=== PATIENT | female | born 1970 | race Caucasian/White ===

== ENCOUNTER → 2020-05-22 09:37 | Outpatient (BNVA) | payer MEDICARE, SELFPAY | PROVIDERS: PCP Internal Medicine; Visit Provider Urology | DX: N28.1 Cyst of kidney, acquired (principal) | CPT/HCPCS: Q3014 ==

== ENCOUNTER 2020-07-09 10:42 | Outpatient (REF) | payer MEDICARE, SELFPAY ==
[2020-07-09 12:22] LABS: Alanine Aminotransferase 8 U/L (0-31); Anion Gap 9 (12-20); Aspartate Amino Transferase 12 U/L (5-31); Blood Urea Nitrogen 11 mg/dL (9-16); Calcium 9.4 mg/dL (8.4-10.2); Carbon Dioxide 30 mmol/L (22-29); Chloride 108 mmol/L (96-108); Cholesterol 241 mg/dL; Estimated Glomerular Filt Rate > 60; Glucose Fasting 91 mg/dL (60-99); HDL Cholesterol 47 mg/dL; LDL Cholesterol Calculated 172 mg/dl; Potassium 4.3 mmol/L (3.3-5.1); Sodium 143 mmol/L (135-145); Triglycerides 113 mg/dL
[2020-07-09 12:32] LABS: Thyroid Stimulating Hormone 0.48 uIU/mL (0.32-4.0); Vitamin D 25-OH Total 21.8 ng/mL (>30)
== END 2020-07-09 10:43 | disposition home or self-care (01) ==
LOC: HO.HMGCLDS 10:42
PROVIDERS: PCP Internal Medicine; Visit Provider Internal Medicine
DX: Z00.01 Encounter for general adult medical examination with abnormal findings (principal); F41.8 Other specified anxiety disorders; R55 Syncope and collapse; E66.9 Obesity, unspecified; I10 Essential (primary) hypertension; E78.2 Mixed hyperlipidemia
CPT/HCPCS: 36415; 80048; 80061; 82306; 84443; 84450; 84460

== ENCOUNTER 2020-12-18 11:37 | Emergency (ER) | payer MEDICARE, SELFPAY ==
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
[2020-12-18 12:54] VITALS: BP 109/42; PULSE 64; RESP 18; TEMP 37.1; O2SAT 100; BMI 38.7
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
[2020-12-18 14:25] VITALS: BP 104/61; PULSE 67; RESP 16; TEMP 37.1; O2SAT 97
[2020-12-18] MEDS: oxyCODONE HCl Immed Release 5 MG TABLET PO (15:52)
== END 2020-12-18 15:55 | disposition home or self-care (01) ==
PROVIDERS: Emergency Provider Emergency Medicine; PCP Internal Medicine
DX: M25.521 Pain in right elbow (principal); M25.531 Pain in right wrist
CPT/HCPCS: 73080; 73090; 73110; 73130; 99284

== ENCOUNTER → 2020-12-19 10:01 | Outpatient (BNVA) | payer MEDICARE, SELFPAY | PROVIDERS: PCP Internal Medicine; Visit Provider Obstetrics & Gynecology ==

== ENCOUNTER 2021-01-24 07:24 | Outpatient (REF) | payer OTHER, SELFPAY ==
[2021-01-24 11:59] LABS: Alanine Aminotransferase 16 U/L (0-31); Aspartate Amino Transferase 16 U/L (5-31); Cholesterol 226 mg/dL; HDL Cholesterol 40 mg/dL; LDL Cholesterol Calculated 141 mg/dl; Triglycerides 226 mg/dL
[2021-01-24 12:07] LABS: Vitamin D 25-OH Total 28.9 ng/mL (>30)
== END 2021-01-24 07:25 | disposition home or self-care (01) ==
LOC: HO.HMGCLDS 07:24
PROVIDERS: PCP Internal Medicine; Visit Provider Internal Medicine
DX: E78.2 Mixed hyperlipidemia (principal); E66.09 Other obesity due to excess calories; E55.9 Vitamin D deficiency, unspecified; Z68.35 Body mass index [BMI] 35.0-35.9, adult
CPT/HCPCS: 36415; 80061; 82306; 84450; 84460

== ENCOUNTER 2021-01-25 19:22 | Emergency (ER) | payer OTHER, SELFPAY ==
[2021-01-25 19:54] VITALS: BP 105/51; PULSE 71; RESP 18; TEMP 37.1; O2SAT 99; BMI 35.7
[2021-01-25 20:28] LABS: IDNOW Serial# 08D9AD1C; Strep A Nucleic Acid Negative (Negative)
[2021-01-25] MEDS: Acetaminophen 325 MG TABLET 650 MG PO (21:58)
[2021-01-25 22:10] LABS: Influenza A PCR NEGATIVE (Negative); Influenza B PCR NEGATIVE (Negative); Resp Syncy Virus RNA Qual PCR NEGATIVE (Negative); SARS COV2 PCR INHOUSE NEGATIVE (Negative)
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
[2021-01-26 00:05] VITALS: BP 108/58; PULSE 72; RESP 20; O2SAT 99
== END 2021-01-26 00:20 | disposition home or self-care (01) ==
PROVIDERS: Emergency Provider Student in an Organized Health Care Education/Training Program; PCP Internal Medicine
DX: J02.9 Acute pharyngitis, unspecified (principal); H66.92 Otitis media, unspecified, left ear; Z20.822 Contact with and (suspected) exposure to COVID-19
CPT/HCPCS: 0241U; 36415; 87651; 99283

== ENCOUNTER 2021-03-06 08:28 | Outpatient (REF) | payer OTHER, SELFPAY ==
--- NOTE | ~2021-03-06 | MM_ITS ---
EXAMINATION: MM SCREENING DIGITAL BREAST TOMOSYNTHESIS, BILATERAL CLINICAL INFORMATION: Screening. Asymptomatic. Prior history reduction mammoplasty. The lifetime risk of breast cancer based on the Tyrer-Cuzick Model is 7%. COMPARISON: Mammography: 01/10/2020, 08/10/2018, outside mammography 03/10/2017 ([facility]) TECHNIQUE: Digital breast tomosynthesis is performed in both the craniocaudal and mediolateral oblique views along with computer-aided detection (CAD). Synthesized 2D images are generated from the tomosynthesis. FINDINGS: There are scattered areas of fibroglandular density (ACR BI-RADS breast composition Category b). Parenchymal pattern is similar to prior studies. There is an intramammary node again seen central left breast similar to prior studies. Neither breast shows interval mass or developing density or architectural abnormality. There is stable minor scarring and scattered benign round and rim and dermal calcifications consistent with the reduction mammoplasty. No significant changes. MM/MM tomosynthesis screening BI IMPRESSION: No mammographic evidence of malignancy. ASSESSMENT: BI-RADS 2: Benign RECOMMENDATION: Routine annual mammography screening. This patient's information was entered into a reminder system with a target due date for their next mammogram.
== END 2021-03-06 08:29 | disposition home or self-care (01) ==
LOC: HO.MAMMO 08:28
PROVIDERS: Visit Provider Obstetrics & Gynecology
DX: Z12.31 Encounter for screening mammogram for malignant neoplasm of breast (principal)
CPT/HCPCS: 77063; 77067

== ENCOUNTER 2021-05-13 11:18 | Outpatient (REF) | payer OTHER, SELFPAY ==
[2021-05-13 12:33] LABS: Hematocrit 40.5 % (37.0-47.0); Hemoglobin 13.4 g/dl (12.0-16.0); Mean Corpuscular HGB Conc 33.1 g/dl (31.0-35.0); Mean Corpuscular Hemoglobin 30.1 pg (27.0-33.0); Mean Platelet Volume 10.5 fL (9.4-12.3); Platelet Count 235 X10*3/uL (160-400); Red Blood Count 4.45 X10*6/uL (4.20-5.50); Red Cell Distribution Width 12.6 % (11.0-16.0); White Blood Count 8.2 X10*3/uL (4.8-10.8)
[2021-05-13 12:59] LABS: Alanine Aminotransferase 18 U/L (0-31); Albumin Level 4.2 g/dL (3.5-5.0); Alkaline Phosphatase 107 U/L (39-117); Anion Gap 13 (12-20); Aspartate Amino Transferase 16 U/L (5-31); Bilirubin Total 0.2 mg/dL (0.0-1.0); Blood Urea Nitrogen 14 mg/dL (9-16); Carbon Dioxide 25 mmol/L (22-29); Chloride 108 mmol/L (96-108); Estimated Glomerular Filt Rate > 60; Glucose Random 106 mg/dL (60-115); Potassium 3.9 mmol/L (3.3-5.1); Sodium 142 mmol/L (135-145); Total Protein 6.6 g/dL (6.5-8.0)
== END 2021-05-13 11:19 | disposition home or self-care (01) ==
LOC: HO.LAB 11:18
PROVIDERS: PCP Internal Medicine; Referring Provider Internal Medicine; Visit Provider Nurse Practitioner Family
DX: Z01.818 Encounter for other preprocedural examination (principal); K21.9 Gastro-esophageal reflux disease without esophagitis; K59.04 Chronic idiopathic constipation
CPT/HCPCS: 36415; 80053; 85027; 99202

== ENCOUNTER 2021-05-21 09:24 | Outpatient (REF) | payer OTHER, SELFPAY ==
--- NOTE | ~2021-05-21 | US_ITS ---
EXAMINATION: US RETROPERITONEAL LIMITED (RENAL ONLY) CLINICAL INFORMATION: Cyst of kidney, acquired. COMPARISON: None TECHNIQUE: Real-time imaging of the kidneys. FINDINGS: RIGHT KIDNEY: 11.5 x 7.1 x 6.3 cm (SAG x AP x TRV). The kidney is normal in size, contour, and echogenicity. Renal cortical thickness is normal. No calculi or focal parenchymal lesions. No hydronephrosis. LEFT KIDNEY: 11.8 x 5.2 x 6.8 cm (SAG x AP x TRV). The kidney is normal in size, contour, and echogenicity. Renal cortical thickness is normal. No calculi or focal parenchymal lesions. No hydronephrosis. US/US renal BI IMPRESSION: Normal renal ultrasound. No cyst seen.
== END 2021-05-21 09:25 | disposition home or self-care (01) ==
LOC: HO.US 09:24
PROVIDERS: PCP Internal Medicine; Visit Provider Urology
DX: N28.1 Cyst of kidney, acquired (principal)
CPT/HCPCS: 76775

== ENCOUNTER 2021-07-02 09:18 | Outpatient (REF) | payer OTHER, SELFPAY ==
[2021-07-02 12:06] LABS: Alanine Aminotransferase 12 U/L (0-31); Aspartate Amino Transferase 14 U/L (5-31); Cholesterol 255 mg/dL; HDL Cholesterol 42 mg/dL; LDL Cholesterol Calculated 168 mg/dl; Triglycerides 227 mg/dL
[2021-07-02 12:10] LABS: Vitamin D 25-OH Total 21.6 ng/mL (>30)
== END 2021-07-02 09:19 | disposition home or self-care (01) ==
LOC: HO.HMGCLDS 09:18
PROVIDERS: Visit Provider Internal Medicine
DX: E55.9 Vitamin D deficiency, unspecified (principal); E78.2 Mixed hyperlipidemia
CPT/HCPCS: 36415; 80061; 82306; 84450; 84460

== ENCOUNTER 2021-08-05 09:18 | Day surgery (SDC) | payer OTHER, SELFPAY ==
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
[2021-08-05 10:15] VITALS: BP 114/82; PULSE 59; RESP 16; TEMP 36.5; O2SAT 98; BMI 35.5
--- NOTE | 2021-08-05 10:28 | MHC.SHP ---
Pre-Procedural Eval Section A Date of Service: 08/05/21 The patient is an INPATIENT: No The History & Physical has been completed within 30 days and I have reviewed it.: No Section B Chief Complaint: screening Details of Present Illness: Colon cancer screening, FH of colon polyps Relevant Family History (Specify if Yes): Yes Relevant Social History: Tobacco Use Present Medications: see Short Stay Collaborative assessment Medical History: Significant History (Depression with anxiety Dysplasia of cervix, low grade (GIL 1) Hiatal hernia HPV test positive Lumbago with sciatica, right side Mixed dyslipidemia Obesity Renal cyst, left Right radial head fracture Syncope Vitamin D deficiency) History of Previous Operations: Relevant previous surgery/procedure and date(s) (H/O arthroscopy of right knee History of appendectomy History of section History of tubal ligation Status post breast reduction) Allergies: Allergies Allergy/AdvReac Type Severity Reaction Status Date / Time No Known Allergies Allergy Verified 07/10/21 09:56 Review of Systems Sugical H&P ROS: Negative: Constitution, Cardiovascular, Respiratory and Gastrointestinal Exam Surgical H&P Exam: Normal: Heart, Normal: Lungs, Normal: Extremities and Normal: Abdomen Plan Diagnosis/Plan: Unchanged I have reviewed the history and physical and performed a pertinent physical examination on my patient. No changes have occurred unless specified.
--- NOTE | 2021-08-05 10:30 | W.PM.OPN ---
Operative Note Operative Note Date of Service: 08/05/21 Narrative: Pre-op diagnosis: Colon cancer screening, family history of colon polyps Post-op diagnosis:?other (Colon polyps, diverticulosis) Procedure: COLONOSCOPY TILL CECUM WITH BIOPSIES Consent: Indications for the procedure and potential complications of bleeding, perforation, reaction to medications and missed diagnosis were discussed with the patient and informed consent was obtained. Instrument: Olympus PCF H 190 L variable stiffness pediatric colonoscope Monitoring: Vital signs and clinical assessment, intermittent blood pressure monitoring, continuous EKG monitoring, Pulse oximetry and Carbon Dioxide monitoring were done throughout the procedure. Colon withdrawl time was 20 minutes. Procedure: The patient was placed in the left lateral decubitis position and pre-procedure medications were administered. After a digital rectal examination of the ano-rectum, the video colonoscope was inserted into the rectum and advanced through the colon to the cecum. The colonoscope was slowly withdrawn in a retrograde panoramic fashion and the colon mucosa was carefully examined including a retroflexed view of the rectum. Findings and interventions are described below. Procedure Difficulty: Without difficulty Findings: Terminal Ileum: Not evaluated Cecum:? Normal Ascending Colon:? Normal Transverse Colon:? A 7-8 mm sessile polyp removed with a cold bx. Descending Colon:? Normal Sigmoid Colon:? Moderate diverticulosis Rectum:? A few 2-3 mm diminutive appearing polyps - 1 removed with cold biopsy Ano-rectum:? Normal Colon preparation:? Good after copious irrigation Impression and Post Procedure Diagnosis: Colonoscopy Findings: Two small polyps removed Moderate diverticulosis seen in the sigmoid colon Plan: Await pathology results Patient has an appointment on 08/19/21 in the GI Clinic with ? Cecilia Loera, [employer] HAND FINISHER-NATE. Repeat Colonoscopy interval based on path results - in 5 years if polyps are adenomatous and due to family history of colon polyps. Above findings were reviewed with the patient and colon polyps and diverticulosis handouts were given in the discharge area Surgeon: Terrie Ivey MD Anesthesia:?MAC (Dr Guerra) Was an Dinkey Motor Operator used for this Procedure?:?Yes Dinkey Motor Operator:?Sarah Balbuena Estimated blood loss (mL):?0 Pathology:?other (A. transverse colon polyp? B. rectal polyp) Condition:?stable Disposition:?PACU
[2021-08-05 11:18] VITALS: BP 99/58; PULSE 71; RESP 16; TEMP 36.9; O2SAT 99
[2021-08-05 11:33] VITALS: BP 98/50; PULSE 71; RESP 18; TEMP 36.7; O2SAT 100
== END 2021-08-05 12:25 | disposition home or self-care (01) ==
PROVIDERS: PCP Internal Medicine; Visit Provider Internal Medicine Gastroenterology
PROC: 0DJD8ZZ Inspection of Lower Intestinal Tract, Via Natural or Artificial Opening Endoscopic (ICD-10-PCS; CPT 45378; principal; 2021-08-05 10:50)
DX: Z12.11 Encounter for screening for malignant neoplasm of colon (principal); Z83.71 Family history of colonic polyps; D12.3 Benign neoplasm of transverse colon; K62.1 Rectal polyp; K57.30 Diverticulosis of large intestine without perforation or abscess without bleeding; K59.04 Chronic idiopathic constipation; K21.9 Gastro-esophageal reflux disease without esophagitis; R55 Syncope and collapse; K44.9 Diaphragmatic hernia without obstruction or gangrene; E78.5 Hyperlipidemia, unspecified; E55.9 Vitamin D deficiency, unspecified; N87.0 Mild cervical dysplasia; N28.1 Cyst of kidney, acquired; E66.9 Obesity, unspecified; Z68.34 Body mass index [BMI] 34.0-34.9, adult; F32.9 Major depressive disorder, single episode, unspecified; Z79.899 Other long term (current) drug therapy; F17.210 Nicotine dependence, cigarettes, uncomplicated
CPT/HCPCS: 45380; 88305

== ENCOUNTER → 2021-08-13 11:50 | Outpatient (BNVA) | payer OTHER, SELFPAY | PROVIDERS: PCP Internal Medicine | DX: N28.1 Cyst of kidney, acquired (principal) | CPT/HCPCS: Q3014 ==

== ENCOUNTER → 2021-08-19 13:08 | Outpatient (BNVA) | payer OTHER, SELFPAY | PROVIDERS: PCP Internal Medicine; Referring Provider Internal Medicine; Visit Provider Nurse Practitioner Family | DX: K59.04 Chronic idiopathic constipation (principal); K57.90 Diverticulosis of intestine, part unspecified, without perforation or abscess without bleeding; Z98.890 Other specified postprocedural states | CPT/HCPCS: 99212 ==

== ENCOUNTER → 2021-09-30 10:23 | Outpatient (BNVA) | payer OTHER, SELFPAY | PROVIDERS: PCP Internal Medicine; Referring Provider Internal Medicine; Visit Provider Physician Assistant Surgical | DX: Z13.89 Encounter for screening for other disorder (principal) ==

== ENCOUNTER → 2021-10-09 13:49 | Outpatient (BNVA) | payer OTHER, SELFPAY | PROVIDERS: PCP Internal Medicine; Referring Provider Internal Medicine; Visit Provider Physician Assistant Surgical | DX: E66.9 Obesity, unspecified (principal); Z68.35 Body mass index [BMI] 35.0-35.9, adult | CPT/HCPCS: 99202 ==

== ENCOUNTER 2021-10-16 07:18 | Outpatient (REF) | payer OTHER, SELFPAY ==
--- NOTE | ~2021-10-16 | XR_ITS ---
EXAMINATION: XR CHEST CLINICAL INFORMATION: Obesity. COMPARISON: None TECHNIQUE: 2 views of the chest were obtained. FINDINGS: Normal appearance of the cardiomediastinal silhouette. Minimal interstitial thickening. No focal airspace opacities, pleural effusions or pneumothorax. No acute osseous abnormalities. XR/XR chest 2V IMPRESSION: Minimal interstitial thickening which is nonspecific. No focal airspace opacities. No pleural effusions or pneumothorax.
[2021-10-16 07:38] LABS: MANUAL DIFF FLAG NO
--- NOTE | 2021-10-16 07:38 | ECG_ITS ---
Test Reason : e66.01 Blood Pressure : / mmHG Vent. Rate : 055 BPM Atrial Rate : 055 BPM P-R Int : 126 ms QRS Dur : 088 ms QT Int : 424 ms P-R-T Axes : 066 025 029 degrees QTc Int : 405 ms Sinus bradycardia Otherwise normal ECG No previous ECGs available Referred By: Darío Hensley Electronically Signed By:ISAC FRANCIS
[2021-10-16 07:58] LABS: Basophils Percent Auto 0.3 % (0-2); Eosinophils Absolute Auto 0.1 X10*3/uL (0.0-0.4); Eosinophils Percent Auto 1.2 % (0-4); Hematocrit 38.2 % (37.0-47.0); Hemoglobin 12.8 g/dl (12.0-16.0); Imm Gran Abs Auto 0.02 X10*3/uL (0.00-0.03); Imm Gran Pct Auto 0.3 % (0.0-0.4); Lymphocytes Absolute Auto 2.3 X10*3/uL (1.2-4.9); Lymphocytes Percent Auto 35.2 % (20-40); Mean Corpuscular HGB Conc 33.5 g/dl (31.0-35.0); Mean Corpuscular Hemoglobin 29.9 pg (27.0-33.0); Mean Corpuscular Volume 89.3 fL (80.0-98.0); Mean Platelet Volume 10.3 fL (9.4-12.3); Monocytes Absolute Auto 0.4 X10*3/uL (0.1-1.2); Monocytes Percent Auto 6.1 % (2-11); Neutrophils Absolute Auto 3.8 x10*3/uL (2.0-8.3); Neutrophils Percent Auto 56.9 % (45-73); Platelet Count 237 X10*3/uL (160-400); Red Blood Count 4.28 X10*6/uL (4.20-5.50); Red Cell Distribution Width 12.2 % (11.0-16.0); White Blood Count 6.6 X10*3/uL (4.8-10.8)
[2021-10-16 08:12] LABS: Estimated Average Glucose 100 mg/dL; Hemoglobin A1c % 5.1 %
[2021-10-16 08:24] LABS: Alanine Aminotransferase 24 U/L (0-31); Albumin Level 4.2 g/dL (3.5-5.0); Alkaline Phosphatase 96 U/L (39-117); Anion Gap 14 (12-20); Aspartate Amino Transferase 20 U/L (5-31); Bilirubin Total 0.7 mg/dL (0.0-1.0); Blood Urea Nitrogen 15 mg/dL (9-16); C Reactive Protein 1.39 mg/dL (< or = 0.50); Calcium 10.1 mg/dL (8.4-10.2); Carbon Dioxide 27 mmol/L (22-29); Chloride 107 mmol/L (96-108); Cholesterol 248 mg/dL; Estimated Glomerular Filt Rate > 60; Glucose Random 98 mg/dL (60-115); HDL Cholesterol 39 mg/dL; Iron 81 mcg/dL (30-160); LDL Cholesterol Calculated 178 mg/dl; Percent Iron Saturation 24 % (15-50); Potassium 4.1 mmol/L (3.3-5.1); Sodium 144 mmol/L (135-145); Total Iron Binding Capacity 333 mcg/dL (228-428); Total Protein 6.5 g/dL (6.5-8.0); Triglycerides 158 mg/dL; Unsaturated Iron Binding 252 ug/dL
[2021-10-16 08:30] LABS: Alanine Aminotransferase 24 U/L (0-31); Aspartate Amino Transferase 19 U/L (5-31)
[2021-10-16 08:40] LABS: Vitamin D 25-OH Total 55.4 ng/mL (>30)
[2021-10-16 08:56] LABS: Ferritin 131 ng/mL (10-250); TSH reflex Free T4 0.75 uIU/mL (0.32-4.0); Vitamin D 25-OH Total 56.2 ng/mL (>30)
[2021-10-16 09:26] LABS: Insulin 10 uU/mL (2-29)
[2021-10-16 13:37] LABS: Folate 16.2 ng/mL (> or = 4.0); Vitamin B12 343 pg/mL (200-900)
[2021-10-17 12:57] LABS: H Pylori Breath Test Negative (Negative)
[2021-10-17 13:14] LABS: Calcium (PTHI) 9.7 mg/dL (8.6-10.4); PTHI 80 pg/mL (16-77)
[2021-10-19 15:42] LABS: Zinc 82 mcg/dL (60-130)
[2021-10-22 15:51] LABS: Vitamin B1 6 nmol/L (8-30)
[2021-10-22 16:22] LABS: Vitamin A 46 mcg/dL (38-98)
== END 2021-10-16 07:19 | disposition home or self-care (01) ==
LOC: HO.LAB 07:18
PROVIDERS: Absent Provider Internal Medicine; PCP Internal Medicine; Visit Provider Physician Assistant Surgical
DX: E66.01 Morbid (severe) obesity due to excess calories (principal); E78.2 Mixed hyperlipidemia; E55.9 Vitamin D deficiency, unspecified; R00.1 Bradycardia, unspecified; Z11.0 Encounter for screening for intestinal infectious diseases
CPT/HCPCS: 36415; 71046; 80053; 80061; 82306; 82607; 82728; 82746; 83013; 83036; 83525; 83540; 83970; 84425; 84443; 84450; 84460; 84590; 84630; 85025; 86140; 93005; 99211

== ENCOUNTER → 2021-10-30 08:43 | Outpatient (BNVA) | payer OTHER, SELFPAY | PROVIDERS: PCP Internal Medicine; Referring Provider Internal Medicine; Visit Provider Physician Assistant Surgical | DX: E66.9 Obesity, unspecified (principal); Z68.34 Body mass index [BMI] 34.0-34.9, adult | CPT/HCPCS: 99212 ==

== ENCOUNTER → 2021-11-05 13:02 | Outpatient (BNVA) | payer OTHER, SELFPAY | PROVIDERS: PCP Internal Medicine; Referring Provider Internal Medicine; Visit Provider Dietitian, Registered | DX: E66.9 Obesity, unspecified (principal); Z71.3 Dietary counseling and surveillance | CPT/HCPCS: 97802 ==

== ENCOUNTER → 2021-11-18 08:08 | Outpatient (BNVA) | payer OTHER, SELFPAY | PROVIDERS: PCP Internal Medicine; Visit Provider Surgery | DX: E53.8 Deficiency of other specified B group vitamins (principal); E66.9 Obesity, unspecified; Z68.33 Body mass index [BMI] 33.0-33.9, adult; E78.2 Mixed hyperlipidemia; F41.8 Other specified anxiety disorders; M19.90 Unspecified osteoarthritis, unspecified site | CPT/HCPCS: Q3014 ==

== ENCOUNTER 2021-11-27 07:52 | Outpatient (REF) | payer OTHER, SELFPAY ==
--- NOTE | ~2021-11-27 | US_ITS ---
EXAMINATION: US COMPLETE ABDOMEN WITH LIVER ELASTOGRAPHY CLINICAL INFORMATION: Obesity. COMPARISON: None. TECHNIQUE: Real-time imaging of the abdominal viscera. Noninvasive ultrasound liver fibrosis assessment is performed using Hermel[employer] ElastPQ point quantification shear wave elastography (2D-SWE) with a C5-2 MHz transducer. Multiple elastography samples are obtained. FINDINGS: PANCREAS: Normal. The visualized pancreatic head and body are normal in appearance. The remainder of the pancreas is obscured from visualization by the overlying bowel gas. ABDOMINAL AORTA: The proximal, middle, and distal aortic segments are normal in caliber. INFERIOR VENA CAVA: Visualized portions are normal. LIVER: Normal. The liver demonstrates normal size, contour and echogenicity. No focal lesion or intrahepatic biliary duct dilatation. The right lobe measures 17.2 cm in length. The left lobe measures 9.5 cm in length. Portal flow is 9.5 hepatopedal. Shear wave liver elastography median stiffness is 1.61 m/s (reference: Normal median stiffness is 1.3 m/s or less). IQR/median stiffness to assess sampling precision is 0.25 (reference: good quality data set is IQR/median stiffness of 0.15 or less). GALLBLADDER: Gallbladder wall thickness is 0.2 cm. The gallbladder is physiologically distended without evidence of stones, sludge, polyps, wall thickening or pericholecystic fluid. COMMON BILE DUCT: Normal in caliber measuring 0.3 cm in diameter. RIGHT KIDNEY: Normal. No hydronephrosis. No renal calculi or focal parenchymal lesions. The kidney measures 12.4 cm in maximum dimension. LEFT KIDNEY: Normal. No hydronephrosis. No renal calculi or focal parenchymal lesions. The kidney measures 10.9 cm in maximum dimension. SPLEEN: Normal. The spleen measures 11.0 cm in maximum dimension. FREE FLUID: None. US/US abdomen comp w elastography IMPRESSION: 1. Unremarkable complete abdominal ultrasound. 2. Liver elastography: Median liver stiffness 1.61 m/s corresponds to cACLD (ruled out). REFERENCE: Society of Radiologists in Ultrasound Liver Stiffness Thresholds (2019): LIVER STIFFNESS THRESHOLDS: *Liver Stiffness equal or less than 1.3 m/s: High probability of being normal. *Liver Stiffness less than 1.7 m/s: In the absence of other known clinical signs, rules out compensated advanced chronic liver disease. *Liver Stiffness 1.7-2.1 m/s: Suggestive of compensated advanced chronic liver disease but need further test for confirmation. *Liver Stiffness over 2.1 m/s: Rules in compensated advanced chronic liver disease. *Liver Stiffness over 2.4 m/s: Suggestive of clinically significant portal hypertension. QUALITY OF DATA SET: *IQR/Median value equal or less than 0.15 implies a quality data set. *IQR/Median value over 0.15 implies a poor quality data set. SIGNIFICANT CHANGE FROM PRIOR EXAM: Significant change if liver stiffness measurement is 10% or greater from prior exam. OTHER CONSIDERATIONS: The stage of liver fibrosis may be overestimated in the setting of acute hepatitis, liver inflammation, elevated liver function tests, hepatic vascular congestion, obstructive cholestasis, non-fasting state, and infiltrative diseases such as amyloidosis and lymphoma. In some patients with NAFLD, the liver stiffness thresholds for compensated advanced chronic liver disease may be lower. In causes other than viral hepatitis and NAFLD, liver stiffness thresholds are not well established.
--- NOTE | ~2021-11-27 | FL_ITS ---
EXAMINATION: XR FLUOROSCOPY UPPER GI WITH AIR CLINICAL INFORMATION: Obesity COMPARISON: None TECHNIQUE: Upper GI was performed using thin and thick barium and effervescent granules. FINDINGS: Esophageal motility is normal. No hernia or reflux is seen. The stomach and duodenum are normal. No fold thickening, ulcer, mass or stricture is seen. FLUOROSCOPY TIME: 0.4 minutes DOSE AREA PRODUCT: 4.3 calle per centimeter squared. 17 saved fluoroscopic images. FL/FL upper GI w air IMPRESSION: Unremarkable examination.
== END 2021-11-27 07:53 | disposition home or self-care (01) ==
LOC: HO.US 07:52
PROVIDERS: Visit Provider Physician Assistant Surgical
DX: Z01.818 Encounter for other preprocedural examination (principal); E66.9 Obesity, unspecified
CPT/HCPCS: 74246; 76705; 76981

== ENCOUNTER → 2021-11-28 15:18 | Outpatient (BNVA) | payer OTHER, SELFPAY | PROVIDERS: PCP Internal Medicine; Visit Provider Surgery | DX: E66.9 Obesity, unspecified (principal); Z68.33 Body mass index [BMI] 33.0-33.9, adult; E78.2 Mixed hyperlipidemia; E55.9 Vitamin D deficiency, unspecified | CPT/HCPCS: 99202 ==

== ENCOUNTER → 2021-12-17 08:44 | Outpatient (BNVA) | payer OTHER, SELFPAY | PROVIDERS: Visit Provider Dietitian, Registered | DX: E66.9 Obesity, unspecified (principal) | CPT/HCPCS: 97803 ==

== ENCOUNTER 2021-12-23 10:28 | Outpatient (REF) | payer OTHER, SELFPAY ==
[2021-12-26 04:26] LABS: HPV mRNA E6/E7 rflx Not Detected (Not Detected)
== END 2021-12-23 10:29 | disposition home or self-care (01) ==
LOC: HO.LAB 10:28
PROVIDERS: Obstetrics & Gynecology; PCP Internal Medicine; Visit Provider Surgery
DX: Z01.419 Encounter for gynecological examination (general) (routine) without abnormal findings (principal); Z11.51 Encounter for screening for human papillomavirus (HPV); E66.9 Obesity, unspecified; Z68.33 Body mass index [BMI] 33.0-33.9, adult; E53.8 Deficiency of other specified B group vitamins; E78.00 Pure hypercholesterolemia, unspecified; E55.9 Vitamin D deficiency, unspecified; E78.2 Mixed hyperlipidemia; F41.8 Other specified anxiety disorders
CPT/HCPCS: 87624; 88142; 99212

== ENCOUNTER 2022-01-02 08:26 | Inpatient (IN) | payer OTHER, SELFPAY ==
[2021-12-26 12:48] VITALS: BMI 30.8
--- NOTE | 2022-01-01 10:08 | HO.ANESPROP2 ---
Documented by User: Paola Damian NP 01/01/22 15:39 HPI - Anesthesia Eval Consult details Narrative: 51yo F for Gastrectomy Sleeve,EDG,poss diaphragmatic hernia,poss ventral hernia,poss open, PMFSH Active Problems Active Problems: All Active Problems (Updated 12/23/21 @ 13:48 by Ron Castillo MD) Skin tag (Acute) High blood cholesterol (Acute) Vitamin B12 deficiency (Acute) DJD (degenerative joint disease) (Acute) BMI 33.0-33.9,adult (Acute) Obesity (BMI 30-39.9) (Acute) Obesity (BMI 35.0-39.9 without comorbidity) (Acute) Heel pain, bilateral (Acute) Right radial head fracture (Acute) Well woman exam (Acute) Vitamin D deficiency (Acute) Mixed dyslipidemia (Acute) Depression with anxiety (Acute) Hiatal hernia (Acute) Renal cyst, left (Acute) Past Medical History Medical History Depression with anxiety Dysplasia of cervix, low grade (GIL 1) Heel pain, bilateral Hiatal hernia HPV test positive Lumbago with sciatica, right side Mitral valve prolapse Mixed dyslipidemia Obesity Obesity (BMI 35.0-39.9 without comorbidity) Renal cyst, left Right radial head fracture Syncope Vitamin D deficiency Family History Family History Father No problems noted. Mother No problems noted. Son Bipolar disorder Mental health disorder Daughter No problems noted. Family history of problems with anesthesia: No Surgical History Surgical History H/O arthroscopy of right knee History of appendectomy History of section History of tubal ligation Hx of colonoscopy Status post breast reduction History of Problems with Anesthesia: No Social History Social History Housing: Apartment Are you a primary customer care coordinator to a significant other at home: No Do you presently have visiting nurse or other home services: No Alcohol intake: current Alcohol intake frequency: holidays/special occasions only Patient Tobacco Use Status: Former Tobacco user Quit Date: 09/2021 Tobacco use type: Cigarette Cigarettes Per Day: 5 e-Cigarette/Vaping Use: Never Used service: No Current occupational status: disabled [employer] Allergies Allergy/AdvReac Type Severity Reaction Status Date / Time No Known Allergies Allergy Verified 01/02/22 08:43 Home Medications Medication Instructions Recorded Confirmed Last Taken Type lamotrigine 150 mg tablet 150 mg PO DAILY 03/16/20 12/26/21 Unknown History sertraline 100 mg tablet 200 mg PO DAILY 03/16/20 12/26/21 Unknown History bupropion HCl 300 mg 24 hr tablet, 300 mg PO DAILY 07/09/20 12/26/21 Unknown History extended release mirtazapine 15 mg tablet 15 mg PO BEDTIME 07/09/20 12/26/21 Unknown History buspirone 15 mg tablet 15 mg PO TID 08/13/21 12/26/21 Unknown History lamotrigine 150 mg tablet 300 mg PO BEDTIME 01/02/22 01/02/22 Unknown History Exam Exam Date and Time: January 01, 2022 1008 Height,Weight and Vital Signs: Height 5 ft 6 in Weight 86.636 kg Pertinent Lab Results Pertinent Lab Results: Lab Results 01/01/22 01/01/22 01/01/22 Range/Units 12:05 12:11 12:11 WBC 5.4 (4.8-10.8) X10*3/uL RBC 4.53 (4.20-5.50) X10*6/uL Hgb 13.6 (12.0-16.0) g/dl Hct 40.5 (37.0-47.0) % MCV 89.4 (80.0-98.0) fL MCH 30.0 (27.0-33.0) pg MCHC 33.6 (31.0-35.0) g/dl RDW 12.2 (11.0-16.0) % Plt Count 232 (160-400) X10*3/uL MPV 11.3 (9.4-12.3) fL Immature Gran % (Auto) 0.4 (0.0-0.4) % Neut % (Auto) 56.8 (45-73) % Lymph % (Auto) 36.1 (20-40) % [place] % (Auto) 5.0 (2-11) % Eos % (Auto) 1.5 (0-4) % Baso % (Auto) 0.2 (0-2) % Lymph # (Auto) 1.9 (1.2-4.9) X10*3/uL [place] # (Auto) 0.3 (0.1-1.2) X10*3/uL Eos # (Auto) 0.1 (0.0-0.4) X10*3/uL Baso # (Auto) 0.0 (0.0-0.2) X10*3/uL Abs Immat Gran (auto) 0.02 (0.00-0.03) X10*3/uL Absolute Neuts (auto) 3.1 (2.0-8.3) x10*3/uL Absolute Nucleated RBC 0.000 (0.0-0.012) X10*3/uL Nucleated RBC % (auto) 0.0 (0.0-0.2) /100WBC PT 12.4 (10.0-13.1) SEC INR 1.1 (0.9-1.1) APTT 32.1 (26.0-36.4) SEC Sodium (135-145) mmol/L Potassium (3.3-5.1) mmol/L Chloride (96-108) mmol/L Carbon Dioxide (22-29) mmol/L Anion Gap (12-20) BUN (9-16) mg/dL Creatinine (0.5-1.4) mg/dL Estim Creat Clear Calc Estimated GFR Random Glucose (60-115) mg/dL Estimat Average Glucose mg/dL Hemoglobin A1c % % Calcium (8.4-10.2) mg/dL Total Bilirubin (0.0-1.0) mg/dL AST (5-31) U/L ALT (0-31) U/L Alkaline Phosphatase (39-117) U/L C-Reactive Protein (< or = 0.50) mg/dL Total Protein (6.5-8.0) g/dL Albumin (3.5-5.0) g/dL Triglycerides mg/dL Cholesterol mg/dL LDL Cholesterol, Calc mg/dl HDL Cholesterol mg/dL TSH (0.32-4.0) uIU/mL COVID-19 (SURY) (Negative) COVID-19 Clin Com Blood Type O Positive Antibody Screen NEGATIVE 08/03/22 08/03/22 08/03/22 Range/Units 12:11 12:11 12:20 WBC (4.8-10.8) X10*3/uL RBC (4.20-5.50) X10*6/uL Hgb (12.0-16.0) g/dl Hct (37.0-47.0) % MCV (80.0-98.0) fL MCH (27.0-33.0) pg MCHC (31.0-35.0) g/dl RDW (11.0-16.0) % Plt Count (160-400) X10*3/uL MPV (9.4-12.3) fL Immature Gran % (Auto) (0.0-0.4) % Neut % (Auto) (45-73) % Lymph % (Auto) (20-40) % [place] % (Auto) (2-11) % Eos % (Auto) (0-4) % Baso % (Auto) (0-2) % Lymph # (Auto) (1.2-4.9) X10*3/uL [place] # (Auto) (0.1-1.2) X10*3/uL Eos # (Auto) (0.0-0.4) X10*3/uL Baso # (Auto) (0.0-0.2) X10*3/uL Abs Immat Gran (auto) (0.00-0.03) X10*3/uL Absolute Neuts (auto) (2.0-8.3) x10*3/uL Absolute Nucleated RBC (0.0-0.012) X10*3/uL Nucleated RBC % (auto) (0.0-0.2) /100WBC PT (10.0-13.1) SEC INR (0.9-1.1) APTT (26.0-36.4) SEC Sodium 144 (135-145) mmol/L Potassium 4.8 (3.3-5.1) mmol/L Chloride 109 H (96-108) mmol/L Carbon Dioxide 26 (22-29) mmol/L Anion Gap 14 (12-20) BUN 8 L (9-16) mg/dL Creatinine 0.92 (0.5-1.4) mg/dL Estim Creat Clear Calc 80.2 Estimated GFR > 60 Random Glucose 93 (60-115) mg/dL Estimat Average Glucose 91 mg/dL Hemoglobin A1c % 4.8 % Calcium 9.5 (8.4-10.2) mg/dL Total Bilirubin 0.4 (0.0-1.0) mg/dL AST 14 (5-31) U/L ALT 11 (0-31) U/L Alkaline Phosphatase 82 (39-117) U/L C-Reactive Protein 1.08 H (< or = 0.50) mg/dL Total Protein 6.2 L (6.5-8.0) g/dL Albumin 4.2 (3.5-5.0) g/dL Triglycerides 116 mg/dL Cholesterol 168 D mg/dL LDL Cholesterol, Calc 111 mg/dl HDL Cholesterol 34 mg/dL TSH 0.53 (0.32-4.0) uIU/mL COVID-19 (SURY) Negative (Negative) COVID-19 Clin Com See Note Blood Type Antibody Screen Narrative Narrative: EKG 09/2021 Vent. Rate : 055 BPM ? ? Atrial Rate : 055 BPM ?? P-R Int : 126 ms? QRS Dur : 088 ms ? ? QT Int : 424 ms ? ? ? P-R-T Axes : 066 025 029 degrees ?? QTc Int : 405 ms ? Sinus bradycardia Otherwise normal ECG No previous ECGs available Assessment and Plan Assessment Anesthesia Assessment: Chart Reviewed Final Anesthetic Review Family History of Problems with Anesthesia: No History of Problems with Anesthesia: No Documented by User: Germania Johnston MD 01/02/22 11:26 [facility] Active Problems Active Problems: All Active Problems (Updated 12/23/21 @ 13:48 by Ron Castillo MD) Skin tag (Acute) High blood cholesterol (Acute) Vitamin B12 deficiency (Acute) DJD (degenerative joint disease) (Acute) BMI 33.0-33.9,adult (Acute) Obesity (BMI 30-39.9) (Acute) Obesity (BMI 35.0-39.9 without comorbidity) (Acute) Heel pain, bilateral (Acute) Right radial head fracture (Acute) Well woman exam (Acute) Vitamin D deficiency (Acute) Mixed dyslipidemia (Acute) Depression with anxiety (Acute) Hiatal hernia (Acute) Renal cyst, left (Acute) Denies ZULAY Syncopal episode 03/10/20. Seen by neurology. Seizure disorder ruled out. No episodes since C/o been to bathroom a few times today to try and urinate but nothing comes out. Attributing this to nerves. May also be dehydrated. BP on lowish side. Will treat with IVF Past Medical History Medical History Depression with anxiety Dysplasia of cervix, low grade (GIL 1) Heel pain, bilateral Hiatal hernia HPV test positive Lumbago with sciatica, right side Mitral valve prolapse Mixed dyslipidemia Obesity Obesity (BMI 35.0-39.9 without comorbidity) Renal cyst, left Right radial head fracture Syncope Vitamin D deficiency Family History Family History Father No problems noted. Mother No problems noted. Son Bipolar disorder Mental health disorder Daughter No problems noted. Surgical History Surgical History H/O arthroscopy of right knee History of appendectomy History of section History of tubal ligation Hx of colonoscopy Status post breast reduction Social History Social History Housing: Apartment Are you a primary customer care coordinator to a significant other at home: No Do you presently have visiting nurse or other home services: No Alcohol intake: current Alcohol intake frequency: holidays/special occasions only Patient Tobacco Use Status: Former Tobacco user Quit Date: 09/2021 Tobacco use type: Cigarette Cigarettes Per Day: 5 e-Cigarette/Vaping Use: Never Used service: No Current occupational status: disabled Meds Allergies Allergy/AdvReac Type Severity Reaction Status Date / Time No Known Allergies Allergy Verified 01/02/22 08:43 Home Medications Medication Instructions Recorded Confirmed Last Taken Type lamotrigine 150 mg tablet 150 mg PO DAILY 03/16/20 12/26/21 Unknown History sertraline 100 mg tablet 200 mg PO DAILY 03/16/20 12/26/21 Unknown History bupropion HCl 300 mg 24 hr tablet, 300 mg PO DAILY 07/09/20 12/26/21 Unknown History extended release mirtazapine 15 mg tablet 15 mg PO BEDTIME 07/09/20 12/26/21 Unknown History buspirone 15 mg tablet 15 mg PO TID 08/13/21 12/26/21 Unknown History lamotrigine 150 mg tablet 300 mg PO BEDTIME 01/02/22 01/02/22 Unknown History Exam Height,Weight and Vital Signs: Height 5 ft 6 in Weight 86.636 kg Vital Signs Temp Pulse Resp BP Pulse Ox O2 Del Method 01/02/22 08:42 97.3 F 65 18 102/58 L 99 Room Air Pertinent Lab Results Pertinent Lab Results: Lab Results 01/01/22 01/01/22 01/01/22 Range/Units 12:05 12:11 12:11 WBC 5.4 (4.8-10.8) X10*3/uL RBC 4.53 (4.20-5.50) X10*6/uL Hgb 13.6 (12.0-16.0) g/dl Hct 40.5 (37.0-47.0) % MCV 89.4 (80.0-98.0) fL MCH 30.0 (27.0-33.0) pg MCHC 33.6 (31.0-35.0) g/dl RDW 12.2 (11.0-16.0) % Plt Count 232 (160-400) X10*3/uL MPV 11.3 (9.4-12.3) fL Immature Gran % (Auto) 0.4 (0.0-0.4) % Neut % (Auto) 56.8 (45-73) % Lymph % (Auto) 36.1 (20-40) % [place] % (Auto) 5.0 (2-11) % Eos % (Auto) 1.5 (0-4) % Baso % (Auto) 0.2 (0-2) % Lymph # (Auto) 1.9 (1.2-4.9) X10*3/uL [place] # (Auto) 0.3 (0.1-1.2) X10*3/uL Eos # (Auto) 0.1 (0.0-0.4) X10*3/uL Baso # (Auto) 0.0 (0.0-0.2) X10*3/uL Abs Immat Gran (auto) 0.02 (0.00-0.03) X10*3/uL Absolute Neuts (auto) 3.1 (2.0-8.3) x10*3/uL Absolute Nucleated RBC 0.000 (0.0-0.012) X10*3/uL Nucleated RBC % (auto) 0.0 (0.0-0.2) /100WBC PT 12.4 (10.0-13.1) SEC INR 1.1 (0.9-1.1) APTT 32.1 (26.0-36.4) SEC Sodium (135-145) mmol/L Potassium (3.3-5.1) mmol/L Chloride (96-108) mmol/L Carbon Dioxide (22-29) mmol/L Anion Gap (12-20) BUN (9-16) mg/dL Creatinine (0.5-1.4) mg/dL Estim Creat Clear Calc Estimated GFR Random Glucose (60-115) mg/dL Estimat Average Glucose mg/dL Hemoglobin A1c % % Calcium (8.4-10.2) mg/dL Total Bilirubin (0.0-1.0) mg/dL AST (5-31) U/L ALT (0-31) U/L Alkaline Phosphatase (39-117) U/L C-Reactive Protein (< or = 0.50) mg/dL Total Protein (6.5-8.0) g/dL Albumin (3.5-5.0) g/dL Triglycerides mg/dL Cholesterol mg/dL LDL Cholesterol, Calc mg/dl HDL Cholesterol mg/dL TSH (0.32-4.0) uIU/mL COVID-19 (SURY) (Negative) COVID-19 Clin Com Blood Type O Positive Antibody Screen NEGATIVE 01/01/22 01/01/22 01/01/22 Range/Units 12:11 12:11 12:20 WBC (4.8-10.8) X10*3/uL RBC (4.20-5.50) X10*6/uL Hgb (12.0-16.0) g/dl Hct (37.0-47.0) % MCV (80.0-98.0) fL MCH (27.0-33.0) pg MCHC (31.0-35.0) g/dl RDW (11.0-16.0) % Plt Count (160-400) X10*3/uL MPV (9.4-12.3) fL Immature Gran % (Auto) (0.0-0.4) % Neut % (Auto) (45-73) % Lymph % (Auto) (20-40) % [place] % (Auto) (2-11) % Eos % (Auto) (0-4) % Baso % (Auto) (0-2) % Lymph # (Auto) (1.2-4.9) X10*3/uL [place] # (Auto) (0.1-1.2) X10*3/uL Eos # (Auto) (0.0-0.4) X10*3/uL Baso # (Auto) (0.0-0.2) X10*3/uL Abs Immat Gran (auto) (0.00-0.03) X10*3/uL Absolute Neuts (auto) (2.0-8.3) x10*3/uL Absolute Nucleated RBC (0.0-0.012) X10*3/uL Nucleated RBC % (auto) (0.0-0.2) /100WBC PT (10.0-13.1) SEC INR (0.9-1.1) APTT (26.0-36.4) SEC Sodium 144 (135-145) mmol/L Potassium 4.8 (3.3-5.1) mmol/L Chloride 109 H (96-108) mmol/L Carbon Dioxide 26 (22-29) mmol/L Anion Gap 14 (12-20) BUN 8 L (9-16) mg/dL Creatinine 0.92 (0.5-1.4) mg/dL Estim Creat Clear Calc 80.2 Estimated GFR > 60 Random Glucose 93 (60-115) mg/dL Estimat Average Glucose 91 mg/dL Hemoglobin A1c % 4.8 % Calcium 9.5 (8.4-10.2) mg/dL Total Bilirubin 0.4 (0.0-1.0) mg/dL AST 14 (5-31) U/L ALT 11 (0-31) U/L Alkaline Phosphatase 82 (39-117) U/L C-Reactive Protein 1.08 H (< or = 0.50) mg/dL Total Protein 6.2 L (6.5-8.0) g/dL Albumin 4.2 (3.5-5.0) g/dL Triglycerides 116 mg/dL Cholesterol 168 D mg/dL LDL Cholesterol, Calc 111 mg/dl HDL Cholesterol 34 mg/dL TSH 0.53 (0.32-4.0) uIU/mL COVID-19 (SURY) Negative (Negative) COVID-19 Clin Com See Note Blood Type Antibody Screen Laboratory Results - last 24 hr 01/01/22 01/01/22 01/01/22 12:05 12:11 12:11 MCV 89.4 MCH 30.0 MCHC 33.6 RDW 12.2 Plt Count 232 MPV 11.3 Immature Gran % (Auto) 0.4 Neut % (Auto) 56.8 Lymph % (Auto) 36.1 [place] % (Auto) 5.0 Eos % (Auto) 1.5 Baso % (Auto) 0.2 Lymph # (Auto) 1.9 [place] # (Auto) 0.3 Eos # (Auto) 0.1 Baso # (Auto) 0.0 Abs Immat Gran (auto) 0.02 Absolute Neuts (auto) 3.1 Absolute Nucleated RBC 0.000 Nucleated RBC % (auto) 0.0 PT 12.4 INR 1.1 APTT 32.1 Anion Gap Estim Creat Clear Calc Estimated GFR Random Glucose Estimat Average Glucose Hemoglobin A1c % Calcium Total Bilirubin AST ALT Alkaline Phosphatase C-Reactive Protein Total Protein Albumin Triglycerides Cholesterol LDL Cholesterol, Calc HDL Cholesterol TSH COVID-19 (SURY) COVID-19 Clin Com Blood Type O Positive Antibody Screen NEGATIVE 01/01/22 01/01/22 01/01/22 12:11 12:11 12:20 MCV MCH MCHC RDW Plt Count MPV Immature Gran % (Auto) Neut % (Auto) Lymph % (Auto) [place] % (Auto) Eos % (Auto) Baso % (Auto) Lymph # (Auto) [place] # (Auto) Eos # (Auto) Baso # (Auto) Abs Immat Gran (auto) Absolute Neuts (auto) Absolute Nucleated RBC Nucleated RBC % (auto) PT INR APTT Anion Gap 14 Estim Creat Clear Calc 80.2 Estimated GFR > 60 Random Glucose 93 Estimat Average Glucose 91 Hemoglobin A1c % 4.8 Calcium 9.5 Total Bilirubin 0.4 AST 14 ALT 11 Alkaline Phosphatase 82 C-Reactive Protein 1.08 H Total Protein 6.2 L Albumin 4.2 Triglycerides 116 Cholesterol 168 D LDL Cholesterol, Calc 111 HDL Cholesterol 34 TSH 0.53 COVID-19 (SURY) Negative COVID-19 Clin Com See Note Blood Type Antibody Screen 01/02/22 08:30 MCV MCH MCHC RDW Plt Count MPV Immature Gran % (Auto) Neut % (Auto) Lymph % (Auto) [place] % (Auto) Eos % (Auto) Baso % (Auto) Lymph # (Auto) [place] # (Auto) Eos # (Auto) Baso # (Auto) Abs Immat Gran (auto) Absolute Neuts (auto) Absolute Nucleated RBC Nucleated RBC % (auto) PT INR APTT Anion Gap Estim Creat Clear Calc Estimated GFR Random Glucose Estimat Average Glucose Hemoglobin A1c % Calcium Total Bilirubin AST ALT Alkaline Phosphatase C-Reactive Protein Total Protein Albumin Triglycerides Cholesterol LDL Cholesterol, Calc HDL Cholesterol TSH COVID-19 (SURY) Negative COVID-19 Clin Com See Note Blood Type Antibody Screen Airway Mallampati Class: III TM Dist: >3cm Neck ROM: Full Loose/Missing/Broken Teeth: No (Denies loose or broken teeth) Heart: RRR Lungs: CTAB Assessment and Plan Assessment Anesthesia Assessment: Anesthesia Plan Discussed Final Anesthetic Review NPO: Yes ASA Class: II Final Preanesthetic Review: No Changes in Pt Med Stat, Meds/Allgs Chart Reviewed, Consent Obtained/Reviewed and Anes Risks/Benef Reviewed Patient Risk: Intermediate Procedure Risk: Intermediate Assessment/Block/Sedation in SS: Assess/Block/Sedation-SS Anesthetic Plan Anesthetic Plan: GA Disposition: Standard PACU and Inp. Admit - Standard Bed
[2022-01-01 12:14] LABS: MANUAL DIFF FLAG NO
[2022-01-01 12:39] LABS: Basophils Percent Auto 0.2 % (0-2); Eosinophils Absolute Auto 0.1 X10*3/uL (0.0-0.4); Eosinophils Percent Auto 1.5 % (0-4); Hematocrit 40.5 % (37.0-47.0); Hemoglobin 13.6 g/dl (12.0-16.0); Imm Gran Abs Auto 0.02 X10*3/uL (0.00-0.03); Imm Gran Pct Auto 0.4 % (0.0-0.4); Lymphocytes Absolute Auto 1.9 X10*3/uL (1.2-4.9); Lymphocytes Percent Auto 36.1 % (20-40); Mean Corpuscular HGB Conc 33.6 g/dl (31.0-35.0); Mean Corpuscular Volume 89.4 fL (80.0-98.0); Mean Platelet Volume 11.3 fL (9.4-12.3); Monocytes Absolute Auto 0.3 X10*3/uL (0.1-1.2); Neutrophils Absolute Auto 3.1 x10*3/uL (2.0-8.3); Neutrophils Percent Auto 56.8 % (45-73); Platelet Count 232 X10*3/uL (160-400); Red Blood Count 4.53 X10*6/uL (4.20-5.50); Red Cell Distribution Width 12.2 % (11.0-16.0); White Blood Count 5.4 X10*3/uL (4.8-10.8)
[2022-01-01 12:44] LABS: INTERNATIONAL NORM RATIO 1.1 (0.9-1.1); Prothrombin Time 12.4 SEC (10.0-13.1)
[2022-01-01 12:47] LABS: Partial Thromboplastin Time 32.1 SEC (26.0-36.4)
[2022-01-01 12:59] LABS: COVID-19 Test Negative (Negative); IDNOW Serial# 55D5AD1C
[2022-01-01 14:12] LABS: Estimated Average Glucose 91 mg/dL; Hemoglobin A1c % 4.8 %
[2022-01-01 14:30] LABS: TSH reflex Free T4 0.53 uIU/mL (0.32-4.0)
[2022-01-01 14:59] LABS: Alanine Aminotransferase 11 U/L (0-31); Albumin Level 4.2 g/dL (3.5-5.0); Alkaline Phosphatase 82 U/L (39-117); Anion Gap 14 (12-20); Aspartate Amino Transferase 14 U/L (5-31); Bilirubin Total 0.4 mg/dL (0.0-1.0); Blood Urea Nitrogen 8 mg/dL (9-16); C Reactive Protein 1.08 mg/dL (< or = 0.50); Calcium 9.5 mg/dL (8.4-10.2); Carbon Dioxide 26 mmol/L (22-29); Chloride 109 mmol/L (96-108); Cholesterol 168 mg/dL; Creatinine Clr Calc Pharmacy 80.2; Estimated Glomerular Filt Rate > 60; Glucose Random 93 mg/dL (60-115); HDL Cholesterol 34 mg/dL; LDL Cholesterol Calculated 111 mg/dl; Potassium 4.8 mmol/L (3.3-5.1); Sodium 144 mmol/L (135-145); Total Protein 6.2 g/dL (6.5-8.0); Triglycerides 116 mg/dL
[2022-01-02] VITALS (16 sets, daily range): BP systolic 101–144; BP diastolic 54–70; PULSE 50–69; RESP 14–20; TEMP 36.2–36.6; O2SAT 93–100
[2022-01-02] MEDS: Lactated Ringers 1,000 ML 150 ML IVCONT ×2 (08:49→14:25)
[2022-01-02] MEDS: Scopolamine 1.5 MG PATCH.TD.3 TRANSDERMA (08:50)
[2022-01-02] MEDS: Heparin Sodium,Porcine 5,000 UNIT/ML VIAL 5000 UNIT SUBCUT (08:50)
--- NOTE | 2022-01-02 08:50 | PHA.MEDREC ---
Pharmacy Consult ? Medication Reconciliation Pharmacy has completed the medication reconciliation. Reviewed med rec done by nursing
[2022-01-02 08:51] LABS: COVID-19 Test Negative (Negative)
--- NOTE | 2022-01-02 08:51 | MHC.SHP ---
Pre-Procedural Eval Section A Date of Service: 01/02/22 The patient is an INPATIENT: Yes The History & Physical has been completed within 30 days and I have reviewed it.: Yes Section B Chief Complaint: obesity Allergies: Allergies Allergy/AdvReac Type Severity Reaction Status Date / Time No Known Allergies Allergy Verified 01/02/22 08:43 Plan I have reviewed the history and physical and performed a pertinent physical examination on my patient. No changes have occurred unless specified.
--- NOTE | 2022-01-02 08:53 | W.PM.OPN ---
Operative Note Operative Note Date of Service: 01/02/22 Narrative: Preop diagnosis: [Morbid obesity, hiatal hernia, dyslipidemia] Postop diagnosis: [Same] Procedure: [laparoscopic sleeve gastrectomy, hiatal hernia repair & upper endoscopy] Surgeon: Dave Abebe MD Assist: [Sari King PA-C] Anesthesia: [GET] Estimated blood loss: [5cc] Specimen: [portion of stomach with fundus] Intraoperative findings: [Hiatal hernia (2 posterior suture, 1 anterior), grossly normal stomach, liver, spleen] Indications: [The patient is a 51-year-old Swazi-speaking woman with an ongoing struggle with obesity. She presented to [facility] with a BMI of 35.2/218lbs & mixed lipidemia. Her GERD score is 8 and upper GI completed 11/27/2021 showed no GERD and no evidence of a hiatal hernia. Her comorbidities include mixed lipidemia. After successful medical weight loss of 10% and ongoing discussion regarding bariatric surgery, the patient wanted to proceed with a laparoscopic sleeve gastrectomy given her likelihood of weight regain without surgical intervention. I reviewed the inherent risks of the procedure which include, but are not limited to: Bleeding that could require another operation or blood transfusion; the inherent risks of transfusion reaction infectious disease from blood transfusions; the risk of staple line leaks that could cause sepsis, multi-system organ failure and ; the risk of mesenteric or deep vein thrombosis of the lower extremities that could cause a fatal pulmonary embolism was reviewed; the risk of GERD that could require conversion to gastric bypass was discussed; the risk of recurrent hiatal hernia, especially in the setting of weight regain was reviewed. The risk of weight regain if maladaptive eating and sedentary behavior continue was discussed. The importance of proper diet and increased activity to augment surgical weight loss and the fact that no operation would result in weight loss of poor dietary decisions and sedentary behavior are resumed were discussed at length and apparently understood. The patient had a asset management coordinator present for the office discussions and today, confirming no interval change.] Procedure: []Procedure: Esophagogastroscopy, laparoscopic sleeve gastrectomy and laparoscopic gastropexy. Indications: The patient presented with failed medical weight loss and morbid obesity with the related comorbidities that have negatively impact her quality of life. In addition, data regarding increased morbidity and mortality from COVID-19 infection in obese patients is a modifiable risk factor. We discussed bariatric surgery options including sleeve gastrectomy and gastric bypass versus continued medical management. I reviewed the inherent risks of sleeve gastrectomy which include, but are not limited to: Bleeding that could require another operation or blood transfusion; the inherent risks of transfusion reaction infectious disease from blood transfusions; the risk of staple line leaks that could cause sepsis, multi-system organ failure and ; the risk of mesenteric or deep vein thrombosis of the lower extremities that could cause a fatal pulmonary embolism was reviewed; the risk of GERD that could require conversion to gastric bypass was discussed; the risk of recurrent hiatal hernia, especially in the setting of weight regain was reviewed. The risk of weight regain if maladaptive eating and sedentary behavior continue was discussed. The importance of proper diet and increased activity to augment surgical weight loss and the fact that no operation would result in effective weight loss in the setting of poor dietary choices and sedentary behavior were discussed at length and apparently understood. The patient seemed understand the risks and was given the option of a 2nd opinion or continued medical weight loss. The patient had the option of having a asset management coordinator present and declined this option. While the patient demonstrated the required preoperative 10% weight loss of our program, current data demonstrates that this weight loss is likely is not sustainable given the patient's history and bariatric surgery is recommended. Procedure: The patient was identified in the preoperative holding area by myself and again in the operating suite by myself and the team. Patient was placed supine on the operating table. Safety straps were utilized and a footboard utilized. The patient was induced in general endotracheal anesthesia administered with excellent effect. An appropriate time-out was performed. The patient's abdomen was then widely prepped and draped in the usual manner for surgery using chlorhexidine. Antibiotics per protocol were administered by Anesthesia. SQ heparin, 5,000 units was administered in pre-op holding & the pt voided her bladder. SCDs were utilized. After infiltrating preemptive local in the skin and subcutaneous tissues in the left subcostal space, a stab incision was made sharply and the Veress needle inserted without incident. Appropriate drop test was performed then a pneumoperitoneum of 15 mmHg was obtained using carbon dioxide. Opening pressures were 6mm Hg. Next, a 5 mm 45 degree scope over a 5 mm Optiview trocar was used to access the abdomen in the supraumbilical location in the midline. Upon entering, the obturator was removed and the abdomen explored. There was no evidence of injury from the Veress needle in it was removed. The bowel and deep structures were examined for injury from the trocar and none identified. Next, using preemptive local, additional 5 mm trocars were placed under direct laparoscopic vision and the 5 mm midline trocar upsized to a 12 mm to accommodate the stapler. The patient was then positioned in reverse Trendelenburg and the liver retractor deployed through the right lateral 5 mm trocar and secured. An hiatal hernia was demonstrated once the liver retractor was positioned. The stomach was already decompressed, but the 40 Indonesian ViSiGi was insterted to the GE junction by the anesthesiologist without difficulty. Dissection was begun along the greater curvature using the 5 mm [place] LigaSure for hemostasis. Dissection was then carried towards the pylorus to 3-4 cm from the pylorus and retro gastric adhesions lysed. The gastroesophageal fat pad was carefully mobilized taking care to avoid injury to the esophagus and stomach and dissection carried towards the short gastrics taking care to avoid injury to the spleen and splenic artery. The diaphragmatic hiatus was carefully examined for a hernia which was present as described, so repair was indicated. Dissection was carried from the left frandy of the diaphragm posteriorly. Next, the phrenoesophogeal memberane was open anterior and the pars flaccida opened to access the right frandy of the diaphragm. The esophagus was carefully preserved, mobilized & freed into the abdomen for 3cm by dissection carried into the mediastinum. The esophagus was then surrounded with a quarter-inch [place] drain and retracted anteriorly to facilitate posterior repair. Posterior dissection of the retroesophageal area was performed to demonstrate both crurae and hiatal hernia repair was performed using two 0 silk sutures with posterior repair. As the ViSiGi bougie was advanced back into the stomach, there was a small anterior defect that remained on the diaphragm which was closed with a 0 silk suture. Next, the 40 [place] ViSiGi bougies was advanced by anesthesiologist under direct vision and laparoscopic guidance and positioned in the antrum using laparoscopic graspers to serve as a guide for a stapled sleeve gastrectomy. Stapling was performed with [employer] stapler with a purple 45 and then orange 45 and 60 loads. The 10 mm clip adult remedial education instructor was used to apply additional clips to the staple line. Care was taken to be sure that the sleeve laid flat and was without stricture. Once the sleeve was complete, the portion of stomach was placed in the lower abdomen to be sent for permanent section. The staple line, gastrocolic omentum, spleen and short gastric areas were all inspected for hemostasis which was found to be good. The lavage tube was withdrawn under laparoscopic vision. An on the table leak test was performed with the ViSiGi Bougie which was negative for leak. Next, I broke scrub perform an on-table upper endoscopy to assess the sleeve and the esophagus and stomach. The patient was returned to neutral position and the Olympus 190 gastroscope was advanced taking care to preserve the endotracheal tube. The esophagus was intubated without incident. Minimal air was insufflated and the scope advanced into the newly formed sleeve. The staple line was inspected for hemostasis and the morphology of the sleeve appeared straight with a uniform diameter. Intraoperatively, there was no evidence of staple line leak seen during laparoscopy as air was insufflated via endoscope. The scope was then used to aspirate the air from the sleeve withdrawn and removed. I then rescrubbed to return to the operative field and again inspected the field for hemostasis. The patient was again placed in reverse Trendelenburg. A gastropexy was performed using 2-0 polysorb suture to secure the sleeve gastrectomy to the gastrocolic omentum with intracorporeal suture technique. After final assessment for hemostasis, the patient was returned to neutral position, a Iris used to withdraw the stomach which was sent for permanent section. The fascia of the 12 mm midline was closed using an 0 Polysorb on a suture Passer under direct laparoscopic vision. The abdomen was then deflated and all trocars removed. The suture was then tied and the skin closed with 4-0 Monocryl subcuticular sutures. The abdomen was then washed and dried, benzoin and Steri-Strips applied followed by Band-Aids. The patient tolerated the procedure well was then extubated and sent to PACU in stable condition. All sponge needle and instrument counts were correct x2. At the patient's request, I contact her , Nghia Webster at [phone] to apprise him of the operation and findings. His questions seemed to be satisfactorily answered.
--- NOTE | 2022-01-02 12:34 | PM.DS ---
DS: Providers Provider Date of Service: 01/03/22 Date of admission: 01/02/22 08:26 Primary care physician: Leatha Donis MD Consults: 01/02/22 08:19 Consult to Anesthesiology Routine Consulting Provider: Bang Marinelli Reason for consultation: bariatric surgery Has provider been notified: No DS: Summary Hospital Course Hospital Course: ADMITTING DIAGNOSIS: morbid obesity, hiatal hernia DISCHARGE DIAGNOSIS: same, s/p laparoscopic sleeve gastrectomy and repair diaphragmatic hernia PAST SURGICAL HISTORY: appenedectomy, section, tubal ligation, breast reduction PROCEDURE: upper endoscopy, laparoscopic sleeve gastrectomy and repair of diaphragmatic hernia hernia DISCHARGE SUMMARY: History of Present Illness: The patient is a 51 year-old woman with a BMI of 35.2 kg/m2 and associated co-morbidities as described above. The patient had extensive work-up,lost 31lbs preoperatively and was electively scheduled for laparoscopic, possible open sleeve gastrectomy and gastropexy. Risks and complications of the surgery were discussed with the patient in advance, particularly the possibility of , pulmonary embolism, anastomotic leak, bleeding, bowel injury, GERD, cardiac, renal or pulmonary complications. The patient understood all the risks and was in agreement with the surgical plan. Hospital Course: The patient underwent an uneventful laparoscopic sleeve gastrectomy with gastropexy and repair of diaphragmatic hernia on the day of admission. Postoperatively, the patient was transferred to the surgical floor. The patient received IV Acetaminophen and IV dilaudid for pain control. Patient was started on bariatric phase 1 diet POD #0. On postoperative day one, the patient was feeling well without nausea, vomiting, fevers, or tachycardia. The patient had some mild incisional pain and the abdomen was soft. On the morning of postoperative day one, the patient was continued on 1 ounce of water or ice every half hour. During the day, the patient did fairly well, having some incisional pain, but able to ambulate adequately and to tolerate liquids well. Since the patient is doing well, we decided that the patient was ready to be discharged. The patient was given instructions to follow-up with me next week and to call my office for any fever over 101, persistent abdominal pain, nausea, vomiting, GERD, symptoms of DVT such as calf tenderness, or leg swelling, or pulmonary embolism such as chest pain or shortness of breath. The patient was also instructed to drink 40-60 ounces of liquids per day using the 1-ounce cups. The patient had been given prescriptions for Tylenol for pain, Zofran prn for nausea, and pantoprazole and carafate previously. The patient was encouraged to ambulate and use the incentive spirometer. The patient was allowed to shower, but no baths, and encouraged to stay active at home. All of these instructions were given to the patient personally. All questions were answered and the patient understood all instructions, the instructions were also given to the patient in print. Time Spent with Patient Time attestation: Total time spent providing and/or coordinating discharge services: Discharge coordination time: Less than 30 minutes Quality: Safe Use of Opioids Does Pt have an Active Cancer Diagnosis on the Problem List?: No Quality: Stroke Does the patient have a stroke diagnosis?: No Physical Exam Vital Signs: Vital Signs: Last Vital Signs Temp 97.3 F 01/02/22 08:42 Pulse 65 01/02/22 08:42 Resp 18 01/02/22 08:42 BP 102/58 L 01/02/22 08:42 Pulse Ox 99 01/02/22 08:42 O2 Del Method 01/02/22 08:42 BMI result Body Mass Index 30.8 DS: Data Data Completed and Pending Pending studies at discharge: Pending at discharge 01/02/22 11:29 Surgical [PTH] Routine Labs on day of discharge: Laboratory Results - last 24 hr 01/01/22 01/01/22 01/01/22 12:05 12:11 12:11 WBC 5.4 RBC 4.53 Hgb 13.6 Hct 40.5 MCV 89.4 MCH 30.0 MCHC 33.6 RDW 12.2 Plt Count 232 MPV 11.3 Immature Gran % (Auto) 0.4 Neut % (Auto) 56.8 Lymph % (Auto) 36.1 [place] % (Auto) 5.0 Eos % (Auto) 1.5 Baso % (Auto) 0.2 Lymph # (Auto) 1.9 [place] # (Auto) 0.3 Eos # (Auto) 0.1 Baso # (Auto) 0.0 Abs Immat Gran (auto) 0.02 Absolute Neuts (auto) 3.1 Absolute Nucleated RBC 0.000 Nucleated RBC % (auto) 0.0 PT 12.4 INR 1.1 APTT 32.1 Sodium Potassium Chloride Carbon Dioxide Anion Gap BUN Creatinine Estim Creat Clear Calc Estimated GFR Random Glucose Estimat Average Glucose Hemoglobin A1c % Calcium Total Bilirubin AST ALT Alkaline Phosphatase C-Reactive Protein Total Protein Albumin Triglycerides Cholesterol LDL Cholesterol, Calc HDL Cholesterol TSH COVID-19 (SURY) COVID-19 Clin Com Blood Type O Positive Antibody Screen NEGATIVE 01/01/22 01/01/22 01/01/22 12:11 12:11 12:20 WBC RBC Hgb Hct MCV MCH MCHC RDW Plt Count MPV Immature Gran % (Auto) Neut % (Auto) Lymph % (Auto) [place] % (Auto) Eos % (Auto) Baso % (Auto) Lymph # (Auto) [place] # (Auto) Eos # (Auto) Baso # (Auto) Abs Immat Gran (auto) Absolute Neuts (auto) Absolute Nucleated RBC Nucleated RBC % (auto) PT INR APTT Sodium 144 Potassium 4.8 Chloride 109 H Carbon Dioxide 26 Anion Gap 14 BUN 8 L Creatinine 0.92 Estim Creat Clear Calc 80.2 Estimated GFR > 60 Random Glucose 93 Estimat Average Glucose 91 Hemoglobin A1c % 4.8 Calcium 9.5 Total Bilirubin 0.4 AST 14 ALT 11 Alkaline Phosphatase 82 C-Reactive Protein 1.08 H Total Protein 6.2 L Albumin 4.2 Triglycerides 116 Cholesterol 168 D LDL Cholesterol, Calc 111 HDL Cholesterol 34 TSH 0.53 COVID-19 (SURY) Negative COVID-19 [place] [place] Com See Note Blood Type Antibody Screen 01/02/22 08:30 WBC RBC Hgb Hct MCV MCH MCHC RDW Plt Count MPV Immature Gran % (Auto) Neut % (Auto) Lymph % (Auto) [place] % (Auto) Eos % (Auto) Baso % (Auto) Lymph # (Auto) [place] # (Auto) Eos # (Auto) Baso # (Auto) Abs Immat Gran (auto) Absolute Neuts (auto) Absolute Nucleated RBC Nucleated RBC % (auto) PT INR APTT Sodium Potassium Chloride Carbon Dioxide Anion Gap BUN Creatinine Estim Creat Clear Calc Estimated GFR Random Glucose Estimat Average Glucose Hemoglobin A1c % Calcium Total Bilirubin AST ALT Alkaline Phosphatase C-Reactive Protein Total Protein Albumin Triglycerides Cholesterol LDL Cholesterol, Calc HDL Cholesterol TSH COVID-19 (SURY) Negative COVID-19 [facility] See Note Blood Type Antibody Screen Discharge Plan Discharge Anticipated Discharge Date/Time: 01/03/22 10:30 Patient Disposition: Home, Self-Care Discharge Diagnosis: s/p sleeve gastrectomy and hiatal hernia repair Referrals: Leatha Donis MD [Primary Care Provider] - 1 Week Dave Abebe MD [Physician] - 1 Week Discharge Medications: New pantoprazole [Protonix] 40 mg tablet,delayed release (DR/EC) 40 mg PO DAILY Qty: 30 2RF sucralfate 100 mg/mL suspension 10 ml PO BID Qty: 420 2RF ondansetron HCl 4 mg tablet 4 mg PO Q6H Qty: 20 0RF acetaminophen 500 mg/15 mL liquid 1,000 mg PO Q6H Qty: 237 2RF Continued lamotrigine 150 mg tablet 300 mg PO BEDTIME atorvastatin 20 mg tablet 20 mg PO BEDTIME 30 Days Qty: 30 5RF lamotrigine 150 mg tablet 150 mg PO DAILY sertraline 100 mg tablet 200 mg PO DAILY mirtazapine 15 mg tablet 15 mg PO BEDTIME bupropion HCl 300 mg tablet extended release 24 hr 300 mg PO DAILY buspirone 15 mg tablet 15 mg PO TID Discontinued thiamine HCl (vitamin B1) 100 mg tablet 100 mg PO DAILY Qty: 30 3RF sennosides [Natural Senna Laxative] 8.6 mg tablet 8.6 mg PO BEDTIME Qty: 30 3RF omeprazole 20 mg capsule,delayed release(DR/EC) 20 mg PO DAILY 56 Days Qty: 56 0RF Citrucel 500 mg tablet 500 mg PO DAILY Qty: 30 2RF Rx Instructions: take it with full glass of water mecobalamin (vitamin B12) 1,000 mcg tablet,disintegrating 1,000 mcg sublingual DAILY Qty: 30 2RF Rx Instructions: place tablet under tongue and allow to dissolve for at least30 secs before swallowing Discharge Orders: Discharge Order (Routine); Ordered 01/03/22 Ordered By: Dave Abebe Diet: Bariatric diet Activity on Discharge: No heavy lifting Stand Alone Forms: Patient Portal Discharge page Care Plan Goals: weight loss Health Concerns: obesity Plan of Treatment: No tub baths, sex or returning to work until discussed at first post op appointment. No exercise, alcohol, tobacco or illegal drug use. Continue to use incentive spirometer hourly while awake. Walk in home for 5- 10 minutes every 2 hours during the first week. Continue phase 1 diet today and start phase 2 diet tomorrow morning. Follow all instructions in the bariatric handbook and call with any questions. 1. Please call your doctor or come back to the emergency room should any new symptoms arise. 2. You will receive a courtesy call from [facility] 24-48 hours after discharge. 3. Activity: abstain from alcohol, practice limited stair climbing, no bending, no driving, no exercise, no illicit substances, no lifting, no sex, no tub bath, no work. 4. Diet: continue as discussed with your bariatric providers 5. Dressing Change/Wound Care: Do not change or remove surgical dressings unless they are wet or soiled. 6. Call your doctor if: - Your temperature exceeds 101.5 F - You experience excessive pain or swelling - You have an unexpected reaction to medication - You have excessive bleeding - You experience continued vomiting/nausea - Your incision begins to separate - Your incision shows signs of infection such as increased redness, swelling, excessive pain, heat, or drainage (light blood or clear fluid is normal) 7. General instructions: No lifting greater than 5 lbs for the next 4 weeks[address] within 24 hours of taking narcotic pain medications. If you do not move your bowels in the next 2 days, please take milk of magnesia over the counter. Please follow the post op diet and do not advance your diet until you are seen in the office in about 2 weeks. Please walk around your home every hour or two to prevent blood clots from forming in your legs. You do not need to wake from sleeping to walk. Please sleep in a bed or couch to prevent kinking at the hips and knees. Please take your incentive spirometer (your lung orthotic fitter) home with you and use it for the next few days to prevent pneumonias. You may shower, no hot tubs, baths or swimming pools. Please call the office with any questions or concerns such as increasing abdominal pain, fever, chills, shortness of breath, chest pain, leg pain or swelling, or redness or drainage from your incisions. Do not hesitate to contact the office with any questions at . The patient's medical history has been reviewed and they are considered low risk for post op DVT and therefore DVT prophylaxis is not considered necessary. Travel after surgery was reviewed. The patient has not disclosed any travel plans during the first 30 days after surgery and they have been advised that within the first 30 days after surgery any bus, plane, train or car travel over 2 hours in duration is contraindicated due to the possibility of developing blood clots from immobility. Any travel, needs to include periods of ambulation of 10 minutes in duration every 2 hours. The patient was instructed to discuss any plans for travel during this period with their bariatric surgeon. Assessment: stable post op
[2022-01-02] MEDS: HYDROmorphone HCl 0.5 MG/0.5 ML SYRINGE IVPUSH ×2 (12:54→13:00)
[2022-01-02] MEDS: Famotidine/PF 20 MG/2 ML VIAL IVPUSH ×2 (13:27→22:03)
[2022-01-02] MEDS: HYDROmorphone HCl 0.5 MG/0.5 ML SYRINGE 0.25 MG IVPUSH ×3 (13:29→22:10)
[2022-01-02 13:42] LABS: Hematocrit 39.5 % (37.0-47.0); Hemoglobin 12.9 g/dl (12.0-16.0)
[2022-01-02 14:10] LABS: Anion Gap 15 (12-20); Blood Urea Nitrogen 8 mg/dL (9-16); Calcium 8.8 mg/dL (8.4-10.2); Carbon Dioxide 24 mmol/L (22-29); Chloride 108 mmol/L (96-108); Creatinine Clr Calc Pharmacy 94.6; Estimated Glomerular Filt Rate > 60; Glucose Random 150 mg/dL (60-115); Potassium 4.1 mmol/L (3.3-5.1); Sodium 143 mmol/L (135-145)
[2022-01-02] MEDS: ceFAZolin Sodium/Dextrose,Iso 2 GM/50 ML PIGGYBACK IV (15:21)
--- NOTE | 2022-01-02 17:02 | PM.PNGS ---
Subjective Subjective Date of Service: 01/02/22 Patient reports: still having pain Interval history: The patient is seen with the help of the drill runner helper. She reports expected pain in the lower sternum with some radiation to her back. She has no nausea or vomiting. She has been up to the bathroom to void her bladder, but notes that she is quite tired. Her pain is adequately managed. She otherwise denies odynophagia or other complaints. She is tolerating sips of water but too tired to drink with regularity. Physical Exam Vital Signs: Vital Signs: Last Vital Signs Temp 97.8 F 01/02/22 15:33 Pulse 50 01/02/22 15:33 Resp 18 01/02/22 15:33 BP 112/70 01/02/22 15:33 Pulse Ox 99 01/02/22 15:33 O2 Del Method 01/02/22 15:33 O2 Flow Rate 2 01/02/22 15:33 BMI result Body Mass Index 30.8 The patient is somnolent but arousable. She is anicteric and nontoxic Dressings are intact Objective Data Active Medications Bupropion HCl (Bupropion Hcl Xl 300 Mg Tab.Er.24h) 300 mg PO DAILY [facility] Buspirone HCl (Buspirone Hcl 5 Mg Tablet) 15 mg PO TID [facility] Last Admin: 01/02/22 15:11 Dose: Not Given Documented By: SHERI Non-Admin Reason: Pt sedated. Unable to take at this time Famotidine (Famotidine/Pf 20 Mg/2 Ml Vial) 20 mg IVPUSH BID [facility] Last Admin: 01/02/22 13:27 Dose: 20 mg Documented By: CINDA Fentanyl (Fentanyl Citrate/Pf 100 Mcg/2 Ml Vial) 50 mcg IVPUSH Q5M PRN; Protocol PRN Reason: Pain, Moderate (Pain Scale 4-6 Fentanyl (Fentanyl Citrate/Pf 100 Mcg/2 Ml Vial) 25 mcg IVPUSH Q5M PRN; Protocol PRN Reason: Pain, Moderate (Pain Scale 4-6 Hydromorphone HCl (Hydromorphone Hcl 0.5 Mg/0.5 Ml Syringe) 0.5 mg IVPUSH Q5M PRN; Protocol PRN Reason: Pain, Severe (Pain Scale 7-10) Last Admin: 01/02/22 13:00 Dose: 0.5 mg Documented By: DONAL Hydromorphone HCl (Hydromorphone Hcl 0.5 Mg/0.5 Ml Syringe) 0.25 mg IVPUSH Q5M PRN; Protocol PRN Reason: Pain, Severe (Pain Scale 7-10) Last Admin: 01/02/22 13:29 Dose: 0.25 mg Documented By: CINDA Hydromorphone HCl (Hydromorphone Hcl 0.5 Mg/0.5 Ml Syringe) 0.25 mg IVPUSH Q4H PRN; Protocol PRN Reason: Pain, Moderate (Pain Scale 4-6 Promethazine HCl 6.25 mg/ (Sodium Chloride) 50.25 mls @ 201 mls/hr IV ONCE PRN PRN Reason: Nausea and Vomiting Lactated Ringer's (Lr) 1,000 mls @ 100 mls/hr IVCONT .Q10H [facility] Last Admin: 01/02/22 15:57 Dose: Not Given Documented By: SHERI Non-Admin Reason: IV Running Acetaminophen (Ofirmev) 1,000 mg in 100 mls @ 16.7 mls/hr IV .Q6H [facility] Last Admin: 01/02/22 16:24 Dose: 16.7 mls/hr Documented By: SHERI Lamotrigine (Lamotrigine 100 Mg Tablet) 300 mg PO BEDTIME [facility] Metoclopramide HCl (Metoclopramide Hcl 10 Mg/2 Ml Vial) 10 mg IVPUSH Q6H PRN PRN Reason: Nausea Ondansetron HCl (Ondansetron Hcl 4 Mg/2 Ml Vial) 4 mg IVPUSH ONCE PRN PRN Reason: Nausea and Vomiting Ondansetron HCl (Ondansetron Hcl 4 Mg/2 Ml Vial) 4 mg IVPUSH ONCE PRN PRN Reason: Nausea and Vomiting Ondansetron HCl (Ondansetron Hcl 4 Mg/2 Ml Vial) 4 mg IVPUSH Q8H [facility] Last Admin: 01/02/22 15:11 Dose: Not Given Documented By: SHERI Non-Admin Reason: Given in PACU Sertraline HCl (Sertraline Hcl 100 Mg Tablet) 200 mg PO DAILY [facility] Sodium Chloride (0.9 % Sodium Chloride Flush 3 Ml Syringe) 3 ml IVFLUSH QSHIFT [facility] Last Admin: 01/02/22 15:53 Dose: Not Given Documented By: SHERI Non-Admin Reason: IV Running Labs CBC & Chem 7: 01/02/22 13:21 01/02/22 13:21 Labs: Laboratory Results - last 24 hr 01/02/22 01/02/22 08:30 13:21 Anion Gap 15 Estim Creat Clear Calc 94.6 Estimated GFR > 60 Random Glucose 150 H Calcium 8.8 D COVID-19 (SURY) Negative COVID-19 Clin Com See Note Procedures Date of Service Date of Service: 01/02/22 Progress Note: A&P Assessment and plan (1) History of repair of hiatal hernia: Status: Acute (2) S/P laparoscopic sleeve gastrectomy: Status: Acute (3) Obesity (BMI 30-39.9): Status: Acute Plan The patient was reassured that the symptoms of somnolence would resolve as time goes by. The importance of incentive spirometer and walking was discussed. Her questions seemed to be satisfactorily answered. Her retrosternal pain is typical and should improve over night. I also explained to the patient that I contacted her by telephone. Recheck labs in the morning and continue current management. Time Spent With Patient Time: Total time spent is greater than 50% in coordination of care (as documented) at patient's floor/unit and/or counseling patient: Quality Stroke Does the patient have a stroke diagnosis?: No VTE Prior VTE?: No VTE Risk Level:: Surgical - moderate VTE Device Contraindication: N/A - Device Ordered VTE Drug Contraindication: N/A - Med Ordered
[2022-01-02] MEDS: lamoTRIgine 100 MG TABLET 300 MG PO (22:02)
[2022-01-02] MEDS: busPIRone HCl 5 MG TABLET 15 MG PO (22:02)
[2022-01-02] MEDS: ondansetron HCL 4 MG/2 ML VIAL IVPUSH (22:03)
[2022-01-03] MEDS: 0.9 % Sodium Chloride Flush 3 ML SYRINGE IVFLUSH ×2 (00:12→09:11)
[2022-01-03] MEDS: Lactated Ringers 1,000 ML 100 ML IVCONT (01:57)
[2022-01-03 03:06] VITALS: BP 109/61; PULSE 52; RESP 16; TEMP 36.6; O2SAT 93
[2022-01-03] MEDS: HYDROmorphone HCl 0.5 MG/0.5 ML SYRINGE 0.25 MG IVPUSH (05:50)
[2022-01-03] MEDS: ondansetron HCL 4 MG/2 ML VIAL IVPUSH (05:51)
[2022-01-03 06:34] LABS: MANUAL DIFF FLAG NO
[2022-01-03 06:46] LABS: Basophils Percent Auto 0.2 % (0-2); Eosinophils Percent Auto 0.2 % (0-4); Hemoglobin 11.7 g/dl (12.0-16.0); Imm Gran Abs Auto 0.04 X10*3/uL (0.00-0.03); Imm Gran Pct Auto 0.4 % (0.0-0.4); Lymphocytes Absolute Auto 2.5 X10*3/uL (1.2-4.9); Lymphocytes Percent Auto 27.7 % (20-40); Mean Corpuscular HGB Conc 33.4 g/dl (31.0-35.0); Mean Corpuscular Hemoglobin 30.2 pg (27.0-33.0); Mean Corpuscular Volume 90.2 fL (80.0-98.0); Mean Platelet Volume 11.2 fL (9.4-12.3); Monocytes Absolute Auto 0.5 X10*3/uL (0.1-1.2); Monocytes Percent Auto 5.9 % (2-11); Neutrophils Absolute Auto 5.9 x10*3/uL (2.0-8.3); Neutrophils Percent Auto 65.6 % (45-73); Platelet Count 177 X10*3/uL (160-400); Red Blood Count 3.88 X10*6/uL (4.20-5.50); Red Cell Distribution Width 12.6 % (11.0-16.0)
[2022-01-03 07:09] LABS: Anion Gap 12 (12-20); Blood Urea Nitrogen 6 mg/dL (9-16); Calcium 8.6 mg/dL (8.4-10.2); Carbon Dioxide 25 mmol/L (22-29); Chloride 108 mmol/L (96-108); Creatinine Clr Calc Pharmacy 103.9; Estimated Glomerular Filt Rate > 60; Glucose Random 80 mg/dL (60-115); Sodium 141 mmol/L (135-145)
--- NOTE | 2022-01-03 07:31 | P.PNGS_ITS ---
Subjective Subjective Date of Service: 01/03/22 Patient reports: no new complaints Interval history: The patient is seen with the help of the hospital asl interpreter. Patient reports she is doing better and has no dysphagia, odynophagia, regurgitation, nausea or vomiting. She continues to report low sternal/epigastric pain related to her hiatal hernia repair but notes that it is better than yesterday. She did require IV Dilaudid at 05:00. She otherwise denies headache, pain in her lower extremities are swelling, chest pain, difficulty breathing or shortness of breath. She does find that the abdominal binder provide support. The patient has been out of bed to the bathroom to urinate. She is sleepy and not using incentive spirometry much. Physical Exam Vital Signs: Vital Signs: Last Vital Signs Temp 97.8 F 01/03/22 03:06 Pulse 52 01/03/22 03:06 Resp 16 01/03/22 03:06 BP 109/61 01/03/22 03:06 Pulse Ox 93 01/03/22 03:06 O2 Del Method 01/03/22 03:06 O2 Flow Rate 2 01/02/22 15:33 BMI result Body Mass Index 30.8 On exam, she is nontoxic. She is somnolent, arousable and appropriate Sclera are anicteric In examining under the abdominal binder, Band-Aids are intact and there is no bleeding. Dressings C/D/I. Appropriate incisional tenderness is noted No lower extremity calf tenderness or swelling is noted Objective Data Active Medications Bupropion HCl (Bupropion Hcl Xl 300 Mg Tab.Er.24h) 300 mg PO DAILY [facility] Buspirone HCl (Buspirone Hcl 5 Mg Tablet) 15 mg PO TID [facility] Last Admin: 01/02/22 22:02 Dose: 15 mg Documented By: CLAIR Famotidine (Famotidine/Pf 20 Mg/2 Ml Vial) 20 mg IVPUSH BID [facility] Last Admin: 01/02/22 22:03 Dose: 20 mg Documented By: CLAIR Fentanyl (Fentanyl Citrate/Pf 100 Mcg/2 Ml Vial) 50 mcg IVPUSH Q5M PRN; Protocol PRN Reason: Pain, Moderate (Pain Scale 4-6 Fentanyl (Fentanyl Citrate/Pf 100 Mcg/2 Ml Vial) 25 mcg IVPUSH Q5M PRN; Protocol PRN Reason: Pain, Moderate (Pain Scale 4-6 Hydromorphone HCl (Hydromorphone Hcl 0.5 Mg/0.5 Ml Syringe) 0.5 mg IVPUSH Q5M PRN; Protocol PRN Reason: Pain, Severe (Pain Scale 7-10) Last Admin: 01/02/22 13:00 Dose: 0.5 mg Documented By: DONAL Hydromorphone HCl (Hydromorphone Hcl 0.5 Mg/0.5 Ml Syringe) 0.25 mg IVPUSH Q5M PRN; Protocol PRN Reason: Pain, Severe (Pain Scale 7-10) Last Admin: 01/02/22 13:29 Dose: 0.25 mg Documented By: CINDA Hydromorphone HCl (Hydromorphone Hcl 0.5 Mg/0.5 Ml Syringe) 0.25 mg IVPUSH Q4H PRN; Protocol PRN Reason: Pain, Moderate (Pain Scale 4-6 Last Admin: 01/03/22 05:50 Dose: 0.25 mg Documented By: AISHA Promethazine HCl 6.25 mg/ (Sodium Chloride) 50.25 mls @ 201 mls/hr IV ONCE PRN PRN Reason: Nausea and Vomiting Lactated Ringer's (Lr) 1,000 mls @ 100 mls/hr IVCONT .Q10H [facility] Last Admin: 01/03/22 01:57 Dose: 100 mls/hr Documented By: SANDY Acetaminophen (Ofirmev) 1,000 mg in 100 mls @ 16.7 mls/hr IV .Q6H [facility] Last Admin: 01/03/22 03:56 Dose: 16.7 mls/hr Documented By: SANDY Lamotrigine (Lamotrigine 100 Mg Tablet) 300 mg PO BEDTIME [facility] Last Admin: 01/02/22 22:02 Dose: 300 mg Documented By: CLAIR Metoclopramide HCl (Metoclopramide Hcl 10 Mg/2 Ml Vial) 10 mg IVPUSH Q6H PRN PRN Reason: Nausea Ondansetron HCl (Ondansetron Hcl 4 Mg/2 Ml Vial) 4 mg IVPUSH ONCE PRN PRN Reason: Nausea and Vomiting Ondansetron HCl (Ondansetron Hcl 4 Mg/2 Ml Vial) 4 mg IVPUSH ONCE PRN PRN Reason: Nausea and Vomiting Ondansetron HCl (Ondansetron Hcl 4 Mg/2 Ml Vial) 4 mg IVPUSH Q8H [facility] Last Admin: 01/03/22 05:51 Dose: 4 mg Documented By: AISHA Sertraline HCl (Sertraline Hcl 100 Mg Tablet) 200 mg PO DAILY [facility] Sodium Chloride (0.9 % Sodium Chloride Flush 3 Ml Syringe) 3 ml IVFLUSH QSHIFT [facility] Last Admin: 01/03/22 00:12 Dose: 3 ml Documented By: SANDY Labs CBC & Chem 7: 01/03/22 05:11 01/03/22 05:11 Labs: Laboratory Results - last 24 hr 01/02/22 01/02/22 01/03/22 08:30 13:21 05:11 MCV 90.2 MCH 30.2 MCHC 33.4 RDW 12.6 Plt Count 177 MPV 11.2 Immature Gran % (Auto) 0.4 Neut % (Auto) 65.6 Lymph % (Auto) 27.7 [place] % (Auto) 5.9 Eos % (Auto) 0.2 Baso % (Auto) 0.2 Lymph # (Auto) 2.5 [place] # (Auto) 0.5 Eos # (Auto) 0.0 Baso # (Auto) 0.0 Abs Immat Gran (auto) 0.04 H Absolute Neuts (auto) 5.9 Absolute Nucleated RBC 0.000 Nucleated RBC % (auto) 0.0 Anion Gap 15 Estim Creat Clear Calc 94.6 Estimated GFR > 60 Random Glucose 150 H Calcium 8.8 D COVID-19 (SURY) Negative COVID-19 Clin Com See Note 01/03/22 05:11 MCV MCH MCHC RDW Plt Count MPV Immature Gran % (Auto) Neut % (Auto) Lymph % (Auto) [place] % (Auto) Eos % (Auto) Baso % (Auto) Lymph # (Auto) [place] # (Auto) Eos # (Auto) Baso # (Auto) Abs Immat Gran (auto) Absolute Neuts (auto) Absolute Nucleated RBC Nucleated RBC % (auto) Anion Gap 12 Estim Creat Clear Calc 103.9 Estimated GFR > 60 Random Glucose 80 Calcium 8.6 COVID-19 (SURY) COVID-19 Clin Com Procedures Date of Service Date of Service: 01/03/22 Progress Note: A&P Assessment and plan (1) S/P laparoscopic sleeve gastrectomy: Status: Acute (2) History of repair of hiatal hernia: Status: Acute (3) Obesity (BMI 30-39.9): Status: Acute (4) High blood cholesterol: Status: Acute (5) Mixed dyslipidemia: Status: Acute Plan Instructions were reviewed with the patient. Her questions seemed to be satisfactorily answered. She will continue to work on hydration, incentive spirometry and possible discharge for later today if she meets discharge cr iteria. Instructions regarding activity reviewed and apparently understood. If the patient develops severe chest or abdominal pain, inability to swallow, vomiting or other questions, she will contact us. Sari, the bariatric PA, will assess and review dietary recommendations with the patient later this morning. The patient's BUN is down to 6. Her hemoglobin is drift and is likely dilutional. She has no tachycardia, and no abdominal symptoms to suspect bleeding. Clinically, she is clear for discharge assuming that she meets other criteria. Time Spent With Patient Time: Total time spent is greater than 50% in coordination of care (as documented) at patient's floor/unit and/or counseling patient: Quality Stroke Does the patient have a stroke diagnosis?: No VTE Prior VTE?: No VTE Risk Level:: Surgical - moderate VTE Device Contraindication: N/A - Device Ordered VTE Drug Contraindication: N/A - Med Ordered
[2022-01-03 08:00] VITALS: BP 95/51; PULSE 61; RESP 18; TEMP 36.6; O2SAT 93
[2022-01-03] MEDS: Famotidine/PF 20 MG/2 ML VIAL IVPUSH (09:10)
[2022-01-03] MEDS: buPROPion HCl XL 300 MG TAB.ER.24H PO (09:10)
[2022-01-03] MEDS: busPIRone HCl 5 MG TABLET 15 MG PO (09:10)
[2022-01-03] MEDS: Sertraline HCL 100 MG TABLET 200 MG PO (09:10)
--- NOTE | 2022-01-03 09:20 | MHC.CM.PN ---
IMM 01/03/22, EMR REVIEWED, CM MET W/PT VIA PHLEBOTOMIST MEDICAL LAB ASSISTANT, PT REPORTS SHE LIVES W/HER , HAS A CANE FOR DME HOWEVER DOES NOT USE IT AND DENIES HOME SERVICES, PT REPORTS SHE HAD [employer] AND 2 BOOSTER'S HOWEVER IS UNSURE OF WHICH VACCINE, PCP VERIFIED RYAN GAMBINO AND PT HAS COMPLETED A HCP W/CM NAMING HER EULALIA LANGSTON [phone] HER [facility] AND HER DTR JESSE CORTEZ [phone] HER ALTERNATE. D/C PLAN: HOME TODAY NO SERVICES W/ FOR TRANSPORT
--- NOTE | 2022-01-03 10:20 | MHC.CM.PN ---
Patient has been medically cleared for discharge today; discharge is Home (self-care).
[2022-01-03] MEDS: Sucralfate Oral Suspension 1 GM/10 ML ORAL.SUSP PO (11:42)
--- NOTE | 2022-01-03 11:45 | HO.POSTANES ---
Post Anesthesia Evaluation Post Anesthesia Evaluation Vital Signs: Vital Signs Temp Pulse Resp BP Pulse Ox O2 Del Method 01/03/22 08:00 97.8 F 61 18 95/51 L 93 Room Air 01/03/22 03:06 97.8 F 52 16 109/61 93 Room Air Anesthesia: General Endotracheal-GETA Mental Status: Awake Pain Control: Satisfactory Nausea/Vomiting: None Hydration: Adequate Anesthesia-Related Issues: No Anes. Related Issues
== END 2022-01-03 11:49 | disposition home or self-care (01) | DRG 621 ==
LOC: HO.SSSA 08:27 → HO.S3 11:35
PROVIDERS: Physician Assistant; Absent Provider Physician Assistant Surgical; Admitting Provider Surgery; PCP Internal Medicine; Visit Provider Surgery
PROC: 0DB64Z3 Excision of Stomach, Percutaneous Endoscopic Approach, Vertical (ICD-10-PCS; CPT 43845; principal; 2022-01-02 10:00)
DX: E66.01 Morbid (severe) obesity due to excess calories (principal); I34.1 Nonrheumatic mitral (valve) prolapse; N28.1 Cyst of kidney, acquired; M54.41 Lumbago with sciatica, right side; E78.5 Hyperlipidemia, unspecified; Z20.822 Contact with and (suspected) exposure to COVID-19; Z68.35 Body mass index [BMI] 35.0-35.9, adult; Z98.51 Tubal ligation status; Z87.891 Personal history of nicotine dependence; Z79.899 Other long term (current) drug therapy
CPT/HCPCS: 36415; 80048; 80053; 80061; 83036; 84443; 85014; 85018; 85025; 85610; 85730; 86140; 86850; 86900; 86901; 87635; 88307; 88342; J0131; J0690; J1100; J1170; J2250; J2405; J2550; J2795; J3010

== ENCOUNTER → 2022-01-10 13:52 | Outpatient (BNVA) | payer OTHER, SELFPAY | PROVIDERS: PCP Internal Medicine; Referring Provider Internal Medicine; Visit Provider Physician Assistant Surgical | DX: E66.3 Overweight (principal); Z98.84 Bariatric surgery status | CPT/HCPCS: 99212 ==

== ENCOUNTER 2022-01-22 09:21 | Outpatient (REF) | payer OTHER, SELFPAY | END 2022-01-22 09:22 | disposition home or self-care (01) | LOC: HO.LAB 09:21 | PROVIDERS: Visit Provider Obstetrics & Gynecology | DX: N90.89 Other specified noninflammatory disorders of vulva and perineum (principal) | CPT/HCPCS: 56605; 88305; 88312 ==

== ENCOUNTER → 2022-02-13 11:36 | Outpatient (BNVA) | payer OTHER, SELFPAY | PROVIDERS: Visit Provider Obstetrics & Gynecology | DX: L28.0 Lichen simplex chronicus (principal); L98.9 Disorder of the skin and subcutaneous tissue, unspecified | CPT/HCPCS: 99212 ==

== ENCOUNTER → 2022-02-17 09:59 | Outpatient (BNVA) | payer OTHER, SELFPAY | PROVIDERS: PCP Internal Medicine; Visit Provider Nurse Practitioner Family | DX: K59.04 Chronic idiopathic constipation (principal) | CPT/HCPCS: 99212 ==

== ENCOUNTER 2022-03-06 11:34 | Outpatient (REF) | payer OTHER, SELFPAY | END 2022-03-06 11:35 | disposition home or self-care (01) | LOC: HO.LNP 11:34 | PROVIDERS: PCP Internal Medicine; Visit Provider Obstetrics & Gynecology | DX: L98.9 Disorder of the skin and subcutaneous tissue, unspecified (principal); L91.8 Other hypertrophic disorders of the skin | CPT/HCPCS: 11400; 88304; 88305 ==

== ENCOUNTER 2022-03-11 09:04 | Outpatient (REF) | payer OTHER, SELFPAY ==
--- NOTE | ~2022-03-11 | MM_ITS ---
EXAMINATION: MM SCREENING DIGITAL BREAST TOMOSYNTHESIS, BILATERAL CLINICAL INFORMATION: Screening. Asymptomatic. Prior history reduction mammoplasty. 1. The lifetime risk of breast cancer based on the Tyrer-Cuzick Model is 7%. COMPARISON: Mammography: 03/06/2021, 01/10/2020, 08/10/2018; outside mammography 03/10/2017 ([facility]). TECHNIQUE: Digital breast tomosynthesis is performed in both the craniocaudal and mediolateral oblique views along with computer-aided detection (CAD). Synthesized 2D images are generated from the tomosynthesis. FINDINGS: There are scattered areas of fibroglandular density (ACR BI-RADS breast composition Category b). There are no significant masses, abnormal calcifications, or other abnormalities. Parenchymal pattern is similar to prior studies. There is a chronic intramammary node central left breast. No developing density or interval architectural abnormality. There is some minor scarring and scattered benign dermal calcifications consistent with the reduction mammoplasty. No significant changes. MM/MM tomosynthesis screening BI IMPRESSION: No mammographic evidence of malignancy. ASSESSMENT: BI-RADS 2: Benign RECOMMENDATION: Routine annual mammography screening. This patient's information was entered into a reminder system with a target due date for their next mammogram.
== END 2022-03-11 09:05 | disposition home or self-care (01) ==
LOC: HO.MAMMO 09:04
PROVIDERS: PCP Internal Medicine; Visit Provider Internal Medicine
DX: Z12.31 Encounter for screening mammogram for malignant neoplasm of breast (principal)
CPT/HCPCS: 77063; 77067

== ENCOUNTER → 2022-03-20 08:56 | Outpatient (BNVA) | payer OTHER, SELFPAY | PROVIDERS: PCP Internal Medicine; Visit Provider Obstetrics & Gynecology | DX: L98.9 Disorder of the skin and subcutaneous tissue, unspecified (principal) | CPT/HCPCS: 99212 ==

== ENCOUNTER 2022-06-16 09:43 | Outpatient (REF) | payer OTHER, SELFPAY ==
[2022-06-16 10:37] LABS: MANUAL DIFF FLAG NO
[2022-06-16 10:59] LABS: Basophils Percent Auto 0.5 % (0-2); Eosinophils Absolute Auto 0.1 X10*3/uL (0.0-0.4); Eosinophils Percent Auto 1.5 % (0-4); Hematocrit 39.3 % (37.0-47.0); Hemoglobin 13.1 g/dl (12.0-16.0); Imm Gran Abs Auto 0.01 X10*3/uL (0.00-0.03); Imm Gran Pct Auto 0.2 % (0.0-0.4); Lymphocytes Absolute Auto 2.9 X10*3/uL (1.2-4.9); Lymphocytes Percent Auto 48.3 % (20-40); Mean Corpuscular HGB Conc 33.3 g/dl (31.0-35.0); Mean Corpuscular Hemoglobin 30.9 pg (27.0-33.0); Mean Corpuscular Volume 92.7 fL (80.0-98.0); Mean Platelet Volume 10.7 fL (9.4-12.3); Monocytes Absolute Auto 0.2 X10*3/uL (0.1-1.2); Monocytes Percent Auto 3.6 % (2-11); Neutrophils Absolute Auto 2.7 x10*3/uL (2.0-8.3); Neutrophils Percent Auto 45.9 % (45-73); Platelet Count 188 X10*3/uL (160-400); Red Blood Count 4.24 X10*6/uL (4.20-5.50); Red Cell Distribution Width 12.6 % (11.0-16.0); White Blood Count 5.9 X10*3/uL (4.8-10.8)
[2022-06-16 11:07] LABS: Estimated Average Glucose 88 mg/dL; Hemoglobin A1c % 4.7 %
[2022-06-16 11:48] LABS: Anion Gap 10 (12-20); Blood Urea Nitrogen 14 mg/dL (9-16); C Reactive Protein 0.17 mg/dL (< or = 0.50); Calcium 9.7 mg/dL (8.4-10.2); Carbon Dioxide 30 mmol/L (22-29); Chloride 108 mmol/L (96-108); Cholesterol 193 mg/dL; Estimated Glomerular Filt Rate > 60; Glucose Random 83 mg/dL (60-115); HDL Cholesterol 49 mg/dL; Iron 100 mcg/dL (30-160); LDL Cholesterol Calculated 119 mg/dl; Percent Iron Saturation 36 % (15-50); Potassium 4.1 mmol/L (3.3-5.1); Sodium 144 mmol/L (135-145); Total Iron Binding Capacity 280 mcg/dL (228-428); Triglycerides 129 mg/dL; Unsaturated Iron Binding 180 ug/dL
[2022-06-16 12:07] LABS: Ferritin 93 ng/mL (10-250); Insulin 6 uU/mL (2-29); Vitamin D 25-OH Total 55.3 ng/mL (>30)
[2022-06-16 12:14] LABS: Folate > 20.0 ng/mL (> or = 4.0); Vitamin B12 696 pg/mL (200-900)
[2022-06-17 15:24] LABS: Calcium (PTHI) 9.9 mg/dL (8.6-10.4); PTHI 30 pg/mL (16-77)
[2022-06-18 19:28] LABS: Zinc 107 mcg/dL (60-130)
[2022-06-20 00:14] LABS: Vitamin A 47 mcg/dL (38-98)
[2022-06-20 13:44] LABS: Vitamin B1 34 nmol/L (8-30)
== END 2022-06-16 09:44 | disposition home or self-care (01) ==
LOC: HO.LAB 09:43
PROVIDERS: PCP Internal Medicine; Visit Provider Physician Assistant Surgical
DX: Z98.84 Bariatric surgery status (principal)
CPT/HCPCS: 36415; 80048; 80061; 82306; 82607; 82728; 82746; 83036; 83525; 83540; 83970; 84425; 84443; 84590; 84630; 85025; 86140; 99212

== ENCOUNTER → 2022-06-27 10:46 | Outpatient (BNVA) | payer OTHER, SELFPAY | PROVIDERS: PCP Internal Medicine; Visit Provider Physician Assistant Surgical | DX: E66.9 Obesity, unspecified (principal); B36.9 Superficial mycosis, unspecified; Z90.3 Acquired absence of stomach [part of] | CPT/HCPCS: Q3014 ==

== ENCOUNTER 2022-07-16 08:54 | Outpatient (REF) | payer OTHER, SELFPAY ==
--- NOTE | 2022-07-16 08:57 | EMG_ITS ---
Please see scanned EMG / Nerve Conduction Report. MTDD
== END 2022-07-16 08:55 | disposition home or self-care (01) ==
LOC: HO.NEURO 08:54
PROVIDERS: PCP Internal Medicine; Visit Provider Internal Medicine
DX: R20.0 Anesthesia of skin (principal)
CPT/HCPCS: 95885; 95910

== ENCOUNTER 2022-07-30 08:54 | Outpatient (REF) | payer OTHER, SELFPAY ==
--- NOTE | ~2022-07-30 | US_ITS ---
EXAMINATION: US RETROPERITONEAL LIMITED (RENAL ONLY) CLINICAL INFORMATION: Cyst of kidney, acquired. COMPARISON: Ultrasound abdomen complete with elastography 11/27/2021. Renal ultrasound 05/21/2021. TECHNIQUE: Real-time imaging of the kidneys. FINDINGS: RIGHT KIDNEY: 11.1 x 6.1 x 5.2 cm (SAG x AP x TRV). The kidney is normal in size, contour, and echogenicity. Renal cortical thickness is normal. No focal parenchymal lesions or hydronephrosis. There are few echogenic foci in upper pole measuring 0.4 x 0.3 x 0.3 cm. LEFT KIDNEY: 12.0 x 5.4 x 4.7 cm (SAG x AP x TRV). The kidney is normal in size, contour, and echogenicity. Renal cortical thickness is normal. No hydronephrosis. There is anechoic cyst in the upper medial pole measuring 1.1 x 0.9 x 1.1 cm. There is an echogenic stone in midpole measuring 0.4 x 0.2 x 0.4 cm. There is an echogenic foci in the midpole measuring 0.4 x 0.3 x 0.4 cm. US/US renal BI IMPRESSION: Bilateral echogenic foci without shadowing. Anechoic cyst upper pole and nonobstructive echogenic stone midpole left kidney.
== END 2022-07-30 08:55 | disposition home or self-care (01) ==
LOC: HO.US 08:54
PROVIDERS: PCP Internal Medicine; Visit Provider Nurse Practitioner Family
DX: N28.1 Cyst of kidney, acquired (principal)
CPT/HCPCS: 76775

== ENCOUNTER → 2022-08-14 12:31 | Outpatient (BNVA) | payer OTHER, SELFPAY | PROVIDERS: PCP Internal Medicine; Visit Provider Nurse Practitioner Family | DX: N28.1 Cyst of kidney, acquired (principal); N20.0 Calculus of kidney | CPT/HCPCS: 99212 ==

== ENCOUNTER → 2022-08-18 09:54 | Outpatient (BNVA) | payer OTHER, SELFPAY | PROVIDERS: PCP Internal Medicine; Visit Provider Nurse Practitioner Family | DX: K59.04 Chronic idiopathic constipation (principal) | CPT/HCPCS: 99212 ==

== ENCOUNTER 2022-11-05 10:20 | Outpatient (REF) | payer OTHER, SELFPAY ==
[2022-11-05 10:31] LABS: MANUAL DIFF FLAG NO
[2022-11-05 10:46] LABS: Basophils Percent Auto 0.5 % (0-2); Eosinophils Absolute Auto 0.1 X10*3/uL (0.0-0.4); Eosinophils Percent Auto 1.1 % (0-4); Hematocrit 39.4 % (37.0-47.0); Hemoglobin 13.2 g/dl (12.0-16.0); Imm Gran Abs Auto 0.01 X10*3/uL (0.00-0.03); Imm Gran Pct Auto 0.2 % (0.0-0.4); Lymphocytes Absolute Auto 2.9 X10*3/uL (1.2-4.9); Lymphocytes Percent Auto 47.1 % (20-40); Mean Corpuscular HGB Conc 33.5 g/dl (31.0-35.0); Mean Corpuscular Hemoglobin 30.8 pg (27.0-33.0); Mean Corpuscular Volume 92.1 fL (80.0-98.0); Mean Platelet Volume 9.8 fL (9.4-12.3); Monocytes Absolute Auto 0.3 X10*3/uL (0.1-1.2); Monocytes Percent Auto 4.4 % (2-11); Neutrophils Absolute Auto 2.9 x10*3/uL (2.0-8.3); Neutrophils Percent Auto 46.7 % (45-73); Platelet Count 228 X10*3/uL (160-400); Red Blood Count 4.28 X10*6/uL (4.20-5.50); Red Cell Distribution Width 11.9 % (11.0-16.0); White Blood Count 6.2 X10*3/uL (4.8-10.8)
[2022-11-05 10:50] LABS: Prothrombin Time 11.8 SEC (10.0-13.1)
[2022-11-05 11:26] LABS: Alanine Aminotransferase 28 U/L (0-31); Albumin Level 4.2 g/dL (3.5-5.0); Alkaline Phosphatase 71 U/L (39-117); Anion Gap 12 (12-20); Aspartate Amino Transferase 22 U/L (5-31); Bilirubin Total 0.7 mg/dL (0.0-1.0); Blood Urea Nitrogen 16 mg/dL (9-16); Calcium 9.9 mg/dL (8.4-10.2); Carbon Dioxide 27 mmol/L (22-29); Chloride 110 mmol/L (96-108); Estimated Glomerular Filt Rate > 60; Glucose Fasting 85 mg/dL (60-99); Potassium 4.2 mmol/L (3.3-5.1); Sodium 145 mmol/L (135-145); Total Protein 6.4 g/dL (6.5-8.0)
== END 2022-11-05 10:21 | disposition home or self-care (01) ==
LOC: HO.LAB 10:20
PROVIDERS: PCP Internal Medicine; Visit Provider Internal Medicine
DX: Z01.818 Encounter for other preprocedural examination (principal); E66.9 Obesity, unspecified; E78.2 Mixed hyperlipidemia; Z98.84 Bariatric surgery status; Z87.891 Personal history of nicotine dependence
CPT/HCPCS: 36415; 80053; 85025; 85610; 85730; 99212

== ENCOUNTER → 2022-11-18 07:46 | Outpatient (REF) | payer OTHER, SELFPAY ==
--- NOTE | ~2022-11-18 | XR_ITS ---
EXAMINATION: XR CHEST CLINICAL INFORMATION: Preprocedure COMPARISON: Previous chest x-ray September 2021 TECHNIQUE: 2 views of the chest were obtained. FINDINGS: No significant abnormality is noted involving the heart, lungs, mediastinum, bony thorax or soft tissues. XR/XR chest 2V IMPRESSION: Unremarkable examination.
--- NOTE | 2022-11-18 07:50 | ECG_ITS ---
Test Reason : preop Blood Pressure : / mmHG Vent. Rate : 053 BPM Atrial Rate : 053 BPM P-R Int : 122 ms QRS Dur : 086 ms QT Int : 416 ms P-R-T Axes : 071 039 045 degrees QTc Int : 390 ms Sinus bradycardia Otherwise normal ECG When compared with ECG of 16-OCT-2021 07:39, No significant change was found Referred By: Leatha Donis Electronically Signed By:ISAC FRANCIS
--- NOTE | 2022-11-18 07:52 | CA_ITS ---
Acquisition Time: 2022-11-18 08:25:44 Total Exercise Time: 00:10:18 Test Indications: SYNCOPE, PREOP Medications: SEE H Protocol: ADRIEL Max HR: 146 BPM 86% of Pred: 168 BPM Max BP: 132/068 mmHG Max Work Load: 12.2 METS Exercise stress test with exercise 10 min 19 sec of Adriel protocol, achieving 86% MPHR and 12.2 METS without anginal symptoms, without arrhythmias, with normotensive response to exercise, without EKG changes. Test reviewed with Dr. Monique. Referred By: Leatha Donis Overread By: SIN NEWTON
== END ==
LOC: HO.CARD 07:46
PROVIDERS: PCP Internal Medicine; Visit Provider Internal Medicine
DX: Z01.818 Encounter for other preprocedural examination (principal); E78.2 Mixed hyperlipidemia; E66.9 Obesity, unspecified
CPT/HCPCS: 71046; 93005; 93017

== ENCOUNTER 2022-12-25 09:08 | Outpatient (AMB) | payer OTHER, SELFPAY ==
[2022-12-25 09:14] VITALS: BP 100/62; BMI 25.3
--- NOTE | 2022-12-25 09:14 | MHC.OFFVIS ---
Intake Vital Signs 12/25/22 09:14 Height 5 ft 6 in Weight 157 lb BMI 25.3 BP 100/62 Intake Visit Reasons: Annual Manager Trade Marketing Required: Yes Manager Trade Marketing Language: Policy Officer Name: Samina ESCALONA Information Interpreted: non-clinical & clinical Satellite Dish Installer: Satellite Dish Installer Present (Samina) Allergies No Known Allergies Allergy (Verified 12/25/22 09:18) Is last menstrual period known: No Post menopausal: Yes HPI HPI Comments History of Present Illness Details Presenting for annual exam. No complaints. Last Pap/HPV was negative in 12/20 Last Mammogram was BI-RADS 2 in 03/22 Last Colonoscopy was in 08/20 [facility] Medical History Depression with anxiety DJD (degenerative joint disease) Dysplasia of cervix, low grade (GIL 1) Heel pain, bilateral Hiatal hernia HPV test positive Left peroneal nerve palsy Lichen simplex chronicus Lumbago with sciatica, right side Mitral valve prolapse Mixed dyslipidemia Nephrolithiasis Right radial head fracture Skin tag Syncope Unstable gait Vitamin B12 deficiency Vitamin D deficiency Surgical History H/O arthroscopy of right knee History of appendectomy History of section History of repair of hiatal hernia History of tubal ligation Hx of colonoscopy S/P laparoscopic sleeve gastrectomy Status post breast reduction Family History Father No problems noted. Mother No problems noted. Son Bipolar disorder Mental health disorder Daughter No problems noted. Social History Housing: Apartment Are you a primary healthcare applications analyst to a significant other at home: No Do you presently have visiting nurse or other home services: No Alcohol intake: current Alcohol intake frequency: holidays/special occasions only Patient Tobacco Use Status: Former Tobacco user Quit Date: 09/2021 Tobacco use type: Cigarette Cigarettes Per Day: 5 e-Cigarette/Vaping Use: Never Used service: No Current occupational status: disabled Cognitive needs: No Hearing needs: No Vision needs: No Female Reproductive History Menstrual Age of Menarche: 12 control method: permanent sterilization Total pregnancies: 4 Full term: 2 Number of Living Children: 2 Ab spontaneous: 2 Date of last pap smear: 12/24/21 (negative) History of abnormal pap smear: Yes Date of Mammogram: 03/11/22 Review of Systems Const All systems reviewed & are unremarkable except as noted in HPI and below Card Reports as per HPI Resp Reports as per HPI GI Reports as per HPI and Reports no additional complaints Reports as per HPI Physical Exam Vital Signs: Last Vital Signs BP 100/62 12/25/22 09:14 BMI result Body Mass Index 25.3 Const General: cooperative, healthy appearing and comfortable Chest Chest palpation & inspection: normal inspection of the chest and normal palpation of entire chest wall Breast/axilla inspection: normal inspection of the breasts and normal inspection of the axillae Breast/axilla palpation: normal palpation of the breasts, normal palpation of the axillae and no axillary lymphadenopathy Resp Effort & Inspection: normal respiratory effort Auscultation: clear to auscultation bilaterally Percussion: percussion normal Cardio Palpation: normal PMI Rate: regular rate Rhythm: regular rhythm Heart sounds: no murmurs and no rubs Peripheral pulses: Peripheral pulses 2+ throughout GI Inspection: Yes normal to inspection Palpation (GI): Soft to palpation, nontender, no guarding, not rigid and No hepatosplenomegaly present Percussion: Yes normal to percussion Auscultation: normal bowel sounds Rectal Exam - Female: deferred General: Yes bladder normal to palpation External Female Exam: No lesion Speculum Exam - Vagina: normal appearance of the vagina, normal palpation, normal vaginal discharge and not erythematous Speculum Exam - Cervix: normal appearance of the cervix and normal palpation Bimanual exam- vagina & uterus: normal bimanual exam, normal palpation, uterine size normal, bladder normal to palpation, consistency normal and normal palpation Bimanual Exam- Adnexa, other: normal adnexae, no masses and no tenderness Assessment & Plan Assessment & Plan (1) Well woman exam: Comment: 2018 GIL 1 2019 Pap negative/ HPV positive 2020 negative co testing Code(s): Z01.419 - Encounter for gynecological examination (general) (routine) without abnormal findings Plan: Co testing done. Counseled the patient about the recommended dietary allowance of 1200 mg of Calcium & 600 IU of vitamin D. Mammogram ordered for 03/23 , the patient is up-to-date with her screening colonoscopy . The patient was instructed to perform monthly self-breast exams and schedule annual exam in a year; all questions answered and the patient verbalized understanding. Orders: Orders MM screening mammo BI 3 Months Z12.31 - Encounter for screening mammogram for malignant neoplasm of breast Coding Level of Care Code Est Pt Prev Care 40-64y([id number]) Diagnoses Well woman exam Z01.419
== END 2022-12-25 09:38 | disposition home or self-care (01) ==
LOC: HO.HWS 09:08
PROVIDERS: PCP Internal Medicine; Visit Provider Obstetrics & Gynecology
DX: Z01.419 Encounter for gynecological examination (general) (routine) without abnormal findings (principal)
CPT/HCPCS: 99396

== ENCOUNTER 2022-12-25 09:08 | Outpatient (REF) | payer OTHER, SELFPAY ==
[2023-01-02 06:10] LABS: HPV mRNA E6/E7 rflx Not Detected (Not Detected)
== END 2022-12-25 09:09 | disposition home or self-care (01) ==
LOC: HO.LNP 09:08
PROVIDERS: PCP Internal Medicine; Visit Provider Obstetrics & Gynecology
DX: Z01.419 Encounter for gynecological examination (general) (routine) without abnormal findings (principal); Z11.51 Encounter for screening for human papillomavirus (HPV)
CPT/HCPCS: 87624; 88142

== ENCOUNTER 2023-01-02 09:55 | Outpatient (AMB) | payer OTHER, SELFPAY ==
--- NOTE | 2023-01-02 09:59 | MHC.OFFVISWM ---
Intake VS Expanded 01/02/23 10:07 Height 5 ft 6 in Weight 151 lb 9.6 oz BMI 24.5 BP 94/53 L Blood Pressure Location Rt brachial Blood Pressure Position Sitting Pulse 66 Pulse Source Pulse Oximeter Temp 96.3 F L Temperature Source Temporal Artery Scan Pulse Oximetry 95 Body Fat 45.6 Body Fat Percentage 30.1 Free Fat Mass 105.8 Muscle Mass 100.6 Visceral Mass 6.0 Water Mass 75.2 BMR 1,418 Intake Visit Reasons: (OV) PO LSG 01/02/22 Crime Lab Analyst Required: Yes Crime Lab Analyst Name: office cmi Allergies No Known Allergies Allergy (Verified 01/02/23 10:04) Medication List - Last Reconciled 01/02/23 by FREDIS Barahona ascorbic acid (vitamin C) 1 g PO Q6H bupropion HCl 300 mg PO DAILY buspirone 15 mg PO TID [Celebrate MVI and Mike+D PO DAILY] ferrous sulfate (FeroSul) 325 mg PO DAILY folic acid 0.8 mg PO DAILY lamotrigine 150 mg PO BID prazosin 1 mg PO BEDTIME pyridoxine (vitamin B6) 100 mg PO DAILY 90 days sennosides (Natural Senna Laxative) 8.6 mg PO BEDTIME sertraline 200 mg PO DAILY trazodone 100 mg PO BEDTIME HPI HPI Comments History of Present Illness Details This?a?51?yo female who is s/p LSG without hiatal hernia repair on?01/02/[address] Abebe. Presents for 1 year post op visit. Weight today is 151.6 pounds, with a BMI of 24.5.? There has been a 66.6 pound weight loss,(initial weight 218.2 pounds) since starting the program on reflecting a 30.5% total body weight loss and a weight loss of 36.8 pounds since surgery (operative weight 188.4 pounds) reflecting a 19.5% TBWL since surgery.? No complaints of nausea, emesis, abdominal pain or reflux. Reports infrequent but normal bowel movements every 1-2 days and uses stool softeners regularly.? celebrate MVI and Mike + D. She reports she is very happy and feeling well. She is planning to go to [place] 01-11 for planned 8/15/23 BBL, Present meal plan includes: Premier Protein RTD shake x 1 2 meal 6 forks protein/ 6 forks veg salad yogurt w fruit sometimes drinking 32-48 oz water ? Exercise routine includes: going to the gym, 4x per week, elliptical or bike 500 calories.? Any post op complications: none ZULAY: never DM: never HTN: never Hyperlipidemia: resolved GERD:?0-5 scale ??0 = no symptoms ??1 = symptoms noticeable but not bothersome 2 =symptoms bothersome but not daily ? 3 = symptoms bothersome and daily 4 = symptoms affect daily activities 5 = symptoms are incapacitating, unable to do daily activities ? How bad is the heartburn: 0 ? Heartburn while lying down: 0 ? Heartburn when standing up: 0 ? Heartburn after meals: 0 ? Does heartburn change your diet: 0 ? Does heartburn wake you up from sleep: 0 ? Do you have difficulty swallowin ? Do you have pain with swallowin ? If you take medicine for your reflux, does this affect your daily life: 0 Satisfaction with present condition - satisfied or not satisfied: satisfied [facility] Medical History Depression with anxiety DJD (degenerative joint disease) Dysplasia of cervix, low grade (GIL 1) Heel pain, bilateral Hiatal hernia HPV test positive Left peroneal nerve palsy Lichen simplex chronicus Lumbago with sciatica, right side Mitral valve prolapse Mixed dyslipidemia Nephrolithiasis Right radial head fracture Skin tag Syncope Unstable gait Vitamin B12 deficiency Vitamin D deficiency Surgical History H/O arthroscopy of right knee History of appendectomy History of section History of repair of hiatal hernia History of tubal ligation Hx of colonoscopy S/P laparoscopic sleeve gastrectomy Status post breast reduction Family History Father No problems noted. Mother No problems noted. Son Bipolar disorder Mental health disorder Daughter No problems noted. Social History Housing: Apartment Are you a primary home health aide caregiver to a significant other at home: No Do you presently have visiting nurse or other home services: No Alcohol intake: current Alcohol intake frequency: holidays/special occasions only Patient Tobacco Use Status: Former Tobacco user Quit Date: 09/2021 Tobacco use type: Cigarette Cigarettes Per Day: 5 e-Cigarette/Vaping Use: Never Used service: No Current occupational status: disabled Cognitive needs: No Hearing needs: No Vision needs: No Female Reproductive History Menstrual Age of Menarche: 12 Review of Systems Const All systems reviewed & are unremarkable except as noted in HPI and below Physical Exam Vital Signs: Last Vital Signs Temp 96.3 F L 01/02/23 10:07 Pulse 66 01/02/23 10:07 BP 94/53 L 01/02/23 10:07 Pulse Ox 95 01/02/23 10:07 BMI result Body Mass Index 24.5 Const General: cooperative and no acute distress Orientation/consciousness: patient oriented x3 Resp Effort & Inspection: normal respiratory effort Auscultation: clear to auscultation bilaterally Cardio Rate: regular rate Rhythm: regular rhythm GI Inspection: Yes normal to inspection and Yes incision (well healed) Palpation (GI): Soft to palpation and no masses Neuro General: patient oriented x3 Assessment & Plan Assessment & Plan (1) S/P laparoscopic sleeve gastrectomy: Code(s): Z.84 - Bariatric surgery status Plan: check yearly labs achieved a healthy weight maintain current meal plan and exercise plan rtc 6 months or sooner if needed Orders: Orders Vitamin B12 and Folate Today - Bariatric surgery status Comprehensive Met. Panel Today - Bariatric surgery status C Reactive Protein Today .84 - Bariatric surgery status Ferritin Today .84 - Bariatric surgery status Hemoglobin A1c Today .84 - Bariatric surgery status Insulin Today . - Bariatric surgery status IRON PROFILE Today .84 - Bariatric surgery status Lipid Panel Today .84 - Bariatric surgery status PTHI Today .84 - Bariatric surgery status TSH reflex Free T4 Today .84 - Bariatric surgery status Vitamin A Today .84 - Bariatric surgery status Vitamin B1 Today .84 - Bariatric surgery status Vitamin D 25-OH Total Today 84 - Bariatric surgery status Zinc Today Z.84 - Bariatric surgery status Complete Blood Count Auto Diff Today 84 - Bariatric surgery status Coding Level of Care Code Est Pt Level 4 (57438) Diagnoses S/P laparoscopic sleeve gastrectomy Z84 Time Spent (min) 40
[2023-01-02 10:07] VITALS: BP 94/53; PULSE 66; TEMP 35.7; O2SAT 95; BMI 24.5
== END 2023-01-02 10:40 | disposition home or self-care (01) ==
PROVIDERS: PCP Internal Medicine; Visit Provider Physician Assistant Surgical
DX: E66.3 Overweight (principal); Z68.24 Body mass index [BMI] 24.0-24.9, adult; Z90.3 Acquired absence of stomach [part of]; Z98.84 Bariatric surgery status
CPT/HCPCS: 99214

== ENCOUNTER 2023-01-02 09:55 | Outpatient (REF) | payer OTHER, SELFPAY ==
[2023-01-02 10:59] LABS: MANUAL DIFF FLAG NO
[2023-01-02 11:54] LABS: Hematocrit 40.1 % (37.0-47.0); Hemoglobin 13.2 g/dl (12.0-16.0); Imm Gran Pct Auto 0.2 % (0.0-0.4); Mean Corpuscular HGB Conc 32.9 g/dl (31.0-35.0); Mean Corpuscular Hemoglobin 30.8 pg (27.0-33.0); Mean Corpuscular Volume 93.7 fL (80.0-98.0); Mean Platelet Volume 11.1 fL (9.4-12.3); Neutrophils Percent Auto 60.6 % (45-73); Platelet Count 193 X10*3/uL (160-400); Red Blood Count 4.28 X10*6/uL (4.20-5.50); Red Cell Distribution Width 12.1 % (11.0-16.0); White Blood Count 5.9 X10*3/uL (4.8-10.8)
[2023-01-02 11:55] LABS: Basophils Percent Auto 0.5 % (0-2); Eosinophils Absolute Auto 0.1 X10*3/uL (0.0-0.4); Imm Gran Abs Auto 0.01 X10*3/uL (0.00-0.03); Lymphocytes Absolute Auto 1.9 X10*3/uL (1.2-4.9); Lymphocytes Percent Auto 32.9 % (20-40); Monocytes Absolute Auto 0.3 X10*3/uL (0.1-1.2); Monocytes Percent Auto 4.8 % (2-11); Neutrophils Absolute Auto 3.6 x10*3/uL (2.0-8.3)
[2023-01-02 13:42] LABS: Estimated Average Glucose 85 mg/dL; Hemoglobin A1c % 4.6 %
[2023-01-02 15:03] LABS: Alanine Aminotransferase 36 U/L (0-31); Albumin Level 4.3 g/dL (3.5-5.0); Alkaline Phosphatase 71 U/L (39-117); Anion Gap 16 (12-20); Aspartate Amino Transferase 33 U/L (5-31); Bilirubin Total 0.5 mg/dL (0.0-1.0); Blood Urea Nitrogen 16 mg/dL (9-16); C Reactive Protein 0.87 mg/dL (< or = 0.50); Calcium 9.9 mg/dL (8.4-10.2); Carbon Dioxide 25 mmol/L (22-29); Chloride 107 mmol/L (96-108); Cholesterol 177 mg/dL; Estimated Glomerular Filt Rate > 60; Glucose Random 85 mg/dL (60-115); HDL Cholesterol 60 mg/dL; Iron 65 mcg/dL (30-160); LDL Cholesterol Calculated 99 mg/dl; Percent Iron Saturation 24 % (15-50); Potassium 4.2 mmol/L (3.3-5.1); Sodium 144 mmol/L (135-145); Total Iron Binding Capacity 266 mcg/dL (228-428); Total Protein 6.7 g/dL (6.5-8.0); Triglycerides 91 mg/dL; Unsaturated Iron Binding 201 ug/dL
[2023-01-02 15:28] LABS: Folate 17.3 ng/mL (> or = 4.0); Vitamin B12 843 pg/mL (200-900)
[2023-01-02 15:33] LABS: Ferritin 139 ng/mL (10-250); TSH reflex Free T4 0.54 uIU/mL (0.32-4.0); Vitamin D 25-OH Total 68.4 ng/mL (>30)
[2023-01-02 16:55] LABS: Insulin 5 uU/mL (2-29)
[2023-01-05 12:42] LABS: Calcium (PTHI) 9.6 mg/dL (8.6-10.4); PTHI 44 pg/mL (16-77)
[2023-01-07 00:34] LABS: Zinc 75 mcg/dL (60-130)
[2023-01-07 15:52] LABS: Vitamin B1 21 nmol/L (8-30)
[2023-01-08 15:08] LABS: Vitamin A 42 mcg/dL (38-98)
== END 2023-01-02 09:56 | disposition home or self-care (01) ==
LOC: HO.LAB 09:55
PROVIDERS: PCP Internal Medicine; Visit Provider Physician Assistant Surgical
DX: Z98.84 Bariatric surgery status (principal); Z79.899 Other long term (current) drug therapy; E78.2 Mixed hyperlipidemia
CPT/HCPCS: 36415; 80053; 80061; 82306; 82607; 82728; 82746; 83036; 83525; 83540; 83970; 84425; 84443; 84590; 84630; 85025; 86140; 99212

== ENCOUNTER 2023-03-16 08:47 | Outpatient (REF) | payer OTHER, SELFPAY ==
--- NOTE | ~2023-03-16 | MM_ITS ---
EXAMINATION: MM SCREENING DIGITAL BREAST TOMOSYNTHESIS, BILATERAL CLINICAL INFORMATION: Screening. Asymptomatic. The patient is status post bilateral breast reduction mammoplasty. COMPARISON: Mammography: This study is compared with prior exams dating back to 2017. TECHNIQUE: Digital breast tomosynthesis is performed in both the craniocaudal and mediolateral oblique views along with computer-aided detection (CAD). Synthesized 2D images are generated from the tomosynthesis. FINDINGS: There are scattered areas of fibroglandular density (ACR BI-RADS breast composition Category b). There are no significant masses, abnormal calcifications, or other abnormalities. Post reduction changes are present in each breast. MM/MM tomosynthesis screening BI IMPRESSION: No mammographic evidence of malignancy. ASSESSMENT: BI-RADS BI-RADS 2 - Benign Findings RECOMMENDATION: Routine annual mammography screening. 1 year F/U This examination should not preclude the clinical evaluation of a suspicious palpable abnormality. This patient's information was entered into a reminder system with a target due date for their next mammogram.
== END 2023-03-16 08:48 | disposition home or self-care (01) ==
LOC: HO.MAMMO 08:47
PROVIDERS: PCP Internal Medicine; Referring Provider Obstetrics & Gynecology; Visit Provider Internal Medicine
DX: Z12.31 Encounter for screening mammogram for malignant neoplasm of breast (principal)
CPT/HCPCS: 77063; 77067

== ENCOUNTER → 2023-03-16 09:00 | Outpatient (BNV) | payer OTHER, SELFPAY | PROVIDERS: PCP Internal Medicine; Referring Provider Obstetrics & Gynecology; Visit Provider Radiology Diagnostic Radiology | DX: Z12.31 Encounter for screening mammogram for malignant neoplasm of breast (principal) | CPT/HCPCS: 77063; 77067 ==

== ENCOUNTER 2023-05-08 08:38 | Outpatient (REF) | payer OTHER, SELFPAY ==
--- NOTE | ~2023-05-08 | US_ITS ---
EXAMINATION: US RETROPERITONEAL LIMITED (RENAL ONLY) CLINICAL INFORMATION: Calculus of kidney. COMPARISON: Renal ultrasound 07/30/2022. Ultrasound abdomen complete 11/27/2021. TECHNIQUE: Real-time imaging of the kidneys. Limited visualization due to bowel gas. FINDINGS: RIGHT KIDNEY: 11.1 x 4.4 x 5.4 cm (SAG x AP x TRV). No hydronephrosis. Upper pole 0.4 cm calculus. Renal cortical thickness is normal. Limited visualization. LEFT KIDNEY: 12.0 x 4.5 x 4.3 cm (SAG x AP x TRV). 2 mid pole calculi each measure 0.4 cm. No hydronephrosis. Renal cortical thickness is normal. Limited visualization. Medial upper pole 0.8 x 0.9 x 0.7 cm cyst with benign features. Midpole 0.7 cm cyst with benign features. There is no indication for follow-up imaging. US/US renal BI IMPRESSION: Bilateral nephrolithiasis. No hydronephrosis.
== END 2023-05-08 08:39 | disposition home or self-care (01) ==
LOC: HO.US 08:38
PROVIDERS: PCP Internal Medicine; Visit Provider Nurse Practitioner Family
DX: N20.0 Calculus of kidney (principal); N28.1 Cyst of kidney, acquired
CPT/HCPCS: 76775

== ENCOUNTER 2023-05-18 10:41 | Outpatient (REF) | payer OTHER, SELFPAY | END 2023-05-18 10:42 | disposition home or self-care (01) | LOC: HO.LNP 10:41 | PROVIDERS: Visit Provider Nurse Practitioner Family | DX: N20.0 Calculus of kidney (principal); N28.1 Cyst of kidney, acquired; N39.0 Urinary tract infection, site not specified | CPT/HCPCS: 81003; 87086; 99212 ==

== ENCOUNTER 2023-05-18 10:41 | Outpatient (AMB) | payer OTHER, SELFPAY ==
--- NOTE | 2023-05-18 10:46 | MHC.OFFVIS ---
Intake Intake Visit Reasons: 6m follow up/US(set) Intake Note: Patient is present for 1yr follow up kidney cyst/ultrasound (imaging 05/08/23) Urology Medications: none Blood thinner: none Personal Banking Officer Required: Yes Personal Banking Officer Name: JULIANNE MISTRY JANICE Accompanied by: Self / Same As Patient Allergies No Known Allergies Allergy (Verified 05/18/23 12:09) Medication List - Last Reconciled 05/18/23 by CHAPINCITO Dickerson ascorbic acid (vitamin C) 1 g PO Q6H bupropion HCl 300 mg PO DAILY buspirone 15 mg PO TID [Celebrate MVI and Mike+D PO DAILY] ferrous sulfate (FeroSul) 325 mg PO DAILY folic acid 0.8 mg PO DAILY lamotrigine 150 mg PO BID nitrofurantoin monohyd/m-cryst 100 mg (Macrobid) 100 mg PO Q12H 7 days prazosin 1 mg PO BEDTIME pyridoxine (vitamin B6) 100 mg PO DAILY 90 days sennosides (Natural Senna Laxative) 8.6 mg PO BEDTIME sertraline 200 mg PO DAILY trazodone 100 mg PO BEDTIME HPI HPI Comments History of Present Illness Details Yamilex is a pleasant Macanese-speaking 52-year-old female patient of Dr. Donis. She has a past medical history of nephrolithiasis, [place] in simplex chronicus, mitral valve prolapse, degenerative joint disease, vitamin-D deficiency, mixed dyslipidemia, depression with anxiety, and hiatal hernia. She presents to the office today for follow-up of her renal cyst and nephrolithiasis. Recent renal ultrasound results reviewed with the patient today. Right kidney with no hydronephrosis 4mm upper pole calculus. Left kidney with 2 mid pole calculi each measure 4mm. No hydronephrosis. Medial upper pole 0.8 x 0.9 x 0.7 cm cyst with benign features. Midpole 0.7 cm cyst with benign features. There is no indication for follow-up imaging per radiology report. In office urinalysis results reviewed with the patient today. 3+ leukocytes. When asked she does report noting dysuria with intermittent episodes of vaginal itching. She reports having had recent liposuction due to excess weight loss and has been wearing a extremely fitting post surgical garment as recommended by surgeon. She denies urinary urgency, urinary frequency, incontinence, nocturia, hematuria, foul smelling urine, changes to urinary stream, flank pain, fever, and or chills. She does report noting cloudy urine over the last week. When asked patient endorses to be drinking adequate amount of fluid daily. She reports compliance with vitamin B6 daily. She otherwise offers no other issues or concerns at this time. [facility] Medical History Nephrolithiasis Left peroneal nerve palsy Unstable gait Lichen simplex chronicus Skin tag Mitral valve prolapse Vitamin B12 deficiency DJD (degenerative joint disease) Heel pain, bilateral Lumbago with sciatica, right side Right radial head fracture Dysplasia of cervix, low grade (GIL 1) HPV test positive Vitamin D deficiency Mixed dyslipidemia Depression with anxiety Hiatal hernia Syncope Surgical History History of repair of hiatal hernia S/P laparoscopic sleeve gastrectomy Hx of colonoscopy Status post breast reduction H/O arthroscopy of right knee History of section History of appendectomy History of tubal ligation Family History Father No problems noted. Mother No problems noted. Son Bipolar disorder Mental health disorder Daughter No problems noted. Social History Housing: Apartment Are you a primary lawn care technician to a significant other at home: No Do you presently have visiting nurse or other home services: No Alcohol intake: current Alcohol intake frequency: holidays/special occasions only Comment: wears knee brace at times Patient Tobacco Use Status: Former Tobacco user Quit Date: 09/2021 Tobacco use type: Cigarette Cigarettes Per Day: 5 e-Cigarette/Vaping Use: Never Used service: No Current occupational status: disabled Cognitive needs: No Hearing needs: No Vision needs: No Female Reproductive History Menstrual Age of Menarche: 12 Review of Systems Const Reports as per HPI Eyes Reports no additional complaints ENT Reports no additional complaints Card Reports no additional complaints Resp Reports no additional complaints GI Reports no additional complaints Reports as per HPI Musc Reports no additional complaints Psych Details: patient reports she has established care with psychiatric MD Endo Reports no additional complaints Physical Exam Const General: cooperative, healthy appearing, comfortable, no acute distress, well developed, alert and awake Nutritional Appearance: average body habitus Orientation/consciousness: patient oriented x3 Limitations: no limitations HEENT Head: Yes normal to inspection, Yes normocephalic and Yes atraumatic Ears: hearing grossly normal bilaterally Eyes General: appearance normal, both eyes and all related structures Neck Neck: Yes normal visual inspection and Yes trachea midline Chest Chest palpation & inspection: normal inspection of the chest Resp Effort & Inspection: normal respiratory effort and able to speak in complete sentences Cardio Rate: regular rate GI Inspection: Yes normal to inspection General: Yes no CVA tenderness Back/Spine/Pelvis Other: patient endorses intermittent low back pain Back: no CVA tenderness Skin General skin exam: no rashes or lesions noted Neuro General: patient oriented x3 Extrem General: Yes normal to inspection Psych Appearance: grossly normal and well kempt Mental Status: mental status grossly normal Speech and movement: Normal speech and movement present and Clear speech present Affect: normal affect Attitude: cooperative Thought process: Normal thought process present Thought content: Normal thought content present Insight: Good insight present (Psych) Judgement: Good judgement present (Psych) Results AMB Urinalysis, Automated UA Leukoctes 500 Cammie/uL Last Edit by [employer] on 05/18/23 11:35 UA Nitrite Negative Last Edit by [employer] on 05/18/23 11:35 UA Urobilinogen 0.2 mg/dL Last Edit by [employer] on 05/18/23 11:35 UA Protein 15 mg/dL Last Edit by [employer] on 05/18/23 11:35 UA pH 8.5 Last Edit by [employer] on 05/18/23 11:35 UA Blood 0 Harrison/uL Last Edit by [employer] on 05/18/23 11:35 UA Specific [place] 1.015 Last Edit by [employer] on 05/18/23 11:35 UA Ketone Negative Last Edit by [employer] on 05/18/23 11:35 UA Bilirubin 0 mg/dL Last Edit by [employer] on 05/18/23 11:35 UA Glucose 0 mg/dL Last Edit by [employer] on 05/18/23 11:35 Results Reviewed Results Reviewed: Laboratory Last Values Urine pH (Auto) 8.5 05/18/23 10:48 Specific [place] (Auto) 1.015 05/18/23 10:48 Urine Protein (Auto) 15 mg/dL 05/18/23 10:48 Glucose (UA)(Auto) 0 mg/dL 05/18/23 10:48 Urine Ketones (Auto) Negative 05/18/23 10:48 Urine Blood (Auto) 0 Harrison/uL 05/18/23 10:48 Urine Nitrite (Auto) Negative 05/18/23 10:48 Urine Bilirubin (Auto) 0 mg/dL 05/18/23 10:48 Urine Urobilinogen (Auto) 0.2 mg/dL 05/18/23 10:48 Leukocyte Esterase (Auto) 500 Cammie/uL 05/18/23 10:48 Date of Service: 05/08/23 Procedure(s): US renal BI FINDINGS: RIGHT KIDNEY: 11.1 x 4.4 x 5.4 cm (SAG x AP x TRV). No hydronephrosis. Upper pole 0.4 cm calculus. Renal cortical thickness is normal. Limited visualization. LEFT KIDNEY: 12.0 x 4.5 x 4.3 cm (SAG x AP x TRV). 2 mid pole calculi each measure 0.4 cm. No hydronephrosis. Renal cortical thickness is normal. Limited visualization. Medial upper pole 0.8 x 0.9 x 0.7 cm cyst with benign features. Midpole 0.7 cm cyst with benign features. There is no indication for follow-up imaging. IMPRESSION: Bilateral nephrolithiasis. No hydronephrosis. Assessment & Plan Assessment & Plan (1) Nephrolithiasis: Code(s): N20.0 - Calculus of kidney (2) Renal cyst: Code(s): N28.1 - Cyst of kidney, acquired (3) Urinary tract infection: Code(s): N39.0 - Urinary tract infection, site not specified Plan In office urinalysis results reviewed with the patient today; as noted above; will send for urine culture. Recent renal ultrasound results reviewed with the patient today; as noted above. Start Macrobid as discussed and prescribed. Discussed, educated, encouraged on the importance of drinking plenty of water daily. Continue vitamin B6 daily. Continue adding 1 oz of lemon juice to water daily. Will continue with surveillance monitoring of nephrolithiasis as discussed. Discussed UTI prevention with D mannose supplement, vitamin-C, increasing fluid intake, behavioral therapy with timed voiding, perineal hygiene and postcoital voiding, and management of constipation with stool softeners and increased fiber intake. Follow-up in 3 months with [facility] or sooner with any issues, concerns, and or questions. Orders: Orders Urine Culture Today N39.0 - Urinary tract infection, site not specified AMB Urinalysis Automated Today Z13.9 - Encounter for screening, unspecified Medications: New nitrofurantoin monohyd/m-cryst 100 mg (Macrobid) must administer with a meal/food 100 mg PO Q12H 7 days 14 caps 0RF Refilled pyridoxine (vitamin B6) 100 mg PO DAILY 90 days 90 tabs 1RF N13.2 - Hydronephrosis with renal and ureteral calculous obstruction Patient Instructions: The patient had an opportunity to ask questions regarding the treatment plan. All questions were answered. Physical exam, labs, and imaging were discussed and reviewed in detail. As well as risks, benefits, and discussion of treatment choices. No major barriers to understanding were identified. The patient expressed understanding and agreement with the above treatment plan. The patient was made aware they should contact our office by phone for worsening of their current condition, the appearance of new symptoms, or with any questions or concerns. Compliance is encouraged with any medications and follow up testing that is ordered. It is a privilege to be allowed the opportunity to participate in? your urological care.? Again, if you have any questions or concerns If you have any questions or concerns please do not hesitate to contact me. The office is [phone]. This note is constructed using voice recognition software. While every effort has been made to ensure accuracy account financial manager errors may have been included. Yours sincerely, MERY Dickerson-NATE Coding Level of Care Code Est Pt Level 4 (62367) Diagnoses Nephrolithiasis N20.0 Renal cyst N28.1 Urinary tract infection N39.0
== END 2023-05-18 11:54 | disposition home or self-care (01) ==
PROVIDERS: Visit Provider Nurse Practitioner Family
DX: N20.0 Calculus of kidney (principal); N28.1 Cyst of kidney, acquired; N39.0 Urinary tract infection, site not specified
CPT/HCPCS: 99214

== ENCOUNTER 2023-07-10 09:20 | Outpatient (AMB) | payer OTHER, SELFPAY ==
--- NOTE | 2023-07-10 09:22 | MHC.OFFVISWM ---
Intake VS Expanded 07/10/23 09:29 BP 104/53 L Blood Pressure Location Rt brachial Blood Pressure Position Sitting Pulse 61 Pulse Source Pulse Oximeter Temp 96.9 F Temperature Source Tympanic Pulse Oximetry 96 Oxygen Delivery Method Room Air Height 5 ft 6 in Weight 151 lb 3.2 oz BMI 24.4 Body Fat % 29.3 Body Fat Mass 44.4 Fat Free Mass 106.8 Visceral Fat Rating 6.0 Body Water % 50.2 Body Water Mass 75.8 Muscle Mass/Score 101.2 Basal Metabolic Rate/Score 1,426 Intake Visit Reasons: (OV) PO LSG 01/02/22 Allergies No Known Allergies Allergy (Verified 07/10/23 09:33) HPI HPI Comments History of Present Illness Details This?a?51?yo female who is s/p LSG without hiatal hernia repair on?01/02/[address] Abebe. Presents for 1 year 6 month post op visit. Weight today is 151.2 pounds, with a BMI of 24.4.? There has been a 67 pound weight loss,(initial weight 218.2 pounds) since starting the program on reflecting a 30.7% total body weight loss and a weight loss of 37.2 pounds since surgery (operative weight 188.4 pounds) reflecting a 19.7% TBWL since surgery.? No complaints of nausea, emesis, abdominal pain or reflux. Reports infrequent but normal bowel movements every 1-2 days and uses stool softeners regularly.? celebrate MVI and Mike + D. She reports she is very happy and feeling well. She went to [place] 01-11 for planned 01/13/23 BBL, went well. Patient does complain of excess skin of the abdomen. She has had approximately 3 episodes of rash over the last 6 months that improved with clotrimazole. The rashes were worse with the warmer weather as she was in [place] and [place]. Additionally she states that the excess skin causes her discomfort when she bends over to tie her shoes or put socks on. She needs to wear additional clothing as a barrier between the skin folds and she wears a girdle to keep the excess skin in place. The excess in abdominal skin clearly has affected her activities of daily living and it would be appropriate for surgical removal for medical necessity. She has been at a stable weight over the last 6 months and is clearly dedicated to a healthy lifestyle. Present meal plan includes: Premier Protein RTD shake x 1 2 meal 6 forks protein/ 6 forks veg salad yogurt w fruit sometimes drinking 64 oz water ? Exercise routine includes: going to the gym, 3-4x per week, elliptical or bike 500 calories.? Any post op complications: none ZULAY: never DM: never HTN: never Hyperlipidemia: resolved GERD:?0-5 scale ??0 = no symptoms ??1 = symptoms noticeable but not bothersome 2 =symptoms bothersome but not daily ? 3 = symptoms bothersome and daily 4 = symptoms affect daily activities 5 = symptoms are incapacitating, unable to do daily activities ? How bad is the heartburn: 0 ? Heartburn while lying down: 0 ? Heartburn when standing up: 0 ? Heartburn after meals: 0 ? Does heartburn change your diet: 0 ? Does heartburn wake you up from sleep: 0 ? Do you have difficulty swallowin ? Do you have pain with swallowin ? If you take medicine for your reflux, does this affect your daily life: 0 Satisfaction with present condition - satisfied or not satisfied: satisfied [facility] Medical History (Updated 07/10/23 @ 10:01 by FREDIS Barahona) Vitamin D deficiency Nephrolithiasis Left peroneal nerve palsy Unstable gait Lichen simplex chronicus Skin tag Mitral valve prolapse Vitamin B12 deficiency DJD (degenerative joint disease) Heel pain, bilateral Lumbago with sciatica, right side Right radial head fracture Dysplasia of cervix, low grade (GIL 1) HPV test positive Mixed dyslipidemia Depression with anxiety Hiatal hernia Syncope Surgical History History of repair of hiatal hernia S/P laparoscopic sleeve gastrectomy Hx of colonoscopy Status post breast reduction H/O arthroscopy of right knee History of section History of appendectomy History of tubal ligation Family History Father No problems noted. Mother No problems noted. Son Bipolar disorder Mental health disorder Daughter No problems noted. Social History Housing: Apartment Are you a primary resident care spec to a significant other at home: No Do you presently have visiting nurse or other home services: No Alcohol intake: current Alcohol intake frequency: holidays/special occasions only Comment: wears knee brace at times Patient Tobacco Use Status: Former Tobacco user Quit Date: 09/2021 Tobacco use type: Cigarette Cigarettes Per Day: 5 e-Cigarette/Vaping Use: Never Used service: No Current occupational status: disabled Cognitive needs: No Hearing needs: No Vision needs: No Female Reproductive History Menstrual Age of Menarche: 12 Physical Exam Const General: cooperative and no acute distress Orientation/consciousness: patient oriented x3 Resp Effort & Inspection: normal respiratory effort Auscultation: clear to auscultation bilaterally Cardio Rate: regular rate Rhythm: regular rhythm GI Inspection: Yes normal to inspection and Yes incision (well healed) Palpation (GI): Soft to palpation and no masses Skin Other: Pannus grade 1 of the abdomen with excess skin noted. No current rash noted. Neuro General: patient oriented x3 Assessment & Plan Assessment & Plan (1) S/P laparoscopic sleeve gastrectomy: Code(s): Z98.84 - Bariatric surgery status Plan: Check postop 18 month labs. Continue current meal plan. Continue exercise plan. Return to clinic in 1 month (2) Excess skin: Code(s): L98.7 - Excessive and redundant skin and subcutaneous tissue Plan: Patient clearly with excess skin as a result of her 67 lb weight loss equaling 30% total body weight loss. This has affected her ADLs and she has had recurrent rashes that improve with antifungal cream, only to recur. For the above reasons, it would be medically appropriate for surgical skin removal. She has maintained a healthy weight over the last 6 months and is clearly dedicated to a healthy lifestyle. Orders: Orders Hemoglobin A1c Today E55.9 - Vitamin D deficiency, unspecified, Z98.84 - Bariatric surgery status Complete Blood Count Auto Diff Today E55.9 - Vitamin D deficiency, unspecified, Z98.84 - Bariatric surgery status Lipid Panel Today E55.9 - Vitamin D deficiency, unspecified, Z98.84 - Bariatric surgery status IRON PROFILE Today E55.9 - Vitamin D deficiency, unspecified, Z98.84 - Bariatric surgery status C Reactive Protein Today E55.9 - Vitamin D deficiency, unspecified, Z98.84 - Bariatric surgery status Vitamin B1 Today E55.9 - Vitamin D deficiency, unspecified, Z98.84 - Bariatric surgery status Vitamin A Today E55.9 - Vitamin D deficiency, unspecified, Z98.84 - Bariatric surgery status Ferritin Today E55.9 - Vitamin D deficiency, unspecified, Z98.84 - Bariatric surgery status Vitamin D 25-OH Total Today E55.9 - Vitamin D deficiency, unspecified, Z98.84 - Bariatric surgery status Insulin Today E55.9 - Vitamin D deficiency, unspecified, Z98.84 - Bariatric surgery status Vitamin B12 and Folate Today E55.9 - Vitamin D deficiency, unspecified, Z98.84 - Bariatric surgery status Zinc Today E55.9 - Vitamin D deficiency, unspecified, Z98.84 - Bariatric surgery status TSH reflex Free T4 Today E55.9 - Vitamin D deficiency, unspecified, Z98.84 - Bariatric surgery status Basic Metabolic Panel Today E55.9 - Vitamin D deficiency, unspecified, Z98.84 - Bariatric surgery status Medications: New clotrimazole 1% (Antifungal (clotrimazole)) 1 appl topical BID PRN 45 grams 2RF rash Coding Level of Care Code Est Pt Level 4 (82516) Diagnoses S/P laparoscopic sleeve gastrectomy Z98.84 Excess skin L98.7
[2023-07-10 09:29] VITALS: BP 104/53; PULSE 61; TEMP 36.1; O2SAT 96; BMI 24.4
== END 2023-07-10 10:02 | disposition home or self-care (01) ==
PROVIDERS: PCP Internal Medicine; Visit Provider Physician Assistant Surgical
DX: L98.7 Excessive and redundant skin and subcutaneous tissue (principal); Z90.3 Acquired absence of stomach [part of]; Z98.84 Bariatric surgery status
CPT/HCPCS: 99214

== ENCOUNTER → 2023-07-10 09:20 | Outpatient (BNVA) | payer OTHER, SELFPAY | PROVIDERS: PCP Internal Medicine; Visit Provider Physician Assistant Surgical | DX: L98.7 Excessive and redundant skin and subcutaneous tissue (principal); Z98.84 Bariatric surgery status | CPT/HCPCS: 99212 ==

== ENCOUNTER 2023-08-06 10:29 | Outpatient (AMB) | payer OTHER, SELFPAY ==
--- NOTE | 2023-08-06 11:07 | MHC.PC.OV ---
Vital Signs 08/06/23 11:07 Comment Patient with thick blue nail Portuguese and fake nails Intake Visit Reasons: [facility] [place] f/u low b/p Intake Note: Pt is here today for ER follow up, low blood pressure Allergies No Known Allergies Allergy (Verified 08/06/23 11:38) Medication List - Last Reconciled 08/06/23 by Leatha Donis MD ascorbic acid (vitamin C) 1 g PO Q6H bupropion HCl 300 mg PO DAILY buspirone 15 mg PO TID [Celebrate MVI and Mike+D PO DAILY] clotrimazole 1% (Antifungal (clotrimazole)) 1 appl topical BID PRN ferrous sulfate (FeroSul) 325 mg PO DAILY folic acid 0.8 mg PO DAILY lamotrigine 150 mg PO BID prazosin 1 mg PO BEDTIME pyridoxine (vitamin B6) 100 mg PO DAILY 90 days sennosides (Natural Senna Laxative) 8.6 mg PO BEDTIME sertraline 200 mg PO DAILY trazodone 100 mg PO BEDTIME walker (Ultra-Light Rollator misc) As directed Tobacco use date assessed: 08/06/23 Dental Screening Dental Screen Date: 08/06/23 Did you have a dental visit in the last 12 months?: No Did you have a dental problem in the last 6 months where you did not have access to dental care?: No Was dental information given to patient?: Patient has dentist HPI [facility] [place] f/u low b/p HPI Details 53-year-old lady here today for follow-up after recent ER visit approximately 2 weeks ago complaining of diarrhea, nausea vomiting, noted to be severely anemic with a hemoglobin of 5.9%, was noted to be hypotensive , , hydrated with IV fluids and given [address] units of packed RBC CT scan of abdomen did not show any evidence of bleed, a rectal exam was done at the ER which showed presence of external and internal hemorrhoids with no active bleeding. She was placed on iron supplements and started on pantoprazole for presumed GI bleed. She has been feeling better, with no episodes of lightheadedness, no chest pain, no abdominal pain reported. She already has an appointment for a GI consultation on 08/19/2023 [facility] Medical History (Updated 08/06/23 @ 12:03 by Leatha Donis MD) Acute anemia Vitamin D deficiency Nephrolithiasis Left peroneal nerve palsy Unstable gait Lichen simplex chronicus Skin tag Mitral valve prolapse Vitamin B12 deficiency DJD (degenerative joint disease) Heel pain, bilateral Lumbago with sciatica, right side Right radial head fracture Dysplasia of cervix, low grade (GIL 1) HPV test positive Mixed dyslipidemia Depression with anxiety Hiatal hernia Syncope Surgical History History of repair of hiatal hernia S/P laparoscopic sleeve gastrectomy Hx of colonoscopy Status post breast reduction H/O arthroscopy of right knee History of section History of appendectomy History of tubal ligation Family History Father No problems noted. Mother No problems noted. Son Bipolar disorder Mental health disorder Daughter No problems noted. Social History Housing: Apartment Are you a primary career center advisor to a significant other at home: No Do you presently have visiting nurse or other home services: No Alcohol intake: current Alcohol intake frequency: holidays/special occasions only Comment: wears knee brace at times Patient Tobacco Use Status: Former Tobacco user Quit Date: 09/2021 Tobacco use type: Cigarette Cigarettes Per Day: 5 e-Cigarette/Vaping Use: Never Used service: No Current occupational status: disabled Cognitive needs: No Hearing needs: No Vision needs: No Female Reproductive History Menstrual Age of Menarche: 12 Questionnaire Thrive Questionnaire Date Thrive assessed: 07/10/21 AUDIT C Alcohol Use Questionnaire (AUDIT-C) 1. How often do you have a drink containing alcohol?: Never 3. How often do you have six or more drinks on one occasion?: Never Total Score: 0 Score Reviewed/Action Taken: Yes CANDIDO-7 AMB Questionnaire CANDIDO-7 Date CANDIDO - 7 assessed: 07/14/22 Source: Developed by Drs. Efra Bentley, Lolly Frederick, Zeyad Irvin and colleagues, with an educational dimitris from [employer] Review of Systems Const Reports as per HPI Eyes Reports no additional complaints ENT Reports no additional complaints Card Reports no additional complaints Resp Reports no additional complaints GI Reports no additional complaints Reports as per HPI Musc Reports no additional complaints Psych Details: patient reports she has established care with psychiatric Endo Reports no additional complaints Gregorio/Lymph Reports no additional complaints Physical exam (Primary Care) Vital Signs: Last Vital Signs Pulse 63 08/06/23 11:07 BP 110/60 08/06/23 11:07 Pulse Ox 91 L 08/06/23 11:07 Oxygen Delivery Method Room Air 08/06/23 11:07 BMI result Body Mass Index 24.7 Tobacco/Smoking Status: Tobacco use Status Tobacco use date assessed 08/06/23 08/06/23 11:15 Patient Tobacco Use Status Former Tobacco user 08/06/23 11:15 Tobacco use type Cigarette 08/06/23 11:15 e-Cigarette/Vaping Use Never Used 08/06/23 11:15 Are you ready to quit: No Thrive Assessment: Date of Thrive Assessment Date Thrive assessed 07/10/21 08/06/23 11:15 Const General: comfortable and no acute distress Orientation/consciousness: patient oriented x3 HENMT Head: Yes normocephalic Ears: TM's normal bilaterally and EAC's normal General nose exam: Normal external nose present and No nasal discharge present Face and sinus: Yes face symmetric Mouth: Normal oral and palatal mucosa present and moist mucous membranes Eyes General: appearance normal, both eyes and all related structures Neck Neck: Yes full ROM, Yes no lymphadenopathy and Yes supple Thyroid: Thyroid normal Resp Auscultation: clear to auscultation bilaterally Cardio Other: S1-S2 present regular rate and rhythm GI Palpation (GI): Soft to palpation, nontender, no guarding and no masses Back/Spine/Pelvis Back: No back tenderness Skin General skin exam: no rashes or lesions noted Nails: yellow and thickened (Toenails bilaterally) Neuro General: patient oriented x3, gait normal, moves all extremities, Normal light touch and pain sensation, no focal motor deficits and CN's II-XI intact bilaterally Cognition (Neuro): normal cognition Gait exam (Neuro): Normal gait present Extrem General: Yes full ROM, Yes no joint enlargement, Yes no pedal edema, Yes no calf tenderness and Yes normal gait Assessment and Plan Assessment & Plan (1) Acute anemia: Code(s): D64.9 - Anemia, unspecified Plan: Received 2 units of packed RBC during her recent ER visit. Has been feeling better, with no evidence of hypotension during this visit. Repeat CBC and iron profile ordered, advised to continue taking ferrous sulfate 325 mg to take 1 tablet once a day with either vitamin-C or orange juice for better absorption. Patient already has an appointment for follow-up with GI on 08/19/2023 Orders: Orders Complete Blood Count Auto Diff 08/06/23 D64.9 - Anemia, unspecified IRON PROFILE 08/06/23 D64.9 - Anemia, unspecified Coding Level of Care Code Est Pt Level 4 (08578) Diagnoses Acute anemia D64.9
== END 2023-08-06 12:05 | disposition home or self-care (01) ==
PROVIDERS: PCP Internal Medicine; Visit Provider Internal Medicine
DX: D64.9 Anemia, unspecified (principal)
CPT/HCPCS: 99214

== ENCOUNTER 2023-08-14 14:14 | Outpatient (REF) | payer OTHER, SELFPAY ==
[2023-08-14 16:02] LABS: MANUAL DIFF FLAG NO
[2023-08-14 16:06] LABS: Basophils Percent Auto 0.5 % (0-2); Eosinophils Absolute Auto 0.1 X10*3/uL (0.0-0.4); Eosinophils Percent Auto 1.7 % (0-4); Hematocrit 39.4 % (37.0-47.0); Hemoglobin 13.5 g/dl (12.0-16.0); Imm Gran Abs Auto 0.01 X10*3/uL (0.00-0.03); Imm Gran Pct Auto 0.2 % (0.0-0.4); Lymphocytes Absolute Auto 2.8 X10*3/uL (1.2-4.9); Lymphocytes Percent Auto 43.4 % (20-40); Mean Corpuscular HGB Conc 34.3 g/dl (31.0-35.0); Mean Corpuscular Hemoglobin 29.8 pg (27.0-33.0); Mean Platelet Volume 10.9 fL (9.4-12.3); Monocytes Absolute Auto 0.3 X10*3/uL (0.1-1.2); Neutrophils Absolute Auto 3.2 x10*3/uL (2.0-8.3); Neutrophils Percent Auto 49.2 % (45-73); Platelet Count 164 X10*3/uL (160-400); Red Blood Count 4.53 X10*6/uL (4.20-5.50); Red Cell Distribution Width 11.9 % (11.0-16.0); White Blood Count 6.6 X10*3/uL (4.8-10.8)
[2023-08-14 16:18] LABS: Iron 100 mcg/dL (30-160); Percent Iron Saturation 39 % (15-50); Total Iron Binding Capacity 257 mcg/dL (228-428); Unsaturated Iron Binding 157 ug/dL
== END 2023-08-14 14:15 | disposition home or self-care (01) ==
LOC: HO.HMGCLDS 14:14
PROVIDERS: PCP Internal Medicine; Visit Provider Internal Medicine
DX: D64.9 Anemia, unspecified (principal)
CPT/HCPCS: 36415; 83540; 85025

== ENCOUNTER 2023-08-19 09:56 | Outpatient (REF) | payer OTHER, SELFPAY ==
[2023-08-19 12:35] LABS: C Reactive Protein 0.28 mg/dL (< or = 0.50)
== END 2023-08-19 09:57 | disposition home or self-care (01) ==
LOC: HO.LAB 09:56
PROVIDERS: PCP Internal Medicine; Visit Provider Nurse Practitioner Family
DX: A08.11 Acute gastroenteropathy due to Norwalk agent (principal); K58.9 Irritable bowel syndrome, unspecified; K21.9 Gastro-esophageal reflux disease without esophagitis; D64.9 Anemia, unspecified; Z90.3 Acquired absence of stomach [part of]
CPT/HCPCS: 36415; 86140; 99212

== ENCOUNTER 2023-08-19 09:56 | Outpatient (AMB) | payer OTHER, SELFPAY ==
[2023-08-19 09:58] VITALS: BP 100/62; PULSE 75; BMI 24.8
--- NOTE | 2023-08-19 09:58 | A.OFFVIS_ITS ---
Intake Vital Signs 08/19/23 09:58 Height 5 ft 6 in Weight 153 lb 14.122 oz BMI 24.8 BP 100/62 Blood Pressure Location Lt brachial Position Sitting Pulse 75 Pulse Source Pulse Oximeter Intake Visit Reasons: 1 Year fu Intake Note: Pt presents to the office today for a 1 year follow up for constipation. Pt states she is feeling well and states the medications are helping her. Allergies No Known Allergies Allergy (Verified 08/20/23 14:37) HPI 1 Year fu HPI Details LAST VISIT Chronic idiopathic constipation Continue taking senna. Patient can continue going to the gym. States that she is drinking plenty fluids. I will see him in 1 year, sooner on as needed basis. Patient is agreeable to this plan and verbalizes understanding of instructions. She was given the opportunity to ask questions and all questions answered. ? Thank you for allowing me to participate in her care Plan Medications Refilled sennosides (Natural Senna Laxative) 8.6 mg PO BEDTIME 90 tabs 3RF constipation K59.00 TODAY'S VISIT: Patient is here today for follow-up. Patient reports that since last time I have seen her she has been doing well. Occasional postprandial abdominal cramping and loose stools. Patient states that she takes Senokot in the evening and she feels like she moves her bowels well. Lately patient had frequent bowels of loose stools. No family history of IBD. Last colonoscopy in 2021 showed sessile serrated polyp and recommendation was to repeat colonoscopy in 5 years. Patient has always had postprandial loose stools, however lately she has been suffering with worse symptoms. Patient also reports epigastric discomfort postprandially. Patient also reports chest pain and shortness of breath with or without exertion. Patient denies any melena, hematochezia, unintentional weight loss or ribbon like stools. Patient reports dyspepsia without dysphagia or odynophagia. Patient denies any issues with anesthesia in the past. No history of sleep apnea. Not on any anticoagulation medication. Patient also reports that in July he was brought emergency department at [facility] for abdominal pain and severe diarrhea. Patient believes that she had rectal bleed. Her H&H was critically low, however after getting transfusion patient's levels went up immediately. Patient states that she was told that this might have been falls negative. On July 15 at 5 am her H&H was 5.9 and 18.3 and at 09:30 am was 13 and 39.6. [facility] Medical History (Updated 08/21/23 @ 15:03 by Andreina Isidro NP) Pre-operative cardiovascular examination Chest pain Acute anemia Vitamin D deficiency Nephrolithiasis Left peroneal nerve palsy Unstable gait Lichen simplex chronicus Skin tag Mitral valve prolapse Vitamin B12 deficiency DJD (degenerative joint disease) Heel pain, bilateral Lumbago with sciatica, right side Right radial head fracture Dysplasia of cervix, low grade (GIL 1) HPV test positive Mixed dyslipidemia Depression with anxiety Hiatal hernia Syncope Surgical History History of repair of hiatal hernia S/P laparoscopic sleeve gastrectomy Hx of colonoscopy Status post breast reduction H/O arthroscopy of right knee History of section History of appendectomy History of tubal ligation Family History Father No problems noted. Mother No problems noted. Son Bipolar disorder Mental health disorder Daughter No problems noted. Social History Housing: Apartment Are you a primary gericare aide teacher to a significant other at home: No Do you presently have visiting nurse or other home services: No Alcohol intake: current Alcohol intake frequency: holidays/special occasions only Comment: wears knee brace at times Patient Tobacco Use Status: Former Tobacco user Quit Date: 09/2021 Tobacco use type: Cigarette Cigarettes Per Day: 5 e-Cigarette/Vaping Use: Never Used service: No Current occupational status: disabled Cognitive needs: No Hearing needs: No Vision needs: No Female Reproductive History Menstrual Age of Menarche: 12 Review of Systems Const Denies weight gain and Denies weight loss ENT Reports no additional complaints, Denies dysphagia and Denies odynophagia Card Reports no additional complaints Resp Reports no additional complaints GI Denies abdominal pain, Denies belching, Denies melena, Denies bloating, Denies change in bowel habits, Denies dysphagia, Denies excessive flatus, Denies dyspepsia, Denies heartburn, Denies diarrhea, Reports loose stools, Denies nausea, Denies odynophagia and Denies vomiting Reports no additional complaints Musc Reports no additional complaints Neuro Reports no additional complaints Psych Reports no additional complaints Endo Reports no additional complaints Physical Exam Vital Signs: Last Vital Signs Pulse 75 08/19/23 09:58 BP 100/62 08/19/23 09:58 BMI result Body Mass Index 24.8 Const General: healthy appearing, no acute distress and well developed Nutritional Appearance: well nourished Orientation/consciousness: patient oriented x3 Resp Effort & Inspection: normal respiratory effort, able to speak in complete sentences, no tracheal deviation and symmetric chest movement Auscultation: clear to auscultation bilaterally Cardio Rate: regular rate GI Inspection: Yes normal to inspection and No distended Palpation (GI): Soft to palpation, not firm, nontender and No hepatosplenomegaly present Auscultation: normal bowel sounds General: Yes no CVA tenderness Back/Spine/Pelvis Back: no CVA tenderness Skin General skin exam: elasticity normal, turgor normal and dry skin Neuro General: patient oriented x3 Psych Appearance: grossly normal Mental Status: mental status grossly normal Assessment & Plan Assessment & Plan (1) Norovirus: Code(s): A08.11 - Acute gastroenteropathy due to [place]ett agent (2) GERD (gastroesophageal reflux disease): Code(s): K21.9 - Gastro-esophageal reflux disease without esophagitis Qualifiers: Esophagitis presence: esophagitis presence not specified Qualified Code(s): K21.9 - Gastro-esophageal reflux disease without esophagitis (3) Acute anemia: Code(s): D64.9 - Anemia, unspecified Plan Patient continues with occasional postprandial loose stools. Will repeat GI panel, check fecal calprotectin and C diff. CRP. Patient will be referred to Cardiology for clearance. Patient denies any issues with anesthesia in the past. History of sleep apnea. Patient is not on any anticoagulation medication. What to expect before during and after procedure discussed with patient. Clear liquid diet and good bowel prep day before procedure discussed with patient. Patient will call our office if she will have any GI concerning symptoms. I will see her after the procedure, sooner on as needed basis. Patient is agreeable to this plan and verbalizes understanding of instructions. She was given the opportunity to ask questions and all questions answered. Thank you for allowing me to participate in her care. Orders: Orders GI Panel 08/19/23 R19.7 - Diarrhea, unspecified Calprotectin, Fecal 08/19/23 R15.9 - Full incontinence of feces CDiff Gene PCR 08/19/23 R19.7 - Diarrhea, unspecified C Reactive Protein 08/19/23 K58.9 - Irritable bowel syndrome without diarrhea Referrals Cardiology Referral Z01.810 - Encounter for preprocedural cardiovascular examination, R07.9 - Chest pain, unspecified Medications: New bisacodyl (Dulcolax (bisacodyl)) take 4 tabs at noon the day before your colonoscopy 20 mg (4 x 5 mg) PO ONCE 4 tabs 0RF 1 day Z12.11 - Encounter for screening for malignant neoplasm of colon polyethylene glycol 3350 (Miralax) As directed by gastroenterology department at [facility] 238 grams PO ONCE 238 grams 0RF Z12.11 - Encounter for screening for malignant neoplasm of colon Coding Level of Care Code Est Pt Level 4 (83818) Diagnoses Norovirus A08.11 Gastroesophageal reflux disease, unspecified whether esophagitis present K21.9 Esophagitis presence: esophagitis presence not specified Acute anemia D64.9 Time Spent (min) 40 Comment 25 minutes spent with patient and additional 15 minutes spent reviewing her records
== END 2023-08-19 11:12 | disposition home or self-care (01) ==
PROVIDERS: PCP Internal Medicine; Visit Provider Nurse Practitioner Family
DX: A08.11 Acute gastroenteropathy due to Norwalk agent (principal); K21.9 Gastro-esophageal reflux disease without esophagitis; D64.9 Anemia, unspecified
CPT/HCPCS: 99214

== ENCOUNTER 2023-08-20 14:19 | Outpatient (AMB) | payer OTHER, SELFPAY ==
--- NOTE | 2023-08-20 14:30 | MHC.OFFVIS ---
Intake Vital Signs 08/20/23 14:36 Height 5 ft 6 in Weight 152 lb 1.903 oz BMI 24.5 BP 118/76 Intake Visit Reasons: vag lumps Equity Sales Assistant Required: Yes Equity Sales Assistant Language: Bunch Breaker Name: Samina ESCALONA Information Interpreted: non-clinical & clinical Dealer Sales Manager: Dealer Sales Manager Present (Samina ESCALONA) Accompanied by: Self / Same As Patient Allergies No Known Allergies Allergy (Verified 08/20/23 14:37) Post menopausal: Yes HPI HPI Comments History of Present Illness Details Presenting complaining of bilateral vulvar lesions that has increased in number and size causing itching and irritation. The patient had left vulvar lesion biopsy in 01/20 and the pathology came back as lichen simplex chronicus [facility] Medical History Acute anemia Vitamin D deficiency Nephrolithiasis Left peroneal nerve palsy Unstable gait Lichen simplex chronicus Skin tag Mitral valve prolapse Vitamin B12 deficiency DJD (degenerative joint disease) Heel pain, bilateral Lumbago with sciatica, right side Right radial head fracture Dysplasia of cervix, low grade (GIL 1) HPV test positive Mixed dyslipidemia Depression with anxiety Hiatal hernia Syncope Surgical History History of repair of hiatal hernia S/P laparoscopic sleeve gastrectomy Hx of colonoscopy Status post breast reduction H/O arthroscopy of right knee History of section History of appendectomy History of tubal ligation Family History Father No problems noted. Mother No problems noted. Son Bipolar disorder Mental health disorder Daughter No problems noted. Social History Housing: Apartment Are you a primary lawn care specialist to a significant other at home: No Do you presently have visiting nurse or other home services: No Alcohol intake: current Alcohol intake frequency: holidays/special occasions only Comment: wears knee brace at times Patient Tobacco Use Status: Former Tobacco user Quit Date: 09/2021 Tobacco use type: Cigarette Cigarettes Per Day: 5 e-Cigarette/Vaping Use: Never Used service: No Current occupational status: disabled Cognitive needs: No Hearing needs: No Vision needs: No Female Reproductive History Menstrual Age of Menarche: 12 Review of Systems Const All systems reviewed & are unremarkable except as noted in HPI and below Physical Exam Vital Signs: Last Vital Signs BP 118/76 08/20/23 14:36 BMI result Body Mass Index 24.5 Other: Multiple -wart like lesions in the upper left labia majora, lower left labia and right upper labia majora General: Yes no CVA tenderness External Female Exam: normal appearance of the urethra and other Speculum Exam - Vagina: normal appearance of the vagina, normal palpation, no lesions and no masses Speculum Exam - Cervix: normal appearance of the cervix, normal palpation, no lesions, no masses and nontender Bimanual exam- vagina & uterus: normal bimanual exam, normal palpation, uterine size normal, normal palpation, uterine shape normal, No Cervical tenderness present and non-tender Bimanual Exam- Adnexa, other: normal adnexae Back/Spine/Pelvis Back: no CVA tenderness Office Procedures QUARTER DOPER Biopsy Before the procedure was started d/w patient the procedure, alternatives ( do nothing, medical rx), & all the risks associated with the procedure ( bleeding , infection, vulvar scarring, painful intercourse, injury to vessels, possible need for transfusion with all its risks) then patient signed the consent. Preop dx: Multiple -wart like lesions in the upper left labia majora and right upper labia majora Op: Upper left labia majora and right upper labia majora excisional bx Post op: Same Anesthesia: Lidocaine 1% 3cc used Procedure: Using betadine the area was scrubbed and draped in the usual manner. 3 cc of lidocaine was used for anesthesia at the Upper left labia majora and the right upper labia major area ; using scissors and pickup 1 of the Upper left labia majora and 1 of the right upper labia major area were excised, Vicryl was used to approximate the edges of the right upper excised lesion. Pressure was used for hemostasis. The patient tolerated the procedure well. Discharge Instructions: The patient was instructed to schedule an appointment in 2 weeks for follow-up and to call if temp>100.4, area of the biopsy redness or pain, nausea/vomiting. This note was generated with a voice recognition program. Some errors may have been overlooked during the review of this note. Sometimes these errors may affect the content or meaning of a given sentence. 95231-Zbpwng of Vulva/Perineum 42247-Kndoxd of Vulva/Perineum, additional site Procedure code (CPT) selection complete Assessment & Plan Assessment & Plan (1) Vulvar lesion: Comment: Left upper labia majora multiple lesions Right upper labia majora lesions Code(s): N90.89 - Other specified noninflammatory disorders of vulva and perineum Plan: Discussed with the patient the finding on pelvic exam, recommended vulvar biopsy of 1 the left upper lesion and 1 of the right upper lesion Orders: Orders AMB QUARTER DOPER Biopsy Today N90.89 - Other specified noninflammatory disorders of vulva and perineum Coding Level of Care Code Est Pt Level 3 (51418) Procedure Only Diagnoses Vulvar lesion N90.89 CPT Codes QUARTER DOPER Biopsy - CPT: 47253-[place]ukego of Vulva/Perineum ([id number]) QUARTER DOPER Biopsy - CPT: 52735-Odeqrs of Vulva/Perineum, additional site ([id number])
[2023-08-20 14:36] VITALS: BP 118/76; BMI 24.5
== END 2023-08-20 15:21 | disposition home or self-care (01) ==
PROVIDERS: PCP Internal Medicine; Visit Provider Obstetrics & Gynecology
DX: N90.89 Other specified noninflammatory disorders of vulva and perineum (principal)
CPT/HCPCS: 56605; 56606; 99213

== ENCOUNTER 2023-08-20 14:19 | Outpatient (REF) | payer OTHER, SELFPAY | END 2023-08-20 14:20 | disposition home or self-care (01) | LOC: HO.LNP 14:19 | PROVIDERS: PCP Internal Medicine; Visit Provider Obstetrics & Gynecology | DX: N90.89 Other specified noninflammatory disorders of vulva and perineum (principal) | CPT/HCPCS: 56605; 56606; 88305; 88312; 99212 ==

== ENCOUNTER 2023-08-21 14:22 | Outpatient (AMB) | payer OTHER, SELFPAY ==
[2023-08-21 14:26] VITALS: BP 112/68; PULSE 66; BMI 23.4
--- NOTE | 2023-08-21 14:26 | A.OFFVIS_ITS ---
Intake Vital Signs 08/21/23 14:26 Height 5 ft 6 in Weight 145 lb 1.027 oz BMI 23.4 BP 112/68 Blood Pressure Location Lt brachial Position Sitting Pulse 66 Pulse Source Monitor Intake Visit Reasons: Preop/ Daniella Evaristo/ CP/ GI bleed Intake Note: PT feels no chest pain at OV PT felt chest pain day before at home while resting Emergency Medicine Medical Director Required: Yes Emergency Medicine Medical Director Name: DARI [id number] Allergies No Known Allergies Allergy (Verified 08/20/23 14:37) HPI HPI Comments History of Present Illness Details 53-year-old female presents today for a pre-operative appointment. Used Certified Emergency Medicine Medical Director for translation. Patient had recent visit to [facility] emergency Department for nausea, vomiting, diarrhea, abdominal pain and found to be severely anemic with HGB of 5.9. When EMS picked her up because of syncopal episodes systolic BPs were in the 60s. Since then she reports she has not felt syncopal. Since last week she has been getting a mild discomfort in her chest. Sometimes she notices it under stress, sometimes at rest, she is unsure if it is with actvities activities. She reports it is a pressure. Last hgb and hct stable. [facility] Medical History (Updated 08/21/23 @ 15:03 by Andreina Isidro NP) Pre-operative cardiovascular examination Chest pain Acute anemia Vitamin D deficiency Nephrolithiasis Left peroneal nerve palsy Unstable gait Lichen simplex chronicus Skin tag Mitral valve prolapse Vitamin B12 deficiency DJD (degenerative joint disease) Heel pain, bilateral Lumbago with sciatica, right side Right radial head fracture Dysplasia of cervix, low grade (GIL 1) HPV test positive Mixed dyslipidemia Depression with anxiety Hiatal hernia Syncope Surgical History History of repair of hiatal hernia S/P laparoscopic sleeve gastrectomy Hx of colonoscopy Status post breast reduction H/O arthroscopy of right knee History of section History of appendectomy History of tubal ligation Family History Father No problems noted. Mother No problems noted. Son Bipolar disorder Mental health disorder Daughter No problems noted. Social History Housing: Apartment Are you a primary home care companion to a significant other at home: No Do you presently have visiting nurse or other home services: No Alcohol intake: current Alcohol intake frequency: holidays/special occasions only Comment: wears knee brace at times Patient Tobacco Use Status: Former Tobacco user Quit Date: 09/2021 Tobacco use type: Cigarette Cigarettes Per Day: 5 e-Cigarette/Vaping Use: Never Used service: No Current occupational status: disabled Cognitive needs: No Hearing needs: No Vision needs: No Female Reproductive History Menstrual Age of Menarche: 12 Review of Systems Const Denies weakness ENT Denies dizziness Card Denies chest pain, Denies chest pain with activity, Denies syncope, Denies rapid heart rate, Denies pedal edema, Denies edema, Denies leg edema, Denies lightheadedness, Denies palpitations, Denies dyspnea, Denies dyspnea on exertion and Denies orthopnea Resp Denies cough, Denies dyspnea and Denies dyspnea on exertion GI Denies hematochezia and Denies change in stool character Musc Denies abnormal gait, Denies muscle cramps, Denies muscle weakness, Denies numbness, Denies radiating pain into limb and Denies tingling Neuro Denies abnormal gait, Denies dizziness, Denies syncope, Denies numbness, Denies tingling and Denies weakness Endo Denies palpitations Physical Exam Vital Signs: Last Vital Signs Pulse 66 08/21/23 14:26 BP 112/68 08/21/23 14:26 BMI result Body Mass Index 23.4 Const General: healthy appearing and no acute distress Orientation/consciousness: patient oriented x3 HEENT Head: Yes normal to inspection Eyes General: appearance normal, both eyes and all related structures Neck Neck: Yes normal visual inspection Chest Chest palpation & inspection: normal inspection of the chest Resp Effort & Inspection: normal respiratory effort Auscultation: clear to auscultation bilaterally Cardio Jugular venous distension: no JVD Palpation: normal PMI Rate: regular rate Rhythm: regular rhythm Heart sounds: S1 normal heart sound present, S2 normal heart sound present, no click, no gallops, no murmurs and no rubs GI Inspection: Yes normal to inspection Palpation (GI): Soft to palpation Skin General skin exam: no rashes or lesions noted Neuro General: patient oriented x3 Extrem General: Yes normal to inspection Psych Appearance: grossly normal Office Procedures EKG Details: EKG today. Normal Sinus Rhythm. Rate [address] depression, probably normal. QRS 68ms. QTc 413ms. 47053-Rpckkokcxdstqbzvl, Complete Assessment & Plan Assessment & Plan (1) Chest pain: Code(s): R07.9 - Chest pain, unspecified (2) Pre-operative cardiovascular examination: Code(s): Z01.810 - Encounter for preprocedural cardiovascular examination (3) Acute anemia: Code(s): D64.9 - Anemia, unspecified Plan: Hemaglobin and Hematocrit stable 13.5/39.4 Plan Will get echocardiogram and stress test to assess for ischemia. She has had no more syncopal episodes or low blood pressures likely related to her illness at that time. She is working with GI related to anemia and getting a colonoscopy and endoscopy in November. Ensure adequate hydration. ED care for symptoms if needed. Orders: Orders CA echo transthoracic complete 08/21/23 R07.9 - Chest pain, unspecified CA stress test 08/21/23 R07.9 - Chest pain, unspecified, Z01.810 - Encounter for preprocedural cardiovascular examination Coding Level of Care Code Est Pt Level 3 (89623) Diagnoses Chest pain R07.9 Pre-operative cardiovascular examination Z01.810 Acute anemia D64.9 CPT Codes EKG - CPT: 08098-Wfdhffsmxgezulqpi, Complete ([id number])
== END 2023-08-21 15:41 | disposition home or self-care (01) ==
PROVIDERS: PCP Internal Medicine; Visit Provider Nurse Practitioner
DX: R94.31 Abnormal electrocardiogram [ECG] [EKG] (principal)
CPT/HCPCS: 93010; 99213

== ENCOUNTER → 2023-08-21 14:22 | Outpatient (BNVA) | payer OTHER, SELFPAY | PROVIDERS: PCP Internal Medicine; Visit Provider Nurse Practitioner | DX: Z01.810 Encounter for preprocedural cardiovascular examination (principal); R07.9 Chest pain, unspecified; D64.9 Anemia, unspecified | CPT/HCPCS: 93005; 99212 ==

== ENCOUNTER 2023-09-17 14:47 | Outpatient (AMB) | payer OTHER, SELFPAY ==
--- NOTE | 2023-09-17 15:10 | A.OFFVIS_ITS ---
Vital Signs 09/17/23 15:12 Height 5 ft 6 in Weight 143 lb 4.807 oz BMI 23.1 BP 90/60 Intake Visit Reasons: biopsy results Tour Agent Required: Yes Tour Agent Language: Patient Registration Clerk Name: Samina ESCALONA Information Interpreted: non-clinical & clinical Accompanied by: Self / Same As Patient Allergies No Known Allergies Allergy (Verified 09/17/23 15:13) Post menopausal: Yes HPI Comments Details: Presenting after vulvar lesion excision, doing well with no complaints. The pathology showed the following: A. Vulva, right upper labia lesion, biopsy: Condyloma acuminata. B. Vulva, left upper labia lesion, biopsy: Condyloma acuminata PFSH Medical History Pre-operative cardiovascular examination Chest pain Acute anemia Vitamin D deficiency Nephrolithiasis Left peroneal nerve palsy Unstable gait Lichen simplex chronicus Skin tag Mitral valve prolapse Vitamin B12 deficiency DJD (degenerative joint disease) Heel pain, bilateral Lumbago with sciatica, right side Right radial head fracture Dysplasia of cervix, low grade (GIL 1) HPV test positive Mixed dyslipidemia Depression with anxiety Hiatal hernia Syncope Surgical History History of repair of hiatal hernia S/P laparoscopic sleeve gastrectomy Hx of colonoscopy Status post breast reduction H/O arthroscopy of right knee History of section History of appendectomy History of tubal ligation Family History Father No problems noted. Mother No problems noted. Son Bipolar disorder Mental health disorder Daughter No problems noted. Social History Housing: Apartment Are you a primary physician primary care sports medicine to a significant other at home: No Do you presently have visiting nurse or other home services: No Alcohol intake: current Alcohol intake frequency: holidays/special occasions only Comment: wears knee brace at times Patient Tobacco Use Status: Former Tobacco user Quit Date: 09/2021 Tobacco use type: Cigarette Cigarettes Per Day: 5 e-Cigarette/Vaping Use: Never Used service: No Current occupational status: disabled Cognitive needs: No Hearing needs: No Vision needs: No Female Reproductive History Menstrual Age of Menarche: 12 Review of Systems Const All systems reviewed & are unremarkable except as noted in HPI and below Reports as per HPI and Reports no additional complaints GI Reports no additional complaints Reports no additional complaints Physical Exam Vital Signs: Last Vital Signs BP 90/60 09/17/23 15:12 BMI result Body Mass Index 23.1 Assessment & Plan Assessment & Plan (1) Condyloma acuminata: Code(s): A63.0 - Anogenital (venereal) warts Category: Medical Plan: Discussed with the patient the findings on physical exam, treatment options including cream application to the affected area, excision, cryotherapy or laser, will start with Dee farley . Insructions given to the pt to call if not improved, any irrtations, apply x3/week at bed time and rinse very well in am, and schedule a follow-up appointment in 8 weeks Medications: New imiquimod 5% 1 appl topical 3XW 16 weeks 24 ea 0RF
[2023-09-17 15:12] VITALS: BP 90/60; BMI 23.1
== END 2023-09-17 15:28 | disposition home or self-care (01) ==
PROVIDERS: PCP Internal Medicine; Visit Provider Obstetrics & Gynecology
DX: A63.0 Anogenital (venereal) warts (principal)
CPT/HCPCS: 99213

== ENCOUNTER → 2023-09-17 14:47 | Outpatient (BNVA) | payer OTHER, SELFPAY | PROVIDERS: PCP Internal Medicine; Visit Provider Obstetrics & Gynecology | DX: A63.0 Anogenital (venereal) warts (principal) | CPT/HCPCS: 99212 ==

== ENCOUNTER → 2023-09-22 07:33 | Outpatient (REF) | payer OTHER, SELFPAY ==
[2023-09-22 08:00] LABS: MANUAL DIFF FLAG NO
--- NOTE | 2023-09-22 08:01 | CA_ITS ---
Transthoracic Echocardiogram Patient (Last, First, Middle): Yamilex Lombardo, Gender: Female Date of : 1970 Age: 53 Procedure Date: 09/22/2023 Procedure Type: Transthoracic Echocardiogram Location: OP Height: 167.64 cm Weight: 68.04 kg BSA: 1.77 m2 Heart Rate: bpm BP: 124 / 70 mmHg Hand Polisher: FELIPE Referring MD: Andreina Isidro NP Wheel Blocker: Mohit Sylvester MD Symptoms: R07.9 - Chest pain, unspecified Study Quality: Adequate ECG Rhythm: Sinus Conclusions: - Essentially normal study Findings Procedure Information Contrast agent, definity, is being given per protocol without apparent complications. Left Ventricle Normal left ventricular size, thickness, and systolic function. The visually estimated ejection fraction is between 55-60%. Spectral Doppler is indicative of a normal filling pattern. Right Ventricle Normal right ventricular cavity size and systolic function. Atria Both atria are normal in size. There is no evidence of interatrial shunt. Aortic Valve Normal aortic valve structure and function. There is no aortic valve stenosis. There is no aortic valve regurgitation. Mitral Valve Normal mitral valve structure and function. There is trace mitral valve regurgitation. There is no mitral valve stenosis. Pulmonic Valve The pulmonic valve is likely normal. There is trace pulmonic valve regurgitation. Tricuspid Valve Normal tricuspid valve structure. Tricuspid regurgitation envelope is inadequate for calculation of right ventricular systolic pressure. Normal right atrial pressure. Great Vessels The pulmonary artery was not well visualized. There is no dilatation of the ascending aorta measuring 2.60 cm. Venous The inferior vena cava is normal in size and collapses greater than 50% with inspiration. Pericardium/Pleural There is no evidence of pericardial effusion. Prior Study Comparison No prior study available for comparison. Measurements 2D Linear Measurements IVSd: 0.87 0.6-0.9/0.6-1.0 cm LVIDd: 4.29 3.9-5.3/4.2-5.9 cm LVIDd Index: 2.42 2.4-3.2/2.2-3.1 cm/m2 LVIDs: 2.82 2.0-3.6 cm LVPWd: 0.98 0.7-1.1 cm Ao Root: 2.70 2.1-3.5 cm LA Diam: 3.40 2.7-3.8/3.0-4.0 cm LAIDs Index: 1.92 1.5-2.3 cm/m2 LV Mass: 157.68 67-162/88-224 g LV Mass Index: 89.09 43-95/49-115 g/m2 LVOT Diam: 2.00 3.0+(-)1.3 cm 2D Systolic Function EF 4C: 63.40 >55% EF 2C: 52.40 >55% EF BiP: 55.10 >55% Mitral Valve MV Pk E: 0.75 MV PK A: 0.66 MV Decel Time: 242.00 E/A: 1.10 E'Lateral: 15.70 E'Medial: 11.70 E/E' Med: 6.40 E/E' Lat: 4.80 PHT: 71.00 MVA PHT: 3.10 Decel [place]: 3.11 Aortic Valve AoV Pk Eddie: 1.18 AoV Mn Eddie: 0.80 AoV VTI: 0.27 AoV Pk Grad: 6.00 Aov Mn Grad: 3.00 JASPER Cont.VTI: 2.33 LVOT LVOT Pk Eddie: 0.86 LVOT Mn Eddie: 0.59 LVOT VTI: 0.20 LVOT Pk Grad: 3.00 LVOT Mn Grad: 2.00 LVOT Diam: 2.00 LVOT Area: 3.14 Diastolic Function MV Pk E: 0.75 MV Pk A: 0.66 E/A: 1.10 E'Medial: 11.70 E/E' Med: 6.40 E' Laterial: 15.70 E/E' Lat: 4.80 Right Ventricle TAPSE (mm): 23.00 TVS' Eddie: 11.00 Tricuspid Valve TR Pk Eddie: 2.11 TR Pk Grad: 18.00 RA Press: 3.00 Great Vessels Aorta Ao Root-2D: 2.70 2.0-3.7 cm Ao Asc: 2.60 2.1-3.4 cm Pulmonary Valve PV Pk Eddie: 0.95 Peak PV Grad: 4.00 Updated in Other Vendor System with Status of Final Mohit Sylvester MD electronically signed on 09/23/2023 2:51:41 PM with status of Final
--- NOTE | 2023-09-22 08:01 | CA_ITS ---
Acquisition Time: 2023-09-22 09:08:08 Total Exercise Time: 00:09:12 Test Indications: CP, SYNCOPE, PREOP Medications: SEE H Protocol: ADRIEL Max HR: 150 BPM 89% of Pred: 167 BPM Max BP: 124/068 mmHG Max Work Load: 10.3 METS Exercise stress test exercise 9 min 12 sec of Adriel protocol achieving approximately 83% MPHR, without anginal symptoms, with isolated PACs, with normotensive response to exercise, without EKG changes. Test reviewed with Dr. Sylvester Referred By: Andreina Isidro Overread By: Andreina Isidro
[2023-09-22 08:16] LABS: Basophils Percent Auto 0.4 % (0-2); Eosinophils Absolute Auto 0.1 X10*3/uL (0.0-0.4); Eosinophils Percent Auto 2.2 % (0-4); Hematocrit 38.1 % (37.0-47.0); Hemoglobin 12.9 g/dl (12.0-16.0); Imm Gran Abs Auto 0.01 X10*3/uL (0.00-0.03); Imm Gran Pct Auto 0.2 % (0.0-0.4); Lymphocytes Absolute Auto 2.1 X10*3/uL (1.2-4.9); Lymphocytes Percent Auto 41.3 % (20-40); Mean Corpuscular HGB Conc 33.9 g/dl (31.0-35.0); Mean Corpuscular Hemoglobin 30.4 pg (27.0-33.0); Mean Corpuscular Volume 89.9 fL (80.0-98.0); Monocytes Absolute Auto 0.3 X10*3/uL (0.1-1.2); Monocytes Percent Auto 5.7 % (2-11); Neutrophils Absolute Auto 2.6 x10*3/uL (2.0-8.3); Neutrophils Percent Auto 50.2 % (45-73); Platelet Count 182 X10*3/uL (160-400); Red Blood Count 4.24 X10*6/uL (4.20-5.50); Red Cell Distribution Width 13.1 % (11.0-16.0); White Blood Count 5.1 X10*3/uL (4.8-10.8)
[2023-09-22 08:24] LABS: Estimated Average Glucose 94 mg/dL; Hemoglobin A1c % 4.9 % (<6.0)
[2023-09-22 08:49] LABS: Anion Gap 11 (12-20); Blood Urea Nitrogen 14 mg/dL (9-16); C Reactive Protein 0.32 mg/dL (< or = 0.50); Calcium 9.7 mg/dL (8.4-10.2); Carbon Dioxide 30 mmol/L (22-29); Chloride 108 mmol/L (96-108); Cholesterol 238 mg/dL (<200); Estimated Glomerular Filt Rate > 60; Glucose Random 89 mg/dL (60-115); HDL Cholesterol 56 mg/dL (>40); Iron 91 mcg/dL (30-160); LDL Cholesterol Calculated 158 mg/dL (<100); Percent Iron Saturation 34 % (15-50); Potassium 4.3 mmol/L (3.3-5.1); Sodium 145 mmol/L (135-145); Total Iron Binding Capacity 269 mcg/dL (228-428); Triglycerides 124 mg/dL (<150); Unsaturated Iron Binding 178 ug/dL
[2023-09-22 09:09] LABS: Ferritin 311 ng/mL (10-250); Insulin 4 uU/mL (2-29); TSH reflex Free T4 0.72 uIU/mL (0.32-4.0); Vitamin D 25-OH Total 43.5 ng/mL (>30)
[2023-09-22 10:00] LABS: Folate 13.2 ng/mL (> or = 4.0); Vitamin B12 884 pg/mL (200-900)
[2023-09-25 18:57] LABS: Vitamin A 57 mcg/dL (38-98)
[2023-09-26 03:39] LABS: Zinc 80 mcg/dL (60-130)
[2023-09-27 13:08] LABS: Vitamin B1 38 nmol/L (8-30)
== END ==
LOC: HO.CARD 07:33
PROVIDERS: Absent Provider Physician Assistant Surgical; PCP Internal Medicine; Visit Provider Nurse Practitioner
DX: Z01.810 Encounter for preprocedural cardiovascular examination (principal); R07.9 Chest pain, unspecified; E55.9 Vitamin D deficiency, unspecified; Z98.84 Bariatric surgery status
CPT/HCPCS: 36415; 80048; 80061; 82306; 82607; 82728; 82746; 83036; 83525; 83540; 84425; 84443; 84590; 84630; 85025; 86140; 93017; 93306; Q9957

== ENCOUNTER → 2023-09-22 08:01 | Outpatient (BNV) | payer OTHER, SELFPAY | PROVIDERS: Absent Provider Physician Assistant Surgical; PCP Internal Medicine; Visit Provider Nurse Practitioner | DX: I49.1 Atrial premature depolarization (principal) | CPT/HCPCS: 93016; 93018; 93320; 93350; 93352 ==

== ENCOUNTER 2023-10-01 14:13 | Outpatient (AMB) | payer OTHER, SELFPAY ==
[2023-10-01 15:02] VITALS: BP 112/68; PULSE 78; O2SAT 98; BMI 22.9
--- NOTE | 2023-10-01 15:02 | A.OFFVIS_ITS ---
Vital Signs 10/01/23 15:02 Height 5 ft 6 in Weight 142 lb BMI 22.9 BP 112/68 Blood Pressure Location Lt brachial Position Sitting Pulse 78 Pulse Source Pulse Oximeter Pulse Oximetry (%) 98 Oxygen Delivery Method Room Air Intake Visit Reasons: 6 wk fu after ett/echo Intake Note: FOLLOW UP AFTER ETT/ECHO PT FEELS GOOD Fur Repair Inspector Required: Yes Fur Repair Inspector Name: DARI [id number] Allergies No Known Allergies Allergy (Verified 09/17/23 15:13) HPI Comments Details: 53-year-old female presents today for a follow-up after testing. Used Certified Fur Repair Inspector for translation. Patient reports she has been doing much better. Her chest pains have resolved. She denies chest pains, shortness of breath, palpitations, syncope, or dizziness. [facility] Medical History Pre-operative cardiovascular examination Chest pain Acute anemia Vitamin D deficiency Nephrolithiasis Left peroneal nerve palsy Unstable gait Lichen simplex chronicus Skin tag Mitral valve prolapse Vitamin B12 deficiency DJD (degenerative joint disease) Heel pain, bilateral Lumbago with sciatica, right side Right radial head fracture Dysplasia of cervix, low grade (GIL 1) HPV test positive Mixed dyslipidemia Depression with anxiety Hiatal hernia Syncope Surgical History History of repair of hiatal hernia S/P laparoscopic sleeve gastrectomy Hx of colonoscopy Status post breast reduction H/O arthroscopy of right knee History of section History of appendectomy History of tubal ligation Family History Father No problems noted. Mother No problems noted. Son Bipolar disorder Mental health disorder Daughter No problems noted. Social History Housing: Apartment Are you a primary healthcare applications analyst to a significant other at home: No Do you presently have visiting nurse or other home services: No Alcohol intake: current Alcohol intake frequency: holidays/special occasions only Comment: wears knee brace at times Patient Tobacco Use Status: Former Tobacco user Quit Date: 09/2021 Tobacco use type: Cigarette Cigarettes Per Day: 5 e-Cigarette/Vaping Use: Never Used service: No Current occupational status: disabled Cognitive needs: No Hearing needs: No Vision needs: No Female Reproductive History Menstrual Age of Menarche: 12 Review of Systems Const Denies weakness ENT Denies dizziness Card Denies chest pain, Denies chest pain with activity, Denies syncope, Denies rapid heart rate, Denies pedal edema, Denies edema, Denies leg edema, Denies lightheadedness, Denies palpitations, Denies dyspnea, Denies dyspnea on exertion and Denies orthopnea Resp Denies cough, Denies dyspnea and Denies dyspnea on exertion GI Denies hematochezia and Denies change in stool character Musc Denies abnormal gait, Denies muscle cramps, Denies muscle weakness, Denies numb ness, Denies radiating pain into limb and Denies tingling Neuro Denies abnormal gait, Denies dizziness, Denies syncope, Denies numbness, Denies tingling and Denies weakness Endo Denies palpitations Physical Exam Vital Signs: Last Vital Signs Pulse 78 10/01/23 15:02 BP 112/68 10/01/23 15:02 Pulse Ox 98 10/01/23 15:02 Oxygen Delivery Method Room Air 10/01/23 15:02 BMI result Body Mass Index 22.9 Const General: healthy appearing and no acute distress Orientation/consciousness: patient oriented x3 HEENT Head: Yes normal to inspection Eyes General: appearance normal, both eyes and all related structures Neck Neck: Yes normal visual inspection Chest Chest palpation & inspection: normal inspection of the chest Resp Effort & Inspection: normal respiratory effort Auscultation: clear to auscultation bilaterally Cardio Jugular venous distension: no JVD Palpation: normal PMI Rate: regular rate Rhythm: regular rhythm Heart sounds: S1 normal heart sound present, S2 normal heart sound present, no click, no gallops, no murmurs and no rubs GI Inspection: Yes normal to inspection Palpation (GI): Soft to palpation Skin General skin exam: no rashes or lesions noted Neuro General: patient oriented x3 Extrem General: Yes normal to inspection Psych Appearance: grossly normal Results Reviewed Results Reviewed: Stress: Exercise stress test exercise 9 min 12 sec of Cristian protocol achieving approximately 83% MPHR, without anginal symptoms, with isolated PACs, with normotensive response to exercise, without EKG changes. Test reviewed with Dr. Higinio Yang Conclusions: - Essentially normal study Assessment & Plan Assessment & Plan (1) Chest pain: Code(s): R07.9 - Chest pain, unspecified Category: Medical Plan Chest pain resolved since recovered from illness. Echo esentially a normal study. Exercised with great worklaod achieved 10.3 METS. Reassurance provided. Coding Level of Care Code Est Pt Level 3 (23800) Diagnoses Chest pain R07.9
== END 2023-10-01 15:21 | disposition home or self-care (01) ==
PROVIDERS: PCP Internal Medicine; Visit Provider Nurse Practitioner
DX: R07.9 Chest pain, unspecified (principal)
CPT/HCPCS: 99213

== ENCOUNTER → 2023-10-01 14:13 | Outpatient (BNVA) | payer OTHER, SELFPAY | PROVIDERS: PCP Internal Medicine; Visit Provider Nurse Practitioner | DX: R07.9 Chest pain, unspecified (principal) | CPT/HCPCS: 99212 ==

== ENCOUNTER 2023-10-07 10:26 | Outpatient (AMB) | payer OTHER, SELFPAY ==
--- NOTE | 2023-10-07 10:27 | A.OFFVIS_ITS ---
VS Expanded 10/07/23 10:34 BP 108/58 L Blood Pressure Location Rt brachial Blood Pressure Position Sitting Pulse 65 Pulse Source Pulse Oximeter Temp 96.5 F L Temperature Source Temporal Artery Scan Pulse Oximetry 97 Oxygen Delivery Method Room Air Height 5 ft 6 in Weight 156 lb BMI 25.2 Body Fat % 32.5 Body Fat Mass 50.8 Fat Free Mass 105.2 Visceral Fat Rating 7.0 Body Water % 47.9 Body Water Mass 74.8 Muscle Mass/Score 99.8 Basal Metabolic Rate/Score 1,418 Intake Visit Reasons: (OV) PO LSG 01/02/22 Locksmith Required: Yes Locksmith Name: office cmi Allergies No Known Allergies Allergy (Verified 10/07/23 10:30) Medication List - Last Reconciled 10/07/23 by FREDIS Barahona ascorbic acid (vitamin C) 1 g PO Q6H bisacodyl (Dulcolax (bisacodyl)) 20 mg (4 x 5 mg) PO ONCE 1 day bupropion HCl XL 300 mg PO DAILY buspirone 15 mg PO TID [Celebrate MVI and Mike+D PO DAILY] clotrimazole 1% (Antifungal (clotrimazole)) 1 appl topical BID PRN ferrous sulfate (FeroSul) 325 mg PO DAILY folic acid 0.8 mg PO DAILY imiquimod 5% 1 appl topical 3XW 16 weeks lamotrigine 150 mg PO BID polyethylene glycol 3350 (Miralax) 238 grams PO ONCE prazosin 1 mg PO BEDTIME pyridoxine (vitamin B6) 100 mg PO DAILY 90 days sennosides (Natural Senna Laxative) 8.6 mg PO BEDTIME sertraline 200 mg PO DAILY trazodone 100 mg PO BEDTIME walker (Ultra-Light Rollator misc) As directed HPI Comments Details: This?a?51?yo female who is s/p LSG without hiatal hernia repair on?01/02/[address] Abebe. Presents for 1 year 9 month post op visit. Weight today is 156 pounds, with a BMI of 25.2.? There has been a 62.2 pound weight loss,(initial weight 218.2 pounds) since starting the program on reflecting a 28.5% total body weight loss and a weight loss of 32.4 pounds since surgery (operative weight 188.4 pounds) reflecting a 17.1% TBWL since surgery.? No complaints of nausea, emesis, abdominal pain or reflux. Reports infrequent but normal bowel movements every 1-2 days and uses stool softeners regularly.? celebrate MVI and Mike + D. She reports she is very happy and feeling well. She went to [place] [address] for planned 01/13/23 BBL, went well. Patient does complain of excess skin of the abdomen. She has had approximately 3 episodes of rash over the last 6 months that improved with clotrimazole. None in the last three months except when she was in [place] in July. She used th clotrimazole with resolution. The rashes were worse with the warmer wea ther as she was in [place] and [place]. Additionally she states that the excess skin causes her discomfort when she bends over to tie her shoes or put socks on. She needs to wear additional clothing as a barrier between the skin folds and she wears a girdle to keep the excess skin in place. The excess in abdominal skin clearly has affected her activities of daily living and it would be appropriate for surgical removal for medical necessity. She has been at a stable weight over the last 6 months and is clearly dedicated to a healthy lifestyle. Present meal plan includes: Premier Protein RTD shake x 1 (skips 4 days of the week) 2 meal 6 forks protein/ 6 forks veg salad yogurt w fruit sometimes drinking 64 oz water ? Exercise routine includes: going to the gym, 3x per week, elliptical or bike 600 calories.? [facility], LAT[facility] Medical History Pre-operative cardiovascular examination Chest pain Acute anemia Vitamin D deficiency Nephrolithiasis Left peroneal nerve palsy Unstable gait Lichen simplex chronicus Skin tag Mitral valve prolapse Vitamin B12 deficiency DJD (degenerative joint disease) Heel pain, bilateral Lumbago with sciatica, right side Right radial head fracture Dysplasia of cervix, low grade (GIL 1) HPV test positive Mixed dyslipidemia Depression with anxiety Hiatal hernia Syncope Surgical History History of repair of hiatal hernia S/P laparoscopic sleeve gastrectomy Hx of colonoscopy Status post breast reduction H/O arthroscopy of right knee History of section History of appendectomy History of tubal ligation Family History Father No problems noted. Mother No problems noted. Son Bipolar disorder Mental health disorder Daughter No problems noted. Social History Housing: Apartment Are you a primary manager care to a significant other at home: No Do you presently have visiting nurse or other home services: No Alcohol intake: current Alcohol intake frequency: holidays/special occasions only Comment: wears knee brace at times Patient Tobacco Use Status: Former Tobacco user Quit Date: 09/2021 Tobacco use type: Cigarette Cigarettes Per Day: 5 e-Cigarette/Vaping Use: Never Used service: No Current occupational status: disabled Cognitive needs: No Hearing needs: No Vision needs: No Female Reproductive History Menstrual Age of Menarche: 12 Assessment & Plan Assessment & Plan (1) S/P laparoscopic sleeve gastrectomy: Code(s): Z98.84 - Bariatric surgery status Category: Surgical Plan: Overall, patient is doing well. Recommend not skipping her shake in the morning. Increase days at the gym to 4. Return to clinic in 3 months for her 2 year follow-up. Consideration for panniculectomy.
[2023-10-07 10:34] VITALS: BP 108/58; PULSE 65; TEMP 35.8; O2SAT 97; BMI 25.2
== END 2023-10-07 11:00 | disposition home or self-care (01) ==
PROVIDERS: PCP Internal Medicine; Visit Provider Physician Assistant Surgical
DX: L98.7 Excessive and redundant skin and subcutaneous tissue (principal); Z90.3 Acquired absence of stomach [part of]; Z98.84 Bariatric surgery status
CPT/HCPCS: 99213

== ENCOUNTER → 2023-10-07 10:26 | Outpatient (BNVA) | payer OTHER, SELFPAY | PROVIDERS: PCP Internal Medicine; Visit Provider Physician Assistant Surgical | DX: Z98.84 Bariatric surgery status (principal) | CPT/HCPCS: 99212 ==

== ENCOUNTER 2023-11-30 08:24 | Outpatient (REF) | payer OTHER, SELFPAY ==
[2023-11-30 10:54] LABS: CDiff Gene PCR NEGATIVE (Negative)
[2023-11-30 11:30] LABS: Adenovirus F 40/41 Not Detected (Not Detect.); Astrovirus Not Detected (Not Detect.); Campylobacter Not Detected (Not Detect.); Cryptosporidium Not Detected (Not Detect.); Cyclospora cayetanensis Not Detected (Not Detect.); E. coli EAEC Not Detected (Not Detect.); E. coli EPEC Not Detected (Not Detect.); E. coli ETEC Not Detected (Not Detect.); E. coli STEC Not Detected (Not Detect.); Entamoeba histolytica Not Detected (Not Detect.); Giardia lamblia Not Detected (Not Detect.); Norovirus GI/GII Not Detected (Not Detect.); Plesiomonas shigelloides Not Detected (Not Detect.); Rotavirus A Not Detected (Not Detect.); Salmonella Not Detected (Not Detect.); Sapovirus Not Detected (Not Detect.); Shigella sp./EIEC Not Detected (Not Detect.); Vibrio Not Detected (Not Detect.); Vibrio Cholerae Not Detected (Not Detect.); Yersinia enterocolitica Not Detected (Not Detect.)
[2023-12-06 19:03] LABS: Calprotectin, Fecal 64 mcg/g
== END 2023-11-30 08:25 | disposition home or self-care (01) ==
LOC: HO.LNP 08:24
PROVIDERS: Visit Provider Nurse Practitioner Family
DX: R19.7 Diarrhea, unspecified (principal); R15.9 Full incontinence of feces
CPT/HCPCS: 83993; 87493; 87507

== ENCOUNTER 2023-12-08 08:26 | Day surgery (SDC) | payer OTHER, SELFPAY ==
--- NOTE | 2023-12-07 09:39 | HO.ANESPROP2 ---
Documented by User: Paola Damian NP 12/07/23 09:41 HPI - Anesthesia Eval Consult details Narrative: 53yo F for Upper Endoscopy and Colonoscopy Cardiac optimized (seen 07/2023 with chest pains, w/u unremarkable and pains resolved) PMF Active Problems Active Problems: All Active Problems Condyloma acuminata (Acute) Pre-operative cardiovascular examination (Acute) Chest pain (Acute) Acute anemia (Acute) Vitamin D deficiency (Acute) Excess skin (Acute) Urinary tract infection (Acute) Renal cyst (Acute) Nephrolithiasis (Acute) S/P laparoscopic sleeve gastrectomy (Acute) Unstable gait (Acute) Overweight (BMI 25.0-29.9) (Acute) Depression with anxiety (Acute) Past Medical History Medical History Pre-operative cardiovascular examination Chest pain Acute anemia Vitamin D deficiency Nephrolithiasis Left peroneal nerve palsy Unstable gait Lichen simplex chronicus Skin tag Mitral valve prolapse Vitamin B12 deficiency DJD (degenerative joint disease) Heel pain, bilateral Lumbago with sciatica, right side Right radial head fracture Dysplasia of cervix, low grade (GIL 1) HPV test positive Mixed dyslipidemia Depression with anxiety Hiatal hernia Syncope Family History Family History Father No problems noted. Mother No problems noted. Son Bipolar disorder Mental health disorder Daughter No problems noted. Family history of problems with anesthesia: No Surgical History Surgical History History of repair of hiatal hernia S/P laparoscopic sleeve gastrectomy Hx of colonoscopy Status post breast reduction H/O arthroscopy of right knee History of section History of appendectomy History of tubal ligation History of Problems with Anesthesia: No Social History Social History Housing: Apartment Are you a primary child care attendant school to a significant other at home: No Do you presently have visiting nurse or other home services: No Alcohol intake: current Alcohol intake frequency: holidays/special occasions only Comment: wears knee brace at times Patient Tobacco Use Status: Former Tobacco user Tobacco use type: Cigarette Cigarettes Per Day: 5 e-Cigarette/Vaping Use: Never Used Advance Directives: No Advance Directives Information Provided: Yes service: No Current occupational status: disabled Cognitive needs: No Hearing needs: No Vision needs: No Meds Allergies Allergy/AdvReac Type Severity Reaction Status Date / Time No Known Allergies Allergy Verified 10/07/23 10:30 Home Medications ?Medication ?Instructions ?Recorded ?Confirmed ?Last Taken ?Type lamotrigine 150 mg tablet 150 mg PO BID 03/31/22 10/07/23 Unknown History sertraline 100 mg tablet 200 mg PO DAILY 03/31/22 10/07/23 Unknown History bupropion HCl 300 mg 24 hr tablet, 300 mg PO DAILY 07/14/22 10/07/23 Unknown History extended release prazosin 1 mg capsule 1 mg PO BEDTIME 07/14/22 10/07/23 Unknown History trazodone 100 mg tablet 100 mg PO BEDTIME 07/14/22 10/07/23 Unknown History buspirone 15 mg tablet 15 mg PO TID 08/14/22 10/07/23 Unknown History Celebrate MVI and Mike+D PO DAILY 11/05/22 10/07/23 Unknown History ascorbic acid (vitamin C) 1,000 mg 1 g PO Q6H 12/03/22 10/07/23 Unknown History capsule ferrous sulfate 325 mg (65 mg 325 mg PO DAILY 12/03/22 10/07/23 Unknown History iron) tablet (FeroSul) folic acid 800 mcg tablet 0.8 mg PO DAILY 12/03/22 10/07/23 Unknown History Exam Pertinent Lab Results Pertinent Lab Results: Laboratory Tests 09/22/23 07:59 WBC 5.1 Hgb 12.9 Hct 38.1 Plt Count 182 Sodium 145 Potassium 4.3 Chloride 108 Carbon Dioxide 30 H BUN 14 Creatinine 0.82 Narrative Narrative: EKG 07/2023 NSR @ 66 ECHO 08/2023 Conclusions: - Essentially normal study Stress 08/2023: Exercise stress test exercise 9 min 12 sec of Cristian protocol achieving approximately 83% MPHR, without anginal symptoms, with isolated PACs, with normotensive response to exercise, without EKG changes. Test reviewed with Dr. Sylvester Assessment and Plan Assessment Anesthesia Assessment: Chart Reviewed Final Anesthetic Review Family History of Problems with Anesthesia: No History of Problems with Anesthesia: No Documented by User: Srikanth Nguyen MD 12/08/23 09:33 PMFSH Past Medical History Medical History Pre-operative cardiovascular examination Chest pain Acute anemia Vitamin D deficiency Nephrolithiasis Left peroneal nerve palsy Unstable gait Lichen simplex chronicus Skin tag Mitral valve prolapse Vitamin B12 deficiency DJD (degenerative joint disease) Heel pain, bilateral Lumbago with sciatica, right side Right radial head fracture Dysplasia of cervix, low grade (GIL 1) HPV test positive Mixed dyslipidemia Depression with anxiety Hiatal hernia Syncope Family History Family History Father No problems noted. Mother No problems noted. Son Bipolar disorder Mental health disorder Daughter No problems noted. Surgical History Surgical History History of repair of hiatal hernia S/P laparoscopic sleeve gastrectomy Hx of colonoscopy Status post breast reduction H/O arthroscopy of right knee History of section History of appendectomy History of tubal ligation Social History Social History Housing: Apartment Are you a primary child care attendant school to a significant other at home: No Do you presently have visiting nurse or other home services: No Alcohol intake: current Alcohol intake frequency: holidays/special occasions only Comment: wears knee brace at times Patient Tobacco Use Status: Former Tobacco user Tobacco use type: Cigarette Cigarettes Per Day: 5 e-Cigarette/Vaping Use: Never Used Advance Directives: No Advance Directives Information Provided: Yes service: No Current occupational status: disabled Cognitive needs: No Hearing needs: No Vision needs: No Meds Allergies Allergy/AdvReac Type Severity Reaction Status Date / Time No Known Allergies Allergy Verified 10/07/23 10:30 Home Medications ?Medication ?Instructions ?Recorded ?Confirmed ?Last Taken ?Type lamotrigine 150 mg tablet 150 mg PO BID 03/31/22 10/07/23 Unknown History sertraline 100 mg tablet 200 mg PO DAILY 03/31/22 10/07/23 Unknown History bupropion HCl 300 mg 24 hr tablet, 300 mg PO DAILY 07/14/22 10/07/23 Unknown History extended release prazosin 1 mg capsule 1 mg PO BEDTIME 07/14/22 10/07/23 Unknown History trazodone 100 mg tablet 100 mg PO BEDTIME 07/14/22 10/07/23 Unknown History buspirone 15 mg tablet 15 mg PO TID 08/14/22 10/07/23 Unknown History Celebrate MVI and Mike+D PO DAILY 11/05/22 10/07/23 Unknown History ascorbic acid (vitamin C) 1,000 mg 1 g PO Q6H 12/03/22 10/07/23 Unknown History capsule ferrous sulfate 325 mg (65 mg 325 mg PO DAILY 12/03/22 10/07/23 Unknown History iron) tablet (FeroSul) folic acid 800 mcg tablet 0.8 mg PO DAILY 12/03/22 10/07/23 Unknown History Exam Airway Mallampati Class: II TM Dist: >3cm Neck ROM: Full Loose/Missing/Broken Teeth: No Assessment and Plan Assessment Anesthesia Assessment: Anesthesia Plan Discussed Final Anesthetic Review NPO: Yes ASA Class: II Final Preanesthetic Review: No Changes in Pt Med Stat, Meds/Allgs Chart Reviewed, Consent Obtained/Reviewed and Anes Risks/Benef Reviewed Patient Risk: Low Procedure Risk: Low Anesthetic Plan Anesthetic Plan: MAC: Disposition: Standard PACU
[2023-12-08 09:24] VITALS: BMI 26.5
--- NOTE | 2023-12-08 10:28 | MHC.SHP ---
Pre-Procedural Eval Section A - 24 Hr Update-Section A only Date of Service: 12/08/23 Section B - Complete if H&P > 30 days Chief Complaint: Gastro-esophageal reflux disease, screening Relevant Family History (Specify if Yes): No Relevant Social History: None Present Medications: see Short Stay Collaborative assessment Medical History: Significant History (Chest pain Acute anemia Vitamin D deficiency Nephrolithiasis Left peroneal nerve palsy Unstable gait Lichen simplex chronicus Skin tag Mitral valve prolapse Vitamin B12 deficiency DJD (degenerative joint disease) Heel pain, bilateral Lumbago with sciatica, right side Right radial head fracture Dyspl) History of Previous Operations: Relevant previous surgery/procedure and date(s) ( History of repair of hiatal hernia S/P laparoscopic sleeve gastrectomy Hx of colonoscopy Status post breast reduction H/O arthroscopy of right knee History of section History of appendectomy History of tubal ligation) Allergies: Allergies Allergy/AdvReac Type Severity Reaction Status Date / Time No Known Allergies Allergy Verified 10/07/23 10:30 Review of Systems Sugical H&P ROS: Negative: Constitution, Cardiovascular, Respiratory, Neurological, Psychiatric, Hem-Onc, Allergic/Immunologic, Gastrointestinal, Genitourinary, Musculoskeletal, Integumentary, Endocrine and Eyes/Ears/Nose/Throat Exam Surgical H&P Exam: Normal: HEENT, Normal: Heart, Normal: Lungs, Normal: Extremities, Normal: Abdomen, Normal: Skin and Normal: Neurological Plan Diagnosis/Plan: Unchanged I have reviewed the history and physical and performed a pertinent physical examination on my patient. No changes have occurred unless specified. Time Spent With Patient Time: Total time managing care of this patient today ____ minutes.
--- NOTE | 2023-12-08 10:57 | P.OPN-COLO_ITS ---
Colonoscopy Operative Note Operative Note Date of Service: 12/08/23 Narrative: Operative Information Procedure Description: EGD, Colonoscopy Indication: GERD, screening Anesthesia: MAC FLEXIBLE TRANSORAL UPPER GASTROINTESTINAL ENDOSCOPY AND COLONOSCOPY PROCEDURE NOTE UPPER ENDOSCOPY Consent: Indications for the procedure and potential complications of bleeding, perforation, reaction to medications and missed diagnosis were discussed with the patient and informed consent was obtained. Instrument: Olympus GIF H 190 J mid size upper endoscope Monitoring: Vital signs and clinical assessment, continuous EKG monitoring, Pulse oximetry, Carbon Dioxide monitoring and blood pressure monitoring were done throughout the procedure. Procedure: The patient was placed in the left lateral decubitis position and pre-procedure medications were administered and a bite block was placed. The endoscope was inserted into the mouth and advanced under direct vision to the third part of duodenum. A careful inspection was made as the upper endoscope was withdrawn including a retroflexed examination of the proximal stomach; Findings and interventions are described below. Findings: Larynx:normal Esophagus: GE junction at 32 cm, diaphragm hiatus at 35 cm, consistent with 3 cm sliding hiatal hernia, schatzki ring noted with patulous LES> bx taken from GEJ, distal and proximal esophagus, mild esophagitis also noted Stomach: Normal mucosa. Biopsies were obtained. Grade 2 flap valve on retroflexed examination of the cardia. Duodenum: Normal bulb and descending duodenum, Intervention: Biopsies as noted above, COLONOSCOPY Instrument: Olympus variable stiffness pediatric scope 190L Colonoscopy Monitoring: Vital signs and clinical assessment, continuous EKG monitoring, Pulse oximetry, Carbon Dioxide monitoring and blood pressure monitoring were done throughout the procedure. Colon withdrawal time was 10 minutes. Procedure: The patient was placed in the left lateral decubitis position and pre-procedure medications were administered. After a digital rectal examination of the ano-rectum, the video colonoscope was inserted into the rectum and advanced through the colon to the cecum/TI. The colonoscope was slowly withdrawn in a retrograde panoramic fashion and the colon mucosa was carefully examined including a retroflexed view of the rectum. Findings and interventions are described below. Procedure Difficulty:moderate Findings: Terminal Ileum- mild erythema , bx taken Cecum:normal, bx taken Ascending Colon: normal, bx taken Transverse Colon -normal Descending Colon:normal Sigmoid Colon: normal Rectum: Retroflexion with small internal hemorrhoids, grade I Anorectum - normal Colon preparation: [place] Bowel Preparation Scale Right colon; 2 Transverse colon: 2 Left colon; 2 (0 = Unprepared colon segment with mucosa not seen due to solid stool that cannot be cleared. 1 = Portion of mucosa of the colon segment seen, but other areas of the colon segment not well seen due to staining, residual stool and/or opaque liquid. 2 = Minor amount of residual staining, small fragments of stool and/or opaque liquid, but mucosa of colon segment seen well. 3 = Entire mucosa of colon segment seen well with no residual staining, small fragments of stool or opaque liquid) Impression and Post Procedure Diagnosis: Endoscopy Findings: schatzki ring hiatal hernia esophagitis Colonoscopy Findings: mild ileitis, Plan: Await Pathology results Repeat Colonoscopy in 5 years due to hx of polyps or earlier if clinically indicated High fiber diet leaflet avoid straining at stool, epsom salts and sitz bath, anusol supps or cream consider CTe if ileitis confirmed on bx Above findings were reviewed with the patient and relevant handouts were provided if indicated.
[2023-12-08 11:25] VITALS: BP 95/52; PULSE 54; RESP 16; TEMP 36.6; O2SAT 98
--- NOTE | 2023-12-08 11:36 | PC.NURSE ---
pt drinking apple juice nad
--- NOTE | 2023-12-08 11:39 | PC.NURSE ---
report received from vern baldwin rn at this time.
[2023-12-08 11:40] VITALS: BP 104/64; PULSE 54; RESP 18; TEMP 36.6; O2SAT 99
== END 2023-12-08 12:20 | disposition home or self-care (01) ==
PROVIDERS: PCP Internal Medicine; Visit Provider Internal Medicine Gastroenterology
PROC: (CPT 43239; principal; 2023-12-08 11:50)
DX: K20.80 Other esophagitis without bleeding (principal); K22.2 Esophageal obstruction; K22.4 Dyskinesia of esophagus; K44.9 Diaphragmatic hernia without obstruction or gangrene; K21.9 Gastro-esophageal reflux disease without esophagitis; Z12.11 Encounter for screening for malignant neoplasm of colon; K52.9 Noninfective gastroenteritis and colitis, unspecified; K64.0 First degree hemorrhoids; D64.9 Anemia, unspecified; Z86.010 Personal history of colon polyps; A63.0 Anogenital (venereal) warts; E55.9 Vitamin D deficiency, unspecified; R26.81 Unsteadiness on feet; F41.8 Other specified anxiety disorders; Z98.84 Bariatric surgery status; Z87.891 Personal history of nicotine dependence
CPT/HCPCS: 43239; 45380; 88305; 88313; 88342; J2704

== ENCOUNTER → 2023-12-08 08:26 | Outpatient (BNV) | payer OTHER, SELFPAY | PROVIDERS: PCP Internal Medicine; Visit Provider Internal Medicine Gastroenterology | DX: Z12.11 Encounter for screening for malignant neoplasm of colon (principal); K64.0 First degree hemorrhoids; K52.9 Noninfective gastroenteritis and colitis, unspecified; K21.00 Gastro-esophageal reflux disease with esophagitis, without bleeding; K22.2 Esophageal obstruction | CPT/HCPCS: 43239; 45380 ==

== ENCOUNTER 2023-12-21 08:34 | Outpatient (AMB) | payer OTHER, SELFPAY ==
--- NOTE | 2023-12-21 08:36 | A.OFFVIS_ITS ---
Vital Signs 12/21/23 08:47 Height 5 ft 6 in Weight 166 lb 3.657 oz BMI 26.8 BP 104/60 Blood Pressure Location Rt brachial Position Sitting Pulse 56 Pulse Source Pulse Oximeter Pulse Oximetry (%) 97 Oxygen Delivery Method Room Air Intake Visit Reasons: S/P double; Dr. Grant Intake Note: Yamilex presents in office today for a scheduled post op FUV. CC; Pt denies any new concerns or sx at this time. Pt reports that they have been stable and deny any complications post op. Pt is here to discuss results of recent s/p. Senior Linux Systems Administrator Required: Yes Senior Linux Systems Administrator Services: Senior Linux Systems Administrator Present Senior Linux Systems Administrator Name: Rhett [id number] Information Interpreted: non-clinical & clinical Accompanied by: Self / Same As Patient Allergies No Known Allergies Allergy (Verified 12/21/23 08:37) HPI HPI S/P double; Dr. Grant: Details: LAST VISIT Norovirus GERD (gastroesophageal reflux disease) Acute anemia Plan Patient continues with occasional postprandial loose stools. Will repeat GI panel, check fecal calprotectin and C diff. CRP. Patient will be referred to Cardiology for clearance. Patient denies any issues with anesthesia in the past. History of sleep apnea. Patient is not on any anticoagulation medication. What to expect before during and after procedure discussed with patient. Clear liquid diet and good bowel prep day before procedure discussed with patient. Patient will call our office if she will have any GI concerning symptoms. I will see her after the procedure, sooner on as needed basis. Patient is agreeable to this plan and verbalizes understanding of instructions. She was given the opportunity to ask questions and all questions answered. ? Thank you for allowing me to participate in her care. Orders Orders GI Panel 08/19/23 R19.7 Calprotectin, Fecal 08/19/23 R15.9 CDiff Gene PCR 08/19/23 R19.7 C Reactive Protein 08/19/23 K58.9 Referrals Cardiology Referral Z01.810, R07.9 Medications New bisacodyl (Dulcolax (bisacodyl)) take 4 tabs at noon the day before your colonoscopy 20 mg (4 x 5 mg) PO ONCE 4 tabs 0RF 1 day Z12.11 polyethylene glycol 3350 (Miralax) As directed by gastroenterology department at [facility] 238 grams PO ONCE 238 grams 0RF Z12.11 UPPER ENDOSCOPY AND COLONOSCOPY Findings: Larynx:normal Esophagus: GE junction at 32 cm, diaphragm hiatus at 35 cm, consistent with 3 cm sliding hiatal hernia, schatzki ring noted with patulous LES> bx taken from GEJ, distal and proximal esophagus, mild esophagitis also noted Stomach: Normal mucosa. Biopsies were obtained. Grade 2 flap valve on retroflexed examination of the cardia. Duodenum: Normal bulb and descending duodenum, Intervention: Biopsies as noted above, Findings: Terminal Ileum- mild erythema , bx taken Cecum:normal, bx taken Ascending Colon: normal, bx taken Transverse Colon -normal Descending Colon:normal Sigmoid Colon: normal Rectum: Retroflexion with small internal hemorrhoids, grade I Anorectum - normal Colon preparation: [place] Bowel Preparation Scale Right colon; 2 Transverse colon: 2 Left colon; 2 (0 = Unprepared colon segment with mucosa not seen due to solid stool that cannot be cleared. 1 = Portion of mucosa of the colon segment seen, but other areas of the colon segment not well seen due to staining, residual stool and/or opaque liquid. 2 = Minor amount of residual staining, small fragments of stool and/or opaque liquid, but mucosa of colon segment seen well. 3 = Entire mucosa of colon segment seen well with no residual staining, small fragments of stool or opaque liquid) Impression and Post Procedure Diagnosis: Endoscopy Findings: schatzki ring hiatal hernia esophagitis Colonoscopy Findings: mild ileitis, Plan: Await Pathology results Repeat Colonoscopy in 5 years due to hx of polyps or earlier if clinically indicated High fiber diet leaflet avoid straining at stool, epsom salts and sitz bath, anusol supps or cream consider CTe if ileitis confirmed on bx PATHOLOGY RESULTS Diagnosis A. Stomach, biopsy: Congested gastric antral and body mucosa with focal minimal chronic inactive inflammation; negative for H. pylori, intestinal metaplasia and dysplasia. B. Gastroesophageal junction, biopsy: Squamocolumnar mucosa with minimal chronic inactive inflammation; negative for intestinal metaplasia and dysplasia. C. Esophagus, distal, biopsy: Squamous mucosa with no specific change; no columnar mucosa present. D. Esophagus, proximal, biopsy: Squamous mucosa with focal spongiosis and intraepithelial neutrophils consistent with esophagitis; no columnar mucosa present. E. Terminal ileum, biopsy: Ileal mucosa with congestion and no specific change; no ileitis, granulomas or dysplasia. F. Colon, right, biopsy: Colonic mucosa with no specific change; no colitis, granulomas or dysplasia TODAY'S VISIT: Patient is here today for follow-up and to discuss upper endoscopy and colonoscopy results. Patient denies any ill effects from the prep, anesthesia or procedure itself. Patient reports to be feeling well. Denies any dyspepsia, dysphagia or odynophagia. Upper endoscopy and colonoscopy results discussed with patient. Mild inflammation in terminal ileum without any specific change, no colitis, no granulomas. Normal colonic mucosa. Mild esophagitis and Schatzki ring found. Small sliding hiatal hernia. Patient reports to be feeling well. However she does reports that she might have occasional acid reflux and chest pain. Patient have been evaluated by Cardiology in all her cardiac tests were negative. Patient denies any melena, hematochezia, unintentional weight loss or ribbon like stools. Patient reports that she is moving her bowels better now. Take senna on as-needed basis. REPLACED BY [facility] Medical History Pre-operative cardiovascular examination Chest pain Acute anemia Vitamin D deficiency Nephrolithiasis Left peroneal nerve palsy Unstable gait Lichen simplex chronicus Skin tag Mitral valve prolapse Vitamin B12 deficiency DJD (degenerative joint disease) Heel pain, bilateral Lumbago with sciatica, right side Right radial head fracture Dysplasia of cervix, low grade (GIL 1) HPV test positive Mixed dyslipidemia Depression with anxiety Hiatal hernia Syncope Surgical History (Updated 12/21/23 @ 08:46 by CULLEN Morataya) H/O liposuction of abdomen (~12/2022) History of repair of hiatal hernia S/P laparoscopic sleeve gastrectomy Hx of colonoscopy Status post breast reduction H/O arthroscopy of right knee History of section History of appendectomy History of tubal ligation Family History Father No problems noted. Mother No problems noted. Son Bipolar disorder Mental health disorder Daughter No problems noted. Social History Housing: Apartment Are you a primary care aide to a significant other at home: No Do you presently have visiting nurse or other home services: No Alcohol intake: current Alcohol intake frequency: holidays/special occasions only Comment: wears knee brace at times Patient Tobacco Use Status: Former Tobacco user Tobacco use type: Cigarette Cigarettes Per Day: 5 e-Cigarette/Vaping Use: Never Used service: No Current occupational status: disabled Cognitive needs: No Hearing needs: No Vision needs: No Female Reproductive History Menstrual Age of Menarche: 12 Review of Systems Const Denies weight gain and Denies weight loss ENT Reports no additional complaints, Denies dysphagia and Denies odynophagia Card Reports no additional complaints Resp Reports no additional complaints GI Denies abdominal pain, Denies belching, Denies melena, Denies bloating, Denies change in bowel habits, Denies dysphagia, Denies excessive flatus, Denies dyspepsia, Denies heartburn, Denies diarrhea, Denies loose stools, Denies nausea, Denies odynophagia and Denies vomiting Musc Reports no additional complaints Neuro Reports no additional complaints Psych Reports no additional complaints Endo Reports no additional complaints Physical Exam Const General: healthy appearing, no acute distress and well developed Nutritional Appearance: well nourished Orientation/consciousness: patient oriented x3 Resp Effort & Inspection: normal respiratory effort, able to speak in complete sentences, no tracheal deviation and symmetric chest movement Auscultation: clear to auscultation bilaterally Cardio Rate: regular rate GI Inspection: Yes normal to inspection and No distended Palpation (GI): Soft to palpation, not firm, nontender and No hepatosplenomegaly present Auscultation: normal bowel sounds General: Yes no CVA tenderness Back/Spine/Pelvis Back: no CVA tenderness Skin General skin exam: elasticity normal, turgor normal and dry skin Neuro General: patient oriented x3 Psych Appearance: grossly normal Mental Status: mental status grossly normal Assessment & Plan Assessment & Plan (1) Acute anemia: Code(s): D64.9 - Anemia, unspecified Category: Medical (2) GERD (gastroesophageal reflux disease): Code(s): K21.9 - Gastro-esophageal reflux disease without esophagitis Qualifiers: Esophagitis presence: with esophagitis Esophagitis bleeding: without hemorrhage Qualified Code(s): K21.00 - Gastro-esophageal reflux disease with esophagitis, without bleeding (3) Status post colonoscopy: Code(s): Z98.890 - Other specified postprocedural states (4) Schatzki's ring: Code(s): K22.2 - Esophageal obstruction (5) Esophagitis: Code(s): K20.90 - Esophagitis, unspecified without bleeding Plan Esophagitis found on endoscopy with biopsy confirming it. Patient will be started on pantoprazole daily. Avoid dietary triggers and late night snacking. Staying upright for minimum 3 hours after meals discussed with patient. Continue taking senna on as-needed basis. Increase fluid intake and activity to promote better bowel motility. Follow-up in the office in 3 months. Patient will call our office if she will experience any GI concerning symptoms. She is agreeable to this plan and verbalizes understanding of instructions. She was given opportunity to and all questions answered. Thank you for allowing me to participate in her care Medications: New pantoprazole take one tablet half an hour before breakfast 40 mg PO DAILY 90 tabs 2RF K21.9 - Gastro-esophageal reflux disease without esophagitis Refilled sennosides (Natural Senna Laxative) 8.6 mg PO BEDTIME 90 tabs 3RF constipation K59.00 - Constipation, unspecified Coding Level of Care Code Est Pt Level 3 (11821) Diagnoses Acute anemia D64.9 Gastroesophageal reflux disease with esophagitis without hemorrhage K21.00 Esophagitis presence: with esophagitis Esophagitis bleeding: without hemorrhage Status post colonoscopy Z98.890 Schatzki's ring K22.2 Esophagitis K20.90 Time Spent (min) 30 Comment 20 minutes spent with patient and additional 10 minutes spent reviewing her records
[2023-12-21 08:47] VITALS: BP 104/60; PULSE 56; O2SAT 97; BMI 26.8
== END 2023-12-21 09:11 | disposition home or self-care (01) ==
PROVIDERS: PCP Internal Medicine; Visit Provider Nurse Practitioner Family
DX: D64.9 Anemia, unspecified (principal); K21.00 Gastro-esophageal reflux disease with esophagitis, without bleeding; Z98.890 Other specified postprocedural states; K22.2 Esophageal obstruction; K20.90 Esophagitis, unspecified without bleeding
CPT/HCPCS: 99213

== ENCOUNTER → 2023-12-21 08:34 | Outpatient (BNVA) | payer OTHER, SELFPAY | PROVIDERS: PCP Internal Medicine; Visit Provider Nurse Practitioner Family | DX: D64.9 Anemia, unspecified (principal); K21.00 Gastro-esophageal reflux disease with esophagitis, without bleeding; K22.2 Esophageal obstruction; K20.90 Esophagitis, unspecified without bleeding; Z98.890 Other specified postprocedural states | CPT/HCPCS: 99212 ==

== ENCOUNTER 2023-12-28 10:02 | Outpatient (REF) | payer OTHER, SELFPAY | END 2023-12-28 10:03 | disposition home or self-care (01) | LOC: HO.LNP 10:02 | PROVIDERS: PCP Internal Medicine; Visit Provider Obstetrics & Gynecology | DX: Z13.89 Encounter for screening for other disorder (principal) ==

== ENCOUNTER 2023-12-28 10:02 | Outpatient (AMB) | payer OTHER, SELFPAY ==
[2023-12-28 10:29] VITALS: BMI 26.7
--- NOTE | 2023-12-28 10:29 | MHC.OFFVIS ---
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 Complaining of vaginal discharge associated with foul odor Last Pap/HPV was negative in 01/21 Last Mammogram was BI-RADS 1 in 03/23 Last colonoscopy was in 12/22, the recommendation was to repeat in 5 years [facility] Medical History (Updated 12/28/23 @ 10:45 by Ron Castillo MD) Pre-operative cardiovascular examination Chest pain Acute anemia Vitamin D deficiency Nephrolithiasis Left peroneal nerve palsy Unstable gait Lichen simplex chronicus Skin tag Mitral valve prolapse Vitamin B12 deficiency DJD (degenerative joint disease) Heel pain, bilateral Lumbago with sciatica, right side Right radial head fracture Dysplasia of cervix, low grade (GIL 1) HPV test positive Mixed dyslipidemia Depression with anxiety Hiatal hernia Syncope Surgical History H/O liposuction of abdomen (~12/2022) History of repair of hiatal hernia S/P laparoscopic sleeve gastrectomy Hx of colonoscopy Status post breast reduction H/O arthroscopy of right knee History of section History of appendectomy History of tubal ligation Family History Father No problems noted. Mother No problems noted. Son Bipolar disorder Mental health disorder Daughter No problems noted. Social History Housing: Apartment Are you a primary healthcare consultant to a significant other at home: No Do you presently have visiting nurse or other home services: No Alcohol intake: current Alcohol intake frequency: holidays/special occasions only Comment: wears knee brace at times Patient Tobacco Use Status: Former Tobacco user Tobacco use type: Cigarette Cigarettes Per Day: 5 e-Cigarette/Vaping Use: Never Used service: No Current occupational status: disabled Cognitive needs: No Hearing needs: No Vision needs: No Female Reproductive History Menstrual Age of Menarche: 12 control method: permanent sterilization Menopause type: natural Total pregnancies: 4 Full term: 2 Ab spontaneous: 2 Date of last pap smear: 12/30/22 Date of Mammogram: 03/16/23 Review of Systems Const All systems reviewed & are unremarkable except as noted in HPI and below Card Reports as per HPI Resp Reports as per HPI GI Reports as per HPI and Reports no additional complaints Reports as per HPI Physical Exam Vital Signs: BMI result Body Mass Index 26.7 Const General: cooperative, healthy appearing and comfortable Chest Chest palpation & inspection: normal inspection of the chest and normal palpation of entire chest wall Breast/axilla inspection: normal inspection of the breasts and normal inspection of the axillae Breast/axilla palpation: normal palpation of the breasts, normal palpation of the axillae and no axillary lymphadenopathy Resp Effort & Inspection: normal respiratory effort Auscultation: clear to auscultation bilaterally Percussion: percussion normal Cardio Palpation: normal PMI Rate: regular rate Rhythm: regular rhythm Heart sounds: no murmurs and no rubs Peripheral pulses: Peripheral pulses 2+ throughout GI Inspection: Yes normal to inspection Palpation (GI): Soft to palpation, nontender, no guarding, not rigid and No hepatosplenomegaly present Percussion: Yes normal to percussion Auscultation: normal bowel sounds Rectal Exam - Female: deferred General: Yes bladder normal to palpation External Female Exam: No lesion Speculum Exam - Vagina: normal appearance of the vagina, normal palpation, normal vaginal discharge and not erythematous Speculum Exam - Cervix: normal appearance of the cervix and normal palpation Bimanual exam- vagina & uterus: normal bimanual exam, normal palpation, uterine size normal, bladder normal to palpation, consistency normal and normal palpation Bimanual Exam- Adnexa, other: normal adnexae, no masses and no tenderness Assessment & Plan Assessment & Plan (1) Well woman exam: Code(s): Z01.419 - Encounter for gynecological examination (general) (routine) without abnormal findings Category: Medical Plan: Co testing not indicated this year. Counseled the patient about the recommended dietary allowance of 1200 mg of Calcium & 600 IU of vitamin D. Instructions given the patient to schedule next screening Mammogram in 03/24. The patient was instructed to perform monthly self-breast exams and schedule annual exam in a year. All questions answered and the patient verbalized understanding. (2) Bacterial vaginosis: Code(s): N76.0 - Acute vaginitis; B96.89 - Other specified bacterial agents as the cause of diseases classified elsewhere Category: Medical Plan: GC and chlamydia cultures with BV panel taken. Per CDC recommendation, will screen for STI, HepBs Ag, HIV, RPR, Hep C Ab ordered. Will treat with Flagyl 500 mg p.o. b.i.d. x 7 days, Instructions given to the patient to refrain from sexual activity or to use condoms consistently and correctly during the BV treatment regimen, not to douch, it might increase the risk for relapse, and to call if symptoms persist or recur. Orders: Orders Hepatitis B Surface Antigen Today B96.89 - Other specified bacterial agents as the cause of diseases classified elsewhere, N76.0 - Acute vaginitis HIV Ab/Ag Today B96.89 - Other specified bacterial agents as the cause of diseases classified elsewhere, N76.0 - Acute vaginitis Syphilis Screen Today B96.89 - Other specified bacterial agents as the cause of diseases classified elsewhere, N76.0 - Acute vaginitis Hepatitis C Antibody Today B96.89 - Other specified bacterial agents as the cause of diseases classified elsewhere, N76.0 - Acute vaginitis Medications: New metronidazole 500 mg PO BID 7 days 14 tabs 0RF Coding Level of Care Code Est Pt Prev Care 40-64y(93504) Diagnoses Well woman exam Z01.419 Bacterial vaginosis N76.0; B96.89
== END 2023-12-28 11:01 | disposition home or self-care (01) ==
LOC: HO.HWS 10:02
PROVIDERS: PCP Internal Medicine; Visit Provider Obstetrics & Gynecology
DX: Z01.419 Encounter for gynecological examination (general) (routine) without abnormal findings (principal); N76.0 Acute vaginitis; B96.89 Other specified bacterial agents as the cause of diseases classified elsewhere
CPT/HCPCS: 99396

== ENCOUNTER 2023-12-28 10:56 | Emergency (ER) | payer OTHER, SELFPAY ==
--- NOTE | ~2023-12-28 | XR_ITS ---
EXAMINATION: XR FINGER, RIGHT CLINICAL INFORMATION: Fifth finger bent backwards with pain COMPARISON: None available. TECHNIQUE: Single view of the hand with 2 views of the right fifth digit. FINDINGS: The bones and soft tissues are normal. No fracture. Alignment is anatomic. Joint spaces are maintained. XR/XR finger RT min 2V IMPRESSION: Normal finger radiographs.
[2023-12-28 11:18] VITALS: BP 111/57; PULSE 59; RESP 16; TEMP 36.5; O2SAT 100; BMI 25.8
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
--- NOTE | 2023-12-28 12:41 | ED.EXTPRO ---
HPI - Extremity Problem General Chief complaint: Extremity Problem Stated complaint: Swollen R Pinky Finger Time Seen by Provider: 12/28/23 11:26 Source: patient Mode of arrival: ambulatory Limitations: no limitations and language barrier (Micronesian speaking) History of Present Illness ED Provider: Armani Gaona PA-C HPI Narrative: 53 year old right hand dominant female presents with pain of the right 5 digit with movement for 2 weeks. Patient states that she came in today for a x-ray to assess for any fractures after having pain for about 2 weeks with movement. Patient states that a family member was holding the pinky and it was hyperextended. Patient states that there was knuckle swelling and pain over the last 2 weeks but it seems to have gotten better. She did not endorse any redness. She does not endorse any numbness or tingling, no radiating pain. There is only pain on movement of the right 5th digit. She states that she has been using Tylenol for the pain. and has placed ice on the injury. States Tylenol has been helping minimally. No other concerns at this time. MD Complaint: extremity pain Onset (ago): week(s) (2) Pain Consistency: intermittent Location: right (finger) Quality: sharp Relieving factors: medication (Tylenol) Exacerbating factors: other (Increased pain with movement) Associated symptoms: denies other symptoms Related Data Home Medications ?Medication ?Instructions ?Recorded ?Confirmed lamotrigine 150 mg tablet 150 mg PO BID 03/31/22 12/08/23 sertraline 100 mg tablet 200 mg PO DAILY 03/31/22 10/07/23 prazosin 1 mg capsule 1 mg PO BEDTIME 07/14/22 12/08/23 trazodone 100 mg tablet 100 mg PO BEDTIME 07/14/22 10/07/23 Celebrate MVI and Mike+D PO DAILY 11/05/22 10/07/23 ascorbic acid (vitamin C) 1,000 mg 1 g PO Q6H 12/03/22 12/08/23 capsule ferrous sulfate 325 mg (65 mg 325 mg PO DAILY 12/03/22 12/08/23 iron) tablet (FeroSul) folic acid 800 mcg tablet 0.8 mg PO DAILY 12/03/22 12/08/23 bupropion HCl 150 mg 24 hr tablet, 150 mg PO DAILY 12/21/23 extended release buspirone 5 mg tablet 5 mg PO TID 12/21/23 Previous Rx's ?Medication ?Instructions ?Recorded pyridoxine (vitamin B6) 100 mg 100 mg PO DAILY 90 days #90 tabs 05/18/23 tablet walker (Ultra-Light Rollator misc) #1 ea 05/22/23 clotrimazole 1 % topical cream 1 appl topical BID PRN rash #45 07/10/23 (Antifungal (clotrimazole)) grams imiquimod 5 % topical cream packet 1 appl topical 3XW 16 weeks #24 ea 09/17/23 polyethylene glycol 3350 17 238 g PO ONCE #238 grams 11/25/23 gram/dose oral powder (Miralax) pantoprazole 40 mg tablet,delayed 40 mg PO DAILY #90 tabs 12/21/23 release sennosides 8.6 mg tablet (Natural 8.6 mg PO BEDTIME constipation #90 12/21/23 Senna Laxative) tabs ibuprofen 600 mg tablet 600 mg PO Q8H PRN pain #10 tabs 12/28/23 metronidazole 500 mg tablet 500 mg PO BID 7 days #14 tabs 12/28/23 Allergies Allergy/AdvReac Type Severity Reaction Status Date / Time No Known Allergies Allergy Verified 12/28/23 11:20 Review of Systems Review of Systems: Yes all other systems are reviewed and are negative FOR[facility], [facility] Past Medical History Medical History (Updated 12/28/23 @ 12:40 by FREDIS Coelho) Pre-operative cardiovascular examination Chest pain Acute anemia Vitamin D deficiency Nephrolithiasis Left peroneal nerve palsy Unstable gait Lichen simplex chronicus Skin tag Mitral valve prolapse Vitamin B12 deficiency DJD (degenerative joint disease) Heel pain, bilateral Lumbago with sciatica, right side Right radial head fracture Dysplasia of cervix, low grade (GIL 1) HPV test positive Mixed dyslipidemia Depression with anxiety Hiatal hernia Syncope Surgical History H/O liposuction of abdomen (~12/2022) History of repair of hiatal hernia S/P laparoscopic sleeve gastrectomy Hx of colonoscopy Status post breast reduction H/O arthroscopy of right knee History of section History of appendectomy History of tubal ligation Family History Family History Father No problems noted. Mother No problems noted. Son Bipolar disorder Mental health disorder Daughter No problems noted. Social History Social History Housing: Apartment Are you a primary direct care professional to a significant other at home: No Do you presently have visiting nurse or other home services: No Alcohol intake: current Alcohol intake frequency: holidays/special occasions only Comment: wears knee brace at times Patient Tobacco Use Status: Former Tobacco user Tobacco use type: Cigarette Cigarettes Per Day: 5 e-Cigarette/Vaping Use: Never Used Advance Directives: No Advance Directives Information Provided: Yes service: No Current occupational status: disabled Cognitive needs: No Hearing needs: No Vision needs: No Physical Exam Vital Signs: Vital Signs: Last Vital Signs Temp 97.7 F 12/28/23 12:44 Pulse 59 12/28/23 12:44 Resp 16 12/28/23 12:44 BP 111/57 L 12/28/23 12:44 Pulse Ox 100 12/28/23 12:44 O2 Del Method Room Air 12/28/23 12:44 BMI result Body Mass Index 25.8 Appearance: Alert. Oriented X3. No acute distress. HEENT: normal inspection CVS: Normal heart rate and rhythm. Pulses normal. Respiratory: No respiratory distress. Skin: Skin warm and dry. Normal skin color. Normal skin turgor. No rashes. Extremities: Right pinky finger shows no swelling or redness. Pain with right pinky movement, ROM intact. No numbess or tingling with movement. Neuro: Oriented X 3. No motor deficit. No sensory deficit. Medical Decision Making Medical Decision Making MDM Narrative: 53 year old female presents today with right pinky pain on movement and was looking for a x-ray to rule out a fracture. Right pinky finger does not look swollen nor does the knuckle, and there is no redness. Range of motion is intact and there is only pain on movement of the right pinky. X-ray was ordered and on review it does not look like a fracture. Waiting for official read. Patients right pinky was splinted and was given Ibuprofen ordered to her pharmacy to help with inflammation and pain. No concern or clinical evidence for for infection/cellultis/tenosynivitis or muscle/ligament tear at this time due to ability to move and no signs of redness/fevers. Differential Diagnosis Differential Diagnoses: The differential diagnosis associated with the presentation includes Right 5th digit fracture, Right 5th digit sprain, Right 5th digit muscle/ligament tear. Independent Interpretation I performed an independent interpretation of an: Plain X-Ray Interpretation: no visible fracture Radiology Impression Discussion of test interpretation with radiology: I have reviewed the radiologist's reading. Radiologist Impression: EXAMINATION: XR FINGER, RIGHT CLINICAL INFORMATION: Fifth finger bent backwards with pain COMPARISON: None available. TECHNIQUE: Single view of the hand with 2 views of the right fifth digit. FINDINGS: The bones and soft tissues are normal. No fracture. Alignment is anatomic. Joint spaces are maintained. XR/XR finger RT min 2V IMPRESSION: Normal finger radiographs. External Record Review External record reviewed: Prior outpatient labs Prescription Management I considered prescription management with: Pain Medication Procedures Orthopedic Splinting/Casting Injury #1: Side: right Upper Extremity Injury Location: finger Upper Extremity Immobilizer: finger (other), brandon tape and Pranav wrap Critical Care Time Critical Care Time Critical Care Time: No Discharge Plan Discharge Clinical Impression: Finger sprain Qualifiers: Encounter type: initial encounter Finger: little finger Sprain of finger site: unspecified site Laterality: right Qualified Code(s): S63.616A - Unspecified sprain of right little finger, initial encounter Patient Disposition: Home, Self-Care Instructions: Finger Sprain (ED) Prescriptions: New ibuprofen 600 mg tablet 600 mg PO Q8H PRN (Reason: pain) Qty: 10 0RF No Action (DME) Ultra-Light Rollator Misc See Rx Instructions .Route Qty: 1 0RF Rx Instructions: As directed polyethylene glycol 3350 [Miralax] 17 gram/dose powder 238 g PO ONCE Qty: 238 0RF Rx Instructions: As directed by gastroenterology department at [facility] trazodone 100 mg tablet 100 mg PO BEDTIME prazosin 1 mg capsule 1 mg PO BEDTIME ferrous sulfate [FeroSul] 325 mg (65 mg iron) tablet 325 mg PO DAILY folic acid 800 mcg tablet 0.8 mg PO DAILY ascorbic acid (vitamin C) 1,000 mg capsule 1 g PO Q6H sertraline 100 mg tablet 200 mg PO DAILY lamotrigine 150 mg tablet 150 mg PO BID Celebrate MVI and Mike+D PO DAILY pyridoxine (vitamin B6) 100 mg tablet 100 mg PO DAILY 90 Days Qty: 90 1RF metronidazole 500 mg tablet 500 mg PO BID 7 Days Qty: 14 0RF clotrimazole [Antifungal (clotrimazole)] 1 % cream 1 appl topical BID PRN (Reason: rash) Qty: 45 2RF buspirone 5 mg tablet 5 mg PO TID bupropion HCl 150 mg tablet extended release 24 hr 150 mg PO DAILY sennosides [Natural Senna Laxative] 8.6 mg tablet 8.6 mg PO BEDTIME Qty: 90 3RF pantoprazole 40 mg tablet,delayed release (DR/EC) 40 mg PO DAILY Qty: 90 2RF Rx Instructions: take one tablet half an hour before breakfast imiquimod 5 % cream in packet 1 appl topical 3XW 112 Days Qty: 24 0RF Interventions: ED Discharge Assessment Last Done: 12/28/23 12:44 Discharge Date/Time: 12/28/23 12:45 Print Language: Micronesian
[2023-12-28 12:44] VITALS: BP 111/57; PULSE 59; RESP 16; TEMP 36.5; O2SAT 100
== END 2023-12-28 12:45 | disposition home or self-care (01) ==
PROVIDERS: Emergency Provider Emergency Medicine; PCP Internal Medicine
DX: S63.616A Unspecified sprain of right little finger, initial encounter (principal); M79.644 Pain in right finger(s); N76.0 Acute vaginitis; X50.1XXA Overexertion from prolonged static or awkward postures, initial encounter; Y93.89 Activity, other specified; Y92.89 Other specified places as the place of occurrence of the external cause; Y99.8 Other external cause status; Z79.899 Other long term (current) drug therapy; Z87.891 Personal history of nicotine dependence
CPT/HCPCS: 0352U; 29130; 36415; 73140; 86780; 86803; 87340; 87389; 87491; 87591; 99282; 99283; 99284

== ENCOUNTER 2023-12-28 14:03 | Outpatient (REF) | payer OTHER, SELFPAY ==
[2023-12-28 18:19] LABS: Bacterial Vaginosis PCR POSITIVE (Negative); Candida Group PCR NOT DETECTED (Not Detect); Candida glab krusei PCR NOT DETECTED (Not Detect); Trichomonas vaginalis PCR NOT DETECTED (Not Detect)
[2023-12-28 18:50] LABS: CT PCR NOT DETECTED (Not Detect.); NG PCR NOT DETECTED (Not Detect.)
[2023-12-29 04:20] LABS: Syphilis Screen Nonreactive (Nonreactive)
[2023-12-29 04:42] LABS: HIV AB/AG Nonreactive (Nonreactive); HIV Num 1 0.06 S/CO (0.00-0.99); Hepatitis B Surface Antigen Negative (Negative); ~HepC Num1 0.07 S/CO (0.00-0.79); ~Hepatitis C Antibody Nonreactive (Nonreactive)
== END 2023-12-28 14:04 | disposition home or self-care (01) ==
LOC: HO.LAB 14:03
PROVIDERS: PCP Internal Medicine; Visit Provider Obstetrics & Gynecology
DX: Z13.89 Encounter for screening for other disorder (principal)
CPT/HCPCS: 0352U; 36415; 86780; 86803; 87340; 87389; 87491; 87591

== ENCOUNTER 2024-01-04 10:18 | Outpatient (AMB) | payer OTHER, SELFPAY ==
--- NOTE | 2024-01-04 10:25 | A.OFFVIS_ITS ---
VS Expanded 01/04/24 10:33 BP 106/65 Blood Pressure Location Rt brachial Blood Pressure Position Sitting Pulse 63 Pulse Source Pulse Oximeter Temp 97.2 F Temperature Source Temporal Artery Scan Pulse Oximetry 97 Oxygen Delivery Method Room Air Height 5 ft 6 in Weight 163 lb 12.8 oz BMI 26.4 Body Fat % 34.0 Body Fat Mass 55.6 Fat Free Mass 108.0 Visceral Fat Rating 7.0 Body Water % 46.9 Body Water Mass 76.8 Muscle Mass/Score 102.6 Basal Metabolic Rate/Score 1,460 Intake Visit Reasons: (OV) PO LSG 01/02/22 [employer] Required: Yes [employer]alth [employer] Name: office cmi Allergies No Known Allergies Allergy (Verified 01/04/24 10:28) Medication List - Last Reconciled 01/04/24 by FREDIS Barahona ascorbic acid (vitamin C) 1 g PO Q6H bupropion HCl XL 150 mg PO DAILY buspirone 5 mg PO TID [Celebrate MVI and Mike+D PO DAILY] clotrimazole 1% (Antifungal (clotrimazole)) 1 appl topical BID PRN ferrous sulfate (FeroSul) 325 mg PO DAILY folic acid 0.8 mg PO DAILY ibuprofen 600 mg PO Q8H PRN imiquimod 5% 1 appl topical 3XW 16 weeks lamotrigine 150 mg PO BID metronidazole 500 mg PO BID 7 days pantoprazole 40 mg PO DAILY polyethylene glycol 3350 (Miralax) 238 grams PO ONCE prazosin 1 mg PO BEDTIME pyridoxine (vitamin B6) 100 mg PO DAILY 90 days sennosides (Natural Senna Laxative) 8.6 mg PO BEDTIME sertraline 200 mg PO DAILY trazodone 100 mg PO BEDTIME walker (Ultra-Light Rollator [facility] As directed HPI Comments Details: This?a?53?yo female who is s/p LSG without hiatal hernia repair on?01/02/[address] Abebe. Presents for 2 year post op visit. Weight today is 163.8 pounds, with a BMI of 26.4.? There has been a 54.4 pound weight loss,(initial weight 218.2 pounds) since starting the program on reflecting a 24.9% total body weight loss and a weight loss of 24.6 pounds since surgery (operative weight 188.4 pounds) reflecting a 13% TBWL since surgery.? No complaints of nausea, emesis, abdominal pain. Reports infrequent but normal bowel movements every 1-2 days and uses stool softeners regularly.? celebrate MVI and Mike + D. She reports she is very happy and feeling well. She states she has been having increased refulx over the last 6 months. Present meal plan includes: 1 egg, coffee w sugar or premier protein RTD protein bar or yogurt w granola meal w protein, rice, salad not measuring snacking on chips at night drinking 48 oz water, sometime juice ? Exercise routine includes: none in 2 weeks as she was sick, prior to that elliptical, bike 3 x per week at the gym 500 calories. Any post op complications: none ZULAY: never DM: never HTN: never Hyperlipidemia: resolved GERD:?0-5 scale ??0 = no symptoms ??1 = symptoms noticeable but not bothersome 2 =symptoms bothersome but not daily ? 3 = symptoms bothersome and daily 4 = symptoms affect daily activities 5 = symptoms are incapacitating, unable to do daily activities ? How bad is the heartburn: 0 ? Heartburn while lying down: 0 ? Heartburn when standing up: 0 ? Heartburn after meals: 3 ? Does heartburn change your diet: 0 ? Does heartburn wake you up from sleep: 0 ? Do you have difficulty swallowin ? Do you have pain with swallowin ? If you take medicine for your reflux, does this affect your daily life: 0 Satisfaction with present condition - satisfied or not satisfied: satisfied [facility] Medical History Pre-operative cardiovascular examination Chest pain Acute anemia Vitamin D deficiency Nephrolithiasis Left peroneal nerve palsy Unstable gait Lichen simplex chronicus Skin tag Mitral valve prolapse Vitamin B12 deficiency DJD (degenerative joint disease) Heel pain, bilateral Lumbago with sciatica, right side Right radial head fracture Dysplasia of cervix, low grade (GIL 1) HPV test positive Mixed dyslipidemia Depression with anxiety Hiatal hernia Syncope Surgical History History of endoscopy H/O liposuction of abdomen (~12/2022) History of repair of hiatal hernia S/P laparoscopic sleeve gastrectomy Hx of colonoscopy Status post breast reduction H/O arthroscopy of right knee History of section History of appendectomy History of tubal ligation Family History Father No problems noted. Mother No problems noted. Son Bipolar disorder Mental health disorder Daughter No problems noted. Social History Housing: Apartment Are you a primary patient care manager to a significant other at home: No Do you presently have visiting nurse or other home services: No Alcohol intake: current Alcohol intake frequency: holidays/special occasions only Comment: wears knee brace at times Patient Tobacco Use Status: Former Tobacco user Tobacco use type: Cigarette Cigarettes Per Day: 5 e-Cigarette/Vaping Use: Never Used service: No Current occupational status: disabled Cognitive needs: No Hearing needs: No Vision needs: No Female Reproductive History Menstrual Age of Menarche: 12 Physical Exam Const General: healthy appearing and no acute distress Resp Effort & Inspection: normal respiratory effort Auscultation: clear to auscultation bilaterally Cardio Rate: regular rate Rhythm: regular rhythm GI Auscultation: normal bowel sounds Extrem General: Yes normal to inspection Assessment & Plan Assessment & Plan (1) S/P laparoscopic sleeve gastrectomy: Code(s): Z98.84 - Bariatric surgery status Category: Surgical Plan: Discussed 12 lb weight gain. Discussed reflux all self-induced as she is eating and drinking quickly. Change meal plan to include Premier protein powder Shake 1 scoop in 8 oz of almond milk Shake 1 scoop in 8 oz of almond milk Half cup fresh fruit Meal with 6 forks protein and 6 forks vegetables Georgian yogurt if she wishes Increase exercise at the gym to 5 days per week. Check 2 year postop labs Return to clinic 6 weeks. Text weekly with weights and with any questions Orders: Orders Complete Blood Count Auto Diff Today E55.9 - Vitamin D deficiency, unspecified, Z98.84 - Bariatric surgery status IRON PROFILE Today E55.9 - Vitamin D deficiency, unspecified, Z98.84 - Bariatric surgery status Zinc Today E55.9 - Vitamin D deficiency, unspecified, Z98.84 - Bariatric surgery status Vitamin A Today E55.9 - Vitamin D deficiency, unspecified, Z98.84 - Bariatric surgery status TSH reflex Free T4 Today E55.9 - Vitamin D deficiency, unspecified, Z98.84 - Bariatric surgery status Vitamin D 25-OH Total Today E55.9 - Vitamin D deficiency, unspecified, Z98.84 - Bariatric surgery status Insulin Today E55.9 - Vitamin D deficiency, unspecified, Z98.84 - Bariatric surgery status Hemoglobin A1c Today E55.9 - Vitamin D deficiency, unspecified, Z98.84 - Bariatric surgery status Lipid Panel Today E55.9 - Vitamin D deficiency, unspecified, Z98.84 - Bariatric surgery status Vitamin B12 and Folate Today E55.9 - Vitamin D deficiency, unspecified, Z98.84 - Bariatric surgery status C Reactive Protein Today E55.9 - Vitamin D deficiency, unspecified, Z98.84 - Bariatric surgery status Vitamin B1 Today E55.9 - Vitamin D deficiency, unspecified, Z98.84 - Bariatric surgery status Ferritin Today E55.9 - Vitamin D deficiency, unspecified, Z98.84 - Bariatric surgery status Basic Metabolic Panel Today E55.9 - Vitamin D deficiency, unspecified, Z98.84 - Bariatric surgery status
[2024-01-04 10:33] VITALS: BP 106/65; PULSE 63; TEMP 36.2; O2SAT 97; BMI 26.4
== END 2024-01-04 10:54 | disposition home or self-care (01) ==
PROVIDERS: PCP Internal Medicine; Visit Provider Physician Assistant Surgical
DX: E66.3 Overweight (principal); Z68.26 Body mass index [BMI] 26.0-26.9, adult; Z90.3 Acquired absence of stomach [part of]; Z98.84 Bariatric surgery status
CPT/HCPCS: 99214

== ENCOUNTER → 2024-01-04 10:18 | Outpatient (BNVA) | payer OTHER, SELFPAY | PROVIDERS: PCP Internal Medicine; Visit Provider Physician Assistant Surgical | DX: E55.9 Vitamin D deficiency, unspecified (principal); Z71.3 Dietary counseling and surveillance; Z98.84 Bariatric surgery status | CPT/HCPCS: 99212 ==

== ENCOUNTER 2024-02-29 07:47 | Outpatient (AMB) | payer OTHER, SELFPAY ==
--- NOTE | 2024-02-29 07:50 | A.OFFVIS_ITS ---
Intake Visit Reasons: 6m/PVR Intake Note: Patient presents today for nephrolithiasis, renal cyst, and uti Urology Medications: Vitamin B6 Blood thinner: none PVR: 17ml's Sewer Pipe Layer Helper Required: Yes Sewer Pipe Layer Helper Services: Sewer Pipe Layer Helper Present Sewer Pipe Layer Helper Name: Araseli [id number] Accompanied by: Self / Same As Patient Allergies No Known Allergies Allergy (Verified 02/29/24 08:19) Medication List - Last Reconciled 02/29/24 by CHAPINCITO Dickerson ascorbic acid (vitamin C) 1 g PO Q6H bupropion HCl XL 300 mg PO DAILY buspirone 5 mg PO TID [Celebrate MVI and Mike+D PO DAILY] clotrimazole 1% (Antifungal (clotrimazole)) 1 appl topical BID PRN ferrous sulfate (FeroSul) 325 mg PO DAILY folic acid 0.8 mg PO DAILY ibuprofen 600 mg PO Q8H PRN imiquimod 5% 1 appl topical 3XW 16 weeks lamotrigine 150 mg PO BID metronidazole 500 mg PO BID 7 days pantoprazole 40 mg PO DAILY polyethylene glycol 3350 (Miralax) 238 grams PO ONCE prazosin 1 mg PO BEDTIME pyridoxine (vitamin B6) 100 mg PO DAILY 90 days sennosides (Natural Senna Laxative) 8.6 mg PO BEDTIME sertraline 200 mg PO DAILY trazodone 100 mg PO BEDTIME walker (Ultra-Light Rollator misc) As directed HPI Comments Details: Yamilex is a pleasant Tajik-speaking 53-year-old female patient of Dr. Donis. She has a past medical history of nephrolithiasis, [place] in simplex chronicus, mitral valve prolapse, degenerative joint disease, vitamin-D deficiency, mixed dyslipidemia, depression with anxiety, and hiatal hernia. She presents to the office today for follow-up of her renal cyst and nephrolithiasis. In discussion with the patient today she reports to be doing and feeling well. She reports since her last office visit here approximately 9 months ago she has had no bothersome urinary issues or concerns. She does report having followed up with data officer for ongoing vaginal itching and lesion she had. She discusses having had biopsy with Dr. Jonathan thomas and is continuing to follow-up as recommended. She reports compliance with vitamin B6 as prescribed. During last office visit patient had been reporting dysuria with intermittent episodes of vaginal itching at which time a urine culture was ordered and performed. These results were reviewed with the patient today. 05/23 mixed bacteria. When asked she denies urinary urgency, urinary frequency, incontinence, nocturia, hematuria, foul smelling urine, changes to urinary stream, flank pain, fever, and or chills. When asked patient endorses to be drinking adequate amount of fluid daily. She otherwise offers no other issues or concerns at this time. [facility] Medical History Pre-operative cardiovascular examination Chest pain Acute anemia Vitamin D deficiency Nephrolithiasis Left peroneal nerve palsy Unstable gait Lichen simplex chronicus Skin tag Mitral valve prolapse Vitamin B12 deficiency DJD (degenerative joint disease) Heel pain, bilateral Lumbago with sciatica, right side Right radial head fracture Dysplasia of cervix, low grade (GIL 1) HPV test positive Mixed dyslipidemia Depression with anxiety Hiatal hernia Syncope Surgical History History of endoscopy H/O liposuction of abdomen (~12/2022) History of repair of hiatal hernia S/P laparoscopic sleeve gastrectomy Hx of colonoscopy Status post breast reduction H/O arthroscopy of right knee History of section History of appendectomy History of tubal ligation Family History Father No problems noted. Mother No problems noted. Son Bipolar disorder Mental health disorder Daughter No problems noted. Social History Housing: Apartment Are you a primary healthcare interpreter to a significant other at home: No Do you presently have visiting nurse or other home services: No Alcohol intake: current Alcohol intake frequency: holidays/special occasions only Comment: wears knee brace at times Patient Tobacco Use Status: Former Tobacco user Tobacco use type: Cigarette Cigarettes Per Day: 5 e-Cigarette/Vaping Use: Never Used service: No Current occupational status: disabled Cognitive needs: No Hearing needs: No Vision needs: No Female Reproductive History Menstrual Age of Menarche: 12 Review of Systems Const Reports as per HPI Eyes Reports no additional complaints ENT Reports no additional complaints Card Reports no additional complaints Resp Reports no additional complaints GI Reports no additional complaints Reports as per HPI Musc Reports no additional complaints Psych Details: patient reports she has established care with psychiatric MD Endo Reports no additional complaints Physical Exam Const General: cooperative, healthy appearing, comfortable, no acute distress, well developed, alert and awake Nutritional Appearance: average body habitus Orientation/consciousness: patient oriented x3 Limitations: no limitations HEENT Head: Yes normal to inspection, Yes normocephalic and Yes atraumatic Ears: hearing grossly normal bilaterally Eyes General: appearance normal, both eyes and all related structures Neck Neck: Yes normal visual inspection and Yes trachea midline Chest Chest palpation & inspection: normal inspection of the chest Resp Effort & Inspection: normal respiratory effort and able to speak in complete sentences Cardio Rate: regular rate GI Inspection: Yes normal to inspection General: Yes no CVA tenderness Back/Spine/Pelvis Other: patient endorses intermittent low back pain Back: no CVA tenderness Skin General skin exam: no rashes or lesions noted Neuro General: patient oriented x3 Extrem General: Yes normal to inspection Psych Appearance: grossly normal and well kempt Mental Status: mental status grossly normal Speech and movement: Normal speech and movement present and Clear speech present Affect: normal affect Attitude: cooperative Thought process: Normal thought process present Thought content: Normal thought content present Insight: Good insight present (Psych) Judgement: Good judgement present (Psych) Office Procedures Post Void Residual Post Residual Void Post Void Residual (PVR): 17 [id number] Void Residual by ultrasound Assessment & Plan Assessment & Plan (1) Renal cyst: Code(s): N28.1 - Cyst of kidney, acquired Category: Medical (2) Nephrolithiasis: Code(s): N20.0 - Calculus of kidney Category: Medical Plan Unable to obtain urine for urinalysis however PVR 17 mL. Patient currently denies any bothersome urinary issues or concerns. She reports be happy with current voiding parameters. Previous urine culture results reviewed with the patient today. Continue vitamin B6 as discussed and prescribed. Continue adding 1 oz of lemon juice to water daily. Continue drinking plenty of water daily. Will obtain renal ultrasound in 6 months. Follow-up in 6 months with imaging to be completed prior or sooner with any issues, concerns, and or questions. Orders: Orders US renal BI 6 Months N20.0 - Calculus of kidney, N28.1 - Cyst of kidney, acquired AMB Urinalysis Automated Today Z13.9 - Encounter for screening, unspecified AMB Post Void Residual by ultrasound Today N39.0 - Urinary tract infection, site not specified Medications: Refilled pyridoxine (vitamin B6) 100 mg PO DAILY 90 tabs 3RF 90 days N13.2 - Hydronephrosis with renal and ureteral calculous obstruction Patient Instructions: The patient had an opportunity to ask questions regarding the treatment plan. All questions were answered. Physical exam, labs, and imaging were discussed and reviewed in detail. As well as risks, benefits, and discussion of treatment choices. No major barriers to understanding were identified. The patient expressed understanding and agreement with the above treatment plan. The patient was made aware they should contact our office by phone for worsening of their current condition, the appearance of new symptoms, or with any questions or concerns. Compliance is encouraged with any medications and follow up testing that is ordered. It is a privilege to be allowed the opportunity to participate in? your urological care.? Again, if you have any questions or concerns If you have any questions or concerns please do not hesitate to contact me. The office is [phone]. This note is constructed using voice recognition software. While every effort has been made to ensure accuracy mirror finishing machine operator errors may have been included. Yours sincerely, CHAPINCITO Dickerson Coding Level of Care Code Est Pt Level 3 (94022) Diagnoses Renal cyst N28.1 Nephrolithiasis N20.0 CPT Codes Post Residual Void - PVR CPT Code: 13983-[id number] Void Residual by ultrasound ([id number])
== END 2024-02-29 08:20 | disposition home or self-care (01) ==
PROVIDERS: PCP Internal Medicine; Visit Provider Nurse Practitioner Family
DX: N28.1 Cyst of kidney, acquired (principal); N20.0 Calculus of kidney
CPT/HCPCS: 99213

== ENCOUNTER → 2024-02-29 07:47 | Outpatient (BNVA) | payer OTHER, SELFPAY | PROVIDERS: PCP Internal Medicine; Visit Provider Nurse Practitioner Family | DX: N28.1 Cyst of kidney, acquired (principal); N20.0 Calculus of kidney | CPT/HCPCS: 51798; 99212 ==

== ENCOUNTER 2024-03-21 08:45 | Outpatient (REF) | payer OTHER, SELFPAY ==
--- NOTE | ~2024-03-21 | MM_ITS ---
EXAMINATION: MM SCREENING DIGITAL BREAST TOMOSYNTHESIS, BILATERAL CLINICAL INFORMATION: Screening. Asymptomatic. COMPARISON: Mammography: Comparison is made with available priors TECHNIQUE: Digital breast mammography with tomosynthesis is performed in both the craniocaudal and mediolateral oblique views along with computer-aided detection (CAD). FINDINGS: There are scattered areas of fibroglandular density (ACR BI-RADS breast composition Category b). Bilateral focal asymmetries are stable. There are no significant masses, abnormal calcifications, or other abnormalities. MM/MM tomosynthesis screening BI IMPRESSION: No mammographic evidence of malignancy. ASSESSMENT: BI-RADS BI-RADS 2 - Benign Findings RECOMMENDATION: Routine annual mammography screening. 1 year F/U This examination should not preclude the clinical evaluation of a suspicious palpable abnormality. This patient's information was entered into a reminder system with a target due date for their next mammogram. Electronically signed by: Rosemarie Blair DO 04/01/2024 10:08 AM EDT
[2024-03-21 10:04] LABS: MANUAL DIFF FLAG NO
[2024-03-21 10:40] LABS: Basophils Percent Auto 0.4 % (0-2); Eosinophils Absolute Auto 0.1 X10*3/uL (0.0-0.4); Eosinophils Percent Auto 2.7 % (0-4); Hematocrit 37.7 % (37.0-47.0); Hemoglobin 12.7 g/dl (12.0-16.0); Imm Gran Abs Auto 0.01 X10*3/uL (0.00-0.03); Imm Gran Pct Auto 0.2 % (0.0-0.4); Lymphocytes Absolute Auto 1.7 X10*3/uL (1.2-4.9); Lymphocytes Percent Auto 33.2 % (20-40); Mean Corpuscular HGB Conc 33.7 g/dl (31.0-35.0); Mean Corpuscular Hemoglobin 30.5 pg (27.0-33.0); Mean Corpuscular Volume 90.4 fL (80.0-98.0); Monocytes Absolute Auto 0.3 X10*3/uL (0.1-1.2); Monocytes Percent Auto 5.2 % (2-11); Neutrophils Percent Auto 58.3 % (45-73); Platelet Count 225 X10*3/uL (160-400); Red Blood Count 4.17 X10*6/uL (4.20-5.50); Red Cell Distribution Width 11.9 % (11.0-16.0); White Blood Count 5.2 X10*3/uL (4.8-10.8)
[2024-03-21 11:14] LABS: Estimated Average Glucose 91 mg/dL; Hemoglobin A1C 94.7259 umol/L; Hemoglobin A1c % 4.8 % (<6.0); Total Hemoglobin (HGBA1C) 3244.7508 umol/L
[2024-03-21 11:30] LABS: Anion Gap 10 (12-20); Blood Urea Nitrogen 12 mg/dL (9-16); C Reactive Protein 3.45 mg/dL (< or = 0.50); Calcium 9.8 mg/dL (8.4-10.2); Carbon Dioxide 30 mmol/L (22-29); Chloride 108 mmol/L (96-108); Cholesterol 227 mg/dL (<200); Estimated Glomerular Filt Rate > 60; Glucose Random 92 mg/dL (60-115); HDL Cholesterol 48 mg/dL (>40); Iron 98 mcg/dL (30-160); LDL Cholesterol Calculated 150 mg/dL (<100); Percent Iron Saturation 37 % (15-50); Sodium 144 mmol/L (135-145); Total Iron Binding Capacity 264 mcg/dL (228-428); Triglycerides 147 mg/dL (<150); Unsaturated Iron Binding 166 ug/dL
[2024-03-21 11:50] LABS: Ferritin 259 ng/mL (10-250); Insulin 4 uU/mL (2-29); TSH reflex Free T4 0.49 uIU/mL (0.32-4.0); Vitamin D 25-OH Total 45.8 ng/mL (>30)
[2024-03-21 11:52] LABS: Folate 14.2 ng/mL (> or = 4.0); Vitamin B12 867 pg/mL (200-900)
[2024-03-24 18:23] LABS: Zinc 70 mcg/dL (60-130)
[2024-03-26 18:34] LABS: Vitamin B1 19 nmol/L (8-30)
[2024-03-27 08:59] LABS: Vitamin A 42 mcg/dL (38-98)
== END 2024-03-21 08:46 | disposition home or self-care (01) ==
LOC: HO.MAMMO 08:45
PROVIDERS: Absent Provider Nurse Practitioner Family; PCP Internal Medicine; Referring Provider Physician Assistant Surgical; Visit Provider Internal Medicine
DX: Z12.31 Encounter for screening mammogram for malignant neoplasm of breast (principal); K21.00 Gastro-esophageal reflux disease with esophagitis, without bleeding; K22.2 Esophageal obstruction; K59.01 Slow transit constipation; E55.9 Vitamin D deficiency, unspecified; Z98.84 Bariatric surgery status; Z13.1 Encounter for screening for diabetes mellitus
CPT/HCPCS: 36415; 77063; 77067; 80048; 80061; 82306; 82607; 82728; 82746; 83036; 83525; 83540; 84425; 84443; 84590; 84630; 85025; 86140; 99212

== ENCOUNTER → 2024-03-21 09:00 | Outpatient (BNV) | payer OTHER, SELFPAY | PROVIDERS: Absent Provider Nurse Practitioner Family; PCP Internal Medicine; Referring Provider Physician Assistant Surgical; Visit Provider Internal Medicine | DX: Z12.31 Encounter for screening mammogram for malignant neoplasm of breast (principal) | CPT/HCPCS: 77063; 77067 ==

== ENCOUNTER 2024-03-21 10:11 | Outpatient (AMB) | payer OTHER, SELFPAY ==
[2024-03-21 10:13] VITALS: BP 114/60; PULSE 64; O2SAT 95; BMI 27.2
--- NOTE | 2024-03-21 10:13 | A.OFFVIS_ITS ---
Vital Signs 03/21/24 10:13 Height 5 ft 6 in Weight 168 lb 6.931 oz BMI 27.2 BP 114/60 Blood Pressure Location Rt brachial Position Sitting Pulse 64 Pulse Source Pulse Oximeter Pulse Oximetry (%) 95 Oxygen Delivery Method Room Air Intake Visit Reasons: 3 month follow up Intake Note: Relevant Flags or Indicators ? Requires Angle Roll Operator? Pia Kaminski presents in office today for a scheduled 3 mos FUV. CC; Since last visit; labs ordered ? none. Rx ordered ? yes, senna and pantoprazole. Diagnostics/images ordered ? none. Relevant GI Sx as reported per pt? Nausea + GI upset when taking medications. Pt reports that she does take her medications with food. ? Hx of any recent surgeries? None Angle Roll Operator Required: Yes Angle Roll Operator Services: Angle Roll Operator Present Angle Roll Operator Name: [id number] -- Bharathi Information Interpreted: non-clinical & clinical Accompanied by: Self / Same As Patient Allergies No Known Allergies Allergy (Verified 03/21/24 10:15) HPI HPI 3 month follow up: Details: LAST VISIT: Acute anemia GERD (gastroesophageal reflux disease) Status post colonoscopy Schatzki's ring Esophagitis Plan Esophagitis found on endoscopy with biopsy confirming it. Patient will be started on pantoprazole daily. Avoid dietary triggers and late night snacking. Staying upright for minimum 3 hours after meals discussed with patient. Continue taking senna on as-needed basis. Increase fluid intake and activity to promote better bowel motility. Follow-up in the office in 3 months. Patient will call our office if she will experience any GI concerning symptoms. She is agreeable to this plan and verbalizes understanding of instructions. She was given opportunity to and all questions answered. ? Thank you for allowing me to participate in her care Medications New pantoprazole take one tablet half an hour before breakfast 40 mg PO DAILY 90 tabs 2RF K21.9 Refilled sennosides (Natural Senna Laxative) 8.6 mg PO BEDTIME 90 tabs 3RF constipation K59.00 TODAY'S VISIT Patient is here today for follow-up. Patient reports that she has been feeling better since the last time I have seen her. Patient reports that she is taking pantoprazole in the morning and she states that her symptoms are suppressed for the most part. Patient does admit that when she takes lamotrigine she has nausea. She is taking that medication with food. Patient reports that she is moving her bowels well and uses senna on as-needed basis. Patient denies dyspepsia, dysphagia or odynophagia. Denies melena, hematochezia, unintentional weight loss or ribbon like stools. Patient continues to follow-up with bariatric after her surgery. Follows diet plan and reports no issues. Patient denies any other GI concerning symptoms today. [facility] Medical History Pre-operative cardiovascular examination Chest pain Acute anemia Vitamin D deficiency Nephrolithiasis Left peroneal nerve palsy Unstable gait Lichen simplex chronicus Skin tag Mitral valve prolapse Vitamin B12 deficiency DJD (degenerative joint disease) Heel pain, bilateral Lumbago with sciatica, right side Right radial head fracture Dysplasia of cervix, low grade (GIL 1) HPV test positive Mixed dyslipidemia Depression with anxiety Hiatal hernia Syncope Surgical History History of endoscopy H/O liposuction of abdomen (~12/2022) History of repair of hiatal hernia S/P laparoscopic sleeve gastrectomy Hx of colonoscopy Status post breast reduction H/O arthroscopy of right knee History of section History of appendectomy History of tubal ligation Family History Father No problems noted. Mother No problems noted. Son Bipolar disorder Mental health disorder Daughter No problems noted. Social History Housing: Apartment Are you a primary early breastfeeding care specialist to a significant other at home: No Do you presently have visiting nurse or other home services: No Alcohol intake: current Alcohol intake frequency: holidays/special occasions only Comment: wears knee brace at times Patient Tobacco Use Status: Former Tobacco user Tobacco use type: Cigarette Cigarettes Per Day: 5 e-Cigarette/Vaping Use: Never Used service: No Current occupational status: disabled Cognitive needs: No Hearing needs: No Vision needs: No Female Reproductive History Menstrual Age of Menarche: 12 Review of Systems Const Denies weight gain and Denies weight loss ENT Reports no additional complaints, Denies dysphagia and Denies odynophagia Card Reports no additional complaints Resp Reports no additional complaints GI Denies abdominal pain, Denies belching, Denies melena, Denies bloating, Denies change in bowel habits, Denies dysphagia, Denies excessive flatus, Denies dyspepsia, Denies heartburn, Denies diarrhea, Denies loose stools, Denies nausea, Denies odynophagia and Denies vomiting Musc Reports no additional complaints Neuro Reports no additional complaints Psych Reports no additional complaints Endo Reports no additional complaints Physical Exam Vital Signs: Last Vital Signs Pulse 64 03/21/24 10:13 BP 114/60 03/21/24 10:13 Pulse Ox 95 03/21/24 10:13 Oxygen Delivery Method Room Air 03/21/24 10:13 BMI result Body Mass Index 27.2 Const General: healthy appearing, no acute distress and well developed Nutritional Appearance: well nourished Orientation/consciousness: patient oriented x3 Resp Effort & Inspection: normal respiratory effort, able to speak in complete sentences, no tracheal deviation and symmetric chest movement Auscultation: clear to auscultation bilaterally Cardio Rate: regular rate GI Inspection: Yes normal to inspection and No distended Palpation (GI): Soft to palpation, not firm, nontender and No hepatosplenomegaly present Auscultation: normal bowel sounds General: Yes no CVA tenderness Back/Spine/Pelvis Back: no CVA tenderness Skin General skin exam: elasticity normal, turgor normal and dry skin Neuro General: patient oriented x3 Psych Appearance: grossly normal Mental Status: mental status grossly normal Assessment & Plan Assessment & Plan (1) GERD (gastroesophageal reflux disease): Code(s): K21.9 - Gastro-esophageal reflux disease without esophagitis Qualifiers: Esophagitis bleeding: without hemorrhage Esophagitis presence: with esophagitis Qualified Code(s): K21.00 - Gastro-esophageal reflux disease with esophagitis, without bleeding (2) Schatzki's ring: Code(s): K22.2 - Esophageal obstruction (3) Esophagitis: Code(s): K20.90 - Esophagitis, unspecified without bleeding (4) Constipation: Code(s): K59.00 - Constipation, unspecified Qualifiers: Constipation type: slow transit constipation Qualified Code(s): K59.01 - Slow transit constipation Plan Patient denies dyspepsia, dysphagia or odynophagia. Patient can continue pantoprazole. Avoid dietary triggers and late night snacking. Smaller meals and more often. Patient is to follow bariatric diet. Patient's nausea most likely related to lamotrigine. Continue Senokot on as needed basis. Increase fluid intake and activity to promote better bowel motility. Patient is agreeable to current plan of care and verbalizes understanding of instructions. She was given the opportunity to ask questions and all questions answered. Thank you for allowing me to participate in her care Medications: Refilled pantoprazole take one tablet half an hour before breakfast 40 mg PO DAILY 90 tabs 2RF K21.9 - Gastro-esophageal reflux disease without esophagitis Discontinued ibuprofen Discontinued Reason: Patient no longer taking 600 mg PO Q8H PRN 10 tabs 0RF pain metronidazole Discontinued Reason: Patient no longer taking 500 mg PO BID 7 days 14 tabs 0RF Coding Level of Care Code Est Pt Level 3 (06231) Diagnoses Gastroesophageal reflux disease with esophagitis without hemorrhage K21.00 Esophagitis bleeding: without hemorrhage Esophagitis presence: with esophagitis Schatzki's ring K22.2 Esophagitis K20.90 Slow transit constipation K59.01 Constipation type: slow transit constipation Time Spent (min) 25 Comment 15 minutes spent with patient and additional 10 minutes spent reviewing her records
== END 2024-03-21 10:43 | disposition home or self-care (01) ==
PROVIDERS: PCP Internal Medicine; Visit Provider Nurse Practitioner Family
DX: K21.00 Gastro-esophageal reflux disease with esophagitis, without bleeding (principal); K22.2 Esophageal obstruction; K59.01 Slow transit constipation
CPT/HCPCS: 99213

== ENCOUNTER 2024-09-12 08:56 | Outpatient (REF) | payer OTHER, SELFPAY ==
--- OUTSIDE RECORDS SUMMARY | 2024-09-12 10:29 | XMS_ITS | Clinical Summary ---
Author Organization [facility] Address [address] [place] [address] Care Team Providers Care Auto Body Man Name Role Phone Sheila Slater PA-C Primary Care Provider [phone] Source Comments PLEASE NOTE, if this patient [...] pain and instability. Following with Ortho at [facility] since 06/2015. Receiving PT and had knee brace. Depression with anxiety 09/12/2015 Overview (11/07/2015): Following at [facility]. On on lamictal 100mg bid, zoloft 100mg qd and Risperidal 1mg hs. Clinician( [phone]). MAJOR DEPRESSIVE D/O Bunion of great [...] of Treatment Not on file [facility] Care Teams Auto Body Man Relationship Specialty Start Date End Date Sheila Slater PA-C [address] [place] [address] PCP - General 07/27/18
--- OUTSIDE RECORDS SUMMARY | 2024-09-12 10:29 | XMS_ITS | Clinical Summary ---
Author Organization [facility] ity Address [id number] [place] [id number] Care Team Providers Care Oxygen Plant Operator Name Role Phone Leatha Donis MD Primary [...] Documents on File Type Date Recorded Patient Client Success Director Expl anation Health Care Decision (hx) 09/14/2014 AD BRENNAN DIRECTIVE Health Care Decision (hx) 09/14/2014 AD BRENNAN DIRECTIVE Health Care Decision (hx) 09/14/2014 AD BRENNAN DIRECTIVE Health Care Decision (hx) 09/14/2014 AD BRENNAN DIRECTIVE Health Care Decision (hx) 09/14/2014 AD BRENNAN DIRECTIVE Care Teams Oxygen Plant Operator Relationship Specialty Start Date End Date Leatha Donis MD [address] [place] [address] PCP - General Internal Medicine 08/29/21
[2024-09-12 10:36] LABS: MANUAL DIFF FLAG NO
[2024-09-12 10:49] LABS: Basophils Percent Auto 0.6 % (0-2); Eosinophils Absolute Auto 0.1 X10*3/uL (0.0-0.4); Eosinophils Percent Auto 1.9 % (0-4); Hematocrit 39.9 % (37.0-47.0); Hemoglobin 13.3 g/dl (12.0-16.0); Imm Gran Abs Auto 0.01 X10*3/uL (0.00-0.03); Imm Gran Pct Auto 0.2 % (0.0-0.4); Lymphocytes Absolute Auto 1.8 X10*3/uL (1.2-4.9); Lymphocytes Percent Auto 34.7 % (20-40); Mean Corpuscular HGB Conc 33.3 g/dl (31.0-35.0); Mean Corpuscular Hemoglobin 30.1 pg (27.0-33.0); Mean Corpuscular Volume 90.3 fL (80.0-98.0); Monocytes Absolute Auto 0.3 X10*3/uL (0.1-1.2); Neutrophils Percent Auto 57.6 % (45-73); Platelet Count 201 X10*3/uL (160-400); Red Blood Count 4.42 X10*6/uL (4.20-5.50); Red Cell Distribution Width 12.4 % (11.0-16.0); White Blood Count 5.2 X10*3/uL (4.8-10.8)
[2024-09-12 11:49] LABS: Alanine Aminotransferase 12 U/L (0-31); Anion Gap 11 (12-20); Aspartate Amino Transferase 23 U/L (5-31); Blood Urea Nitrogen 15 mg/dL (9-16); Calcium 9.5 mg/dL (8.4-10.2); Carbon Dioxide 27 mmol/L (22-29); Chloride 109 mmol/L (96-108); Cholesterol 230 mg/dL (<200); Estimated Glomerular Filt Rate > 60; Glucose Fasting 82 mg/dL (60-99); HDL Cholesterol 51 mg/dL (>40); Iron 143 mcg/dL (30-160); LDL Cholesterol Calculated 126 mg/dL (<100); Percent Iron Saturation 46 % (15-50); Potassium 3.7 mmol/L (3.3-5.1); Sodium 143 mmol/L (135-145); Total Iron Binding Capacity 309 mcg/dL (228-428); Triglycerides 267 mg/dL (<150); Unsaturated Iron Binding 166 ug/dL
[2024-09-12 11:55] LABS: Folate 7.4 ng/mL (> or = 4.0); Vitamin B12 530 pg/mL (200-900)
[2024-09-12 12:04] LABS: Vitamin D 25-OH Total 29.2 ng/mL (>30)
== END 2024-09-12 08:57 | disposition home or self-care (01) ==
LOC: HO.HMGCLDS 08:56
PROVIDERS: PCP Internal Medicine; Visit Provider Internal Medicine
DX: Z00.01 Encounter for general adult medical examination with abnormal findings (principal); D64.9 Anemia, unspecified; E55.9 Vitamin D deficiency, unspecified; E66.3 Overweight; F41.8 Other specified anxiety disorders; K22.2 Esophageal obstruction; K20.90 Esophagitis, unspecified without bleeding; K59.01 Slow transit constipation; M17.0 Bilateral primary osteoarthritis of knee; Z86.2 Personal history of diseases of the blood and blood-forming organs and certain disorders involving the immune mechanism; Z98.84 Bariatric surgery status
CPT/HCPCS: 36415; 80048; 80061; 82306; 82607; 82746; 83540; 84450; 84460; 85025; 96127; 99212; 99396

== ENCOUNTER 2024-09-12 08:56 | Outpatient (AMB) | payer OTHER, SELFPAY ==
--- NOTE | 2024-09-12 09:05 | MHC.PC.OV ---
Vital Signs 09/12/24 09:22 Height 5 ft 6 in Weight 181 lb BMI 29.2 BP 102/70 Blood Pressure Location Lt brachial Position Sitting Respiration 16 Pulse 63 Pulse Source Pulse Oximeter Temp 98.0 F Temp Source Oral Pulse Oximetry (%) 96 Oxygen Delivery Method Room Air Intake Visit Reasons: PE Intake Note: Pt is here today for her PE: Last mammogram 03/21/24, papsmear 12/30/22, colonoscopy 12/08/23 Lacrosse Coach Required: Yes Lacrosse Coach Name: VOYCE Information Interpreted: clinical only Allergies No Known Allergies Allergy (Verified 09/25/24 12:28) Medication List - Last Reconciled 09/12/24 by Leatha Donis MD aripiprazole 10 mg PO DAILY ascorbic acid (vitamin C) 1 g PO Q6H bupropion HCl XL 150 mg PO DAILY bupropion HCl XL 300 mg PO DAILY buspirone 15 mg PO TID buspirone 5 mg PO TID [Celebrate MVI and Mike+D PO DAILY] clotrimazole 1% (Antifungal (clotrimazole)) 1 appl topical BID PRN ferrous sulfate (FeroSul) 325 mg PO DAILY folic acid 0.8 mg PO DAILY imiquimod 5% 1 appl topical 3XW 16 weeks lamotrigine 150 mg PO BID pantoprazole 40 mg PO DAILY prazosin 1 mg PO BEDTIME pyridoxine (vitamin B6) 100 mg PO DAILY 90 days sennosides (Natural Senna Laxative) 8.6 mg PO BEDTIME sertraline 200 mg PO DAILY trazodone 100 mg PO BEDTIME walker (Ultra-Light Rollator misc) As directed Tobacco use date assessed: 09/12/24 Dental Screening Dental Screen Date: 09/12/24 Did you have a dental visit in the last 12 months?: Yes Did you have a dental problem in the last 6 months where you did not have access to dental care?: No Was dental information given to patient?: Patient has dentist HPI PE HPI Details 54-year-old lady here today for her physical exam. She has history of depression and anxiety, currently followed at the [facility], stable and controlled on present treatment. Followed by GI clinic for her GERD GERD with esophagitis, Schatzki's ring, and intermittent constipation. She has history of anemia, currently on ferrous sulfate supplements. She is followed by [facility] for osteoarthritis in both knees, recently administered Euflexxa injection in right knee 4 months ago. She sees [facility] for her routine Pap and pelvic exam , up-to-date with her cervical cancer screening done 12/30/2022, and is up-to-date with her mammogram done March 2024 with benign findings. She has history of nephrolithiasis and renal cyst followed by [facility] urology with no symptoms at present time. She is up-to-date with her screening colonoscopy done last year with benign findings, repeat due again in [address]33. [facility] Medical History (Updated 09/25/24 @ 13:03 by Leatha Donis MD) Osteoarthritis, knee GERD with esophagitis Acute anemia Vitamin D deficiency Nephrolithiasis Left peroneal nerve palsy Unstable gait Lichen simplex chronicus Skin tag Mitral valve prolapse Vitamin B12 deficiency DJD (degenerative joint disease) Heel pain, bilateral Lumbago with sciatica, right side Right radial head fracture Dysplasia of cervix, low grade (GIL 1) HPV test positive Mixed dyslipidemia Depression with anxiety Hiatal hernia Syncope Surgical History (Updated 09/25/24 @ 12:31 by Leatha Donis MD) History of endoscopy H/O liposuction of abdomen (~12/2022) History of repair of hiatal hernia S/P laparoscopic sleeve gastrectomy Hx of colonoscopy Status post breast reduction H/O arthroscopy of right knee History of section History of appendectomy History of tubal ligation Family History Father No problems noted. Mother No problems noted. Son Bipolar disorder Mental health disorder Daughter No problems noted. Social History Housing: Apartment Are you a primary care consultant to a significant other at home: No Do you presently have visiting nurse or other home services: No Alcohol intake: current Alcohol intake frequency: holidays/special occasions only Comment: wears knee brace at times Patient Tobacco Use Status: Former Tobacco user Tobacco use type: Cigarette Cigarettes Per Day: 5 e-Cigarette/Vaping Use: Never Used service: No Current occupational status: disabled Cognitive needs: No Hearing needs: No Vision needs: No Female Reproductive History Menstrual Age of Menarche: 12 Questionnaire PHQ-9 Over the last 2 weeks, how often have you been bothered by any of the following problems? 1. Little interest or pleasure in doing things: several days 2. Feeling down, depressed, or hopeless: several days 3. Trouble falling or staying asleep, or sleeping too much: several days 4. Feeling tired or having little energy: nearly every day 5. Poor appetite or overeating: several days 6. Feeling bad about yourself - or that you are a failure or have let yourself or your family down: not at all 7. Trouble concentrating on things, such as reading the newspaper or watching television: several days 8. Moving or speaking so slowly that other people could have noticed. Or the opposite - being so fidgety or restless that you have been moving around a lot more than usual: not at all 9. Thoughts that you would be better off or of hurting yourself in some way: not at all Total score: 8 Depression Screening Interpretation: Positive (Currently seen psychiatrist and therapist at [facility]) Depression Screening Follow-up: Existing condition, In treatment and Community Mental Health Worker F/U Depression Screening Done: Yes 62599 - PHQ-9 Billing: Yes Source: Developed by Drs. Efra Bentley, Lolly Frederick, Zeyad Irvin and colleagues, with an educational dimitris from [employer]. Thrive Questionnaire Date Thrive assessed: 09/09/24 I am a: Patient What is your living situation today?: I have a steady place to live Within the past 12 months, did the food you bought not last and you didn't have the money to get more?: Sometimes True Within the past 12 months, did you worry whether your food would run out before you got money to buy more?: Sometimes True Do you have trouble paying for medicines?: No Do you have trouble getting transportation to medical appointments?: No Do you have trouble paying your heating and electricity bill?: No Do you have trouble taking care of your child, family member or friend?: No Do you have trouble with day-to-day activities such as bathing, preparing meals, shopping, managing finances, etc.?: Yes Are you currently unemployed and looking for a job?: No Are you interested in more education?: No Please select the resources that you would like help with: Food Currently or been in a relationship where the following occur: No concerns reported THRIVE Score: 2 AUDIT C Alcohol Use Questionnaire (AUDIT-C) 1. How often do you have a drink containing alcohol?: Monthly or less 2. How many drinks containing alcohol do you have on a typical day when you are drinking?: 3 or 4 3. How often do you have six or more drinks on one occasion?: Never Total Score: 2 CANDIDO-7 AMB Questionnaire CANDIDO-7 Date CANDIDO - 7 assessed: 09/12/24 Feeling nervous, anxious, or on edge: 1 = Several days Not being able to stop or control worryin = Several days Worrying too much about different things: 1 = Several days Trouble relaxin = Several days Being so restless that it is hard to sit still: 1 = Several days Becoming easily annoyed or irritable: 1 = Several days Feeling afraid as if something awful might happen: 1 = Several days Total CANDIDO-7 score (0-4 normal; 5-9 mild; 10-14 moderate; 15-21 severe): 7 Source: Developed by Drs. Efra Bentley, Lolly Frederick, Zeyad Irvin and colleagues, with an educational dimitris from [employer]. CANDIDO-7 Assessment Billing CANDIDO-7 Assessment Tool: CANDIDO-7 Assessment 71127 Review of Systems Const Reports no additional complaints Eyes Details: [facility], has myopia, last eye exam May 2024 ENT Details: Gets dental cleaning every 6 month Reports no additional complaints, Denies dysphagia and Denies odynophagia Card Reports no additional complaints Resp Reports no additional complaints GI Details: Up-to-date with her screening colonoscopy done last year, repeat due again in 2033, also had an upper endoscopy at the same time done by Dr. Grant Denies abdominal pain, Denies belching, Denies melena, Denies bloating, Denies change in bowel habits, Denies dysphagia, Denies excessive flatus, Denies dyspepsia, Denies heartburn, Denies diarrhea, Denies loose stools, Denies nausea, Denies odynophagia and Denies vomiting Details: Sees Dr. Castillo for her routine Pap and Pap pelvic exam, has an appointment already scheduled for December 2024, sees Urology for her recurrent kidney stones bilaterally Musc Reports no additional complaints Skin/Breast Denies breast pain, Denies breast mass and Denies rash Neuro Reports no additional complaints Psych Details: Followed by Chelsea Jeevan at [facility] for treatment of depression with anxiety. Reports no additional complaints Endo Reports no additional complaints Gregorio/Lymph Reports no additional complaints Aller/Immun Reports no additional complaints Physical exam (Primary Care) Vital Signs: Last Vital Signs Temp 98.0 F 09/12/24 09:22 Pulse 63 09/12/24 09:22 Resp 16 09/12/24 09:22 BP 102/70 09/12/24 09:22 Pulse Ox 96 09/12/24 09:22 Oxygen Delivery Method Room Air 09/12/24 09:22 BMI result Body Mass Index 29.2 Tobacco/Smoking Status: Tobacco use Status Tobacco use date assessed 09/12/24 09/12/24 09:20 Patient Tobacco Use Status Former Tobacco user 09/12/24 09:05 Tobacco use type Cigarette 09/12/24 09:05 e-Cigarette/Vaping Use Never Used 09/12/24 09:05 Are you ready to quit: No PHQ-9: PHQ-9 Score PHQ-9: Total score 8 09/25/24 13:01 Depression Screening Interpretation: Positive (Currently seen psychiatrist and therapist at [facility]) Depression Screening Follow-up: Existing condition, In treatment and Community Mental Health Worker F/U Thrive Assessment: Date of Thrive Assessment Date Thrive assessed 09/09/24 09/12/24 09:05 Currently or been in a relationship where the following occur: No concerns reported Const General: comfortable and no acute distress Orientation/consciousness: patient oriented x3 HENMT Head: Yes normocephalic Ears: TM's normal bilaterally and EAC's normal General nose exam: Normal external nose present and No nasal discharge present Face and sinus: Yes face symmetric Mouth: Normal oral and palatal mucosa present and moist mucous membranes Eyes General: appearance normal, both eyes and all related structures Neck Neck: Yes full ROM, Yes no lymphadenopathy and Yes supple Thyroid: Thyroid normal Chest Chest palpation & inspection: normal inspection of the chest Breast/axilla inspection: normal inspection of the breasts Breast/axilla palpation: normal palpation of the breasts Resp Auscultation: clear to auscultation bilaterally Cardio Other: S1-S2 present regular rate and rhythm GI Palpation (GI): Soft to palpation, nontender, no guarding and no masses Back/Spine/Pelvis Back: No back tenderness Skin General skin exam: no rashes or lesions noted Nails: yellow and thickened (Toenails bilaterally) Neuro General: patient oriented x3, gait normal, moves all extremities, Normal light touch and pain sensation, no focal motor deficits and CN's II-XI intact bilaterally Cognition (Neuro): normal cognition Gait exam (Neuro): Normal gait present Extrem General: Yes full ROM, Yes no joint enlargement, Yes no pedal edema, Yes no calf tenderness and Yes normal gait Psych Appearance: grossly normal and well kempt Mental Status: mental status grossly normal Speech and movement: Normal speech and movement present Affect: normal affect Coding Level of Care Code Est Pt Prev Care 40-64y(62256) Diagnoses Annual visit for general adult medical examination with abnormal findings Z00.01 Depression with anxiety F41.8 GERD with esophagitis K21.00 Primary osteoarthritis of both knees M17.0 Osteoarthritis type: primary Laterality: bilateral History of anemia Z86.2 Additional Codes CANDIDO-7 Assessment Billing - CANDIDO-7 Assessment Tool: CANDIDO-7 Assessment 94144 ([id number]) PHQ-9 - 65769 - PHQ-9 Billing: Yes ([id number]) Assessment & Plan Assessment & Plan (1) Annual visit for general adult medical examination with abnormal findings: Code(s): Z00.01 - Encounter for general adult medical examination with abnormal findings Plan: Will check appropriate labs. Recommended dental visit every 6 months and regular eye exams, at least every 2 years. Take adequate calcium in diet and vitamin-D 3 at 2000 IU per cap once a day, in addition to weight-bearing exercises to help maintain good muscle tone and weight control. Instructed to do self-breast exam, and continue with yearly mammogram, currently up-to-date, sees [facility] for her routine Pap and pelvic exam which is up-to-date. Up-to-date with her screening colonoscopy due again in 2033, followed by [facility] GI clinic. Reminded to get yearly flu vaccine and COVID booster, up-to-date with Tdap and pneumonia vaccination (2) Depression with anxiety: Comment: ff'd by psychiatry at [facility] Code(s): F41.8 - Other specified anxiety disorders Category: Medical Plan: Currently being seen by psychiatrist and sees therapist regularly (3) GERD with esophagitis: Code(s): K21.00 - Gastro-esophageal reflux disease with esophagitis, without bleeding Category: Medical Plan: On pantoprazole followed by [facility] GI (4) Osteoarthritis, knee: Code(s): M17.9 - Osteoarthritis of knee, unspecified Category: Medical Qualifiers: Osteoarthritis type: primary Laterality: bilateral Qualified Code(s): M17.0 - Bilateral primary osteoarthritis of knee Plan: Followed by Orthopedics, received Euflexxa injection 4 months ago in right knee (5) History of anemia: Code(s): Z86.2 - Personal history of diseases of the blood and blood-forming organs and certain disorders involving the immune mechanism Plan: Will check CBC and iron profile Orders: Orders Lipid Panel 09/12/24 D64.9 - Anemia, unspecified, E55.9 - Vitamin D deficiency, unspecified, E66.3 - Overweight, F41.8 - Other specified anxiety disorders, Z98.84 - Bariatric surgery status Vitamin B12 and Folate 09/12/24 D64.9 - Anemia, unspecified, E55.9 - Vitamin D deficiency, unspecified, E66.3 - Overweight, F41.8 - Other specified anxiety disorders, Z98.84 - Bariatric surgery status IRON PROFILE 09/12/24 D64.9 - Anemia, unspecified, E55.9 - Vitamin D deficiency, unspecified, E66.3 - Overweight, F41.8 - Other specified anxiety disorders, Z98.84 - Bariatric surgery status Aspartate Amino Transferase 09/12/24 D64.9 - Anemia, unspecified, E55.9 - Vitamin D deficiency, unspecified, E66.3 - Overweight, F41.8 - Other specified anxiety disorders, Z98.84 - Bariatric surgery status Vitamin D 25-OH Total 09/12/24 D64.9 - Anemia, unspecified, E55.9 - Vitamin D deficiency, unspecified, E66.3 - Overweight, F41.8 - Other specified anxiety disorders, Z98.84 - Bariatric surgery status Complete Blood Count Auto Diff 09/12/24 D64.9 - Anemia, unspecified, E55.9 - Vitamin D deficiency, unspecified, E66.3 - Overweight, F41.8 - Other specified anxiety disorders, Z98.84 - Bariatric surgery status Basic Metabolic Panel Fasting 09/12/24 D64.9 - Anemia, unspecified, E55.9 - Vitamin D deficiency, unspecified, E66.3 - Overweight, F41.8 - Other specified anxiety disorders, Z98.84 - Bariatric surgery status Alanine Aminotransferase 09/12/24 D64.9 - Anemia, unspecified, E55.9 - Vitamin D deficiency, unspecified, E66.3 - Overweight, F41.8 - Other specified anxiety disorders, Z98.84 - Bariatric surgery status
[2024-09-12 09:22] VITALS: BP 102/70; PULSE 63; RESP 16; TEMP 36.7; O2SAT 96; BMI 29.2
--- OUTSIDE RECORDS SUMMARY | 2024-09-12 09:47 | XMS_ITS | Clinical Summary ---
Author Organization [facility] Address [address] [place] [address] Care Team Providers Care Waste Duster Name Role Phone Sheila Slater PA-C Primary Care Provider [phone] Source Comments PLEASE NOTE, if this patient is a minor, it may be UNLAWFUL to discuss sensitive information that is contained in these records (such as FAMILY PLANNING, MENTAL HEALTH or SUBSTANCE ABUSE) with the minor patient's parent or other person without the patient's specific authorization.[facility] Allergies No known active allergies Medications cholecalciferol , vitamin D3, 2,000 unit capsuleIndicati ons:Vitamin D deficiency Take 1 Cap by mouth once daily. 90 Cap 3 03/21/2016 Active sertraline (ZOLOFT) 100 mg tabletIndicatio ns:Depression with anxiety Take 2 Tabs by mouth once daily PER PSYCH 06/26/2016 Active traZODone (DESYREL) 50 mg tabletIndicatio ns:Insomnia secondary to depression with anxiety Take 1 Tab by mouth nightly at bedtime as needed for sleep PER PSYCH 06/26/2016 Active hydrOXYzine HCl (ATARAX) 50 mg tabletIndicatio ns:Depression with anxiety Take 1 Tab by mouth 2 (two) times daily as needed for anxiety PER PSYCH 06/26/2016 Active lamoTRIgine (LAMICTAL) 100 mg tabletIndicatio ns:Depression with anxiety Take 1 Tab by mouth 2 (two) times daily PER PSYCH 06/26/2016 Active ibuprofen (ADVIL,MOTRIN) 600 mg tabletIndicatio ns:Cervical strain, subsequent encounter Take 1 Tab by mouth 4 (four) times daily as needed for pain 06/26/2016 Active Active Problems Problem Noted Date Diagnosed Date Insomnia secondary to depression with anxiety Tobacco abuse disorder 03/21/2016 Ex-cigarette smoker 10/11/2015 Mixed hyperlipidemia 09/13/2015 Vitamin D deficiency 09/13/2015 Obesity (BMI 30.0-34.9) 09/12/2015 Arthritis of knee, right 09/12/2015 Overview (09/12/2015): Says that she has chr pain and instability. Following with Ortho at [facility] since 06/2015. Receiving PT and had knee brace. Depression with anxiety 09/12/2015 Overview (11/07/2015): Following at [facility]. On on lamictal 100mg bid, zoloft 100mg qd and Risperidal 1mg hs. Clinician( [phone]). MAJOR DEPRESSIVE D/O Bunion of great toe of right foot 09/12/2015 Overview (12/06/2015): Following podiatry Dr. Darin Andrade Immunizations Immunization Administration Dates Next Due Flu, Preservative Free 03/21/2016 PNEUMOCOCCAL POLYSACCHARIDE PPV23 10/11/2015 PPD 10/16/2015 Family History Medical History Relation Name Comments Heart Problems Maternal Grandmother Relation Name Status Comments Father Alive Maternal Grandmother Mother Alive Social History Tobacco Use Types Packs/Day Years Used Date Smoking Tobacco: Every Day Cigarettes Smokeless Tobacco: Never Tobacco Cessation:Ready to Q uit: Yes; Counseling Given: Yes Alcohol Use Standard Drinks/Week Comments Yes 0 (1 standard drink = 0.6 oz pur e alcohol) occasionally social Social Connections Answer Date Recorded Social Connections and Isolation 0 01/17/2019 Financial Resource Strain Answer Date R ecorded Financial Resource Strain 0 2018 Stress Answer Date Recorded Stress 0 01/17/2019 Physical Activity Answer Date Recorded Physical Activity 0 01/17/2019 Food Insecurity Answer Date Recorded Food 0 01/17/2019 Transportation Needs Answer Date Record ed Transportation 0 01/17/2019 Housing Stability Answer Date Recorded Housing 0 01/17/2019 Safety and Environment Answer Date Zen rded Safety 0 01/17/2019 Utilities Answer Date Recorded Utilities 0 01/17/2019 Employment Answer Date Recorded Employment 0 01/17/2019 Comments No Sex and Gender Information Value Date Recorded Sex Assigned at Not on file Legal Sex Female 9:48 AM PST Gender Identity Not on file Sexual Orientation Not on file Last Filed Vital Signs Vital Sign Reading Time Taken Comments Blood Pressure 117/75 06/26/2016 8:55 AM EST Pulse 56 06/26/2016 8:55 AM EST Temperature 36.7 ??C (98 ??F) 06/26/2016 8:55 AM EST Respiratory Rate 12 06/26/2016 8:55 AM EST Oxygen Saturation - - Inhaled Oxygen Concentration - - Weight 89.8 kg (198 lb) 06/26/2016 8:55 AM EST Height 165.1 cm (5' 5 ) 03/31/2016 9:13 AM EDT Body Mass Index 32.95 03/31/2016 9:13 AM EDT Plan of Treatment Not on file Insurance [facility] Care Teams Waste Duster Relationship Specialty Start Date End Date Sheila Slater PA-C [address] [place] [address] PCP - General 07/27/18
--- OUTSIDE RECORDS SUMMARY | 2024-09-12 09:47 | XMS_ITS | Clinical Summary ---
Author Organization [facility] Address [id number] [place] [id number] Care Team Providers Care Tea Bag Packer Name Role Phone Leatha Donis MD Primary Care Provider Social History Tobacco Use Types Packs/Day Years Used Date Smoking Tobacco: Former Smokeless Tobacco: Never Alcohol Use Standard Drinks/Week Comments Never 0 (1 standard drink = 0.6 oz pur e alcohol) Comments Unknown Sex and Gender Information Value Date Recorded Sex Assigned at Not on file Legal Sex Female 10:45 PM EST Gender Identity Not on file Sexual Orientation Not on file Obstetrics History Last Filed Vital Signs Vital Sign Reading Time Taken Comments Blood Pressure - - Pulse - - Temperature - - Respiratory Rate - - Oxygen Saturation - - Inhaled Oxygen Concentration - - Weight 99.3 kg (219 lb) 11/20/2021 8:55 AM EDT Height 167.6 cm (5' 6 ) 11/20/2021 8:55 AM EDT Body Mass Index 35.35 11/20/2021 8:55 AM EDT Plan of Treatment Health Maintenance Due Date Last Done Comments Breast Cancer Screening 1970 DTaP,Tdap,and Td Vaccines (1 - Tdap) 1989 Hepatitis B Vaccines (1 of 3 - 19+ 3-dose series) 1989 Cervical Cancer Screening: P ap Smear 08/08/1991 Pneumococcal Vaccine: 50+ Ye ars (1 of 1 - PCV) 2020 Zoster Vaccines (1 of 2) 2020 Colorectal Cancer Screening: Colonoscopy 05/04/2022 Depression Screening 05/04/2022 HIV Screening 05/04/2022 Hepatitis C Screening 05/04/2022 Social Influencers of Health Screening 05/04/2022 COVID-19 Vaccine ( - 2023-2 5 season) 2024 Influenza Vaccine (Season Ended) 2025 HIB Vaccines Aged Out No longer eligi ble based on patient's age to complete this topic HPV Vaccines Aged Out No longer eligi ble based on patient's age to complete this topic Hepatitis A Vaccines Aged Out No long er eligible based on patient's age to complete this topic IPV Vaccines Aged Out No longer eligi ble based on patient's age to complete this topic MMR Vaccines Aged Out No longer eligi ble based on patient's age to complete this topic Meningococcal ACWY Vaccine Aged Out N o longer eligible based on patient's age to complete this topic Meningococcal B Vaccine Aged Out No l onger eligible based on patient's age to complete this topic Pneumococcal Vaccine: Pediat rics (0 to 5 Years) and At-Risk Patients (6 to 64 Years) Aged Out No longer eligible b ased on patient's age to complete this topic RSV Immunization Patients Un nora 20 months Aged Out No longer eligible b ased on patient's age to complete this topic Varicella Vaccines Aged Out No longer eligible based on patient's age to complete this topic Advance Directives Documents on File Type Date Recorded Patient Safety Lead Expl anation Health Care Decision (hx) 09/14/2014 AD BRENNAN DIRECTIVE Health Care Decision (hx) 09/14/2014 AD BRENNAN DIRECTIVE Health Care Decision (hx) 09/14/2014 AD BRENNAN DIRECTIVE Health Care Decision (hx) 09/14/2014 AD BRENNAN DIRECTIVE Health Care Decision (hx) 09/14/2014 AD BRENNAN DIRECTIVE Care Teams Tea Bag Packer Relationship Specialty Start Date End Date Leatha Donis MD [address] [place] [address] PCP - General Internal Medicine 08/29/21
== END 2024-09-12 10:00 | disposition home or self-care (01) ==
LOC: HO.HMCC 08:57
PROVIDERS: PCP Internal Medicine; Visit Provider Internal Medicine
DX: Z00.01 Encounter for general adult medical examination with abnormal findings (principal); F41.8 Other specified anxiety disorders; K21.00 Gastro-esophageal reflux disease with esophagitis, without bleeding; M17.0 Bilateral primary osteoarthritis of knee; Z86.2 Personal history of diseases of the blood and blood-forming organs and certain disorders involving the immune mechanism

== ENCOUNTER 2024-09-12 11:46 | Outpatient (AMB) | payer OTHER, SELFPAY ==
--- NOTE | 2024-09-12 11:53 | MHC.OFFVIS ---
Vital Signs 09/12/24 12:06 Height 5 ft 6 in Weight 180 lb 12 oz BMI 29.2 BP 118/54 L Blood Pressure Location Lt brachial Position Sitting Pulse 56 Pulse Source Pulse Oximeter Pulse Oximetry (%) 97 Oxygen Delivery Method Room Air Intake Visit Reasons: 6 month follow up Intake Note: ESTABLISHED PATIENT for GERD mgmt. Chief Complaint; Pt denies any GI sx or concerns at this time. Confirms that meds are still having therapeutic effect. Massage Coordinator Required: Yes Massage Coordinator Services: Massage Coordinator Present Massage Coordinator Name: [facility] Jasmina Montgomery [id number] Information Interpreted: clinical only Accompanied by: Self / Same As Patient Allergies No Known Allergies Allergy (Verified 09/12/24 11:54) HPI HPI 6 month follow up: Details: LAST VISIT: GERD (gastroesophageal reflux disease) Schatzki's ring Esophagitis Constipation Plan Patient denies dyspepsia, dysphagia or odynophagia. Patient can continue pantoprazole. Avoid dietary triggers and late night snacking. Smaller meals and more often. Patient is to follow bariatric diet. Patient's nausea most likely related to lamotrigine. Continue Senokot on as needed basis. Increase fluid intake and activity to promote better bowel motility. Patient is agreeable to current plan of care and verbalizes understanding of instructions. She was given the opportunity to ask questions and all questions answered. ? Thank you for allowing me to participate in her care Medications Refilled pantoprazole take one tablet half an hour before breakfast 40 mg PO DAILY 90 tabs 2RF K21.9 Discontinued ibuprofen Discontinued Reason: Patient no longer taking 600 mg PO Q8H PRN 10 tabs 0RF pain metronidazole Discontinued Reason: Patient no longer taking 500 mg PO BID 7 days 14 tabs 0RF TODAY'S VISIT: Patient is here today for follow-up. Patient reports that she has been feeling well. Takes pantoprazole every morning and her symptoms of acid reflux are suppressed. Patient denies dyspepsia, dysphagia or odynophagia. Patient also reports change some of the food that she eats. Avoids eating heavy, fat spicy food. Reports that she is moving her bowels well. Take Senokot every evening. Denies any melena, hematochezia, unintentional weight loss or ribbon like stools. Colonoscopy in November of 2024 and due to history of polyps in the past patient will return in 5 years for colorectal screening, sooner if clinically necessary. 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 Mother No problems noted. Son Bipolar disorder Mental health disorder Daughter No problems noted. Social History Housing: Apartment Are you a primary direct care supervisor to a significant other at home: No Do you presently have visiting nurse or other home services: No Alcohol intake: current Alcohol intake frequency: holidays/special occasions only Comment: wears knee brace at times Patient Tobacco Use Status: Former Tobacco user Tobacco use type: Cigarette Cigarettes Per Day: 5 e-Cigarette/Vaping Use: Never Used service: No Current occupational status: disabled Cognitive needs: No Hearing needs: No Vision needs: No Female Reproductive History Menstrual Age of Menarche: 12 Review of Systems Const Denies weight gain and Denies weight loss ENT Reports no additional complaints, Denies dysphagia and Denies odynophagia Card Reports no additional complaints Resp Reports no additional complaints GI Denies abdominal pain, Denies belching, Denies melena, Denies bloating, Denies change in bowel habits, Denies dysphagia, Denies excessive flatus, Denies dyspepsia, Denies heartburn, Denies diarrhea, Denies loose stools, Denies nausea, Denies odynophagia and Denies vomiting Musc Reports no additional complaints Neuro Reports no additional complaints Psych Reports no additional complaints Endo Reports no additional complaints Physical Exam Vital Signs: Last Vital Signs Pulse 56 09/12/24 12:06 BP 118/54 L 09/12/24 12:06 Pulse Ox 97 09/12/24 12:06 Oxygen Delivery Method Room Air 09/12/24 12:06 BMI result Body Mass Index 29.2 Const General: healthy appearing, no acute distress and well developed Nutritional Appearance: well nourished Orientation/consciousness: patient oriented x3 Resp Effort & Inspection: normal respiratory effort, able to speak in complete sentences, no tracheal deviation and symmetric chest movement Auscultation: clear to auscultation bilaterally Cardio Rate: regular rate GI Inspection: Yes normal to inspection and No distended Palpation (GI): Soft to palpation, not firm, nontender and No hepatosplenomegaly present Auscultation: normal bowel sounds General: Yes no CVA tenderness Back/Spine/Pelvis Back: no CVA tenderness Skin General skin exam: elasticity normal, turgor normal and dry skin Neuro General: patient oriented x3 Psych Appearance: grossly normal Mental Status: mental status grossly normal Assessment & Plan Assessment & Plan (1) GERD (gastroesophageal reflux disease): Code(s): K21.9 - Gastro-esophageal reflux disease without esophagitis Qualifiers: Esophagitis presence: with esophagitis Esophagitis bleeding: without hemorrhage Qualified Code(s): K21.00 - Gastro-esophageal reflux disease with esophagitis, without bleeding (2) Schatzki's ring: Code(s): K22.2 - Esophageal obstruction (3) Esophagitis: Code(s): K20.90 - Esophagitis, unspecified without bleeding (4) Constipation: Code(s): K59.00 - Constipation, unspecified Qualifiers: Constipation type: slow transit constipation Qualified Code(s): K59.01 - Slow transit constipation Plan Can you pantoprazole daily. Continue avoiding dietary triggers and late night snacking. Staying upright for minimum 3 hours after meals discussed with patient. Patient will continue taking senna. Increase fluid intake and activity to promote better bowel motility. Patient will follow-up in our office in 6 months, sooner on as needed basis. She is agreeable to this plan and verbalizes understanding of instructions. She was given the opportunity to ask questions and all questions answered. Thank you for allowing me to participate in her care Medications: Refilled pantoprazole take one tablet half an hour before breakfast 40 mg PO DAILY 90 tabs 2RF K21.9 - Gastro-esophageal reflux disease without esophagitis sennosides (Natural Senna Laxative) 8.6 mg PO BEDTIME 90 tabs 3RF constipation K59.00 - Constipation, unspecified Coding Level of Care Code Est Pt Level 3 (25370) Diagnoses Gastroesophageal reflux disease with esophagitis without hemorrhage K21.00 Esophagitis presence: with esophagitis Esophagitis bleeding: without hemorrhage Schatzki's ring K22.2 Esophagitis K20.90 Slow transit constipation K59.01 Constipation type: slow transit constipation Time Spent (min) 25 Comment 15 minutes spent with patient and additional 10 minutes spent reviewing her records
[2024-09-12 12:06] VITALS: BP 118/54; PULSE 56; O2SAT 97; BMI 29.2
--- OUTSIDE RECORDS SUMMARY | 2024-09-12 13:48 | XMS_ITS | Clinical Summary ---
Author Organization [facility] ity Address [address] [place] [id number] Care Team Providers Care Slp Name Role Phone Leatha Donis MD Primary [...] Documents on File Type Date Recorded Patient Casino Games Dealer Expl anation Health Care Decision (hx) 09/14/2014 AD BRENNAN DIRECTIVE Health Care Decision (hx) 09/14/2014 AD BRENNAN DIRECTIVE Health Care Decision (hx) 09/14/2014 AD BRENNAN DIRECTIVE Health Care Decision (hx) 09/14/2014 AD BRENNAN DIRECTIVE Health Care Decision (hx) 09/14/2014 AD BRENNAN DIRECTIVE Care Teams Slp Relationship Specialty Start Date End Date Leatha Donis MD [address] [place] [address] PCP - General Internal Medicine 08/29/21
--- OUTSIDE RECORDS SUMMARY | 2024-09-12 13:48 | XMS_ITS | Clinical Summary ---
Author Organization [facility] Address [address] [place] [address] Care Team Providers Care Food Service Utility Worker Name Role Phone Sheila Slater PA-C Primary Care Provider [phone] Source Comments PLEASE NOTE, if this patient [...] pain and instability. Following with Ortho at [facility] since 06/2015. Receiving PT and had knee brace. Depression with anxiety 09/12/2015 Overview (11/07/2015): Following at [facility]. On on lamictal 100mg bid, zoloft 100mg qd and Risperidal 1mg hs. Clinician( [phone]). MAJOR DEPRESSIVE D/O Bunion of great [...] of Treatment Not on file [facility] Care Teams Food Service Utility Worker Relationship Specialty Start Date End Date Sheila Slater PA-C [address] [place] [address] PCP - General 07/27/18
== END 2024-09-12 12:19 | disposition home or self-care (01) ==
LOC: HO.HGI 11:46
PROVIDERS: PCP Internal Medicine; Visit Provider Nurse Practitioner Family
DX: K21.00 Gastro-esophageal reflux disease with esophagitis, without bleeding (principal); K22.2 Esophageal obstruction; K59.01 Slow transit constipation
CPT/HCPCS: 99213

== ENCOUNTER 2024-09-26 09:58 | Outpatient (REF) | payer OTHER, SELFPAY ==
--- NOTE | ~2024-09-26 | US_ITS ---
CLINICAL HISTORY: N20.0 - Calculus of kidney US retroperitoneum Comparison: None Findings: Right kidney normal size and echotexture, 12.0cm length. No hydronephrosis. Normal color flow. Right kidney cortex thickness is 2 cm Left kidney normal size and echotexture, 11.4cm in length. No hydronephrosis. Normal color flow. A 7.0 mm simple renal cortical cyst is present in the left kidney upper pole. Left kidney cortex thickness is 1.8 cm Bilateral kidney cortex thickness and echotexture is normal. Impression: Normal retroperitoneal ultrasound This document has been electronically signed by: Antonino Quinn MD on 09/27/2024 17:27:39
--- OUTSIDE RECORDS SUMMARY | 2024-09-26 11:28 | XMS_ITS | Clinical Summary ---
Author Organization [facility] ity Address [address] [place] [id number] Care Team Providers Care Correspondence Dictator Name Role Phone Leatha Donis MD Primary Care Provider [phone] Social History Tobacco Use Types Packs/Day Years [...] Documents on File Type Date Recorded Patient Putter In Expl anation Health Care Decision (hx) 09/14/2014 AD BRENNAN DIRECTIVE Health Care Decision (hx) 09/14/2014 AD BRENNAN DIRECTIVE Health Care Decision (hx) 09/14/2014 AD BRENNAN DIRECTIVE Health Care Decision (hx) 09/14/2014 AD BRENNAN DIRECTIVE Health Care Decision (hx) 09/14/2014 AD BRENNAN DIRECTIVE Care Teams Correspondence Dictator Relationship Specialty Start Date End Date Leatha Donis MD [address] [place] [address] PCP - General Internal Medicine 08/29/21
--- OUTSIDE RECORDS SUMMARY | 2024-09-26 11:28 | XMS_ITS | Clinical Summary ---
Author Organization [facility] Address [address] [place] [address] Care Team Providers Care Clinical Services Specialist Name Role Phone Sheila Slater PA-C Primary Care Provider [phone] Source Comments PLEASE NOTE, if this patient [...] pain and instability. Following with Ortho at [facility] since 06/2015. Receiving PT and had knee brace. Depression with anxiety 09/12/2015 Overview (11/07/2015): Following at [facility]. On on lamictal 100mg bid, zoloft 100mg qd and Risperidal 1mg hs. Clinician( [phone]). MAJOR DEPRESSIVE D/O Bunion of great [...] of Treatment Not on file [facility] Care Teams Clinical Services Specialist Relationship Specialty Start Date End Date Sheila Slater PA-C [address] [place] [address] PCP - General 07/27/18
== END 2024-09-26 09:59 | disposition home or self-care (01) ==
LOC: HO.US 09:58
PROVIDERS: PCP Internal Medicine; Visit Provider Nurse Practitioner Family
DX: N20.0 Calculus of kidney (principal); N28.1 Cyst of kidney, acquired
CPT/HCPCS: 76775

== ENCOUNTER → 2024-09-26 10:00 | Outpatient (BNV) | payer OTHER, SELFPAY | PROVIDERS: PCP Internal Medicine; Visit Provider Radiology Diagnostic Radiology | DX: N20.0 Calculus of kidney (principal) | CPT/HCPCS: 76775 ==

== ENCOUNTER 2024-10-03 12:59 | Outpatient (AMB) | payer OTHER, SELFPAY ==
[2024-10-03 13:36] VITALS: BP 108/60; PULSE 48; BMI 28.6
--- NOTE | 2024-10-03 13:36 | A.OFFVIS_ITS ---
Vital Signs 10/03/24 13:36 Height 5 ft 6 in Weight 177 lb 4.026 oz BMI 28.6 BP 108/60 Blood Pressure Location Rt brachial Position Sitting Pulse 48 L Pulse Source Monitor Intake Visit Reasons: 1 yr f/up Hairspring Adjuster Required: Yes Hairspring Adjuster Language: Attacher Name: voice haung [id number] Allergies No Known Allergies Allergy (Verified 10/03/24 13:38) Medication List - Last Reconciled 10/03/24 by DAVIDSON Iglesias aripiprazole 10 mg PO DAILY ascorbic acid (vitamin C) 1 g PO Q6H bupropion HCl XL 150 mg PO DAILY buspirone 15 mg PO TID [Celebrate MVI and Mike+D PO DAILY] clotrimazole 1% (Antifungal (clotrimazole)) 1 appl topical BID PRN ferrous sulfate (FeroSul) 325 mg PO DAILY folic acid 0.8 mg PO DAILY imiquimod 5% 1 appl topical 3XW 16 weeks lamotrigine 150 mg PO BID pantoprazole 40 mg PO DAILY prazosin 1 mg PO BEDTIME pyridoxine (vitamin B6) 100 mg PO DAILY 90 days sennosides (Natural Senna Laxative) 8.6 mg PO BEDTIME sertraline 200 mg PO DAILY trazodone 100 mg PO BEDTIME walker (Ultra-Light Rollator misc) As directed HPI HPI 1 yr f/up: Details: Yamilex is a 54-year-old female with past medical history of hyperlipidemia, syncope, prior chest discomfort who presents for follow-up. Her last visit to our office was 10/01/2023. Today she reports that she has not had any recurrent syncopal episodes since 07/2023. She states at that time her episode started with feeling sweaty and lightheaded in the setting of diarrhea. She describes a full syncopal event. This has happened to her 3 times in the past. The other episodes were similar. She no longer gets chest discomfort. She has no shortness of breath, PND, orthopnea or edema. No heart palpitations, lightheadedness, presyncope, syncope, falls. He reports being physically active and goes to the gym and does the elliptical in the bike 3 times weekly. She also takes care of her grandchildren routinely. [facility] Medical History (Updated 10/03/24 @ 16:32 by Nevaeh Oneill, HERNANDEZ-C) Syncope Osteoarthritis, knee GERD with esophagitis Acute anemia Vitamin D deficiency Nephrolithiasis Left peroneal nerve palsy Unstable gait Lichen simplex chronicus Skin tag Mitral valve prolapse Vitamin B12 deficiency DJD (degenerative joint disease) Heel pain, bilateral Lumbago with sciatica, right side Right radial head fracture Dysplasia of cervix, low grade (GIL 1) HPV test positive Mixed dyslipidemia Depression with anxiety Hiatal hernia Surgical History History of endoscopy H/O liposuction of abdomen (~12/2022) History of repair of hiatal hernia S/P laparoscopic sleeve gastrectomy Hx of colonoscopy Status post breast reduction H/O arthroscopy of right knee History of section History of appendectomy History of tubal ligation Family History Father No problems noted. Mother No problems noted. Son Bipolar disorder Mental health disorder Daughter No problems noted. Social History Housing: Apartment Are you a primary long term care pharmacist to a significant other at home: No Do you presently have visiting nurse or other home services: No Alcohol intake: current Alcohol intake frequency: holidays/special occasions only Comment: wears knee brace at times Patient Tobacco Use Status: Former Tobacco user Tobacco use type: Cigarette Cigarettes Per Day: 5 e-Cigarette/Vaping Use: Never Used service: No Current occupational status: disabled Cognitive needs: No Hearing needs: No Vision needs: No Female Reproductive History Menstrual Age of Menarche: 12 Review of Systems Const All systems reviewed & are unremarkable except as noted in HPI and below ENT Denies dizziness Card Denies chest pain, Denies chest pain at rest, Denies chest pain with activity, Denies rapid heart rate, Denies pedal edema, Denies edema, Denies leg edema, Denies lightheadedness, Denies palpitations, Denies dyspnea, Denies dyspnea on exertion and Denies orthopnea Resp Denies cough, Denies dyspnea and Denies dyspnea on exertion GI Denies hematochezia and Denies change in stool character Musc Denies abnormal gait, Denies limited range of motion, Denies muscle cramps, Denies muscle weakness, Denies numbness, Denies radiating pain into limb, Denies stiffness and Denies tingling Neuro Denies abnormal gait, Denies dizziness, Denies numbness and Denies tingling Endo Denies palpitations Physical Exam Vital Signs: Last Vital Signs Pulse 48 L 10/03/24 13:36 BP 108/60 10/03/24 13:36 BMI result Body Mass Index 28.6 Const General: cooperative, healthy appearing, comfortable and no acute distress Orientation/consciousness: patient oriented x3 Neck Neck: Yes normal visual inspection Resp Effort & Inspection: normal respiratory effort Auscultation: clear to auscultation bilaterally, no crackles, no rales, no rhonchi and no wheezes Cardio Rate: bradycardic Rhythm: regular rhythm Heart sounds: S1 normal heart sound present, S2 normal heart sound present, no gallops, no murmurs and no rubs Neuro General: patient oriented x3 Extrem General: Yes normal to inspection, No no pedal edema and No calf tenderness Psych Appearance: grossly normal Mental Status: mental status grossly normal Speech and movement: Normal speech and movement present Office Procedures EKG Details: Today, read by me, sinus bradycardia, no acute ST or T-wave abnormalities, rate 48, QTC 393 milliseconds [id number], Complete Assessment & Plan Assessment & Plan (1) Sinus bradycardia: Code(s): R00.1 - Bradycardia, unspecified Category: Medical Plan: Routine EKG done this visit showing sinus bradycardia, rate 48, asymptomatic. She is not on any rate slowing agents. She has a history of syncope which sounds vasovagal. Echocardiogram done 09/22/2023 was normal study. She did have an exercise nuclear stress test 09/22/2023 with exercise over 9 minutes achieving 83% MPHR, no EKG changes. Will check Holter monitor to assess for average heart rates, significant bradycardia or pauses. Plan to call her with results. At this time will arrange for cardiology follow-up in 1 year, sooner if needed (2) Syncope: Comment: vasovagal syncope likely, referred to neurology to r/o seizure d/o Code(s): R55 - Syncope and collapse Category: Medical Qualifiers: Syncope type: unspecified Qualified Code(s): R55 - Syncope and collapse Plan: Three episodes reported with last episode 07/15/2023. Description of episode sounds vasovagal. Instructed to recognize symptoms and sit/lay down. Maintain good hydration. Plan Time spent on chart review, documentation, interview, assessment Coding Level of Care Code Est Pt Level 3 (52004) Complex EM visit Add On G2211 Diagnoses Sinus bradycardia R00.1 Syncope, unspecified syncope type R55 Syncope type: unspecified CPT Codes EKG - CPT: [id number], Complete ([id number]) Time Spent (min) 24
--- OUTSIDE RECORDS SUMMARY | 2024-10-03 14:20 | XMS_ITS | Clinical Summary ---
Author Organization [facility] Address [address] [place] [address] Care Team Providers Care Lead Painter Name Role Phone Sheila Slater PA-C Primary Care Provider [phone] Source Comments PLEASE NOTE, if this patient [...] pain and instability. Following with Ortho at [facility] since 06/2015. Receiving PT and had knee brace. Depression with anxiety 09/12/2015 Overview (11/07/2015): Following at [facility]. On on lamictal 100mg bid, zoloft 100mg qd and Risperidal 1mg hs. Clinician( [phone]). MAJOR DEPRESSIVE D/O Bunion of great toe of right foot 09/12/2015 Overview (12/06/2015): Following podiatry Dr. Darin Andrade Immunizations Immunization Administration Dates Next Due Flu, Preservative Free 03/21/2016 PNEUMOCOCCAL POLYSACCHARIDE PPV23 (Pneumovax 23) 10/11/2015 PPD 10/16/2015 Family History Medical History [...] of Treatment Not on file Insurance [facility]NE [facility] Care Teams Lead Painter Relationship Specialty Start Date End Date Sheila Slater PA-C [address] [place] [address] PCP - General 07/27/18
--- OUTSIDE RECORDS SUMMARY | 2024-10-03 14:20 | XMS_ITS | Clinical Summary ---
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
== END 2024-10-03 14:15 | disposition home or self-care (01) ==
LOC: HO.HCS 12:59
PROVIDERS: PCP Internal Medicine; Visit Provider Nurse Practitioner Family
DX: R00.1 Bradycardia, unspecified (principal); R55 Syncope and collapse
CPT/HCPCS: 93010; 99213; G2211

== ENCOUNTER → 2024-10-03 12:59 | Outpatient (BNVA) | payer OTHER, SELFPAY | PROVIDERS: PCP Internal Medicine; Visit Provider Nurse Practitioner Family | DX: R00.1 Bradycardia, unspecified (principal); R55 Syncope and collapse | CPT/HCPCS: 93005; 99212 ==

== ENCOUNTER 2024-10-10 14:23 | Outpatient (AMB) | payer OTHER, SELFPAY ==
--- NOTE | 2024-10-10 14:27 | MHC.OFFVIS ---
Intake Visit Reasons: 6m/US(set) Security Agent Required: Yes Security Agent Services: Security Agent Present Security Agent Name: Vinh Holland172 Allergies No Known Allergies Allergy (Verified 10/10/24 14:55) Medication List - Last Reconciled 10/10/24 by MERY Dickerson- aripiprazole 10 mg PO DAILY ascorbic acid (vitamin C) 1 g PO Q6H bupropion HCl XL 150 mg PO DAILY buspirone 15 mg PO TID [Celebrate MVI and Mike+D PO DAILY] clotrimazole 1% (Antifungal (clotrimazole)) 1 appl topical BID PRN ferrous sulfate (FeroSul) 325 mg PO DAILY folic acid 0.8 mg PO DAILY imiquimod 5% 1 appl topical 3XW 16 weeks lamotrigine 150 mg PO BID pantoprazole 40 mg PO DAILY prazosin 1 mg PO BEDTIME pyridoxine (vitamin B6) 100 mg PO DAILY 90 days sennosides (Natural Senna Laxative) 8.6 mg PO BEDTIME sertraline 200 mg PO DAILY trazodone 100 mg PO BEDTIME walker (Ultra-Light Rollator misc) As directed HPI Comments Details: Yamilex is a pleasant Yemeni-speaking 54-year-old female patient of Dr. Donis. She has a past medical history of nephrolithiasis, [place] in simplex chronicus, mitral valve prolapse, degenerative joint disease, vitamin-D deficiency, mixed dyslipidemia, depression with anxiety, and hiatal hernia. She presents to the office today for follow-up of her renal cyst and nephrolithiasis. In discussion with the patient today she reports to be doing and feeling well. She denies having had any bothersome urinary issues or concerns since her last office visit here. Recent renal imaging results reviewed with the patient today 09/23 bilateral kidneys are normal in size and echotexture. No nephrolithiasis or hydronephrosis noted bilaterally. Stable 7 mm renal cysts in the upper pole of the left kidney noted. In office urinalysis results reviewed with the patient today. She reports to be drinking plenty of water daily. When asked she denies urinary urgency, urinary frequency, incontinence, nocturia, hematuria, foul smelling urine, changes to urinary stream, flank pain, fever, and or chills. We discussed potential causes of nephrolithiasis as well as renal cysts. We discussed continuation of surveillance monitoring. She otherwise offers no other issues or concerns at this time. 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 Mother No problems noted. Son Bipolar disorder Mental health disorder Daughter No problems noted. Social History Housing: Apartment Are you a primary hospice care transitions coordinator to a significant other at home: No Do you presently have visiting nurse or other home services: No Alcohol intake: current Alcohol intake frequency: holidays/special occasions only Comment: wears knee brace at times Patient Tobacco Use Status: Former Tobacco user Tobacco use type: Cigarette Cigarettes Per Day: 5 e-Cigarette/Vaping Use: Never Used service: No Current occupational status: disabled Cognitive needs: No Hearing needs: No Vision needs: No Female Reproductive History Menstrual Age of Menarche: 12 Review of Systems Const Reports as per HPI Eyes Reports no additional complaints ENT Reports no additional complaints Card Reports no additional complaints Resp Reports no additional complaints GI Reports no additional complaints Reports as per HPI Musc Reports no additional complaints Psych Details: patient reports she has established care with psychiatric MD Endo Reports no additional complaints Physical Exam Const General: cooperative, healthy appearing, comfortable, no acute distress, well developed, alert and awake Nutritional Appearance: average body habitus Orientation/consciousness: patient oriented x3 Limitations: no limitations HEENT Head: Yes normal to inspection, Yes normocephalic and Yes atraumatic Ears: hearing grossly normal bilaterally Eyes General: appearance normal, both eyes and all related structures Neck Neck: Yes normal visual inspection and Yes trachea midline Chest Chest palpation & inspection: normal inspection of the chest Resp Effort & Inspection: normal respiratory effort and able to speak in complete sentences Cardio Rate: regular rate GI Inspection: Yes normal to inspection General: Yes no CVA tenderness Back/Spine/Pelvis Other: patient endorses intermittent low back pain Back: no CVA tenderness Skin General skin exam: no rashes or lesions noted Neuro General: patient oriented x3 Extrem General: Yes normal to inspection Psych Appearance: grossly normal and well kempt Mental Status: mental status grossly normal Speech and movement: Normal speech and movement present and Clear speech present Affect: normal affect Attitude: cooperative Thought process: Normal thought process present Thought content: Normal thought content present Insight: Good insight present (Psych) Judgement: Good judgement present (Psych) Results AMB Urinalysis, Automated UA Leukoctes 125 Cammie/uL Last Edit by Vanessa Rousseau CMA on 10/10/24 14:41 UA Nitrite Negative Last Edit by Vanessa Rousseau CMA on 10/10/24 14:41 UA Urobilinogen 0.2 mg/dL Last Edit by Vanessa Rousseau CMA on 10/10/24 14:41 UA Protein 0 mg/dL Last Edit by Vanessa Rousseau CMA on 10/10/24 14:41 UA pH 6.0 Last Edit by Vanessa Rousseau CMA on 10/10/24 14:41 UA Blood 0 Harrison/uL Last Edit by Vanessa Rousseau CMA on 10/10/24 14:41 UA Specific [place] 1.020 Last Edit by Vanessa Rousseau CMA on 10/10/24 14:41 UA Ketone Negative Last Edit by Vanessa Rousseau CMA on 10/10/24 14:41 UA Bilirubin 0 mg/dL Last Edit by Vanessa Rousseau CMA on 10/10/24 14:41 UA Glucose 0 mg/dL Last Edit by Vanessa Rousseau CMA on 10/10/24 14:41 Results Reviewed Results Reviewed: Laboratory Last Values Urine pH (Auto) 6.0 10/10/24 13:53 Specific [place] (Auto) 1.020 10/10/24 13:53 Urine Protein (Auto) 0 mg/dL 10/10/24 13:53 Glucose (UA)(Auto) 0 mg/dL 10/10/24 13:53 Urine Ketones (Auto) Negative 10/10/24 13:53 Urine Blood (Auto) 0 Harrison/uL 10/10/24 13:53 Urine Nitrite (Auto) Negative 10/10/24 13:53 Urine Bilirubin (Auto) 0 mg/dL 10/10/24 13:53 Urine Urobilinogen (Auto) 0.2 mg/dL 10/10/24 13:53 Leukocyte Esterase (Auto) 125 Cammie/uL 10/10/24 13:53 Date of Service: 09/26/24 Renal ultrasound Findings: Right kidney normal size and echotexture, 12.0cm length. No hydronephrosis. Normal color flow. Right kidney cortex thickness is 2 cm Left kidney normal size and echotexture, 11.4cm in length. No hydronephrosis. Normal color flow. A 7.0 mm simple renal cortical cyst is present in the left kidney upper pole. Left kidney cortex thickness is 1.8 cm Bilateral kidney cortex thickness and echotexture is normal. Impression: Normal retroperitoneal ultrasound Assessment & Plan Assessment & Plan (1) Renal cyst: Code(s): N28.1 - Cyst of kidney, acquired Category: Medical (2) Nephrolithiasis: Code(s): N20.0 - Calculus of kidney Category: Medical Plan In office urinalysis results reviewed with the patient today; as noted above. Recent renal imaging results reviewed with the patient today; as noted above. She currently denies any bothersome urinary issues or concerns. She reports be happy with current voiding parameters. We discussed potential causes of nephrolithiasis as well as renal cysts. Will continue with surveillance monitoring. We discussed importance of adequate hydration relation to nephrolithiasis as well as overall health and well-being. Will obtain renal ultrasound in 1 year. Follow-up in 1 year with imaging to be completed prior; or sooner with any issues, concerns, and or questions. Orders: Orders US renal BI 1 Year N20.0 - Calculus of kidney AMB Urinalysis Automated Today Z13.9 - Encounter for screening, unspecified Patient Instructions: The patient had an opportunity to ask questions regarding the treatment plan. All questions were answered. Physical exam, labs, and imaging were discussed and reviewed in detail. As well as risks, benefits, and discussion of treatment choices. No major barriers to understanding were identified. The patient expressed understanding and agreement with the above treatment plan. The patient was made aware they should contact our office by phone for worsening of their current condition, the appearance of new symptoms, or with any questions or concerns. Compliance is encouraged with any medications and follow up testing that is ordered. It is a privilege to be allowed the opportunity to participate in? your urological care.? Again, if you have any questions or concerns If you have any questions or concerns please do not hesitate to contact me. The office is [phone]. This note is constructed using voice recognition software. While every effort has been made to ensure accuracy finance professional errors may have been included. Yours sincerely, CHAPINCITO Dickerson Coding Level of Care Code Est Pt Level 3 (16203) Diagnoses Renal cyst N28.1 Nephrolithiasis N20.0
--- OUTSIDE RECORDS SUMMARY | 2024-10-10 14:36 | XMS_ITS | Clinical Summary ---
Author Organization [facility] Address [address] [place] [address] Care Team Providers Care University Extension Specialist Name Role Phone Sheila Slater PA-C Primary Care Provider [phone] Source Comments PLEASE NOTE, if this patient [...] pain and instability. Following with Ortho at [facility] since 06/2015. Receiving PT and had knee brace. Depression with anxiety 09/12/2015 Overview (11/07/2015): Following at [facility]. On on lamictal 100mg bid, zoloft 100mg qd and Risperidal 1mg hs. Clinician( [phone]). MAJOR DEPRESSIVE D/O Bunion of great [...] of Treatment Not on file Insurance [facility] Care Teams University Extension Specialist Relationship Specialty Start Date End Date Sheila Slater PA-C [address] [place] [address] PCP - General 07/27/18
== END 2024-10-10 15:02 | disposition home or self-care (01) ==
LOC: HO.HUSH 14:24
PROVIDERS: PCP Internal Medicine; Visit Provider Nurse Practitioner Family
DX: N28.1 Cyst of kidney, acquired (principal); N20.0 Calculus of kidney; Z13.9 Encounter for screening, unspecified
CPT/HCPCS: 99213

== ENCOUNTER → 2024-10-10 14:23 | Outpatient (BNVA) | payer OTHER, SELFPAY | PROVIDERS: PCP Internal Medicine; Visit Provider Nurse Practitioner Family | DX: N28.1 Cyst of kidney, acquired (principal); N20.0 Calculus of kidney | CPT/HCPCS: 81003; 99212 ==

== ENCOUNTER 2024-11-07 14:14 | Outpatient (AMB) | payer OTHER, SELFPAY ==
--- NOTE | 2024-11-07 14:21 | MHC.OFFVISWM ---
VS Expanded 11/07/24 14:42 BP 104/62 Blood Pressure Location Rt brachial Blood Pressure Position Sitting Pulse 68 Pulse Source Pulse Oximeter Temp 97.5 F Temperature Source Temporal Artery Scan Pulse Oximetry 100 Oxygen Delivery Method Room Air Height 5 ft 6 in Weight 176 lb 6.4 oz BMI 28.5 Body Fat % 36.9 Body Fat Mass 65.0 Fat Free Mass 114.4 Visceral Fat Rating 8.0 Body Water % 44.9 Body Water Mass 79.2 Muscle Mass/Score 105.6 Basal Metabolic Rate/Score 1,516 Intake Visit Reasons: (OV) PO LSG 01/02/22 Cast Iron Drain Pipe Layer Required: Yes Cast Iron Drain Pipe Layer Name: hospital cmi Allergies No Known Allergies Allergy (Verified 11/07/24 14:26) Medication List - Last Reconciled 11/07/24 by FREDIS Barahona aripiprazole 10 mg PO DAILY ascorbic acid (vitamin C) 1 g PO Q6H bupropion HCl XL 150 mg PO DAILY [Celebrate MVI and Mike+D PO DAILY] clotrimazole 1% (Antifungal (clotrimazole)) 1 appl topical BID PRN ferrous sulfate (FeroSul) 325 mg PO DAILY folic acid 0.8 mg PO DAILY imiquimod 5% 1 appl topical 3XW 16 weeks lamotrigine 150 mg PO BID pantoprazole 40 mg PO DAILY prazosin 1 mg PO BEDTIME pyridoxine (vitamin B6) 100 mg PO DAILY 90 days sennosides (Natural Senna Laxative) 8.6 mg PO BEDTIME trazodone 100 mg PO BEDTIME walker (Ultra-Light Rollator misc) As directed HPI Comments Details: This?a?54?yo female who is s/p LSG without hiatal hernia repair on?01/02/[address] Abebe. Presents for 2 year 10 month post op visit. She was last seen in the office for her 2 year appointment on 01/04/2024. Weight at that time was 163.8 lb with a BMI of 26.4. Weight today is 176.4 pounds, with a BMI of 28.5.? There has been a 41.8 pound weight loss,(initial weight 218.2 pounds) since starting the program on reflecting a 19.1% total body weight loss and a weight loss of 12 pounds since surgery (operative weight 188.4 pounds) reflecting a 13% TBWL since surgery.? No complaints of nausea, emesis, abdominal pain. Reports infrequent but normal bowel movements every 1-2 days and uses stool softeners regularly.? celebrate MVI and Mike + D. She reports she is very happy and feeling well. Not following any meal plan. She has been taking care of her granddaughter over the last several months. She has not been able to go to the gym as she has been caring for her granddaughter 12 hours a day. previous meal plan includes: 1 egg, coffee w sugar or premier protein RTD protein bar or yogurt w granola meal w protein, rice, salad not measuring snacking on chips at night drinking 48 oz water, sometime juice ? Exercise routine includes: none in 2 weeks as she was sick, prior to that elliptical, bike 3 x per week at the gym 500 calories. 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 Mother No problems noted. Son Bipolar disorder Mental health disorder Daughter No problems noted. Social History Housing: Apartment Are you a primary family day carer to a significant other at home: No Do you presently have visiting nurse or other home services: No Alcohol intake: current Alcohol intake frequency: holidays/special occasions only Comment: wears knee brace at times Patient Tobacco Use Status: Former Tobacco user Tobacco use type: Cigarette Cigarettes Per Day: 5 e-Cigarette/Vaping Use: Never Used service: No Current occupational status: disabled Cognitive needs: No Hearing needs: No Vision needs: No Female Reproductive History Menstrual Age of Menarche: 12 Physical Exam Const General: healthy appearing and no acute distress Resp Effort & Inspection: normal respiratory effort Auscultation: clear to auscultation bilaterally Cardio Rate: regular rate Rhythm: regular rhythm GI Auscultation: normal bowel sounds Extrem General: Yes normal to inspection Assessment & Plan Assessment & Plan (1) S/P laparoscopic sleeve gastrectomy: Code(s): Z98.84 - Bariatric surgery status Category: Surgical Plan: Patient will start a new meal plan, utilizing premier protein ready to drink shake or powder, using the ready to drink shake: Half shake, 6 oz, added with 4 oz of unsweetened almond milk, 5-7 Half cup fresh berries, 10 am Another shake, 12-2 Fruit, 4 pm Meal with 6 forks of protein and 6 forks of vegetables, 6 pm Celebrate protein bar, 7-9 pm She will go to the gym, she only has availability Thursday, Thursday, Thursday, Thursday with a goal of burning 500 calories per day. We will have her return to the office in approximately 2 months with a goal of losing 2 lb per week. Encouraged to text weekly and with any questions or concerns
[2024-11-07 14:42] VITALS: BP 104/62; PULSE 68; TEMP 36.4; O2SAT 100; BMI 28.5
--- OUTSIDE RECORDS SUMMARY | 2024-11-07 16:11 | XMS_ITS | Clinical Summary ---
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
== END 2024-11-07 15:06 | disposition home or self-care (01) ==
LOC: HO.HBS 14:15
PROVIDERS: PCP Internal Medicine; Visit Provider Physician Assistant Surgical
DX: E66.3 Overweight (principal); Z68.28 Body mass index [BMI] 28.0-28.9, adult; Z90.3 Acquired absence of stomach [part of]; Z98.84 Bariatric surgery status
CPT/HCPCS: 99213; G2211

== ENCOUNTER → 2024-11-07 14:14 | Outpatient (BNVA) | payer OTHER, SELFPAY | PROVIDERS: PCP Internal Medicine; Visit Provider Physician Assistant Surgical | DX: Z98.84 Bariatric surgery status (principal) | CPT/HCPCS: 99212 ==

== ENCOUNTER → 2024-11-14 09:53 | Outpatient (REF) | payer OTHER, SELFPAY ==
--- OUTSIDE RECORDS SUMMARY | 2024-11-14 10:57 | XMS_ITS | Clinical Summary ---
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
== END ==
LOC: HO.CARD 09:53
PROVIDERS: Visit Provider Nurse Practitioner Family
DX: R00.1 Bradycardia, unspecified (principal)
CPT/HCPCS: 93242

== ENCOUNTER → 2024-11-14 09:57 | Outpatient (BNV) | payer OTHER, SELFPAY | PROVIDERS: Visit Provider Internal Medicine | DX: I47.10 Supraventricular tachycardia, unspecified (principal); I49.3 Ventricular premature depolarization | CPT/HCPCS: 93244 ==

== ENCOUNTER 2025-03-27 08:41 | Outpatient (REF) | payer OTHER, SELFPAY ==
--- OUTSIDE RECORDS SUMMARY | 2025-03-27 09:09 | XMS_ITS | Encounter Summary ---
Author Organization [facility] Address [address] [place] [address] Encounters * CPT with [facility] at [facility] on 2025-03-09 { reasonForRequest : body aches/headache/fever , patientReports :"Cough, fever greater than 2 days ; Sputum increase ; Cough; Shortness of breath with exertion , denies :[ Increased work of breathing/labored with or without fever ,"Unable to speak in full sentences without distress , Discoloration of skin -cyanosis", Needs to sleep sitting up, can t catch breath , Shortness of breath in setting of confusion , History of asthma, increased use of inhaler , COPD , Pain with inspiration ], chiefComplaints : Headache, Fever , pmh :"Depression, Anxiety Disorder , allergies : No Known Drug Allergies ,&qu ot;otherAllergies : , painAssessment : , visitOutcome&quot ;: , additionalComments : 54 y.o female complains of Headache, Fever\n\nCall completed with behavioral health tech. \n\nPt c/o headaches, body aches, nasal congestion, and cough. \nShehas had the symptoms since yesterday. She has green/yellow sputum. \nShe is having some shortness of breath. She currently does not have shortness of breath, she does not have asthma or copd. \nShe is feeling weak. \nShe took tylenol and emergency C \n\nI provided information on the mobile health provider response time and advised the patient and/or caregiver to monitor reported signs and symptoms. I discussed the warning signs of when to seek emergency care. } Sent to a call for a pt complaining of URI symptoms. [facility] arrives on scene, pt is alert and oriented, airway is patent. Pt complains of headache, runny nose w/yellow/green mucus, productive cough w/yellow/green phlegm, intermittent sob (none currently) x 6 days. Pt also complains of feeling feverishw/chills x 2 days. Pt denies dizziness, sob, cp, n/v/d, abd pain, or loc. BP:98/60 (normal for pt),P:74, RR:18, SpO2:96% RA, T:99.3; Head: unremarkable; Lung sounds: clear bilaterally; Abdomen: soft, non-tender, no distention; Back: unremarkable; Extremities: unremarkable; Skin: pink, warm, dry; Pt has been using Tylenol, Emergen C, and cough/cold medication. Pt has been eating/drinking normally. Rapid covid/flu test: neg; C consulted and pt is advised to continue symptomatic treatment and pt advised symptoms might linger for a total of 10 days or more. Pt advised to follow up with PCP if symptoms persist. Red flags discussed. Pt has no further questions. IV_(FLUIDS_AND/OR_MEDICATION), MEDICATION_IM, ORAL_MEDICATION, EKG, POC_FLU_STREP, COVID_TEST Written by Medical [facility] on 2025-03-09
--- OUTSIDE RECORDS SUMMARY | 2025-03-27 09:09 | XMS_ITS | Continuity of Care Document ---
Author Name [facility], [facility] Address [address] [place] [id number] Organization Unknown Address [address] [place] [id number] Medications No known medications Problems No known problems
--- OUTSIDE RECORDS SUMMARY | 2025-03-27 09:09 | XMS_ITS | Clinical Summary ---
Author Organization [facility] Address [address] [place] [address] Care Team Providers Care Water Taxi Operator Name Role Phone Sheila Slater PA-C Primary Care Provider [phone] Source Comments PLEASE NOTE, if this patient [...] pain and instability. Following with Ortho at [facility] since 06/2015. Receiving PT and had knee brace. Depression with anxiety 09/12/2015 Overview (11/07/2015): Following at [facility]. On on lamictal 100mg bid, zoloft 100mg qd and Risperidal 1mg hs. Clinician( [phone]). MAJOR DEPRESSIVE D/O Bunion of great [...] 56 06/26/2016 8:55 AM EST Temperature 36.7 C (98 F) 06/26/2016 8:55 AM EST Respiratory Rate 12 06/26/2016 8:55 AM EST Oxygen Saturation - - Inhaled Oxygen Concentration - - Weight 89.8 kg (198 lb) 06/26/2016 8:55 AM EST Height 165.1 cm (5' 5 ) 03/31/2016 9:13 AM EDT Body Mass Index 32.95 03/31/2016 9:13 AM EDT Plan of Treatment Not on file Insurance [facility] Care Teams Water Taxi Operator Relationship Specialty Start Date End Date Sheila Slater PA-C [address] [place] [address] PCP - General 07/27/18
== END 2025-03-27 08:42 | disposition home or self-care (01) ==
LOC: HO.MAMMO 08:41
PROVIDERS: PCP Internal Medicine; Visit Provider Internal Medicine
DX: Z12.31 Encounter for screening mammogram for malignant neoplasm of breast (principal)
CPT/HCPCS: 77063; 77067

== ENCOUNTER → 2025-03-27 08:45 | Outpatient (BNV) | payer OTHER, SELFPAY | PROVIDERS: PCP Internal Medicine; Visit Provider Internal Medicine | DX: Z12.31 Encounter for screening mammogram for malignant neoplasm of breast (principal) | CPT/HCPCS: 77063; 77067 ==

== ENCOUNTER 2025-03-27 09:19 | Outpatient (AMB) | payer OTHER, SELFPAY ==
[2025-03-27 09:21] VITALS: BP 88/60; PULSE 62; O2SAT 97; BMI 27.3
--- NOTE | 2025-03-27 09:21 | MHC.OFFVIS ---
Vital Signs 03/27/25 09:21 Height 5 ft 6 in Weight 169 lb BMI 27.3 BP 88/60 L Blood Pressure Location Rt brachial Position Sitting Pulse 62 Pulse Source Pulse Oximeter Pulse Oximetry (%) 97 Oxygen Delivery Method Room Air Intake Visit Reasons: 6 mo f/u Intake Note: ESTABLISHED PATIENT for mgmt of GERD + CIC. Chief Complaint; C.O. wanting to review status of hiatal hernia. Pt denies any new GI sx or concerns but wants to make sure that no additional measures are required at this time. Confirms that her current therapies are working as intended. Cotton Factor Required: Yes Cotton Factor Services: Cotton Factor Present Cotton Factor Name: Gallo [id number] Jasmina Blair Information Interpreted: clinical only Accompanied by: Self / Same As Patient Allergies clams Allergy (Severe, Verified 03/27/25 09:27) Anaphylaxis HPI HPI 6 mo f/u: Details: LAST VISIT: GERD (gastroesophageal reflux disease) Schatzki's ring Esophagitis Constipation Plan Can you pantoprazole daily. Continue avoiding dietary triggers and late night snacking. Staying upright for minimum 3 hours after meals discussed with patient. Patient will continue taking senna. Increase fluid intake and activity to promote better bowel motility. Patient will follow-up in our office in 6 months, sooner on as needed basis. She is agreeable to this plan and verbalizes understanding of instructions. She was given the opportunity to ask questions and all questions answered. ? Thank you for allowing me to participate in her care Refilled pantoprazole take one tablet half an hour before breakfast 40 mg PO DAILY 90 tabs 2RF K21.9 sennosides (Natural Senna Laxative) 8.6 mg PO BEDTIME 90 tabs 3RF constipation K59.00 TODAY'S VISIT: Patient is here today for follow-up. Patient reports that she has been doing fairly well in the past few months. She is taking pantoprazole every morning. Reports that her symptoms are suppressed. Patient no longer is having epigastric pain or reflux. She also tried changing some of her diet and is eating healthier. Patient reports that she is moving her bowels daily uses senna daily or as needed. Patient reports no dyspepsia, dysphagia or odynophagia. Denies any melena, hematochezia, unintentional weight loss or ribbon like stools. Patient denies any GI concerning symptoms today. Patient reports that she is still following up with weight management for weight checks and is doing fairly well even though she feels like she gains some weight since last year. [facility] Medical History Syncope Osteoarthritis, knee GERD with esophagitis Acute anemia Vitamin D deficiency Nephrolithiasis Left peroneal nerve palsy Unstable gait Lichen simplex chronicus Skin tag Mitral valve prolapse Vitamin B12 deficiency DJD (degenerative joint disease) Heel pain, bilateral Lumbago with sciatica, right side Right radial head fracture Dysplasia of cervix, low grade (GIL 1) HPV test positive Mixed dyslipidemia Depression with anxiety Hiatal hernia Surgical History S/P laparoscopic sleeve gastrectomy History of endoscopy H/O liposuction of abdomen (~12/2022) History of repair of hiatal hernia Hx of colonoscopy Status post breast reduction H/O arthroscopy of right knee History of section History of appendectomy History of tubal ligation Family History Father No problems noted. Mother No problems noted. Son Bipolar disorder Mental health disorder Daughter No problems noted. Social History Housing: Apartment Are you a primary home care companion to a significant other at home: No Do you presently have visiting nurse or other home services: No Alcohol intake: current Alcohol intake frequency: holidays/special occasions only Comment: wears knee brace at times Patient Tobacco Use Status: Former Tobacco user Tobacco use type: Cigarette Cigarettes Per Day: 5 e-Cigarette/Vaping Use: Never Used service: No Current occupational status: disabled Cognitive needs: No Hearing needs: No Vision needs: No Female Reproductive History Menstrual Age of Menarche: 12 Review of Systems Const Denies weight gain and Denies weight loss ENT Reports no additional complaints, Denies dysphagia and Denies odynophagia Card Reports no additional complaints Resp Reports no additional complaints GI Denies abdominal pain, Denies belching, Denies melena, Denies bloating, Denies change in bowel habits, Reports constipation, Denies dysphagia, Denies excessive flatus, Denies dyspepsia, Denies heartburn, Denies diarrhea, Denies loose stools, Denies nausea, Denies odynophagia and Denies vomiting Reports no additional complaints Musc Reports no additional complaints Neuro Reports no additional complaints Psych Reports no additional complaints Endo Reports no additional complaints Physical Exam Vital Signs: Last Vital Signs Pulse 62 03/27/25 09:21 BP 88/60 L 03/27/25 09:21 Pulse Ox 97 03/27/25 09:21 Oxygen Delivery Method Room Air 03/27/25 09:21 BMI result Body Mass Index 27.3 Const General: healthy appearing, no acute distress and well developed Nutritional Appearance: well nourished Orientation/consciousness: patient oriented x3 Resp Effort & Inspection: normal respiratory effort, able to speak in complete sentences, no tracheal deviation and symmetric chest movement Auscultation: clear to auscultation bilaterally Cardio Rate: regular rate GI Inspection: Yes normal to inspection and No distended Palpation (GI): Soft to palpation, not firm, nontender and No hepatosplenomegaly present Auscultation: normal bowel sounds General: Yes no CVA tenderness Back/Spine/Pelvis Back: no CVA tenderness Skin General skin exam: elasticity normal, turgor normal and dry skin Neuro General: patient oriented x3 Psych Appearance: grossly normal Mental Status: mental status grossly normal Assessment & Plan Assessment & Plan (1) GERD with esophagitis: Code(s): K21.00 - Gastro-esophageal reflux disease with esophagitis, without bleeding Category: Medical Qualifiers: Esophagitis bleeding: without hemorrhage Qualified Code(s): K21.00 - Gastro-esophageal reflux disease with esophagitis, without bleeding (2) Constipation: Code(s): K59.00 - Constipation, unspecified Qualifiers: Constipation type: slow transit constipation Qualified Code(s): K59.01 - Slow transit constipation (3) Postprandial abdominal bloating: Code(s): R14.0 - Abdominal distension (gaseous) (4) Postprandial epigastric pain: Code(s): R10.13 - Epigastric pain Plan Patient will continue current treatment with pantoprazole. Continue avoiding dietary triggers and late night snacking. Smaller meals and more often. Patient will continue taking senna. Increase fluid intake and activity to promote better bowel motility. Patient will follow-up in the office in 6 months. Patient was encouraged to call us if she will have any GI concerning symptoms. She is agreeable to this plan and verbalizes understanding of instructions. She was given the opportunity to ask questions and all questions answered. Thank you for allowing me to participate in her care Coding Level of Care Code Est Pt Level 4 (67315) Complex EM visit Add On G2211 Diagnoses Gastroesophageal reflux disease with esophagitis without hemorrhage K21.00 Esophagitis bleeding: without hemorrhage Slow transit constipation K59.01 Constipation type: slow transit constipation Postprandial abdominal bloating R14.0 Postprandial epigastric pain R10.13 Time Spent (min) 35 Comment 25 minutes spent with patient and additional 10 minutes spent reviewing her records
--- OUTSIDE RECORDS SUMMARY | 2025-03-27 10:18 | XMS_ITS | Clinical Summary ---
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
--- OUTSIDE RECORDS SUMMARY | 2025-03-27 10:19 | XMS_ITS | Data Portability ---
[facility] Address [address] [place] [phone] Care Team Providers Care Repossession Agent Name Role Phone HIM CCA OTHER RYAN GAMBINO Primary Care Provider Assessment No assessment recorded. Plan of Treatment Reminders Order Date Submit Date Provider Last Modified By Organization Details Last Modified Time Details Appointments None recorded. Lab rapid flu (A+B) 2024 025 [facility], [address] [place] [address], [id number] 21:31:04 rapid SARS CoV 2 Ag, QL [place], respiratory specimen 2024 025 [facility], [address] [place] [address], [id number] 21:31:05 Referral None recorded. Procedures None recorded. Surgeries None recorded. Imaging None recorded. Medication Orders None recorded. Patient TargetsNo targets recorded. Patient InstructionsNo instructions recorded. Reason for Referral None Reported. Results Created Date Observation Date Name Description Value Unit Range Abnormal Flag Note LastModifiedBy Organization Detail LastModifiedTime Result Notes None recorded. Medical Equipment None Reported. Allergies No known drug allergies Medications Name Sig Start Date Stop Date Status Note LastModified by Organization Details LastModified Time buspirone 5 mg tablet TAKE 1 TABLET BY MOUTH THREE TIMES A DAY active Not Available Not Available Not Available lamotrigine 150 mg tablet TAKE 1 TAB IN THE MORNING 2 TABS AT BEDTIME active Not Available Not Available No t Available prazosin 1 mg capsule TAKE 1 CAPSULE BY MOUTH EVERYDAY AT BEDTIME active Not Available Not Available No t Available senna 8.6 mg tablet TAKE 1 TABLET ORALLY BEDTIME FOR CONSTIPATIO N active Not Available Not Available No t Available sertraline 100 mg tablet TAKE 2 TABLETS BY MOUTH EVERY DAY IN THE MORNING active Not Available Not Available No t Available metronidazol e 500 mg tablet active Not Available Not Available Not Available oxycodone-ac etaminophen 5 mg-325 mg tablet TAKE 1 TABLET BY MOUTH EVERY 6 HOURS NEEDED FOR PAIN active Not Available Not Available No t Available trazodone 100 mg tablet TAKE 1 TABLET BY MOUTH EVERYDAY AT BEDTIME active Not Available Not Available No t Available imiquimod 5 % topical cream packet APPLY TOPICALLY 3 TIMES A WEEK FOR 16 WEEKS active Not Available Not Available No t Available pantoprazole 40 mg tablet,delay ed release TAKE 1 TABLET BY MOUTH 30 MINS BEFORE BREAKFAST active Not Available Not Available No t Available pyridoxine (vitamin B6) 50 mg tablet 100 MG ORALLY DAILY FOR 90 DAYS active Not Available Not Available No t Available bisacodyl 5 mg tablet,delay ed release TAKE 4 TABLETS BY MOUTH ONCE AT NOON THE DAY BEFORE COLONOSCOPY active Not Available Not Available Not Available pyridoxine (vitamin B6) 100 mg tablet TAKE 1 TABLET BY MOUTH EVERY DAY active Not Available Not Available No t Available ibuprofen 600 mg tablet active Not Available Not Available Not Available ondansetron 4 mg disintegrati ng tablet TAKE 1 TABLET BY MOUTH EVERY 6 HOURS NEEDED FOR NAUSEA/VOMI TING active Not Available Not Available No t Available clotrimazole 1 % topical cream APPLY TOPICALLY 2 TIMES A DAY NEEDED FOR RASH active Not Available Not Available No t Available amoxicillin 875 mg-potassium clavulanate 125 mg tablet TAKE 1 TABLET BY MOUTH TWICE A DAY active Not Available Not Available No t Available buspirone 15 mg tablet TAKE 1 TABLET BY MOUTH THREE TIMES A DAY active Not Available Not Available Not Available bupropion HCl XL 300 mg 24 hr tablet, extended release TAKE 1 TABLET BY MOUTH EVERY DAY IN THE MORNING active Not Available Not Available No t Available bupropion HCl XL 150 mg 24 hr tablet, extended release TAKE 1 TABLET BY MOUTH EVERY DAY IN THE MORNING active Not Available Not Available No t Available nitrofuranto in monohydrate/ macrocrystal s 100 mg capsule 100 MG ORALLY EVERY 12 HOURS FOR 7 DAYS MUST ADMINISTER WITH A MEAL/FOOD active Not Available Not Available No t Available Gavilax 17 gram/dose oral powder MIX CONTENTS OF BOTTLE WITH WATER AND DRINK DIRECTED PPER GASTROENTER OLOGY active Not Available Not Available No t Available Vitals Date Recorded Body temperature Oxygen saturation Oxygen saturation in Arterial blood by Pulse oximetry Heart rate Body height Body weight Respiratory rate Systolic And Diastolic Provider Name and Address Organization Details Last Updated DateTime 5 99.3 [degF] 96 % 96 % 74 /min 167.64 cm 24424.6 4 g 18 /min 98/60 mm[Hg] Not Available [facility] - production 20:34:12 Social History None recorded. Functional Status None recorded. Mental Status None recorded. Family History Nothing Reported. Medical History No medical history recorded. Gynecological HistoryNo gynecological history recorded. Obstetrics History GPAL:G 0 P 0 0 0 0 Past Encounters Encounter ID Performer Location Encounter Start Date Encounter Closed Date Diagnosis/Indication Diagnosis SNOMED-CT Code Diagnosis ICD10 Code Diagnosis IMO Codes Diagnosis Note [id number] Hannah Bacon MD [facility] ED Medical [facility] [address] [place] [address] 03/08/2025 20:34:09 03/08/2025 22:23:45 Viral upper respiratory tract infection 520776053 J06.9 [id number] 54 year old female being evaluated for 6 days of cough, congestion and body pains. Patient reports no dyspnea, feels a bit feverish, taking over the counter medication s to help. Eating and drinking normally. Exam notable for normal vital signs, clear lungs. POC flu and covid are negative. Presentati on consistent with uncomplica sheri viral URI, recommend continued supportive care and reassuranc e. FU if worsening symptoms in the coming days. I have reviewed and agree with the assessment and plan as documented by the equipment tech. I provided real-time medical direction for this encounter and was immediatel y available to provide additional phone-base d assistance as needed. We discussed the diagnostic uncertaint y of home visits and associated risks. We discussed the need to seek care urgently/e mergently in the setting of any new or worsening symptoms. Health Concerns Section Related Observation LastModified by Organization Detai ls LastModified Time None Recorded Concern Status LastModified by Organization Details LastModified Time None Recorded Advance Directives Directive None Recorded Payers Insurance Date Sequence Insurance Name Policy Number Policy Diaz Covered Member ID Diaz Member ID Guarantor Name 03/08/2025 1 [facility] - DOS ON OR AFTER 2022 - DUAL ELIGIBLE - [facility] OPT[employer] AND ONE [employer] (MEDICARE REPLACEMENT/ADV ANTAGE - HMO) [employer] [id number] [employer] Notes Date Note Type Note Provider Name and Address Organization Details Recorded Time 03/08/2025 text/html [facility] Nurse Triage Notes (Marjorie Coy): Reason For Request: body aches/headache/fev er Patient Reports: Cough, fever greater than 2 days ; Sputum increase ; Cough; Shortness of breath with exertion Denies: Increased work of breathing/labored with or without fever Unable to speak in full sentences without distress Discoloration of skin -cyanosis Needs to sleep sitting up, can t catch breath Shortness of breath in setting of confusion History of asthma, increased use of inhaler COPD Pain with inspiration Chief Complaints: Headache, Fever PMH: Depression, Anxiety Disorder PMH Reviewed at 03/08/2025 - :53 Allergies Reviewed at 03/08/2025:53 Comments: 54 y.o female complains of Headache, Fever Call completed with translator and interpreter. Pt c/o headaches, body aches, nasal congestion, and cough. She has had the symptoms since yesterday. She has green/yellow sputum. She is having some shortness of breath. She currently does not have shortness of breath, she does not have asthma or copd. She is feeling weak. She took tylenol and emergency C I provided information on the mobile health provider response time and advised the patient and/or caregiver to monitor reported signs and symptoms. I discussed the warning signs of when to seek emergency care. Fish [employer]cher Organization Information for Marietta Sandoval Business Legal Name: [employer]. Address: [address] [place] [address], Civil Preparedness Training Officer: Chidi Gentile MD [place] No.: [id number] [employer] POC Test Results from [facility]etta Sandoval Rapid COVID antigen (20:33:06) COVID: - Rapid influenza antigen (20:33:07) Flu: - .................. .................. .................. .................. .................. .................. .................. ............... Fish Butcher Note From Marietta Sandoval: Sent to a call for a pt complaining of URI symptoms. SC8 arrives on scene, pt is alert and oriented, airway is patent. Pt complains of headache, runny nose w/yellow/green mucus, productive cough w/yellow/green phlegm, intermittent sob (none currently) x 6 days. Pt also complains of feeling feverish w/chills x 2 days. Pt denies dizziness, sob, cp, n/v/d, abd pain, or loc. BP:98/60 (normal for pt), P:74, RR:18, SpO2:96% RA, T:99.3; Head: unremarkable; Lung sounds: clear bilaterally; Abdomen: soft, non-tender, no distention; Back: unremarkable; Extremities: unremarkable; Skin: pink, warm, dry; Pt has been using Tylenol, Emergen C, and cough/cold medication. Pt has been eating/drinking normally. Rapid covid/flu test: neg; [facility] consulted and pt is advised to continue symptomatic treatment and pt advised symptoms might linger for a total of 10 days or more. Pt advised to follow up with PCP if symptoms persist. Red flags discussed. Pt has no further questions. [facility] Lab Orders: rapid flu (A+B): Performed rapid SARS CoV 2 Ag, QL [place], respiratory specimen: Performed .................. .................. .................. .................. .................. .................. .................. ............... [facility] Consulted: Hannah Bacon .................. .................. .................. .................. .................. .................. .................. ............... Disposition: Fulfilled Rosaline Mcdonald MD [address] [place] [address],[address], [place], [address], [employer], [facility] 03/16/2025 13:17:20 OBGyn Episode No OBEpisode recorded.
== END 2025-03-27 09:51 | disposition home or self-care (01) ==
LOC: HO.HGI 09:19
PROVIDERS: PCP Internal Medicine; Visit Provider Nurse Practitioner Family
DX: K21.00 Gastro-esophageal reflux disease with esophagitis, without bleeding (principal); K59.01 Slow transit constipation; R14.0 Abdominal distension (gaseous); R10.13 Epigastric pain
CPT/HCPCS: 99214; G2211

== ENCOUNTER 2025-05-01 14:43 | Outpatient (AMB) | payer OTHER, SELFPAY ==
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
[2025-05-01 15:13] VITALS: BP 102/72; BMI 27.4
--- OUTSIDE RECORDS SUMMARY | 2025-05-01 18:01 | XMS_ITS | Clinical Summary ---
Author Organization [facility] ity Address [address] [place] [phone] Care Team Providers Care Natural Resource Specialist Name Role Phone Leatha Donis MD [...] Depression Screening 06/01/2024 COVID-19 Vaccine (1 - 2024-2 6 season) 2025 Influenza Vaccine (#1) 2025 RSV [...] Documents on File Type Date Recorded Patient Kelp Or Seagrass Gatherer Expl anation Health Care Decision (hx) 09/14/2014 AD BRENNAN DIRECTIVE Health Care Decision (hx) 09/14/2014 AD BRENNAN DIRECTIVE Health Care Decision (hx) 09/14/2014 AD BRENNAN DIRECTIVE Health Care Decision (hx) 09/14/2014 AD BRENNAN DIRECTIVE Health Care Decision (hx) 09/14/2014 AD BRENNAN DIRECTIVE Care Teams Natural Resource Specialist Relationship Specialty Start Date End Date Leatha Donis MD [address] Formerly [facility] [place] [address] PCP - General Internal Medicine 08/29/21
--- OUTSIDE RECORDS SUMMARY | 2025-05-01 18:01 | XMS_ITS | Continuity of Care Document ---
Author Organization [facility] Address [address] [place] [phone] Care Team Providers Care Protective Officer Name Role Phone HIM CCA OTHER RYAN GAMBINO Primary Care Provider Assessment No assessment recorded. Plan of Treatment Reminders Order Date Submit Date Provider Last Modified By Organization Details Last Modified Time Details Appointments None recorded. Lab rapid flu (A+B) 2024 025 [facility], [address] [place] [address], [phone] 21:31:04 rapid SARS CoV 2 Ag, QL IA, respiratory specimen 2024 025 [facility], [address] [place] [address], [phone] 21:31:05 Referral None recorded. Procedures None recorded. [...] Vitals Date Recorded Body temperature Oxygen saturation Heart rate Body height Body weight Respiratory rate Systolic And Diastolic Provider Name and Address Organization Details Last Updated DateTime 5 99.3 [degF] 96 % 74 /min 167.64 cm 55663.6 4 g 18 /min 98/60 mm[Hg] Not [...] ICD10 Code Diagnosis IMO Codes Diagnosis Note [id number] Hannah Bacon MD [facility] ED Medical [facility] [address] [place] [address] 03/08/2025 20:34:09 03/08/2025 22:23:45 Viral upper respiratory tract infection [id number] J06.9 [id number] 54 year old female being evaluated for [...] assessment and plan as documented by the oil and gas well treatment operator. I provided real-time medical direction for this [...] by Organization Details LastModified Time None Recorded Payers Encounter Date Sequence Insurance Name Policy Number Policy Diaz Covered Member ID Diaz Member ID Guarantor Name 03/08/2025 1 [facility] - DOS ON OR AFTER 2022 - DUAL ELIGIBLE - [facility] OPTIONS AND ONE CARE (MEDICARE REPLACEMENT/ADV ANTAGE - HMO) Yamilex Riggs [id number] Yamilex Riggs Notes Date Note Type Note [...] complains of Headache, Fever Call completed with ski lift operator. Pt c/o headaches, body aches, nasal congestion, [...] signs of when to seek emergency care. Weigher And Crusher Organization Information for Marietta Sandoval Business Legal Name: [employer]. Address: [address] [place] [address], Creative Services Writer: Chidi Gentile MD CLIA No.: [id number] Weigher And Crusher POC Test Results from Marietta Sandoval Rapid COVID antigen (20:33:06) COVID: - Rapid influenza antigen (20:33:07) Flu: - .................. .................. .................. .................. .................. .................. .................. ............... Weigher And Crusher Note From Marietta Sandoval: Sent to a [...] been eating/drinking normally. Rapid covid/flu test: neg; [facility] consulted and pt is advised to continue symptomatic treatment and pt advised symptoms might linger for a total of 10 days or more. Pt advised to follow up with PCP if symptoms persist. Red flags discussed. Pt has no further questions. [facility] Lab Orders: rapid flu (A+B): Performed rapid SARS CoV 2 Ag, QL IA, respiratory specimen: Performed .................. .................. .................. .................. .................. .................. .................. ............... [facility] Consulted: Hannah Bacon .................. .................. .................. .................. .................. .................. .................. ............... Disposition: Fulfilled Rosaline Mcdonald MD [address] [place] [address],[facility], [place], [phone], [employer], [facility] 03/16/2025 13:17:20 OBGyn Episode No OBEpisode recorded.
--- OUTSIDE RECORDS SUMMARY | 2025-05-01 18:01 | XMS_ITS | Data Portability ---
Author Organization [facility] Address [address] [place] [phone] Care Team Providers Care Lithographic Photographer Apprentice Name Role Phone HIM CCA OTHER RYAN GAMBINO Primary Care Provider Assessment No assessment recorded. Plan of Treatment Reminders Order Date Submit Date Provider Last Modified By Organization Details Last Modified Time Details Appointments None recorded. Lab rapid flu (A+B) 2024 025 [facility], [address] [place] [address], [phone] 21:31:04 rapid SARS CoV 2 Ag, QL IA, respiratory specimen 2024 025 [facility], [address] [place] [address], [phone] 21:31:05 Referral None recorded. Procedures None recorded. [...] [degF] 96 % 74 /min 167.64 cm 15180.6 4 g 18 /min 98/60 mm[Hg] Not [...] ICD10 Code Diagnosis IMO Codes Diagnosis Note [id number] Hannah Bacon MD [facility] ED Medical [facility] [address] [place] [address] 03/08/2025 20:34:09 03/08/2025 22:23:45 Viral upper respiratory tract infection [id number] J06.9 [id number] 54 year old female being evaluated for [...] assessment and plan as documented by the fiber technologist. I provided real-time medical direction for this [...] Diaz Member ID Guarantor Name 03/08/2025 1 [facility] - DOS ON OR AFTER 2022 - DUAL ELIGIBLE - [employer] OPTIONS AND ONE CARE (MEDICARE REPLACEMENT/ADV ANTAGE - HMO) Yamilex Riggs [id number] Yamilex Riggs Notes Date Note Type Note [...] PMH: Depression, Anxiety Disorder PMH Reviewed at 03/08/2025:53 Allergies Reviewed at 03/08/2025:53 Comments: 54 y.o female complains of Headache, Fever Call completed with edging supervisor. Pt c/o headaches, body aches, nasal congestion, [...] signs of when to seek emergency care. Engraved Roller Inspector Organization Information for Marietta Sandoval Business Legal Name: [employer]. Address: [address] [place] [address], Wound Care Coordinator: Chidi Gentile MD CLIA No.: [id number] Engraved Roller Inspector POC Test Results from Marietta Sandoval Rapid COVID antigen (20:33:06) COVID: - Rapid influenza antigen (20:33:07) Flu: - .................. .................. .................. .................. .................. .................. .................. ............... Engraved Roller Inspector Note From Marietta Sandoval: Sent to a [...] been eating/drinking normally. Rapid covid/flu test: neg; [facility] consulted and pt is advised to continue symptomatic treatment and pt advised symptoms might linger for a total of 10 days or more. Pt advised to follow up with PCP if symptoms persist. Red flags discussed. Pt has no further questions. [facility] Lab Orders: rapid flu (A+B): Performed rapid SARS CoV 2 Ag, QL IA, respiratory specimen: Performed .................. .................. .................. .................. .................. .................. .................. ............... [facility] Consulted: Hannah Bacon .................. .................. .................. .................. .................. .................. .................. ............... Disposition: Fulfilled Rosaline Mcdonald MD [address] [place] [address],[address], [place], [phone], [employer] 03/16/2025 13:17:20 OBGyn Episode No OBEpisode recorded.
== END 2025-05-02 16:13 | disposition home or self-care (01) ==
LOC: HO.HWSM 14:43
PROVIDERS: PCP Internal Medicine; Visit Provider Advanced Practice Midwife
DX: Z01.419 Encounter for gynecological examination (general) (routine) without abnormal findings (principal); L91.8 Other hypertrophic disorders of the skin; Z12.39 Encounter for other screening for malignant neoplasm of breast; Z11.3 Encounter for screening for infections with a predominantly sexual mode of transmission
CPT/HCPCS: 99396; 99459

== ENCOUNTER 2025-05-01 15:00 | Outpatient (REF) | payer OTHER, SELFPAY ==
--- OUTSIDE RECORDS SUMMARY | 2025-05-02 14:18 | XMS_ITS | Clinical Summary ---
Author Organization [facility] ity Address [address] [place] [phone] Care Team Providers Care Handicraft Or Hobby Shop Manager Name Role Phone Leatha Donis MD Primary [...] 2) 2020 Depression Screening 06/01/2024 COVID-19 Vaccine ( - 2024-2 6 season) 2025 Influenza Vaccine [...] Documents on File Type Date Recorded Patient Bricklayer Helper Expl anation Health Care Decision (hx) 09/14/2014 AD BRENNAN DIRECTIVE Health Care Decision (hx) 09/14/2014 AD BRENNAN DIRECTIVE Health Care Decision (hx) 09/14/2014 AD BRENNAN DIRECTIVE Health Care Decision (hx) 09/14/2014 AD BRENNAN DIRECTIVE Health Care Decision (hx) 09/14/2014 AD BRENNAN DIRECTIVE Care Teams Handicraft Or Hobby Shop Manager Relationship Specialty Start Date End Date Leatha Donis MD [address] [facility] [place] [address] PCP - General Internal Medicine 08/29/21
[2025-05-02 15:03] LABS: Bacterial Vaginosis PCR POSITIVE (Negative); Candida Group PCR NOT DETECTED (Not Detect); Candida glab krusei PCR NOT DETECTED (Not Detect); Trichomonas vaginalis PCR NOT DETECTED (Not Detect)
[2025-05-02 15:36] LABS: CT PCR NOT DETECTED (Not Detect.); NG PCR NOT DETECTED (Not Detect.)
== END 2025-05-01 15:01 | disposition home or self-care (01) ==
LOC: HO.LNP 15:00
PROVIDERS: Visit Provider Advanced Practice Midwife
DX: Z01.419 Encounter for gynecological examination (general) (routine) without abnormal findings (principal); Z20.2 Contact with and (suspected) exposure to infections with a predominantly sexual mode of transmission; A63.0 Anogenital (venereal) warts; Z11.51 Encounter for screening for human papillomavirus (HPV)
CPT/HCPCS: 81515; 87491; 87591; 87626; 88175

== ENCOUNTER 2025-05-22 08:28 | Outpatient (AMB) | payer OTHER, SELFPAY ==
--- OUTSIDE RECORDS SUMMARY | 2025-05-22 08:40 | XMS_ITS | Patient Health Record ---
Author Organization [facility] on Address [address] [place] [address] Support Name Relationship Address Phone Yamilex Lombardo Guarantor Unknown Allergies No Known Allergies Reason For Referral No Information Medications Medication SIG (Take, Route, Frequency, Duration) Notes Start Date End Date Status diphenhydrAMINE HCl 50 MG/ML Solution DIPHENHYDRAMINE HCL INJECTION Injection Use as directed 7 Active methylPREDNISolone Acetate 40 MG/ML Suspension METHYLPREDNISOLONE INJECTION Injection Use as directed 7 Active Metoclopramide HCl 5 MG/ML Solution METOCLOPRAMIDE HCL INJECTION Injection Use as directed 7 Active RANITIDINE HYDROCHLORIDE INJ Miscellaneous RANITIDINE HYDROCHLORIDE INJ Use as directed *Reorder from Superplayer for eRx and Interaction Alerts* Active Ranitidine HCl 300 MG Tablet Zantac Dispense: 15 Tablet - take 1 tablet by Oral route 1 time per day at bedtime for gastritis Oral Use as directed *Reorder from Superplayer for eRx and Interaction Alerts* Active Benadryl Allergy 25 MG Capsule Benadryl Dispense: 15 cap(s) - take 1-2 capsule by Oral route every 6 hours as needed Refill: 0 Oral Use as directed 7 Active Problems Problem Type SNOMED Code ICD Code Onset Dates Problem Status W/U Status Risk Notes Problem Foodborne botulism (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
--- OUTSIDE RECORDS SUMMARY | 2025-05-22 08:40 | XMS_ITS | Continuity of Care Document ---
Author Organization [facility] Address [address] [place] [id number] Care Team Providers Care Instrument Mechanics Supervisor Name Role Phone HIM CCA OTHER RYAN GAMBINO Primary Care Provider Assessment No assessment recorded. Plan of Treatment Reminders Order Date Submit Date Provider Last Modified By Organization Details Last Modified Time Details Appointments None recorded. Lab rapid flu (A+B) 2024 025 [facility], [address] [place] [address], [id number] 21:31:04 rapid SARS CoV 2 Ag, QL IA, respiratory specimen 2024 025 [facility], [address] [place] [address], [id number] 21:31:05 Referral None recorded. Procedures None recorded. [...] [degF] 96 % 74 /min 167.64 cm 57692.6 4 g 18 /min 98/60 mm[Hg] Not [...] ICD10 Code Diagnosis IMO Codes Diagnosis Note 01800 Hannah Bacon MD [facility] ED Medical [facility] [address] [place] [address] 03/08/2025 20:34:09 03/08/2025 22:23:45 Viral upper respiratory tract infection [id number] J06.9 [id number] 54 year old female being evaluated for [...] assessment and plan as documented by the shellfish shucker. I provided real-time medical direction for this [...] Diaz Member ID Guarantor Name 03/08/2025 1 [facility] - DOS ON OR AFTER 2022 - DUAL ELIGIBLE - CARE HOME OPTIONS AND ONE CARE (MEDICARE REPLACEMENT/ADV ANTAGE - HMO) Yamilex Riggs [id number] Yamilex Riggs Notes Date Note Type Note [...] complains of Headache, Fever Call completed with proration clerk. Pt c/o headaches, body aches, nasal congestion, [...] signs of when to seek emergency care. City Driver Organization Information for Marietta Sandoval Business Legal Name: [employer]. Address: [address] [place] [address], Manufacturing Engineering Technician: Chidi Gentile MD CLIA No.: [id number] City Driver POC Test Results from Marietta Sandoval Rapid COVID antigen (20:33:06) COVID: - Rapid influenza antigen (20:33:07) Flu: - .................. .................. .................. .................. .................. .................. .................. ............... City Driver Note From Marietta Sandoval: Sent to a [...] been eating/drinking normally. Rapid covid/flu test: neg; [facility] consulted and pt is advised to continue symptomatic treatment and pt advised symptoms might linger for a total of 10 days or more. Pt advised to follow up with PCP if symptoms persist. Red flags discussed. Pt has no further questions. [facility] Lab Orders: rapid flu (A+B): Performed rapid SARS CoV 2 Ag, QL IA, respiratory specimen: Performed .................. .................. .................. .................. .................. .................. .................. ............... [facility] Consulted: Hannah Bacon .................. .................. .................. .................. .................. .................. .................. ............... Disposition: Fulfilled Rosaline Mcdonald MD [address] [place] [address],[address] [facility], [place], [address], [employer], [facility] 03/16/2025 13:17:20 OBGyn Episode No OBEpisode recorded.
--- OUTSIDE RECORDS SUMMARY | 2025-05-22 08:40 | XMS_ITS | Clinical Summary ---
Author Organization [facility] Address [id number] [place] [phone] Care Team Providers Care Public Health Technologist Name Role Phone Leatha Donis MD Primary [...] Documents on File Type Date Recorded Patient Buyer Renter Expl anation Health Care Decision (hx) 09/14/2014 AD BRENNAN DIRECTIVE Health Care Decision (hx) 09/14/2014 AD BRENNAN DIRECTIVE Health Care Decision (hx) 09/14/2014 AD BRENNAN DIRECTIVE Health Care Decision (hx) 09/14/2014 AD BRENNAN DIRECTIVE Health Care Decision (hx) 09/14/2014 AD BRENNAN DIRECTIVE Care Teams Public Health Technologist Relationship Specialty Start Date End Date Leatha Donis MD [address] [facility] [place] [address] PCP - General Internal Medicine 08/29/21
--- OUTSIDE RECORDS SUMMARY | 2025-05-22 08:40 | XMS_ITS | Data Portability ---
Author Organization [facility] Address [address] [place] [phone] Care Team Providers Care Wrapper Caser Name Role Phone HIM CCA OTHER RYAN GAMBINO Primary Care Provider Assessment No assessment recorded. Plan of Treatment Reminders Order Date Submit Date Provider Last Modified By Organization Details Last Modified Time Details Appointments None recorded. Lab rapid flu (A+B) 2024 025 [facility], [address] [place] [address], [id number] 21:31:04 rapid SARS CoV 2 Ag, QL IA, respiratory specimen 2024 025 [facility], [address] [place] [address], [id number] 21:31:05 Referral None recorded. Procedures None recorded. [...] [degF] 96 % 74 /min 167.64 cm 41245.6 4 g 18 /min 98/60 mm[Hg] Not [...] ICD10 Code Diagnosis IMO Codes Diagnosis Note [id number] Hannah Bacon MD Main-[facility] ED Medical [facility] [address] [place] [address] 03/08/2025 20:34:09 03/08/2025 22:23:45 Viral upper respiratory tract infection [id number] J06.9 [id number] 54 year old female being evaluated for [...] assessment and plan as documented by the roadmaster. I provided real-time medical direction for this [...] Diaz Member ID Guarantor Name 03/08/2025 1 [facility] - DOS ON OR AFTER 2022 - DUAL ELIGIBLE - SENIOR LIVING OPTIONS AND ONE CARE (MEDICARE REPLACEMENT/ADV ANTAGE - HMO) Yamilex Riggs [id number] Yamilex Riggs Notes Date Note Type Note [...] complains of Headache, Fever Call completed with search and rescue officer. Pt c/o headaches, body aches, nasal congestion, [...] signs of when to seek emergency care. Ic Design Manager Organization Information for Marietta Sandoval Business Legal Name: [employer] Address: [address] [place] [address], Registered Nurse Bone Marrow Transplant: Chidi Gentile MD CLIA No.: [id number] Ic Design Manager POC Test Results from Marietta Sandoval Rapid COVID antigen (20:33:06) COVID: - Rapid influenza antigen (20:33:07) Flu: - .................. .................. .................. .................. .................. .................. .................. ............... Ic Design Manager Note From Marietta Sandoval: Sent to a [...] been eating/drinking normally. Rapid covid/flu test: neg; [facility] consulted and pt is advised to continue symptomatic treatment and pt advised symptoms might linger for a total of 10 days or more. Pt advised to follow up with PCP if symptoms persist. Red flags discussed. Pt has no further questions. [facility] Lab Orders: rapid flu (A+B): Performed rapid SARS CoV 2 Ag, QL IA, respiratory specimen: Performed .................. .................. .................. .................. .................. .................. .................. ............... [facility] Consulted: Hannah Bacon .................. .................. .................. .................. .................. .................. .................. ............... Disposition: Fulfilled Rosaline Mcdonald MD [address] [place] [address],[address], [place], [address], [employer] 03/16/2025 13:17:20 OBGyn Episode No OBEpisode recorded.
--- NOTE | 2025-05-22 08:41 | A.OFFVIS_ITS ---
Vital Signs 05/22/25 08:51 Height 5 ft 6 in Weight 170 lb BMI 27.4 BP 116/70 Intake Visit Reasons: Colposcopy Manager Legal Required: Yes Manager Legal Language: Marketing Effectiveness Manager Services: Manager Legal Present (in person) Manager Legal Name: Samina ESCALONA Information Interpreted: non-clinical & clinical Dog Handler Or Trainer: Dog Handler Or Trainer Present (Samina ESCALONA) Accompanied by: Self / Same As Patient Allergies clams Allergy (Severe, Verified 05/22/25 08:52) Anaphylaxis Post menopausal: Yes HPI Comments Details: Presenting for abnormal Pap smear which showed the following: Satisfactory for evaluation, with atypical squamous cells of undetermined significance (ASC-US). Endocervical glandular cells are not present. Mild inflammation. HPV High Risk: Positive HPV Genotyping 16: Negative HPV Genotyping 18: Negative [facility] Medical History Syncope Osteoarthritis, knee GERD with esophagitis Acute anemia Vitamin D deficiency Nephrolithiasis Left peroneal nerve palsy Unstable gait Lichen simplex chronicus Skin tag Mitral valve prolapse Vitamin B12 deficiency DJD (degenerative joint disease) Heel pain, bilateral Lumbago with sciatica, right side Right radial head fracture Dysplasia of cervix, low grade (GIL 1) HPV test positive Mixed dyslipidemia Depression with anxiety Hiatal hernia Surgical History H/O bilateral breast reduction surgery S/P laparoscopic sleeve gastrectomy History of endoscopy H/O liposuction of abdomen (~12/2022) History of repair of hiatal hernia Hx of colonoscopy Status post breast reduction H/O arthroscopy of right knee History of section History of appendectomy History of tubal ligation Family History Father No problems noted. Mother No problems noted. Son Bipolar disorder Mental health disorder Daughter No problems noted. Social History Housing: Apartment Are you a primary women's health care nurse practitioner to a significant other at home: No Do you presently have visiting nurse or other home services: No Alcohol intake: current Alcohol intake frequency: holidays/special occasions only Comment: wears knee brace at times Patient Tobacco Use Status: Former Tobacco user Tobacco use type: Cigarette Cigarettes Per Day: 5 e-Cigarette/Vaping Use: Never Used service: No Current occupational status: disabled Cognitive needs: No Hearing needs: No Vision needs: No Female Reproductive History Menstrual Age of Menarche: 12 Review of Systems Const All systems reviewed & are unremarkable except as noted in HPI and below Reports as per HPI and Reports no additional complaints GI Reports no additional complaints Reports no additional complaints Physical Exam Vital Signs: Last Vital Signs BP 116/70 05/22/25 08:51 BMI result Body Mass Index 27.4 Office Procedures Colposcopy Colposcopy: Pre-Procedure Counseling: Before beginning the procedure, I conducted comprehensive counseling with the patient. We thoroughly discussed the procedure itself, including its details, alternatives, and all associated risks. This included but not limited to the following complications such as bleeding, infection, and injury to the vagina, bladder, and vessels, as well as the potential need for transfusion with all its associated risks. Subsequently, the patient sign the consent. Pap smear result: Ascus/HPV positive Urine test in office = Negative Procedure: During the procedure, the following steps were performed: A speculum was inserted, and acetic acid was applied. Colposcopy was conducted, allowing visualization of the transformation zone. Acetowhite lesions were identified at the 11+ 12 o'clock position. Cervical biopsies were obtained from the 11+ 12 o'clock position, followed by an endocervical curettage (ECC). Vaginoscopy of the upper vagina revealed no evidence of aceto-white lesions. Hemostasis was achieved using Monsel solution, and the patient tolerated the procedure well. Post-Procedure Instructions: The patient was advised to promptly contact the office or the after hours answering service or go to the emergency room if experiencing a temperature exceeding 100.4?F, abdominal pain, nausea/vomiting, or bleeding. Additionally, the patient was instructed to abstain from vaginal intercourse and bathtub use. The patient confirmed understanding of these instructions. Discharge Instructions: The patient was instructed to schedule a follow-up appointment in 2 weeks for further evaluation and management. Please note that this note was generated using a voice recognition program, and errors may have occurred during lamination operator. [id number] of cervix including upper vagina with biopsy and ECC Procedure code (CPT) selection complete Assessment & Plan Assessment & Plan (1) ASCUS with positive high risk HPV cervical: Comment: 04/2025, ascus + HPV ( neg 16, 18/45) 2018 Pap smear negative/HPV positive biopsy GIL 1 2019 Pap smear negative HPV positive colpo biopsy neg 2019 co testing negative Code(s): R87.610 - Atypical squamous cells of undetermined significance on cytologic smear of cervix (ASC-US); R87.810 - Cervical high risk human papillomavirus ( HPV) DNA test positive Category: Medical Plan: Discussed with the patient the result of her abnormal pap, its significance, risk of progression, persistence, and regression. the false positive/negative rate of a Pap smear as a screening test in detecting cervical cancer and the indication for a diagnostic test -colposcopy, biopsy, endocervical curettage. The patient verbalized understanding and agreed with the plan, all questions answered. Colposcopy, biopsy /ECC done, see procedure note Orders: Orders AMB Colposcopy Today R87.610 - Atypical squamous cells of undetermined significance on cytologic smear of cervix (ASC-US), R87.810 - Cervical high risk human papillomavirus (HPV) DNA test positive Coding Level of Care Code Procedure Only Diagnoses ASCUS with positive high risk HPV cervical R87.610; R87.810 CPT Codes Colposcopy - CPT: 35091-Xuioyvieu of cervix including upper vagina with biopsy and ECC ([id number])
[2025-05-22 08:51] VITALS: BP 116/70; BMI 27.4
== END 2025-05-22 10:00 | disposition home or self-care (01) ==
LOC: HO.HWS 08:29
PROVIDERS: PCP Internal Medicine; Visit Provider Obstetrics & Gynecology
DX: R87.610 Atypical squamous cells of undetermined significance on cytologic smear of cervix (ASC-US) (principal); R87.810 Cervical high risk human papillomavirus (HPV) DNA test positive
CPT/HCPCS: 57454

== ENCOUNTER 2025-05-22 08:28 | Outpatient (REF) | payer OTHER, SELFPAY | END 2025-05-22 08:29 | disposition home or self-care (01) | LOC: HO.LNP 08:28 | PROVIDERS: PCP Internal Medicine; Visit Provider Obstetrics & Gynecology | DX: R87.610 Atypical squamous cells of undetermined significance on cytologic smear of cervix (ASC-US) (principal); R87.810 Cervical high risk human papillomavirus (HPV) DNA test positive | CPT/HCPCS: 57454; 88305 ==

== ENCOUNTER 2025-05-23 14:02 | Outpatient (REF) | payer OTHER, SELFPAY ==
--- NOTE | ~2025-05-23 | US_ITS ---
EXAMINATION(S): 1. MM DIAGNOSTIC DIGITAL BREAST TOMOSYNTHESIS, LEFT 2. TARGETED ULTRASOUND OF THE LEFT BREAST CLINICAL INFORMATION: -History of bilateral reduction mammoplasty. -Callback from screening for left breast findings: 1. Asymmetry in the superior breast anterior depth with questionable architectural distortion on the MLO view, possible correlate in the lateral breast on the CC view. 2. Mass in the retroareolar region middle depth. COMPARISON: Comparison made to multiple prior, most recent March 27, 2025, and most remote March 10, 2017. TECHNIQUE: Digital breast tomosynthesis is performed in full field ML 90 degrees along with computer-aided detection (CAD). Synthesized 2D images are generated from the tomosynthesis. Spot compression tomosynthesis were obtained. FINDINGS: BREAST COMPOSITION: There are scattered areas of fibroglandular density. LEFT BREAST: -Status post reduction mammoplasty. -Focal asymmetry in the upper outer quadrant centered at approximately 3 cm from the nipple partially effaces with spot compression. On today's images, the appearance of the local parenchyma appears similar to prior studies as far back as 2021 and may represent overlapping fibroglandular breast tissue, in this patient status post reduction mammoplasty. Targeted ultrasound was performed at the location of the mammographic finding. The survey throughout the upper outer quadrant did not reveal suspicious sonographic findings. -Approximately 1.0 cm focal asymmetry in the central breast slightly medial at about 9 o'clock position at 5 cm from the nipple persists on today's images (spot MLO 35/70, spot CC 28/65). Targeted ultrasound was performed at the location of the mammographic finding. The survey throughout the 8:00-11:00 axis did not reveal suspicious sonographic correlate. US/US Breast LT Limited Mamm Only IMPRESSION: LEFT BREAST: 1. Focal asymmetry in the upper outer quadrant at approximately 3 cm from the nipple, without sonographic correlate, likely represents overlapping fibroglandular breast tissue in this patient status post reduction mammoplasty. Benign finding. No dedicated imaging follow-up needed. 2. Focal asymmetry in the central breast slightly medial at about 5 cm from the nipple without suspicious sonographic correlate. Probably benign. A 6-month follow-up mammogram is recommended. ASSESSMENT: BI-RADS: Category 3: Probably benign RECOMMENDATION: 6 Month F/U Results were provided to the patient at time of visit by the technologist. This patient's information was entered into a reminder system with a target due date for their next mammogram. Electronically signed by: Mindy Sahni MD 05/23/2025 05:09 PM [facility]ER
--- OUTSIDE RECORDS SUMMARY | 2025-05-23 15:16 | XMS_ITS | Patient Health Record ---
Author Organization [facility] on Address [address] [place] [address] Support Name Relationship Address Phone Yamilex Lombardo Guarantor Unknown [phone] Allergies No Known Allergies Reason For Referral [...] HYDROCHLORIDE INJ Use as directed *Reorder from [employer]ored for eRx and Interaction Alerts* Active Ranitidine HCl 300 MG Tablet Zantac Dispense: 15 Tablet - take 1 tablet by Oral route 1 time per day at bedtime for gastritis Oral Use as directed *Reorder from [employer] for eRx and Interaction Alerts* Active Benadryl Allergy 25 MG Capsule Benadryl Dispense: 15 cap(s) - take 1-2 capsule by Oral route every 6 hours as needed Refill: 0 Oral Use as directed 7 Active Problems Problem Type SNOMED Code ICD Code Onset Dates Problem Status W/U Status Risk Notes Problem 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
--- OUTSIDE RECORDS SUMMARY | 2025-05-23 15:16 | XMS_ITS | Clinical Summary ---
Author Organization [facility] ity Address [address] [place] [phone] Care Team Providers Care Instructional Support Assistant Name Role Phone Leatha Donis MD Primary Care Provider [phone] Social History Tobacco Use Types Packs/Day Years [...] Documents on File Type Date Recorded Patient Grader Tender Expl anation Health Care Decision (hx) 09/14/2014 AD BRENNAN DIRECTIVE Health Care Decision (hx) 09/14/2014 AD BRENNAN DIRECTIVE Health Care Decision (hx) 09/14/2014 AD BRENNAN DIRECTIVE Health Care Decision (hx) 09/14/2014 AD BRENNAN DIRECTIVE Health Care Decision (hx) 09/14/2014 AD BRENNAN DIRECTIVE Care Teams Instructional Support Assistant Relationship Specialty Start Date End Date Leatha Donis MD [address] [facility] [place] [address] PCP - General Internal Medicine 08/29/21
== END 2025-05-23 14:03 | disposition home or self-care (01) ==
LOC: HO.MAMMO 14:02
PROVIDERS: PCP Internal Medicine; Visit Provider Internal Medicine
DX: N64.89 Other specified disorders of breast (principal); N63.20 Unspecified lump in the left breast, unspecified quadrant; Z98.890 Other specified postprocedural states
CPT/HCPCS: 76642; 77061; 77065

== ENCOUNTER → 2025-05-23 14:30 | Outpatient (BNV) | payer OTHER, SELFPAY | PROVIDERS: PCP Internal Medicine; Visit Provider Radiology Body Imaging | DX: R92.8 Other abnormal and inconclusive findings on diagnostic imaging of breast (principal) | CPT/HCPCS: 76642; 77065; G0279 ==